=== PATIENT | female | born 1935 | race African-American/Black ===

== ENCOUNTER → 2017-11-21 | Emergency (ER) | payer MEDICARE, OTHER ==
[~2017-11-21] VITALS: Ht 165.1 cm; Wt 73.5 kg
[~2017-11-21] MED LIST: ACETAMINOPHEN500 M3 ORAL; AMLODIPINE BESY10 MG; ASPIRIN300 MG RECTAL; BENADRYL25 MG ORAL; CLOPIDOGREL75 MG; DEXILANT60 MG; DIOVAN160 MG; DOXAZOSIN MESYLA4 MG; FUROSEMIDE40 MG; GLIMEPIRIDE4 MG; HYDROCODON-ACE1 EA15; ISOSORBIDE MONO60 M1; KIONEX15 GM/601; Ketorolac 30mg Inj IV ONE; LIDODERM700 M1 TOPIC; PLAVIX75 MG ORAL; RALOXIFENE HCL60 MG; RANEXA1000 MG; ULTRA-LIGHT RO1 EACH MC
[2017-11-21 09:19] VITALS: BP 140/75
[2017-11-21 10:04] LABS: BASOPHILS % (AUTO) 1.3 % (0.0-2.0); EOSINOPHILS % (AUTO) 3.5 % (0.0-3.0); HEMATOCRIT 36.2 % (37.0-47.0); HEMOGLOBIN 11.8 G/DL (12.0-16.0); LYMPHOCYTES % (AUTO) 30.5 % (20.0-45.0); MEAN CORPUSCULAR VOLUME 99 FL (80-99); MONOCYTES % (AUTO) 5.9 % (1.0-10.0); NEUTROPHILS % (AUTO) 58.8 % (45.0-75.0); PLATELET COUNT 349 K/UL (150-450); RED BLOOD COUNT 3.67 M/UL (4.20-5.40); RED CELL DISTRIBUTION WIDTH 10.5 % (11.6-14.8)
[2017-11-21 10:13] LABS: ANION GAP 9 mmol/L (5-15); BLOOD UREA NITROGEN 44 mg/dL (7-18); CALCIUM 9.2 MG/DL (8.5-10.1); CARBON DIOXIDE 24 MMOL/L (21-32); CHLORIDE 104 MMOL/L (98-107); CREATININE 2.4 MG/DL (0.55-1.30); POTASSIUM 4.5 MMOL/L (3.5-5.1); SODIUM 137 MMOL/L (136-145)
[2017-11-21 10:14] LABS: INR 0.9 (0.9-1.1)
[2017-11-21 10:27] LABS: ALANINE AMINOTRANSFERASE 20 U/L (12-78); ALBUMIN 4.2 G/DL (3.4-5.0); ALKALINE PHOSPHATASE 105 U/L (46-116); ASPARTATE AMINO TRANSFERASE 18 U/L (15-37); BILIRUBIN,TOTAL 0.4 MG/DL (0.2-1.0); CKMB 1.6 NG/ML (0.0-3.6); CREATINE KINASE 96 U/L (26-308)
--- NOTE | 2017-11-21 11:12 | Emergency Room Report ---
History of Present Illness General Chief Complaint: Multiple Trauma/Fall Source: Patient Present Illness HPI The patient states that she tripped over a wood pallet at [facility] yesterday evening. She states she fell onto her left shoulder. She denies head injury or any other injuries. She has pain in her left shoulder primarily with movement. She denies headache or neck pain. She denies blurry vision. She denies chest pain or shortness of breath. She has no other complaints. Allergies: Coded Allergies: Crab (Verified Allergy, Mild, 05/28/16) Uncoded Allergies: SHELLFISH (Allergy, Unknown, 11/21/17) Patient History Past Medical History: see triage record, DM, other - glaucoma Past Surgical History: other - L. nephrectomy Social History: Denies: smoking, alcohol use, drug use Reviewed Nursing Documentation: PMH: Agreed; PSxH: Agreed Nursing Documentation-PMH Past Medical History: No History, Except For Hx Cardiac Problems: Yes - "blocked arteries," "one kidney" Hx Hypertension: Yes Hx Diabetes: Yes Hx Cancer: No Hx Gastrointestinal Problems: No - Lt kidney removed Hx Neurological Problems: No Hx Dizziness: Yes Review of Systems All Other Systems: negative except mentioned in HPI Physical Exam Vital Signs Date Time Temp Pulse Resp B/P (MAP) Pulse Ox O2 Delivery O2 Flow Rate FiO2 11/21/17 09:01 98.3 75 18 140/75 98 Room Air 98.2 Sp02 EP Interpretation: reviewed, normal General Appearance: no apparent distress, alert, GCS 15, non-toxic Head: normocephalic, atraumatic Eyes: bilateral eye normal inspection, bilateral eye PERRL ENT: hearing grossly normal, normal pharynx, no angioedema, normal voice Neck: full range of motion, supple/symm/no masses Respiratory: chest non-tender, lungs clear, normal breath sounds, no respiratory distress, no retraction, no accessory muscle use, speaking full sentences Cardiovascular #1: regular rate, rhythm, no edema Gastrointestinal: normal bowel sounds, non tender, soft, non-distended, no guarding, no rebound Rectal: deferred Musculoskeletal: back normal, gait/station normal, normal range of motion, other - TTP over the L. shoulder. +pain w/ ROM. No skin findings. No deformity. Neurologic: alert, oriented x3, responsive, motor strength/tone normal, sensory intact, speech normal Psychiatric: judgement/insight normal, memory normal, mood/affect normal, no suicidal/homicidal ideation Skin: normal color, no rash, warm/dry, well hydrated Medical Decision Making Diagnostic Impression: Primary Impression: Contusion ER Course This patient has a shoulder contusion. I did obtain a shoulder x-ray secondary to the patient's trauma. There is no evidence of fracture. There are no other physical exam findings that would make me concerned for other fractures or injuries. The patient was given Toradol and felt much better. The patient has had a history of a left nephrectomy. I'm uncomfortable prescribing this patient Motrin. I will prescribe the patient Tylenol and lidocaine patches. This patient was instructed follow closely with her primary care physician. The patient is given return precautions and follow-up instructions. Laboratory Tests Test 11/21/17 09:45 White Blood Count 5.0 K/UL (4.8-10.8) Red Blood Count 3.67 M/UL (4.20-5.40) L Hemoglobin 11.8 G/DL (12.0-16.0) L Hematocrit 36.2 % (37.0-47.0) L Mean Corpuscular Volume 99 FL (80-99) Mean Corpuscular Hemoglobin 32.0 PG (27.0-31.0) H Mean Corpuscular Hemoglobin Concent 32.4 G/DL (32.0-36.0) Red Cell Distribution Width 10.5 % (11.6-14.8) L Platelet Count 349 K/UL (150-450) Mean Platelet Volume 7.2 FL (6.5-10.1) Neutrophils (%) (Auto) 58.8 % (45.0-75.0) Lymphocytes (%) (Auto) 30.5 % (20.0-45.0) Monocytes (%) (Auto) 5.9 % (1.0-10.0) Eosinophils (%) (Auto) 3.5 % (0.0-3.0) H Basophils (%) (Auto) 1.3 % (0.0-2.0) Prothrombin Time 9.5 SEC (9.30-11.50) Prothrombin Time INR 0.9 (0.9-1.1) PTT 25 SEC (23-33) Sodium Level 137 MMOL/L (136-145) Potassium Level 4.5 MMOL/L (3.5-5.1) Chloride Level 104 MMOL/L (98-107) Carbon Dioxide Level 24 MMOL/L (21-32) Anion Gap 9 mmol/L (5-15) Blood Urea Nitrogen 44 mg/dL (7-18) H Creatinine 2.4 MG/DL (0.55-1.30) H Estimate Glomerular Filtration Rate mL/min (>60) Glucose Level 120 MG/DL (74-106) H Calcium Level 9.2 MG/DL (8.5-10.1) Total Bilirubin 0.4 MG/DL (0.2-1.0) Aspartate Amino Transferase (AST) 18 U/L (15-37) Alanine Aminotransferase (ALT) 20 U/L (12-78) Alkaline Phosphatase 105 U/L (46-116) Total Creatine Kinase 96 U/L (26-308) Creatine Kinase MB 1.6 NG/ML (0.0-3.6) Creatine Kinase MB Relative Index 1.6 Troponin I 0.017 ng/mL (0.000-0.056) Total Protein 8.4 G/DL (6.4-8.2) H Albumin 4.2 G/DL (3.4-5.0) Globulin 4.2 g/dL Albumin/Globulin Ratio 1.0 (1.0-2.7) EKG Diagnostic Results Rate: normal Rhythm: NSR ST Segments: no acute changes Rhythm Strip Diag. Results EP Interpretation: yes Rate: 60's Rhythm: NSR, no PVC's, no ectopy Other X-Ray Diagnostic Results Other X-Ray Diagnostic Results : X-Ray ordered: L. shoulder # of Views/Limited Vs Complete: Complete Indication: Pain EP Interpretation: Yes Interpretation: no dislocation, no soft tissue swelling, no fractures Impression: No acute disease Electronically Signed by: Gricel Last Vital Signs Date Time Temp Pulse Resp B/P (MAP) Pulse Ox O2 Delivery O2 Flow Rate FiO2 11/21/17 10:31 98.2 11/21/17 09:19 18 140/75 98 Room Air 11/21/17 09:01 75 Status: improved Disposition: HOME, SELF-CARE Condition: Improved Referrals: NOT CHOSEN IPA/,REFERRING (PCP) Yashira Iniguez DO Nov 21, 2017 11:12
--- NOTE | 2017-11-21 12:21 | Diagnostic Imaging Report ---
Indication: Pain status post injury Technique: XRAY Shoulder Compl L Comparison: None Findings: No acute fracture or dislocation. Glenohumeral joint preserved. There are some degenerative change of the shoulder and acromioclavicular joint. The left scapula appears somewhat high riding, finding which may be chronic or may be related to positioning. Left lung is grossly clear. No radiopaque foreign body identified. Impression: No evidence of acute fracture or dislocation.
== END | disposition home or self-care (01) ==
LOC: EMR 10:26
DX: S40.012A Contusion of left shoulder, initial encounter (principal); W01.0XXA Fall on same level from slipping, tripping and stumbling without subsequent striking against object, initial encounter; Y92.512 Supermarket, store or market as the place of occurrence of the external cause; I10 Essential (primary) hypertension; E11.9 Type 2 diabetes mellitus without complications; Z91.013 Allergy to seafood
CPT/HCPCS: 36415; 73030; 80053; 82550; 82553; 84484; 85025; 85610; 85730; 93005; 96372; 99283; J1885

== ENCOUNTER 2018-02-01 20:41 | Emergency (ER) | payer MEDICARE, OTHER ==
[~2018-02-01] VITALS: Ht 165.1 cm; Wt 72.6 kg
[~2018-02-01 20:41] MED LIST changes: -Ketorolac 30mg Inj IV ONE
[2018-02-01] MEDS ORDERED: Tylenol #3 tab (300mg/30mg) ORAL ONE (21:45)
[2018-02-01] MEDS ORDERED: ACETAMINOPHEN-1 EAC1 ORAL (22:54)
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
[2018-02-01 23:03] VITALS: BP 148/74
[2018-02-01 23:22] VITALS: BP 148/74
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
== END 2018-02-01 23:24 | disposition home or self-care (01) ==
LOC: EMR 21:49
DX: S16.1XXA Strain of muscle, fascia and tendon at neck level, initial encounter (principal); V43.52XA Car driver injured in collision with other type car in traffic accident, initial encounter; Y92.410 Unspecified street and highway as the place of occurrence of the external cause; E11.9 Type 2 diabetes mellitus without complications; I10 Essential (primary) hypertension
CPT/HCPCS: 72125; 99284

== ENCOUNTER 2019-08-22 22:01 | Inpatient (IN) | payer MEDICARE, OTHER ==
[~2019-08-22] VITALS: Ht 167.6 cm; Wt 64.9 kg
[~2019-08-22 22:01] MED LIST changes: +ACETAMINOPHEN-1 EAC1 ORAL
[2019-08-22 22:07] VITALS: BP 132/74
--- NOTE | 2019-08-22 22:07 | NUR ---
ED Nurse Note: Patient MAME RA29 from home c/o left substernal chest pain and SOB started several hours ago. Per EMS, patient was saturating 70%, NRB mask @15L, was placed, O2 sat 99%. Nitro spray was given user acceptance tester. Afebrile. No travel history. Pt was placed on rigger supervisor.
--- NOTE | 2019-08-22 22:10 | NUR ---
ED Nurse Note: IV line established. Blood specimen collected and sent to lab.
--- NOTE | 2019-08-22 22:12 | Emergency Room Report ---
History of Present Illness General Chief Complaint: Chest Pain Source: Patient Present Illness HPI Patient presents with reports of chest pain initially on further discussion patient appears labored in breathing and appears short of breath asking further patient does report that she has been short of breath as well for the past 2 days Denies any obvious fever denies any recent travel Chest pain is 6 out of 10 and heaviness reports that initially It was 10 out of 10 and improved with nitroglycerin denies any abdominal pain denies any rash Denies any pleurisy denies any cough COVID-19 risk:Contact w/high r: No COVID-19 risk:Travel to affect: No Has patient experienced verduzco: No Allergies: Coded Allergies: Crab (Verified Allergy, Mild, 05/28/16) Uncoded Allergies: SHELLFISH (Allergy, Unknown, 11/21/17) Patient History Past Medical History: see triage record Now: No Reviewed Nursing Documentation: PMH: Agreed; PSxH: Agreed Nursing Documentation-PMH Hx Cardiac Problems: Yes - "blocked arteries," "one kidney" Hx Hypertension: Yes Hx Diabetes: Yes Hx Cancer: No Hx Gastrointestinal Problems: No - Lt kidney removed Hx Neurological Problems: No Hx Dizziness: Yes Review of Systems All Other Systems: negative except mentioned in HPI Physical Exam Vital Signs Date Time Temp Pulse Resp B/P (MAP) Pulse Ox O2 Delivery O2 Flow Rate FiO2 08/22/19 22:02 98.1 66 18 132/74 (93) 99 Non-Rebreather 15.0 Sp02 EP Interpretation: reviewed, normal General Appearance: mild distress - Appears short of breath Head: normocephalic, atraumatic Eyes: bilateral eye PERRL, bilateral eye EOMI ENT: EOM grossly intact, normal pharynx Neck: supple Respiratory: crackles - Laterally, mildly tachypneic Cardiovascular #1: regular rate, rhythm Gastrointestinal: non tender, soft Musculoskeletal: normal inspection Neurologic: alert, oriented x3 Psychiatric: normal inspection Skin: other - Bilateral breast implants visible, bilateral edema, however the right side does appear more edematous on the left at the ankle area Lymphatic: no adenopathy Procedures Critical Care Time Critical Care Time 50 minutes for multiple re-evaluations critical presentation concerning for respiratory failure and possible not including any procedural time Medical Decision Making Diagnostic Impression: Primary Impression: ACS (acute coronary syndrome) Additional Impression: CHF (congestive heart failure) ER Course Patient is a fairly complex patient with multiple differential to consideration including but not limited to cardiac cardiopulmonary and vascular emergencies Patient does have complaints of shortness of breath There has been no obvious sick contact and the patient is afebrile Consideration is also made for covid 19 Patient's BNP is also significantly elevated x-ray also shows congestion and the patient's clinical exam showing congestion All attempts are being made at this time to avoid BiPAP treatment secondary to aerosolization of possible covid 19 However this patient appears to have clinical findings consistent with CHF And laboratory findings confirming this she also remained tachypneic and required BiPAP at this time Patient is isolated in trauma room And admitted for further inpatient care Labs Test 08/22/19 22:13 08/22/19 23:51 White Blood Count 8.3 K/UL (4.8-10.8) Red Blood Count 2.72 M/UL (4.20-5.40) Hemoglobin 9.1 G/DL (12.0-16.0) Hematocrit 28.9 % (37.0-47.0) Mean Corpuscular Volume 106 FL (80-99) Mean Corpuscular Hemoglobin 33.5 PG (27.0-31.0) Mean Corpuscular Hemoglobin Concent 31.6 G/DL (32.0-36.0) Red Cell Distribution Width 12.7 % (11.6-14.8) Platelet Count 262 K/UL (150-450) Mean Platelet Volume 7.9 FL (6.5-10.1) Neutrophils (%) (Auto) 78.7 % (45.0-75.0) Lymphocytes (%) (Auto) 15.0 % (20.0-45.0) Monocytes (%) (Auto) 4.6 % (1.0-10.0) Eosinophils (%) (Auto) 0.8 % (0.0-3.0) Basophils (%) (Auto) 0.9 % (0.0-2.0) Sodium Level 143 MMOL/L (136-145) Potassium Level 5.5 MMOL/L (3.5-5.1) Chloride Level 110 MMOL/L (98-107) Carbon Dioxide Level 23 MMOL/L (21-32) Anion Gap 10 mmol/L (5-15) Blood Urea Nitrogen 35 mg/dL (7-18) Creatinine 2.0 MG/DL (0.55-1.30) Estimat Glomerular Filtration Rate 28.7 mL/min (>60) Glucose Level 150 MG/DL (74-106) Lactic Acid Level 0.90 mmol/L (0.4-2.0) Calcium Level 9.1 MG/DL (8.5-10.1) Total Bilirubin 0.3 MG/DL (0.2-1.0) Aspartate Amino Transf (AST/SGOT) 16 U/L (15-37) Alanine Aminotransferase (ALT/SGPT) 17 U/L (12-78) Alkaline Phosphatase 97 U/L (46-116) Total Creatine Kinase 60 U/L (26-308) Creatine Kinase MB 0.8 NG/ML (0.0-3.6) Creatine Kinase MB Relative Index 1.3 Troponin I 0.010 ng/mL (0.000-0.056) Pro-B-Type Natriuretic Peptide 48899 pg/mL (0-125) Total Protein 7.6 G/DL (6.4-8.2) Albumin 4.0 G/DL (3.4-5.0) Globulin 3.6 g/dL Albumin/Globulin Ratio 1.1 (1.0-2.7) Lipase 70 U/L (73-393) Urine Color Pale yellow Urine Appearance Clear Urine pH 5 (4.5-8.0) Urine Specific [place] 1.005 (1.005-1.035) Urine Protein Negative (NEGATIVE) Urine Glucose (UA) Negative (NEGATIVE) Urine Ketones Negative (NEGATIVE) Urine Blood Negative (NEGATIVE) Urine Nitrite Negative (NEGATIVE) Urine Bilirubin Negative (NEGATIVE) Urine Urobilinogen Normal MG/DL (0.0-1.0) Urine Leukocyte Esterase Negative (NEGATIVE) EKG Diagnostic Results Rate: normal Rhythm: NSR ST Segments: other - Left bundle branch block Rhythm Strip Diag. Results EP Interpretation: yes Rate: 77 Rhythm: NSR, no PVC's, no ectopy Chest X-Ray Diagnostic Results Chest X-Ray Diagnostic Results : Chest X-Ray Ordered: Yes # of Views/Limited/Complete: 1 View Indication: Shortness of Breath Interpretation: no consolidation, no pneumothorax, other - Pulmonary congestion Impression: Other - Pulmonary congestion Electronically Signed by: Carl Mike DO Last Vital Signs Date Time Temp Pulse Resp B/P (MAP) Pulse Ox O2 Delivery O2 Flow Rate FiO2 08/22/19 22:02 98.1 66 18 132/74 (93) 99 Non-Rebreather 15.0 Status: improved Disposition: ADMITTED INPATIENT Condition: Critical Carl Mike DO Aug 22, 2019 22:12
--- NOTE | 2019-08-22 22:33 | NUR ---
ED Nurse Note: Xray at bedside.
--- NOTE | 2019-08-22 22:35 | NUR ---
ED Nurse Note: Pt is placed on venturi mask 14L/min, 55%. Not in any distress, tolerating well.
[2019-08-22 22:40] LABS: BASOPHILS % (AUTO) 0.9 % (0.0-2.0); EOSINOPHILS % (AUTO) 0.8 % (0.0-3.0); HEMATOCRIT 28.9 % (37.0-47.0); HEMOGLOBIN 9.1 G/DL (12.0-16.0); MEAN CORPUSCULAR VOLUME 106 FL (80-99); MONOCYTES % (AUTO) 4.6 % (1.0-10.0); NEUTROPHILS % (AUTO) 78.7 % (45.0-75.0); PLATELET COUNT 262 K/UL (150-450); RED BLOOD COUNT 2.72 M/UL (4.20-5.40); RED CELL DISTRIBUTION WIDTH 12.7 % (11.6-14.8); WHITE BLOOD COUNT 8.3 K/UL (4.8-10.8)
[2019-08-22 22:49] LABS: ANION GAP 10 mmol/L (5-15); BLOOD UREA NITROGEN 35 mg/dL (7-18); CALCIUM 9.1 MG/DL (8.5-10.1); CARBON DIOXIDE 23 MMOL/L (21-32); CHLORIDE 110 MMOL/L (98-107); POTASSIUM 5.5 MMOL/L (3.5-5.1); SODIUM 143 MMOL/L (136-145)
[2019-08-22 23:04] LABS: ALANINE AMINOTRANSFERASE 17 U/L (12-78); ALBUMIN/GLOBULIN RATIO 1.1 (1.0-2.7); ALKALINE PHOSPHATASE 97 U/L (46-116); ASPARTATE AMINO TRANSFERASE 16 U/L (15-37); BILIRUBIN,TOTAL 0.3 MG/DL (0.2-1.0); CKMB 0.8 NG/ML (0.0-3.6); CREATINE KINASE 60 U/L (26-308)
--- NOTE | 2019-08-22 23:20 | NUR ---
ED Nurse Note: Pt is placed on BIPAP per ERMD. Settin/5, FiO2 55%, S/T mode.
--- NOTE | 2019-08-22 23:53 | NUR ---
ED Nurse Note: Urine specimen collected and sent to lab.
[2019-08-23] VITALS (8 sets, daily range): BP systolic 125–149; BP diastolic 63–72
[2019-08-23] LABS: APPEARANCE,URINE CLEAR; BILIRUBIN, URINE NEGATIVE (NEGATIVE); COLOR,URINE PALE YELLOW; GLUCOSE, URINE (UA) NEGATIVE (NEGATIVE); KETONES,URINE NEGATIVE (NEGATIVE); LEUKOCYTE ESTERASE ,URINE NEGATIVE (NEGATIVE); NITRITE,URINE NEGATIVE (NEGATIVE); PH,URINE 5 (4.5-8.0); PROTEIN,URINE NEGATIVE (NEGATIVE); UROBILINOGEN,URINE NORMAL MG/DL (0.0-1.0)
[2019-08-23] MEDS ORDERED: Albuterol/Ipratropium 3ml neb HHN PRN (01:00)
[2019-08-23] MEDS ORDERED: Miralax 17gm pkt ORAL PRN (01:00)
--- NOTE | 2019-08-23 01:15 | NUR ---
TRANSFER TO FLOOR: Patient transferred to SDU. Report given to Hung RAMIREZ. Pt alert and orientedx4, verbally responsive. On BIPAP, tolerating well. Not in any distress. Afebrile. Sinus rhythm. IV line on right hand 22g patent and intact. No skin issues. Medrecon done. Belongings list done. All belongings sent with the patient.
--- NOTE | 2019-08-23 01:16 | NUR ---
Received patient from JAMES Díaz. Patient is aaox4, vss, with no acute distress. Patient is on case monitor, clean and cooperative. Patient states he pain is 0/10 and breathing well after tx. Patient has no skin issues. Bilateral breasts implants from 20 years ago are hard and have always been hard per patient. Patient on Bipap 12/5 Fio2 at 55%. Right hand 22g IV intact and patent. Patient is ambulatory with assistance when toileting. Bed at its lowest position; call light in reach, and x3 bed rails are up. Will continue to monitor.
--- NOTE | 2019-08-23 03:00 | NUR ---
NURSE NOTES: Patient tolerated ambulating to bedside commode with assistance.
--- NOTE | 2019-08-23 07:13 | NUR ---
HAND-OFF: Report given to JAMES Sparks.
[2019-08-23] MEDS: Heparin 5000 units/ml inj SUBQ SCH ×2 (09:00→21:16)
[2019-08-23] MEDS: Docusate 100mg cap ORAL SCH ×2 (10:20→21:14)
[2019-08-23] MEDS ORDERED: Aspirin Baby 81mg ORAL SCH (11:15)
[2019-08-23 11:24] LABS: ANION GAP 12 mmol/L (5-15); BLOOD UREA NITROGEN 33 mg/dL (7-18); CALCIUM 9.3 MG/DL (8.5-10.1); CARBON DIOXIDE 21 MMOL/L (21-32); CHLORIDE 106 MMOL/L (98-107); CREATININE 2.1 MG/DL (0.55-1.30); POTASSIUM 5.1 MMOL/L (3.5-5.1); SODIUM 139 MMOL/L (136-145)
--- NOTE | 2019-08-23 11:27 | History and Physical ---
History of Present Illness General Date patient seen: Aug 23, 2019 Time patient seen: 06:30 Reason for Hospitalization: Chest Pain Present Illness HPI 83 year old woman with history of CAD, HTN, HLD, NIDDM who presented to the ED with complaints of chest pain and short of breath x 2 days associated with LE edema, Denies fever, chills, sick contacts, recent travel out of the area. Chest pain was retrosternal and nonriadting, 03/15, resolved with NTG given in ED. She was given Lasix 60 mg IV and referred for admission for presumed CHF exacerbation and angina. Family Hx: No premature CAD Social Hx: No alcohol or tobacco Allergies: Coded Allergies: Crab (Verified Allergy, Mild, 05/28/16) Uncoded Allergies: SHELLFISH (Allergy, Unknown, 11/21/17) Medication History Scheduled Clopidogrel Bisulfate* (Plavix*), Unknown Dose ORAL DAILY, (Reported) Scheduled PRN Acetaminophen With Codeine (T#3) (Tylenol #3 Tab*), 1 TAB ORAL Q8H PRN for For Pain Aspirin (Aspirin), 300 MG RECTAL DAILY PRN for Mild Pain/Temp > 100.5, (Reported ) Miscellaneous Medications Amlodipine Besylate* (Amlodipine Besylate*), (Reported) Clopidogrel* (Clopidogrel*), (Reported) Dexlansoprazole (Dexilant), (Reported) Doxazosin Mesylate* (Doxazosin Mesylate*), (Reported) Furosemide* (Lasix*), (Reported) Glimepiride* (Glimepiride*), (Reported) Hydrocodone/Acetaminophen 5-325* (Hydrocodone/Acetaminophen 5-325*), (Reported) Isosorbide Mononitrate (Isosorbide Mononitrate Er), (Reported) Raloxifene HCl (Raloxifene HCl), (Reported) Ranolazine (Ranexa), (Reported) Durable Medical Equipment Walker (Ultra-Light Rollator), 1 EACH MC NEEDED PRN, (DME) Patient History Healthcare decision maker Resuscitation status Advanced Directive on File Family History Family History: Patient reports no known family medical history. Review of Systems Constitutional: Denies: chills, fever Respiratory: Denies: cough Cardiovascular: Reports: chest pain, edema; Denies: palpitations, syncope Gastrointestinal: Denies: abdominal pain, diarrhea Genitourinary: Denies: dysuria Musculoskeletal: Denies: back pain Skin: Denies: rash Neurological: Denies: headache Endocrine: Denies: excessive sweating Physical Exam General Appearance: no apparent distress, alert HEENT: atraumatic, anicteric Neck: normal alignment, supple Respiratory/Chest: lungs clear, normal breath sounds, no respiratory distress, no accessory muscle use Cardiovascular/Chest: normal rate, regular rhythm Abdomen: non tender, soft Extremities: non-tender, normal inspection Skin Exam: normal pigmentation, warm/dry Neurologic: truck driver II-XII grossly normal, abnormal gait, alert Last 24 Hour Vital Signs Date Time Temp Pulse Resp B/P (MAP) Pulse Ox O2 Delivery O2 Flow Rate FiO2 08/23/19 08:10 97.7 64 16 149/69 (95) 96 08/23/19 05:11 77 16 98 45 08/23/19 04:00 Bi-pap 08/23/19 04:00 98.1 61 12 140/66 (90) 100 61 08/23/19 04:00 55 08/23/19 04:00 60 08/23/19 02:21 Bi-Pap 08/23/19 02:15 91 15 99 55 08/23/19 02:02 60 08/23/19 01:20 94 17 98 55 08/23/19 01:20 95 18 99 Bi-Pap 55 08/23/19 01:15 98.0 70 19 129/72 100 Bi-pap 14.0 08/23/19 01:15 98.0 70 19 129/72 100 Bi-pap 08/23/19 00:00 97.5 78 17 125/69 100 Bi-pap 14.0 08/22/19 22:07 98.1 66 18 132/74 99 Venturi Mask 14.0 08/22/19 22:07 66 18 Venturi Mask 14.0 08/22/19 22:02 98.1 66 18 132/74 (93) 99 Non-Rebreather 15.0 Intake and Output 08/22/19 08/23/19 19:00 07:00 Output Total 500 ml Balance -500 ml Output Urine Total 500 ml # Voids 4 Laboratory Tests Test 08/22/19 22:13 08/22/19 23:51 08/23/19 03:30 White Blood Count 8.3 K/UL (4.8-10.8) Red Blood Count 2.72 M/UL (4.20-5.40) L Hemoglobin 9.1 G/DL (12.0-16.0) L Hematocrit 28.9 % (37.0-47.0) L Mean Corpuscular Volume 106 FL (80-99) H Mean Corpuscular Hemoglobin 33.5 PG (27.0-31.0) H Mean Corpuscular Hemoglobin Concent 31.6 G/DL (32.0-36.0) L Red Cell Distribution Width 12.7 % (11.6-14.8) Platelet Count 262 K/UL (150-450) Mean Platelet Volume 7.9 FL (6.5-10.1) Neutrophils (%) (Auto) 78.7 % (45.0-75.0) H Lymphocytes (%) (Auto) 15.0 % (20.0-45.0) L Monocytes (%) (Auto) 4.6 % (1.0-10.0) Eosinophils (%) (Auto) 0.8 % (0.0-3.0) Basophils (%) (Auto) 0.9 % (0.0-2.0) Sodium Level 143 MMOL/L (136-145) Pending Potassium Level 5.5 MMOL/L (3.5-5.1) H Pending Chloride Level 110 MMOL/L (98-107) H Pending Carbon Dioxide Level 23 MMOL/L (21-32) Pending Anion Gap 10 mmol/L (5-15) Blood Urea Nitrogen 35 mg/dL (7-18) H Pending Creatinine 2.0 MG/DL (0.55-1.30) H Pending Estimat Glomerular Filtration Rate 28.7 mL/min (>60) Pending Glucose Level 150 MG/DL (74-106) H Pending Lactic Acid Level 0.90 mmol/L (0.4-2.0) Calcium Level 9.1 MG/DL (8.5-10.1) Pending Total Bilirubin 0.3 MG/DL (0.2-1.0) Aspartate Amino Transf (AST/SGOT) 16 U/L (15-37) Alanine Aminotransferase (ALT/SGPT) 17 U/L (12-78) Alkaline Phosphatase 97 U/L (46-116) Total Creatine Kinase 60 U/L (26-308) Creatine Kinase MB 0.8 NG/ML (0.0-3.6) Creatine Kinase MB Relative Index 1.3 Troponin I 0.010 ng/mL (0.000-0.056) 0.030 ng/mL (0.000-0.056) Pro-B-Type Natriuretic Peptide 49904 pg/mL (0-125) H Total Protein 7.6 G/DL (6.4-8.2) Albumin 4.0 G/DL (3.4-5.0) Globulin 3.6 g/dL Albumin/Globulin Ratio 1.1 (1.0-2.7) Lipase 70 U/L (73-393) L Urine Color Pale yellow Urine Appearance Clear Urine pH 5 (4.5-8.0) Urine Specific [place] 1.005 (1.005-1.035) Urine Protein Negative (NEGATIVE) Urine Glucose (UA) Negative (NEGATIVE) Urine Ketones Negative (NEGATIVE) Urine Blood Negative (NEGATIVE) Urine Nitrite Negative (NEGATIVE) Urine Bilirubin Negative (NEGATIVE) Urine Urobilinogen Normal MG/DL (0.0-1.0) Urine Leukocyte Esterase Negative (NEGATIVE) Height (Feet): 5 Height (Inches): 6.00 Weight (Pounds): 171 Medications Current Medications Medications (Trade) Dose Ordered Sig/Floresita Route PRN Reason Start Time Stop Time Status Last Admin Dose Admin Acetaminophen (Tylenol) 650 mg Q4H PRN ORAL Mild Pain (Pain Scale 1-3) 08/23/19 01:00 09/22/19 00:59 Acetaminophen (Tylenol) 650 mg Q4H PRN ORAL fever 08/23/19 01:00 09/22/19 00:59 Albuterol/ Ipratropium (Albuterol/ Ipratropium) 3 ml Q6H PRN HHN Shortness of Breath 08/23/19 01:00 08/28/19 00:59 Dextrose (Dextrose 50%) 25 ml Q30M PRN IV Hypoglycemia 08/23/19 01:00 11/21/19 00:59 Dextrose (Dextrose 50%) 50 ml Q30M PRN IV Hypoglycemia 08/23/19 01:00 11/21/19 00:59 Docusate Sodium (Colace) 100 mg EVERY 12 HOURS ORAL 08/23/19 09:00 09/22/19 08:59 08/23/19 10:20 Furosemide (Lasix) 60 mg BID IV 08/23/19 09:00 09/22/19 08:59 08/23/19 10:20 Heparin Sodium (Porcine) (Heparin 5000 units/ml) 5,000 units EVERY 12 HOURS SUBQ 08/23/19 09:00 10/07/19 08:59 Ondansetron HCl (Zofran) 4 mg Q6H PRN IVP Nausea & Vomiting 08/23/19 01:00 09/22/19 00:59 Polyethylene Glycol (Miralax) 17 gm DAILYPRN PRN ORAL Constipation 08/23/19 01:00 09/22/19 00:59 Assessment/Plan Assessment/Plan: 83 year old woman with CAD, HTN, HLD, NIDDM who presented to the ED with chest pain, dyspnea and LE edema #Angina #History of CAD #suspected acute CHF #HTN #HLD -admit to [facility] -check serial trops -continue IV Lasix diuresis -cont ASA, Plavix, Imdur -Hold Ranexa due to renal dysfunction -check TTE -Cardiology consult regarding possible inpatient stress test -monitor I&O, daily weights -Dietary sodium restriction #Suspected MAY, unknown baseline creat #Hyperkalemia -monitor BMP closely with IV diuresis -Nephrology consulted #NIDDM -hold oral diabetic meds -ISS I spent 70 minutes on this patient's case, and >50% was dedicated to counseling and/or care coordination. Paco Dockery MD Aug 23, 2019 11:27
[2019-08-23] MEDS: NovoLOG Insulin Flexpen SUBQ SCH ×2 (11:30→16:30)
--- NOTE | 2019-08-23 11:43 | Consultation ---
History of Present Illness General Chief Complaint: Chest Pain Present Illness HPI 83 year old woman with history of CAD, HTN, HLD, NIDDM who presented to the ED with complaints of chest pain and short of breath x 2 days associated with LE edema, Denies fever, chills, sick contacts, recent travel out of the area. Chest pain was retrosternal and nonriadting, 03/15, resolved with NTG given in ED. She was given Lasix 60 mg IV and referred for admission for presumed CHF exacerbation and angina. patient with history of R sided nephrectomy many years ago for possible RCC? she doesnt recall her baseline renal function Allergies: Coded Allergies: Crab (Verified Allergy, Mild, 05/28/16) Uncoded Allergies: SHELLFISH (Allergy, Unknown, 11/21/17) Medication History Scheduled Clopidogrel Bisulfate* (Plavix*), Unknown Dose ORAL DAILY, (Reported) Scheduled PRN Acetaminophen With Codeine (T#3) (Tylenol #3 Tab*), 1 TAB ORAL Q8H PRN for For Pain Aspirin (Aspirin), 300 MG RECTAL DAILY PRN for Mild Pain/Temp > 100.5, (Reported ) Miscellaneous Medications Amlodipine Besylate* (Amlodipine Besylate*), (Reported) Clopidogrel* (Clopidogrel*), (Reported) Dexlansoprazole (Dexilant), (Reported) Doxazosin Mesylate* (Doxazosin Mesylate*), (Reported) Furosemide* (Lasix*), (Reported) Glimepiride* (Glimepiride*), (Reported) Hydrocodone/Acetaminophen 5-325* (Hydrocodone/Acetaminophen 5-325*), (Reported) Isosorbide Mononitrate (Isosorbide Mononitrate Er), (Reported) Raloxifene HCl (Raloxifene HCl), (Reported) Ranolazine (Ranexa), (Reported) Durable Medical Equipment Walker (Ultra-Light Rollator), 1 EACH MC NEEDED PRN, (DME) Patient History Healthcare decision maker Resuscitation status Advanced Directive on File Review of Systems All Other Systems: negative except mentioned in HPI Physical Exam Last 24 Hour Vital Signs Date Time Temp Pulse Resp B/P (MAP) Pulse Ox O2 Delivery O2 Flow Rate FiO2 08/23/19 08:10 97.7 64 16 149/69 (95) 96 08/23/19 05:11 77 16 98 45 08/23/19 04:00 Bi-pap 08/23/19 04:00 98.1 61 12 140/66 (90) 100 61 08/23/19 04:00 55 08/23/19 04:00 60 08/23/19 02:21 Bi-Pap 08/23/19 02:15 91 15 99 55 08/23/19 02:02 60 08/23/19 01:20 94 17 98 55 08/23/19 01:20 95 18 99 Bi-Pap 55 08/23/19 01:15 98.0 70 19 129/72 100 Bi-pap 14.0 08/23/19 01:15 98.0 70 19 129/72 100 Bi-pap 08/23/19 00:00 97.5 78 17 125/69 100 Bi-pap 14.0 08/22/19 22:07 98.1 66 18 132/74 99 Venturi Mask 14.0 08/22/19 22:07 66 18 Venturi Mask 14.0 08/22/19 22:02 98.1 66 18 132/74 (93) 99 Non-Rebreather 15.0 Intake and Output 08/22/19 08/23/19 19:00 07:00 Output Total 500 ml Balance -500 ml Output Urine Total 500 ml # Voids 4 Laboratory Tests Test 08/22/19 22:13 08/22/19 23:51 08/23/19 03:30 White Blood Count 8.3 K/UL (4.8-10.8) Red Blood Count 2.72 M/UL (4.20-5.40) L Hemoglobin 9.1 G/DL (12.0-16.0) L Hematocrit 28.9 % (37.0-47.0) L Mean Corpuscular Volume 106 FL (80-99) H Mean Corpuscular Hemoglobin 33.5 PG (27.0-31.0) H Mean Corpuscular Hemoglobin Concent 31.6 G/DL (32.0-36.0) L Red Cell Distribution Width 12.7 % (11.6-14.8) Platelet Count 262 K/UL (150-450) Mean Platelet Volume 7.9 FL (6.5-10.1) Neutrophils (%) (Auto) 78.7 % (45.0-75.0) H Lymphocytes (%) (Auto) 15.0 % (20.0-45.0) L Monocytes (%) (Auto) 4.6 % (1.0-10.0) Eosinophils (%) (Auto) 0.8 % (0.0-3.0) Basophils (%) (Auto) 0.9 % (0.0-2.0) Sodium Level 143 MMOL/L (136-145) 139 MMOL/L (136-145) Potassium Level 5.5 MMOL/L (3.5-5.1) H 5.1 MMOL/L (3.5-5.1) Chloride Level 110 MMOL/L (98-107) H 106 MMOL/L (98-107) Carbon Dioxide Level 23 MMOL/L (21-32) 21 MMOL/L (21-32) Anion Gap 10 mmol/L (5-15) 12 mmol/L (5-15) Blood Urea Nitrogen 35 mg/dL (7-18) H 33 mg/dL (7-18) H Creatinine 2.0 MG/DL (0.55-1.30) H 2.1 MG/DL (0.55-1.30) H Estimat Glomerular Filtration Rate 28.7 mL/min (>60) 27.1 mL/min (>60) Glucose Level 150 MG/DL (74-106) H 135 MG/DL (74-106) H Lactic Acid Level 0.90 mmol/L (0.4-2.0) Calcium Level 9.1 MG/DL (8.5-10.1) 9.3 MG/DL (8.5-10.1) Total Bilirubin 0.3 MG/DL (0.2-1.0) Aspartate Amino Transf (AST/SGOT) 16 U/L (15-37) Alanine Aminotransferase (ALT/SGPT) 17 U/L (12-78) Alkaline Phosphatase 97 U/L (46-116) Total Creatine Kinase 60 U/L (26-308) Creatine Kinase MB 0.8 NG/ML (0.0-3.6) Creatine Kinase MB Relative Index 1.3 Troponin I 0.010 ng/mL (0.000-0.056) 0.030 ng/mL (0.000-0.056) Pro-B-Type Natriuretic Peptide 47505 pg/mL (0-125) H Total Protein 7.6 G/DL (6.4-8.2) Albumin 4.0 G/DL (3.4-5.0) Globulin 3.6 g/dL Albumin/Globulin Ratio 1.1 (1.0-2.7) Lipase 70 U/L (73-393) L Urine Color Pale yellow Urine Appearance Clear Urine pH 5 (4.5-8.0) Urine Specific [place] 1.005 (1.005-1.035) Urine Protein Negative (NEGATIVE) Urine Glucose (UA) Negative (NEGATIVE) Urine Ketones Negative (NEGATIVE) Urine Blood Negative (NEGATIVE) Urine Nitrite Negative (NEGATIVE) Urine Bilirubin Negative (NEGATIVE) Urine Urobilinogen Normal MG/DL (0.0-1.0) Urine Leukocyte Esterase Negative (NEGATIVE) Height (Feet): 5 Height (Inches): 6.00 Weight (Pounds): 171 Medications Current Medications Medications (Trade) Dose Ordered Sig/Floresita Route PRN Reason Start Time Stop Time Status Last Admin Dose Admin Acetaminophen (Tylenol) 650 mg Q4H PRN ORAL Mild Pain (Pain Scale 1-3) 08/23/19 01:00 09/22/19 00:59 Acetaminophen (Tylenol) 650 mg Q4H PRN ORAL fever 08/23/19 01:00 09/22/19 00:59 Albuterol/ Ipratropium (Albuterol/ Ipratropium) 3 ml Q6H PRN HHN Shortness of Breath 08/23/19 01:00 08/28/19 00:59 Amlodipine Besylate (Norvasc) 10 mg DAILY ORAL 08/24/19 09:00 09/23/19 08:59 Aspirin (ASA) 81 mg DAILY ORAL 08/23/19 11:15 10/07/19 11:14 Clopidogrel Bisulfate (Plavix) 75 mg DAILY ORAL 08/23/19 11:15 09/22/19 11:14 Dextrose (Dextrose 50%) 25 ml Q30M PRN IV Hypoglycemia 08/23/19 11:15 11/21/19 11:14 Dextrose (Dextrose 50%) 50 ml Q30M PRN IV Hypoglycemia 08/23/19 11:15 11/21/19 11:14 Docusate Sodium (Colace) 100 mg EVERY 12 HOURS ORAL 08/23/19 09:00 09/22/19 08:59 08/23/19 10:20 Furosemide (Lasix) 60 mg BID IV 08/23/19 09:00 09/22/19 08:59 08/23/19 10:20 Heparin Sodium (Porcine) (Heparin 5000 units/ml) 5,000 units EVERY 12 HOURS SUBQ 08/23/19 09:00 10/07/19 08:59 Insulin Aspart (NovoLOG) BEFORE MEALS AND HS SUBQ 08/23/19 11:30 11/21/19 11:29 Isosorbide Mononitrate (Imdur) 30 mg DAILY ORAL 08/24/19 09:00 09/23/19 08:59 Ondansetron HCl (Zofran) 4 mg Q6H PRN IVP Nausea & Vomiting 08/23/19 01:00 09/22/19 00:59 Polyethylene Glycol (Miralax) 17 gm DAILYPRN PRN ORAL Constipation 08/23/19 01:00 09/22/19 00:59 Objective Narrative General Appearance: no apparent distress, alert HEENT: atraumatic, anicteric Neck: normal alignment, supple Respiratory/Chest: lungs clear, normal breath sounds, no respiratory distress, no accessory muscle use Cardiovascular/Chest: normal rate, regular rhythm Abdomen: non tender, soft Extremities: non-tender, normal inspection Skin Exam: normal pigmentation, warm/dry Neurologic: nonfocal Assessment/Plan Diagnosis [place] I: #MAY due to CRS 1- on possible CKD? #history of R nephrectomy - possible RCC #hyperkalemia #Chest pain/dyspnea due to acute CHF #HTN #NIDDM #HLD - continue diuresis - on lasix 60 IV BID - check urine chem - strict I&Os - daily weights - cardiology eval - -hodl ranexa - continue asa - continue plavix - monitor bmp closely - check 2d echo - check renal US Sulema Broussard M.D. Aug 23, 2019 11:43
--- NOTE | 2019-08-23 11:56 | Diagnostic Imaging Report ---
Indication: Lower extremity pain and swelling TECHNIQUE: Duplex Doppler sonography of the deep veins in both lower extremities performed in real time. Findings: Grayscale and color flow imaging of the deep veins of the lower extremities were performed from the common femoral veins at both groins to the popliteal veins at the knees. The veins are 100% compressible. Doppler evaluation shows good respiratory phasicity on waveform analysis and good augmentation at the common femoral veins bilaterally. Impression: Negative ultrasound evaluation of the deep veins of both lower extremities. No evidence of thrombosis.
--- NOTE | 2019-08-23 12:04 | Diagnostic Imaging Report ---
Indication: Dyspnea Comparison: 02/19/2014 A single view chest radiograph was obtained. Findings: Interstitial edema demonstrated with prominent vascularity. The heart is borderline enlarged. Bones are osteopenic. Calcified bilateral breast implants noted. IMPRESSION: CHF
--- NOTE | 2019-08-23 14:43 | NUR ---
CASE MANAGEMENT: INITIAL REVIEW 83YR OLD FEMALE BIBA FROM HOME CC: CHEST PAIN PATIENT WAS SATURATION 70% ON RA; SI:CONGESTION HEART FAILURE . ACUTE CORONARY SYNDROME 98.1 66 18 132/74 99% 15L NON RE-BREATHER H/H 9.1/28.9 K+ 5.5 CL-110 BUN 35 CREAT 2.0 BG 150 BNP 30280 LIPASE 70 IS:IV LASIX X1 CHEST X-RAY- CHF \: 2W STEP DOWN UNIT DCP: HOME WHEN STABLE CASE MANAGEMENT: REVIEW 08/23/19 SI:CONGESTION HEART FAILURE . ACUTE CORONARY SYNDROME 98.1 60 12 140/66 100% ON BIPAP BUN 33 CREAT 2.1 BG 135 IS:IV LASIX BID COLACE PO BID PLAVIX PO QD ASA PO QD VENOUS DUPLEX - NEGATIVE \: 2W STEP DOWN UNIT DCP: HOME WHEN STABLE PLAN: US RENAL 2 D ECHO
--- NOTE | 2019-08-23 15:51 | Diagnostic Imaging Report ---
Indication:Elevated Bun and Creatinine. Technique: Grayscale and duplex Doppler imaging of the kidneys performed. Comparison: None Findings: Duplicated collecting system on the left noted. Shadowing focus noted in the midpole may be scarring or possibly a small stone. There is no hydronephrosis. Right kidney is absent. The left kidney measures 11.2 cm in length. Bladder and IVC are unremarkable. IMPRESSION: Absent right kidney. Left kidney showing a focus of shadowing in the midpole may be a focus of calcification or scarring versus a nonobstructive stone.
--- NOTE | 2019-08-23 20:30 | NUR ---
NURSE NOTES: Received pt as transfer from SDU. Pt is [id number], checked & verified ID, received report from JAMES Sparks. oriented pt to the room, call light provided. no c/o pain noted. will f/u meds as scheduled and accu check. Instructed to call as needed for assistance.
--- NOTE | 2019-08-24 00:10 | NUR ---
NURSE NOTES: Assisted pt to bathroom, voided well and had BM. tolerated OOB/BRP w/out distress.
[2019-08-24] MEDS ORDERED: Miralax 17gm pkt ORAL PRN (01:00)
[2019-08-24] MEDS ORDERED: Albuterol/Ipratropium 3ml neb HHN PRN (01:00)
[2019-08-24 04:00] VITALS: BP 126/59
[2019-08-24] MEDS: NovoLOG Insulin Flexpen SUBQ SCH ×4 (06:30→21:00)
[2019-08-24 06:42] LABS: EOSINOPHILS % (AUTO) 1.7 % (0.0-3.0); HEMATOCRIT 27.8 % (37.0-47.0); HEMOGLOBIN 9.4 G/DL (12.0-16.0); LYMPHOCYTES % (AUTO) 30.2 % (20.0-45.0); MEAN CORPUSCULAR VOLUME 101 FL (80-99); MONOCYTES % (AUTO) 6.8 % (1.0-10.0); NEUTROPHILS % (AUTO) 60.4 % (45.0-75.0); PLATELET COUNT 248 K/UL (150-450); RED BLOOD COUNT 2.76 M/UL (4.20-5.40); WHITE BLOOD COUNT 5.6 K/UL (4.8-10.8)
[2019-08-24 07:02] LABS: ANION GAP 11 mmol/L (5-15); BLOOD UREA NITROGEN 30 mg/dL (7-18); CALCIUM 9.2 MG/DL (8.5-10.1); CARBON DIOXIDE 26 MMOL/L (21-32); CHLORIDE 107 MMOL/L (98-107); CREATININE 1.9 MG/DL (0.55-1.30); POTASSIUM 4.9 MMOL/L (3.5-5.1); SODIUM 144 MMOL/L (136-145)
--- NOTE | 2019-08-24 07:02 | NUR ---
NURSE NOTES: Received report from Woody RAMIREZ. Pt in bed awake and orientedx3 and able to make needs known. IV site in right hand 22G SL patent and intact. Bed in lowest position and Bed alarm on. Call light within easy reach. Reinforced pt to use call light for help. Will continue to plan of care.
--- NOTE | 2019-08-24 07:02 | NUR ---
HAND-OFF: Report given to JAMES Viveros.
[2019-08-24 08:00] VITALS: BP 122/60
[2019-08-24] MEDS: Imdur 30mg tab ORAL SCH (08:37)
[2019-08-24] MEDS: Aspirin Baby 81mg ORAL SCH (08:38)
[2019-08-24] MEDS: Docusate 100mg cap ORAL SCH ×2 (08:38→17:59)
[2019-08-24] MEDS: Heparin 5000 units/ml inj SUBQ SCH ×2 (08:38→21:08)
[2019-08-24] MEDS ORDERED: Imdur 30mg tab ORAL SCH (09:00)
--- NOTE | 2019-08-24 10:57 | Nephrology Progress Note ---
Assessment/Plan Plan #MAY due to CRS 1- on possible CKD? #history of R nephrectomy - possible RCC #hyperkalemia #Chest pain/dyspnea due to acute CHF #HTN #NIDDM #HLD - continue diuresis - on lasix 60 IV BID - strict I&Os - daily weights - cardiology eval - -hold ranexa - continue asa - continue plavix - imdur 30mg daily - amlodipine 10mg daily - monitor bmp closely - check 2d echo- pending - check renal US- reviewed: absent right kidney Subjective ROS Limited/Unobtainable: No Interval Events/Complaints Cr improving echo pending Subjective breathing improved today no chest pain no dizziness Renal US: IMPRESSION: Absent right kidney. Left kidney showing a focus of shadowing in the midpole may be a focus of calcification or scarring versus a nonobstructive stone. Objective Objective Last 24 Hour Vital Signs Date Time Temp Pulse Resp B/P (MAP) Pulse Ox O2 Delivery O2 Flow Rate FiO2 08/24/19 08:37 122/60 08/24/19 08:37 60 122/60 08/24/19 08:00 60 08/24/19 08:00 Room Air 08/24/19 08:00 97.5 60 20 122/60 (80) 96 08/24/19 04:00 Room Air 08/24/19 04:00 98.2 63 20 126/59 (81) 97 08/24/19 04:00 60 08/24/19 00:00 Room Air 08/24/19 00:00 60 08/23/19 23:54 98.0 70 20 128/65 (86) 97 08/23/19 20:30 Room Air 08/23/19 20:00 97.9 62 20 134/63 (86) 98 08/23/19 20:00 60 08/23/19 16:00 Room Air 08/23/19 16:00 98.3 62 12 143/63 (89) 98 08/23/19 15:08 60 08/23/19 12:00 Room Air 08/23/19 12:00 98.0 60 12 140/66 (90) 97 08/23/19 11:49 60 Intake and Output 08/23/19 08/24/19 19:00 07:00 Intake Total 380 ml 200 ml Output Total 250 ml Balance 380 ml -50 ml Intake Oral 380 ml 200 ml Output Urine Total 250 ml # Voids 6 2 # Bowel Movements 2 1 Laboratory Tests 08/24/19 00:10: Urine Eosinophils None seen, Urine Random Total Protein 11, Urine Creatinine 69.5 08/24/19 06:15: White Blood Count 5.6, Red Blood Count 2.76L, Hemoglobin 9.4L, Hematocrit 27.8L , Mean Corpuscular Volume 101H, Mean Corpuscular Hemoglobin 34.0H, Mean Corpuscular Hemoglobin Concent 33.7, Red Cell Distribution Width 11.0L, Platelet Count 248, Mean Platelet Volume 6.7, Neutrophils (%) (Auto) 60.4, Lymphocytes (%) (Auto) 30.2, Monocytes (%) (Auto) 6.8, Eosinophils (%) (Auto) 1.7, Basophils (%) (Auto) 1.0, Sodium Level 144, Potassium Level 4.9, Chloride Level 107, Carbon Dioxide Level 26, Anion Gap 11, Blood Urea Nitrogen 30H, Creatinine 1.9H, Estimat Glomerular Filtration Rate 30.5, Glucose Level 84, Calcium Level 9.2, Magnesium Level 2.1, Troponin I 0.014 Height (Feet): 5 Height (Inches): 6.00 Weight (Pounds): 171 Objective General Appearance: no apparent distress, alert HEENT: atraumatic, anicteric Neck: normal alignment, supple Respiratory/Chest: lungs clear, normal breath sounds, no respiratory distress, no accessory muscle use Cardiovascular/Chest: normal rate, regular rhythm Abdomen: non tender, soft Extremities: non-tender, normal inspection Skin Exam: normal pigmentation, warm/dry Neurologic: nonfocal Sulema Broussard M.D. Aug 24, 2019 10:57
[2019-08-24 12:00] VITALS: BP 136/72
--- NOTE | 2019-08-24 14:15 | General Progress Note ---
Assessment/Plan Assessment/Plan: 83 year old woman with CAD, HTN, HLD, NIDDM who presented to the ED with chest pain, dyspnea and LE edema #Angina #History of CAD #suspected acute CHF #HTN #HLD -continue inpatient care -serial trops negative -continue IV Lasix diuresis -cont ASA, Plavix, Imdur -Hold Ranexa due to renal dysfunction -check TTE -Cardiology consult regarding possible inpatient stress test -monitor I&O, daily weights -Dietary sodium restriction #Suspected MAY, likely CRS #Hyperkalemia -monitor BMP closely with IV diuresis -Nephrology eval appreciated #NIDDM -hold oral diabetic meds -ISS I spent 30 minutes on this patient's case, and >50% was dedicated to counseling and/or care coordination. Subjective Date patient seen: Aug 24, 2019 Time patient seen: 14:09 Constitutional: Denies: fever Cardiovascular: Denies: chest pain, edema Respiratory: Denies: cough, orthopnea, shortness of breath Gastrointestinal/Abdominal: Denies: abdomen distended, abdominal pain Allergies: Coded Allergies: Crab (Verified Allergy, Mild, 05/28/16) Uncoded Allergies: SHELLFISH (Allergy, Unknown, 11/21/17) Subjective Follow up for angina, suspected acute CHF, MAY, cardiorenal syndrome Responding well to IV lasix diuresis, presenting symptoms improved. Renal function improved. Objective Last 24 Hour Vital Signs Date Time Temp Pulse Resp B/P (MAP) Pulse Ox O2 Delivery O2 Flow Rate FiO2 08/24/19 12:00 60 08/24/19 12:00 97.5 63 20 136/72 (93) 97 08/24/19 08:37 122/60 08/24/19 08:37 60 122/60 08/24/19 08:00 60 08/24/19 08:00 Room Air 08/24/19 08:00 97.5 60 20 122/60 (80) 96 08/24/19 04:00 Room Air 08/24/19 04:00 98.2 63 20 126/59 (81) 97 08/24/19 04:00 60 08/24/19 00:00 Room Air 08/24/19 00:00 60 08/23/19 23:54 98.0 70 20 128/65 (86) 97 08/23/19 20:30 Room Air 08/23/19 20:00 97.9 62 20 134/63 (86) 98 08/23/19 20:00 60 08/23/19 16:00 Room Air 08/23/19 16:00 98.3 62 12 143/63 (89) 98 08/23/19 15:08 60 Intake and Output 08/23/19 08/24/19 19:00 07:00 Intake Total 380 ml 200 ml Output Total 250 ml Balance 380 ml -50 ml Intake Oral 380 ml 200 ml Output Urine Total 250 ml # Voids 6 2 # Bowel Movements 2 1 Laboratory Tests 08/24/19 00:10: Urine Eosinophils None seen, Urine Random Total Protein 11, Urine Creatinine 69.5 08/24/19 06:15: White Blood Count 5.6, Red Blood Count 2.76L, Hemoglobin 9.4L, Hematocrit 27.8L , Mean Corpuscular Volume 101H, Mean Corpuscular Hemoglobin 34.0H, Mean Corpuscular Hemoglobin Concent 33.7, Red Cell Distribution Width 11.0L, Platelet Count 248, Mean Platelet Volume 6.7, Neutrophils (%) (Auto) 60.4, Lymphocytes (%) (Auto) 30.2, Monocytes (%) (Auto) 6.8, Eosinophils (%) (Auto) 1.7, Basophils (%) (Auto) 1.0, Sodium Level 144, Potassium Level 4.9, Chloride Level 107, Carbon Dioxide Level 26, Anion Gap 11, Blood Urea Nitrogen 30H, Creatinine 1.9H, Estimat Glomerular Filtration Rate 30.5, Glucose Level 84, Calcium Level 9.2, Magnesium Level 2.1, Troponin I 0.014 Height (Feet): 5 Height (Inches): 6.00 Weight (Pounds): 145 General Appearance: no apparent distress, alert Neck: normal alignment, supple Cardiovascular: normal peripheral pulses, normal rate, regular rhythm Respiratory/Chest: lungs clear, normal breath sounds, no respiratory distress Paco Dockery MD Aug 24, 2019 14:14
--- NOTE | 2019-08-24 14:16 | Consultation ---
History of Present Illness General Date patient seen: Aug 24, 2019 Time patient seen: 14:08 Chief Complaint: Chest Pain Present Illness HPI 83 year old woman with history of CAD, HTN, HLD, NIDDM who presented to the ED with complaints of chest pain and short of breath x 2 days associated with LE edema, Denies fever, chills, sick contacts, recent travel out of the area. Chest pain was retrosternal and nonriadting, /, resolved with NTG given in ED. She was given Lasix 60 mg IV and referred for admission for presumed CHF exacerbation and angina. Troponin negative x2. Allergies: Coded Allergies: Crab (Verified Allergy, Mild, 05/28/16) Uncoded Allergies: SHELLFISH (Allergy, Unknown, 11/21/17) Medication History Scheduled Clopidogrel Bisulfate* (Plavix*), Unknown Dose ORAL DAILY, (Reported) Scheduled PRN Acetaminophen With Codeine (T#3) (Tylenol #3 Tab*), 1 TAB ORAL Q8H PRN for For Pain Aspirin (Aspirin), 300 MG RECTAL DAILY PRN for Mild Pain/Temp > 100.5, (Reported ) Miscellaneous Medications Amlodipine Besylate* (Amlodipine Besylate*), (Reported) Clopidogrel* (Clopidogrel*), (Reported) Dexlansoprazole (Dexilant), (Reported) Doxazosin Mesylate* (Doxazosin Mesylate*), (Reported) Furosemide* (Lasix*), (Reported) Glimepiride* (Glimepiride*), (Reported) Hydrocodone/Acetaminophen 5-325* (Hydrocodone/Acetaminophen 5-325*), (Reported) Isosorbide Mononitrate (Isosorbide Mononitrate Er), (Reported) Raloxifene HCl (Raloxifene HCl), (Reported) Ranolazine (Ranexa), (Reported) Durable Medical Equipment Walker (Ultra-Light Rollator), 1 EACH MC NEEDED PRN, (DME) Patient History Healthcare decision maker Resuscitation status Advanced Directive on File Review of Systems Constitutional: Reports: no symptoms Eye: Reports: no symptoms Respiratory: Reports: no symptoms Cardiovascular: Reports: chest pain Gastrointestinal: Reports: no symptoms Genitourinary: Reports: no symptoms Musculoskeletal: Reports: no symptoms Skin: Reports: no symptoms Psychiatric: Reports: no symptoms Neurological: Reports: no symptoms Endocrine: Reports: no symptoms Hematologic/Lymphatic: Reports: no symptoms Physical Exam General Appearance: no apparent distress, alert Lines, tubes and drains: peripheral HEENT: normocephalic, atraumatic, anicteric, mucous membranes moist, PERRL Neck: non-tender, normal alignment, supple, normal inspection Respiratory/Chest: chest wall non-tender, lungs clear Cardiovascular/Chest: normal peripheral pulses, normal rate, regular rhythm Abdomen: normal bowel sounds, non tender, soft, no organomegaly, no mass Extremities: normal range of motion, non-tender, normal inspection, no calf tenderness, normal capillary refill, non-pitting Skin Exam: normal pigmentation, warm/dry, cyanotic Neurologic: university counselor II-XII grossly normal, no motor/sensory deficits Last 24 Hour Vital Signs Date Time Temp Pulse Resp B/P (MAP) Pulse Ox O2 Delivery O2 Flow Rate FiO2 08/24/19 12:00 60 08/24/19 12:00 97.5 63 20 136/72 (93) 97 08/24/19 08:37 122/60 08/24/19 08:37 60 122/60 08/24/19 08:00 60 08/24/19 08:00 Room Air 08/24/19 08:00 97.5 60 20 122/60 (80) 96 08/24/19 04:00 Room Air 08/24/19 04:00 98.2 63 20 126/59 (81) 97 08/24/19 04:00 60 08/24/19 00:00 Room Air 08/24/19 00:00 60 08/23/19 23:54 98.0 70 20 128/65 (86) 97 08/23/19 20:30 Room Air 08/23/19 20:00 97.9 62 20 134/63 (86) 98 08/23/19 20:00 60 08/23/19 16:00 Room Air 08/23/19 16:00 98.3 62 12 143/63 (89) 98 08/23/19 15:08 60 Intake and Output 08/23/19 08/24/19 19:00 07:00 Intake Total 380 ml 200 ml Output Total 250 ml Balance 380 ml -50 ml Intake Oral 380 ml 200 ml Output Urine Total 250 ml # Voids 6 2 # Bowel Movements 2 1 Laboratory Tests Test 08/24/19 00:10 08/24/19 06:15 Urine Eosinophils None seen (NONE SEEN) Urine Random Total Protein 11 MG/DL (< 11.9) Urine Creatinine 69.5 MG/DL (30.0-125.0) White Blood Count 5.6 K/UL (4.8-10.8) Red Blood Count 2.76 M/UL (4.20-5.40) L Hemoglobin 9.4 G/DL (12.0-16.0) L Hematocrit 27.8 % (37.0-47.0) L Mean Corpuscular Volume 101 FL (80-99) H Mean Corpuscular Hemoglobin 34.0 PG (27.0-31.0) H Mean Corpuscular Hemoglobin Concent 33.7 G/DL (32.0-36.0) Red Cell Distribution Width 11.0 % (11.6-14.8) L Platelet Count 248 K/UL (150-450) Mean Platelet Volume 6.7 FL (6.5-10.1) Neutrophils (%) (Auto) 60.4 % (45.0-75.0) Lymphocytes (%) (Auto) 30.2 % (20.0-45.0) Monocytes (%) (Auto) 6.8 % (1.0-10.0) Eosinophils (%) (Auto) 1.7 % (0.0-3.0) Basophils (%) (Auto) 1.0 % (0.0-2.0) Sodium Level 144 MMOL/L (136-145) Potassium Level 4.9 MMOL/L (3.5-5.1) Chloride Level 107 MMOL/L (98-107) Carbon Dioxide Level 26 MMOL/L (21-32) Anion Gap 11 mmol/L (5-15) Blood Urea Nitrogen 30 mg/dL (7-18) H Creatinine 1.9 MG/DL (0.55-1.30) H Estimat Glomerular Filtration Rate 30.5 mL/min (>60) Glucose Level 84 MG/DL (74-106) Calcium Level 9.2 MG/DL (8.5-10.1) Magnesium Level 2.1 MG/DL (1.8-2.4) Troponin I 0.014 ng/mL (0.000-0.056) Height (Feet): 5 Height (Inches): 6.00 Weight (Pounds): 145 Medications Current Medications Medications (Trade) Dose Ordered Sig/Floresita Route PRN Reason Start Time Stop Time Status Last Admin Dose Admin Acetaminophen (Tylenol) 650 mg Q4H PRN ORAL Mild Pain (Pain Scale 1-3) 08/24/19 01:00 09/22/19 00:59 Acetaminophen (Tylenol) 650 mg Q4H PRN ORAL fever 08/24/19 01:00 09/22/19 00:59 Albuterol/ Ipratropium (Albuterol/ Ipratropium) 3 ml Q6H PRN HHN Shortness of Breath 08/24/19 01:00 08/28/19 00:59 Amlodipine Besylate (Norvasc) 10 mg DAILY ORAL 08/24/19 09:00 09/23/19 08:59 08/24/19 08:37 Aspirin (ASA) 81 mg DAILY ORAL 08/24/19 09:00 10/07/19 11:14 08/24/19 08:38 Clopidogrel Bisulfate (Plavix) 75 mg DAILY ORAL 08/24/19 09:00 09/22/19 11:14 08/24/19 08:37 Dextrose (Dextrose 50%) 25 ml Q30M PRN IV Hypoglycemia 08/23/19 22:15 11/21/19 11:14 Dextrose (Dextrose 50%) 50 ml Q30M PRN IV Hypoglycemia 08/23/19 22:15 11/21/19 11:14 Docusate Sodium (Colace) 100 mg EVERY 12 HOURS ORAL 08/24/19 09:00 09/22/19 08:59 08/24/19 08:38 Furosemide (Lasix) 60 mg BID IV 08/24/19 09:00 09/22/19 08:59 08/24/19 08:37 Heparin Sodium (Porcine) (Heparin 5000 units/ml) 5,000 units EVERY 12 HOURS SUBQ 08/24/19 09:00 10/07/19 08:59 08/24/19 08:38 Insulin Aspart (NovoLOG) BEFORE MEALS AND HS SUBQ 08/24/19 06:30 11/21/19 11:29 Isosorbide Mononitrate (Imdur) 30 mg DAILY ORAL 08/24/19 09:00 09/23/19 08:59 08/24/19 08:37 Ondansetron HCl (Zofran) 4 mg Q6H PRN IVP Nausea & Vomiting 08/24/19 01:00 09/22/19 00:59 Polyethylene Glycol (Miralax) 17 gm DAILYPRN PRN ORAL Constipation 08/24/19 01:00 09/22/19 00:59 Assessment/Plan Status: stable Assessment/Plan: Assessment/Plan Assessment/Plan: Coronary artery disease HTN HLD Unstable angina - negative troponin Diabetes -serial ekg/troponin -nitro prn chest pain -echocardiogram -Stress test prior to d/c -continue DAPT -Continue imdur -Mild diuresis to lower filling pressures and wall tension -DASH diet -Monitor renal function -Ranexa held due to MAY -Hold RANDI/ARB -Serial CXR Daljit Kramer MD Aug 24, 2019 14:16
[2019-08-24] MEDS ORDERED: Lexiscan 0.4mg/5ml syringe IV PRN (14:30)
[2019-08-24 16:00] VITALS: BP 120/61
--- NOTE | 2019-08-24 16:05 | NUR ---
CASE MANAGEMENT:REVIEW 08/24/19 SI: ACUTE CHF. ANGINA. AC/CHR RENAL INSUFF 97.5 60 20 136/72 97% ON RA H/H-9.4/27.8 BUN+30 CR+1.9 IS: IV LEXISCAN NORVASC PO QD ASA PO QD PLAVIX PO QD IV LASIX BID HEPARIN SQ Q12 IMDUR PO QD : NOW ON TELEMETRY DCP: FROM HOME PLAN: STRESS TEST ORDERED TODAY @ 7805
--- NOTE | 2019-08-24 19:17 | NUR ---
HAND-OFF: Report given to ebra PUMP SERVICER HELPER Pt remains stable.
[2019-08-24 20:00] VITALS: BP 135/65
--- NOTE | 2019-08-24 20:00 | NUR ---
NURSE NOTES: RECEIVED PATIENT LYING IN BED, AWAKE, ALERT/ORIENTED X4, NO SIGNS AND SYMPTOMS OF ACUTE CARDIO RESPIRATORY DISTRESS, SHORTNESS OF BREATH ON EXERTION, DENIES CHEST PAIN, NO PERIPHERAL EDEMA NOTED, SP02 97-100% ON ROOM AIR. CONTINUE ON RETAIL PARTS PRO. IV INTACT TO RIGHT HAND/GAUGE 22/NO SWELLING/REDNESS NOTED, DENIES PAIN. ABDOMEN SOFT/NON DISTENDED/AUDIBLE BOWEL SOUNDS, BATHROOM PRIVILEGES WITH ASSISTANCE. ASSISTED WITH COMFORT CARE, TOLERATED WELL.SIDE RAILS UP X3/BED IN LOWEST POSITION FOR SAFETY, ENCOURAGED PATIENT TO UTILIZE CALL LIGHT FOR ASSISTANCE, VERBALIZED UNDERSTANDING. NAD.
[2019-08-25] VITALS: BP 139/68
[2019-08-25 04:00] VITALS: BP 139/62
--- NOTE | 2019-08-25 06:03 | NUR ---
NURSE NOTES: RESTED WELL, NO SIGNIFICANT CHANGE OF CONDITION NOTED THROUGHOUT THE NIGHT. SAFETY MAINTAINED. NAD.
[2019-08-25] MEDS: NovoLOG Insulin Flexpen SUBQ SCH ×4 (06:05→21:00)
--- NOTE | 2019-08-25 07:32 | NUR ---
NURSE NOTES: Received report from Soo. Pt in bed awake, alert and orientedx4. able to make needs known. ambulatory with walker and supervision by staff for safety. IV site in right hand 22G SL patent and intact. Bed is in lowest position and Bed alarm on and locked. siderails are up x3. Call light within easy reach. Will continue to plan of care.
[2019-08-25 07:55] VITALS: BP 108/58
--- NOTE | 2019-08-25 08:00 | NUR ---
HAND-OFF: Report given to RASHAD ZIEGLER.
[2019-08-25] MEDS: Docusate 100mg cap ORAL SCH ×2 (08:05→21:01)
[2019-08-25] MEDS: Aspirin Baby 81mg ORAL SCH (08:06)
[2019-08-25] MEDS: Heparin 5000 units/ml inj SUBQ SCH ×2 (08:12→21:03)
[2019-08-25 08:14] LABS: ANION GAP 12 mmol/L (5-15); BLOOD UREA NITROGEN 36 mg/dL (7-18); CALCIUM 9.7 MG/DL (8.5-10.1); CARBON DIOXIDE 26 MMOL/L (21-32); CHLORIDE 106 MMOL/L (98-107); CREATININE 2.2 MG/DL (0.55-1.30); POTASSIUM 4.3 MMOL/L (3.5-5.1); SODIUM 144 MMOL/L (136-145)
[2019-08-25 08:26] LABS: BASOPHILS % (AUTO) 0.9 % (0.0-2.0); EOSINOPHILS % (AUTO) 1.3 % (0.0-3.0); HEMATOCRIT 29.3 % (37.0-47.0); LYMPHOCYTES % (AUTO) 25.5 % (20.0-45.0); MEAN CORPUSCULAR VOLUME 100 FL (80-99); MONOCYTES % (AUTO) 7.9 % (1.0-10.0); NEUTROPHILS % (AUTO) 64.4 % (45.0-75.0); PLATELET COUNT 275 K/UL (150-450); RED BLOOD COUNT 2.92 M/UL (4.20-5.40); WHITE BLOOD COUNT 5.2 K/UL (4.8-10.8)
--- NOTE | 2019-08-25 11:48 | Nephrology Progress Note ---
Assessment/Plan Plan #MAY due to CRS 1- on possible CKD? #history of R nephrectomy - possible RCC #hyperkalemia #Chest pain/dyspnea due to acute CHF #HTN #NIDDM #HLD - continue diuresis - decrease lasix 60 IV daily - strict I&Os - daily weights - cardiology eval - -hold ranexa - continue asa - continue plavix - imdur 30mg daily - amlodipine 10mg daily - monitor bmp closely - check 2d echo- pending - check renal US- reviewed: absent right kidney Subjective Subjective breathing improved today no chest pain no dizziness Cr 2.2 plan for stress test on tuesday Renal US: IMPRESSION: Absent right kidney. Left kidney showing a focus of shadowing in the midpole may be a focus of calcification or scarring versus a nonobstructive stone. Objective Objective Last 24 Hour Vital Signs Date Time Temp Pulse Resp B/P (MAP) Pulse Ox O2 Delivery O2 Flow Rate FiO2 08/25/19 09:08 60 08/25/19 07:55 97.9 60 18 108/58 (75) 97 08/25/19 04:00 60 08/25/19 04:00 98.2 63 18 139/62 (87) 98 08/25/19 00:00 98.1 60 18 139/68 (91) 98 08/25/19 00:00 60 08/24/19 20:00 62 08/24/19 20:00 98.1 60 18 135/65 (88) 99 08/24/19 19:20 67 16 96 Room Air 21 08/24/19 16:00 98.2 60 20 120/61 (80) 96 08/24/19 16:00 60 08/24/19 12:00 60 08/24/19 12:00 97.5 63 20 136/72 (93) 97 Intake and Output 08/24/19 08/25/19 19:00 07:00 Intake Total 400 ml 480 ml Balance 400 ml 480 ml Intake Oral 400 ml 480 ml # Voids 2 3 # Bowel Movements 2 1 Laboratory Tests 08/25/19 07:03: White Blood Count 5.2, Red Blood Count 2.92L, Hemoglobin 10.0L, Hematocrit 29.3L , Mean Corpuscular Volume 100H, Mean Corpuscular Hemoglobin 34.2H, Mean Corpuscular Hemoglobin Concent 34.2, Red Cell Distribution Width 11.0L, Platelet Count 275, Mean Platelet Volume 6.3L, Neutrophils (%) (Auto) 64.4, Lymphocytes (%) (Auto) 25.5, Monocytes (%) (Auto) 7.9, Eosinophils (%) (Auto) 1.3, Basophils (%) (Auto) 0.9, Sodium Level 144, Potassium Level 4.3, Chloride Level 106, Carbon Dioxide Level 26, Anion Gap 12, Blood Urea Nitrogen 36H, Creatinine 2.2H, Estimat Glomerular Filtration Rate 25.8, Glucose Level 113H, Calcium Level 9.7, Troponin I 0.002 Height (Feet): 5 Height (Inches): 6.00 Weight (Pounds): 143 Objective General Appearance: no apparent distress, alert HEENT: atraumatic, anicteric Neck: normal alignment, supple Respiratory/Chest: lungs clear, normal breath sounds, no respiratory distress, no accessory muscle use Cardiovascular/Chest: normal rate, regular rhythm Abdomen: non tender, soft Extremities: non-tender, normal inspection Skin Exam: normal pigmentation, warm/dry Neurologic: nonfocal Sulema Broussard M.D. Aug 25, 2019 11:48
[2019-08-25 12:00] VITALS: BP 137/66
[2019-08-25] MEDS: Imdur 30mg tab ORAL SCH (12:25)
--- NOTE | 2019-08-25 13:34 | General Progress Note ---
Assessment/Plan Status: stable Assessment/Plan: 83 year old woman with CAD, HTN, HLD, NIDDM who presented to the ED with chest pain, dyspnea and LE edema #Angina #History of CAD #suspected acute CHF #HTN #HLD -continue inpatient care -serial trops negative -continue IV Lasix diuresis -cont ASA, Plavix, Imdur -Hold Ranexa due to renal dysfunction -TTE pending -monitor I&O, daily weights -Dietary sodium restriction -Cardiology following: stress test tuesday #Suspected MAY, likely CRS 1 #History of R nephrectomy - possible RCC #Hyperkalemia -renal US reviewed, absent right kidney -monitor BMP closely with IV diuresis -Nephrology following: cont. IV diuresis #NIDDM -hold oral diabetic meds -ISS I spent 35 minutes on this patient's case, and >50% was dedicated to counseling and/or care coordination. Additional 40 mins was spent with chart review. Subjective Allergies: Coded Allergies: Crab (Verified Allergy, Mild, 05/28/16) Uncoded Allergies: SHELLFISH (Allergy, Unknown, 11/21/17) Subjective Follow up for angina, suspected acute CHF, MAY, cardiorenal syndrome No acute events overnight, patient denies any CP, S OB, abdominal pain at this time. Objective Last 24 Hour Vital Signs Date Time Temp Pulse Resp B/P (MAP) Pulse Ox O2 Delivery O2 Flow Rate FiO2 08/25/19 13:15 60 08/25/19 12:25 137/66 08/25/19 12:00 97.5 61 20 137/66 (89) 96 08/25/19 09:08 60 08/25/19 07:55 97.9 60 18 108/58 (75) 97 08/25/19 04:00 60 08/25/19 04:00 98.2 63 18 139/62 (87) 98 08/25/19 00:00 98.1 60 18 139/68 (91) 98 08/25/19 00:00 60 08/24/19 20:00 62 08/24/19 20:00 98.1 60 18 135/65 (88) 99 08/24/19 19:20 67 16 96 Room Air 21 08/24/19 16:00 98.2 60 20 120/61 (80) 96 08/24/19 16:00 60 Intake and Output 08/24/19 08/25/19 19:00 07:00 Intake Total 400 ml 480 ml Balance 400 ml 480 ml Intake Oral 400 ml 480 ml # Voids 2 3 # Bowel Movements 2 1 Laboratory Tests 08/25/19 07:03: White Blood Count 5.2, Red Blood Count 2.92L, Hemoglobin 10.0L, Hematocrit 29.3L , Mean Corpuscular Volume 100H, Mean Corpuscular Hemoglobin 34.2H, Mean Corpuscular Hemoglobin Concent 34.2, Red Cell Distribution Width 11.0L, Platelet Count 275, Mean Platelet Volume 6.3L, Neutrophils (%) (Auto) 64.4, Lymphocytes (%) (Auto) 25.5, Monocytes (%) (Auto) 7.9, Eosinophils (%) (Auto) 1.3, Basophils (%) (Auto) 0.9, Sodium Level 144, Potassium Level 4.3, Chloride Level 106, Carbon Dioxide Level 26, Anion Gap 12, Blood Urea Nitrogen 36H, Creatinine 2.2H, Estimat Glomerular Filtration Rate 25.8, Glucose Level 113H, Calcium Level 9.7, Troponin I 0.002 Height (Feet): 5 Height (Inches): 6.00 Weight (Pounds): 143 Objective General Appearance: no apparent distress, alert, lying in bed comfortably Neck: normal alignment, supple Cardiovascular: normal peripheral pulses, normal rate, regular rhythm Respiratory/Chest: lungs clear, normal breath sounds, no respiratory distress GI: Soft, NT/ND Ext: no edema Anna Sheridan M.D. Aug 25, 2019 13:34
[2019-08-25 16:00] VITALS: BP 119/62
--- NOTE | 2019-08-25 19:14 | NUR ---
HAND-OFF: Report given to Ms Preston.
--- NOTE | 2019-08-25 19:15 | NUR ---
Received report from nurse,Tammy SOLORZANO. Patient is awake and alert and resting on bed. Denies feeling of discomfort at this time. Bed at its lowest and locked. Call light within easy reach. Continue to monitor pt.
[2019-08-25 20:00] VITALS: BP 132/65
[2019-08-26] VITALS: BP 132/64
--- NOTE | 2019-08-26 00:15 | NUR ---
Awake, assisted pt. to the bathroom with her walker and voided freely. Denies dizziness nor other discomfort.
[2019-08-26 04:00] VITALS: BP 146/69
[2019-08-26] MEDS: NovoLOG Insulin Flexpen SUBQ SCH ×4 (06:30→20:48)
--- NOTE | 2019-08-26 07:04 | NUR ---
HAND-OFF: Report given to Erin RAMIREZ.Endorsed plan of care. Patient stable in no distress,.
--- NOTE | 2019-08-26 07:26 | NUR ---
NURSE NOTES: Received report from JAMES Crum. Patient in bed resting, no active s/s cardiac, respiratory distress noticed at this time. Patient AOx4, SR with BBB with HR 60, IV on right hand 22G, asymptomatic, patent, intact. Endorsed Lexiscan schedule for tomorrow, denies chest pain at this time. IV on right hand 22G, asymptomatic, patent, intact. Bed in lowest position, side rails upx2, call light within reach, bed alarm on, walker at the bedside. Will continue to monitor.
[2019-08-26 08:00] VITALS: BP 140/66
[2019-08-26] MEDS: Docusate 100mg cap ORAL SCH ×2 (08:16→20:48)
[2019-08-26] MEDS: Imdur 30mg tab ORAL SCH (08:16)
[2019-08-26] MEDS: Aspirin Baby 81mg ORAL SCH (08:17)
[2019-08-26] MEDS: Heparin 5000 units/ml inj SUBQ SCH ×2 (08:23→20:47)
[2019-08-26 09:21] LABS: EOSINOPHILS % (AUTO) 1.6 % (0.0-3.0); HEMATOCRIT 30.3 % (37.0-47.0); HEMOGLOBIN 10.1 G/DL (12.0-16.0); LYMPHOCYTES % (AUTO) 26.4 % (20.0-45.0); MEAN CORPUSCULAR VOLUME 100 FL (80-99); MONOCYTES % (AUTO) 7.3 % (1.0-10.0); NEUTROPHILS % (AUTO) 63.6 % (45.0-75.0); PLATELET COUNT 284 K/UL (150-450); RED BLOOD COUNT 3.03 M/UL (4.20-5.40); WHITE BLOOD COUNT 5.4 K/UL (4.8-10.8)
[2019-08-26 09:32] LABS: ANION GAP 11 mmol/L (5-15); BLOOD UREA NITROGEN 35 mg/dL (7-18); CALCIUM 9.7 MG/DL (8.5-10.1); CARBON DIOXIDE 26 MMOL/L (21-32); CHLORIDE 103 MMOL/L (98-107); CREATININE 2.1 MG/DL (0.55-1.30); POTASSIUM 4.7 MMOL/L (3.5-5.1); SODIUM 139 MMOL/L (136-145)
--- NOTE | 2019-08-26 09:45 | Nephrology Progress Note ---
Assessment/Plan Plan #MAY due to CRS 1- on possible CKD? #history of R nephrectomy - possible RCC #hyperkalemia #Chest pain/dyspnea due to acute CHF #HTN #NIDDM #HLD - continue diuresis - decrease lasix 60 IV daily - strict I&Os - daily weights - cardiology eval - -hold ranexa - continue asa - continue plavix - imdur 30mg daily - amlodipine 10mg daily - monitor bmp closely - check 2d echo- pending - check renal US- reviewed: absent right kidney Subjective Subjective breathing improved today no chest pain no dizziness Cr 2.1> stable plan for stress test on tuesday Renal US: IMPRESSION: Absent right kidney. Left kidney showing a focus of shadowing in the midpole may be a focus of calcification or scarring versus a nonobstructive stone. Objective Objective Last 24 Hour Vital Signs Date Time Temp Pulse Resp B/P (MAP) Pulse Ox O2 Delivery O2 Flow Rate FiO2 08/26/19 08:17 60 140/66 08/26/19 08:16 140/66 08/26/19 08:00 97.5 60 18 140/66 (90) 100 08/26/19 04:00 62 08/26/19 04:00 98.4 60 22 146/69 (94) 98 08/26/19 00:00 60 08/26/19 00:00 97.9 60 20 132/64 (86) 98 08/25/19 20:23 60 18 97 Room Air 21 08/25/19 20:00 98.4 62 20 132/65 (87) 98 08/25/19 20:00 60 08/25/19 18:17 60 08/25/19 16:00 97.5 60 18 119/62 (81) 97 08/25/19 13:15 60 08/25/19 12:25 137/66 08/25/19 12:00 97.5 61 20 137/66 (89) 96 Intake and Output 08/25/19 08/26/19 19:00 07:00 Intake Total 360 ml 240 ml Balance 360 ml 240 ml Intake Oral 360 ml Other 240 ml # Voids 3 4 Laboratory Tests 08/26/19 08:50: White Blood Count 5.4, Red Blood Count 3.03L, Hemoglobin 10.1L, Hematocrit 30.3L , Mean Corpuscular Volume 100H, Mean Corpuscular Hemoglobin 33.5H, Mean Corpuscular Hemoglobin Concent 33.5, Red Cell Distribution Width 11.0L, Platelet Count 284, Mean Platelet Volume 7.1, Neutrophils (%) (Auto) 63.6, Lymphocytes (%) (Auto) 26.4, Monocytes (%) (Auto) 7.3, Eosinophils (%) (Auto) 1.6, Basophils (%) (Auto) 1.0, Sodium Level 139, Potassium Level 4.7, Chloride Level 103, Carbon Dioxide Level 26, Anion Gap 11, Blood Urea Nitrogen 35H, Creatinine 2.1H, Estimat Glomerular Filtration Rate 27.1, Glucose Level 110H, Calcium Level 9.7 Height (Feet): 5 Height (Inches): 6.00 Weight (Pounds): 143 Objective General Appearance: no apparent distress, alert HEENT: atraumatic, anicteric Neck: normal alignment, supple Respiratory/Chest: lungs clear, normal breath sounds, no respiratory distress, no accessory muscle use Cardiovascular/Chest: normal rate, regular rhythm Abdomen: non tender, soft Extremities: non-tender, normal inspection Skin Exam: normal pigmentation, warm/dry Neurologic: nonfocal Sulema Broussard M.D. Aug 26, 2019 09:45
[2019-08-26 12:00] VITALS: BP 122/70
--- NOTE | 2019-08-26 13:06 | General Progress Note ---
Assessment/Plan Status: stable Assessment/Plan: 83 year old woman with CAD, HTN, HLD, NIDDM who presented to the ED with chest pain, dyspnea and LE edema #Angina #History of CAD #suspected acute CHF #HTN #HLD -continue inpatient care -serial trops negative -continue IV Lasix diuresis - imdur 30mg daily - amlodipine 10mg daily -cont ASA, Plavix, Imdur -Hold Ranexa due to renal dysfunction -TTE pending -monitor I&O, daily weights -Dietary sodium restriction -Cardiology following: stress test tuesday #Suspected MAY, likely CRS 1 #History of R nephrectomy - possible RCC #Hyperkalemia -renal US reviewed, absent right kidney -monitor BMP closely with IV diuresis -Nephrology following: cont. IV diuresis #NIDDM -hold oral diabetic meds -ISS I spent 35 minutes on this patient's case, and >50% was dedicated to counseling and/or care coordination. Additional 40 mins was spent with chart review. Subjective Allergies: Coded Allergies: Crab (Verified Allergy, Mild, 05/28/16) Uncoded Allergies: SHELLFISH (Allergy, Unknown, 11/21/17) Subjective Follow up for angina, suspected acute CHF, MAY, cardiorenal syndrome No acute events overnight, patient denies any CP, S OB, abdominal pain at this time. States she feels better today. Objective Last 24 Hour Vital Signs Date Time Temp Pulse Resp B/P (MAP) Pulse Ox O2 Delivery O2 Flow Rate FiO2 08/26/19 08:17 60 140/66 08/26/19 08:16 140/66 08/26/19 08:00 97.5 60 18 140/66 (90) 100 08/26/19 08:00 60 08/26/19 04:00 62 08/26/19 04:00 98.4 60 22 146/69 (94) 98 08/26/19 00:00 60 08/26/19 00:00 97.9 60 20 132/64 (86) 98 08/25/19 20:23 60 18 97 Room Air 21 08/25/19 20:00 98.4 62 20 132/65 (87) 98 08/25/19 20:00 60 08/25/19 18:17 60 08/25/19 16:00 97.5 60 18 119/62 (81) 97 08/25/19 13:15 60 Intake and Output 08/25/19 08/26/19 19:00 07:00 Intake Total 360 ml 240 ml Balance 360 ml 240 ml Intake Oral 360 ml Other 240 ml # Voids 3 4 Laboratory Tests 08/26/19 08:50: White Blood Count 5.4, Red Blood Count 3.03L, Hemoglobin 10.1L, Hematocrit 30.3L , Mean Corpuscular Volume 100H, Mean Corpuscular Hemoglobin 33.5H, Mean Corpuscular Hemoglobin Concent 33.5, Red Cell Distribution Width 11.0L, Platelet Count 284, Mean Platelet Volume 7.1, Neutrophils (%) (Auto) 63.6, Lymphocytes (%) (Auto) 26.4, Monocytes (%) (Auto) 7.3, Eosinophils (%) (Auto) 1.6, Basophils (%) (Auto) 1.0, Sodium Level 139, Potassium Level 4.7, Chloride Level 103, Carbon Dioxide Level 26, Anion Gap 11, Blood Urea Nitrogen 35H, Creatinine 2.1H, Estimat Glomerular Filtration Rate 27.1, Glucose Level 110H, Calcium Level 9.7 Height (Feet): 5 Height (Inches): 6.00 Weight (Pounds): 143 Objective General Appearance: no apparent distress, alert, lying in bed comfortably Neck: normal alignment, supple Cardiovascular: normal peripheral pulses, normal rate, regular rhythm Respiratory/Chest: lungs clear, normal breath sounds, no respiratory distress GI: Soft, NT/ND Ext: no edema Anna Sheridan M.D. Aug 26, 2019 13:06
[2019-08-26 16:00] VITALS: BP 145/67
--- NOTE | 2019-08-26 18:40 | Cardiology Progress Note ---
Assessment/Plan Status: stable Assessment/Plan Assessment/Plan Assessment/Plan: Coronary artery disease HTN HLD Unstable angina - negative troponin Diabetes -serial ekg/troponin -nitro prn chest pain -echocardiogram -Stress test prior to d/c tuesday -continue DAPT -Continue imdur -Mild diuresis to lower filling pressures and wall tension -DASH diet -Monitor renal function -Ranexa held due to MAY -Hold RANDI/ARB -Serial CXR Subjective Cardiovascular: Reports: no symptoms Respiratory: Reports: no symptoms Gastrointestinal/Abdominal: Reports: no symptoms Genitourinary: Reports: no symptoms Subjective No acute events overnight, patient denies any CP, S OB, abdominal pain at this time. States she feels better today. Objective Last 24 Hour Vital Signs Date Time Temp Pulse Resp B/P (MAP) Pulse Ox O2 Delivery O2 Flow Rate FiO2 08/26/19 16:00 60 08/26/19 16:00 97.5 60 18 145/67 (93) 99 08/26/19 12:00 98.1 61 18 122/70 (87) 99 08/26/19 12:00 60 08/26/19 08:17 60 140/66 08/26/19 08:16 140/66 08/26/19 08:00 97.5 60 18 140/66 (90) 100 08/26/19 08:00 60 08/26/19 04:00 62 08/26/19 04:00 98.4 60 22 146/69 (94) 98 08/26/19 00:00 60 08/26/19 00:00 97.9 60 20 132/64 (86) 98 08/25/19 20:23 60 18 97 Room Air 21 08/25/19 20:00 98.4 62 20 132/65 (87) 98 08/25/19 20:00 60 General Appearance: no apparent distress, alert EENT: PERRL/EOMI Neck: non-tender, normal alignment, supple, normal inspection, no JVD Rhythm: NSR Cardiovascular: normal peripheral pulses, normal rate Respiratory/Chest: chest wall non-tender, lungs clear, normal breath sounds, no respiratory distress, no accessory muscle use Abdomen: normal bowel sounds, non tender, soft, no organomegaly, no mass Extremities: normal range of motion, non-tender, normal inspection, no calf tenderness, no swelling Neurologic: optomechanical technician II-XII grossly normal, no motor/sensory deficits Intake and Output 08/25/19 08/26/19 19:00 07:00 Intake Total 360 ml 240 ml Balance 360 ml 240 ml Intake Oral 360 ml Other 240 ml # Voids 3 4 Laboratory Tests Test 08/26/19 08:50 White Blood Count 5.4 K/UL (4.8-10.8) Red Blood Count 3.03 M/UL (4.20-5.40) L Hemoglobin 10.1 G/DL (12.0-16.0) L Hematocrit 30.3 % (37.0-47.0) L Mean Corpuscular Volume 100 FL (80-99) H Mean Corpuscular Hemoglobin 33.5 PG (27.0-31.0) H Mean Corpuscular Hemoglobin Concent 33.5 G/DL (32.0-36.0) Red Cell Distribution Width 11.0 % (11.6-14.8) L Platelet Count 284 K/UL (150-450) Mean Platelet Volume 7.1 FL (6.5-10.1) Neutrophils (%) (Auto) 63.6 % (45.0-75.0) Lymphocytes (%) (Auto) 26.4 % (20.0-45.0) Monocytes (%) (Auto) 7.3 % (1.0-10.0) Eosinophils (%) (Auto) 1.6 % (0.0-3.0) Basophils (%) (Auto) 1.0 % (0.0-2.0) Sodium Level 139 MMOL/L (136-145) Potassium Level 4.7 MMOL/L (3.5-5.1) Chloride Level 103 MMOL/L (98-107) Carbon Dioxide Level 26 MMOL/L (21-32) Anion Gap 11 mmol/L (5-15) Blood Urea Nitrogen 35 mg/dL (7-18) H Creatinine 2.1 MG/DL (0.55-1.30) H Estimat Glomerular Filtration Rate 27.1 mL/min (>60) Glucose Level 110 MG/DL (74-106) H Calcium Level 9.7 MG/DL (8.5-10.1) Daljit Kramer MD Aug 26, 2019 18:40
--- NOTE | 2019-08-26 19:24 | NUR ---
HAND-OFF: Report given to JAMES Jung. Endorsed plan of care.
--- NOTE | 2019-08-26 19:24 | NUR ---
NURSE NOTES: Received report from JAMES Khan. Patient in semi-cohen's position. AOx4. Patient reminded that she is on NPO after midnight for her stress test in AM. Patient verbalized understanding. Able to verbalize needs. Bed in lowest position. Side rails x2 raised. Call light placed within reach. Will continue to monitor.
[2019-08-26 20:49] VITALS: BP 120/65
[2019-08-27] VITALS: BP 136/70
[2019-08-27 04:00] VITALS: BP 142/72
--- NOTE | 2019-08-27 04:48 | NUR ---
NURSE NOTES: Patient asleep on bed. Kept clean and comfortable. VS stable. Will continue to monitor.
[2019-08-27] MEDS: NovoLOG Insulin Flexpen SUBQ SCH ×4 (06:20→20:36)
[2019-08-27 07:33] LABS: BASOPHILS % (AUTO) 1.1 % (0.0-2.0); EOSINOPHILS % (AUTO) 1.4 % (0.0-3.0); HEMATOCRIT 32.6 % (37.0-47.0); HEMOGLOBIN 10.7 G/DL (12.0-16.0); LYMPHOCYTES % (AUTO) 30.9 % (20.0-45.0); MEAN CORPUSCULAR VOLUME 101 FL (80-99); MONOCYTES % (AUTO) 8.3 % (1.0-10.0); NEUTROPHILS % (AUTO) 58.3 % (45.0-75.0); PLATELET COUNT 266 K/UL (150-450); RED BLOOD COUNT 3.22 M/UL (4.20-5.40); RED CELL DISTRIBUTION WIDTH 10.9 % (11.6-14.8); WHITE BLOOD COUNT 4.9 K/UL (4.8-10.8)
--- NOTE | 2019-08-27 07:37 | NUR ---
HAND-OFF: Report given to JAMES Chakraborty. Plan of care endorsed.
[2019-08-27 08:00] VITALS: BP 139/70
[2019-08-27 08:16] LABS: ANION GAP 11 mmol/L (5-15); BLOOD UREA NITROGEN 34 mg/dL (7-18); CALCIUM 9.6 MG/DL (8.5-10.1); CARBON DIOXIDE 25 MMOL/L (21-32); CHLORIDE 106 MMOL/L (98-107); POTASSIUM 4.6 MMOL/L (3.5-5.1); SODIUM 142 MMOL/L (136-145)
[2019-08-27] MEDS: Docusate 100mg cap ORAL SCH ×2 (09:00→20:34)
[2019-08-27] MEDS: Imdur 30mg tab ORAL SCH (09:00)
--- NOTE | 2019-08-27 09:32 | NUR ---
Awake, Oriented x 4, Aware of plans for Lexican today. remains NPO.
[2019-08-27] MEDS: Aspirin Baby 81mg ORAL SCH (09:35)
[2019-08-27] MEDS: Heparin 5000 units/ml inj SUBQ SCH ×2 (09:38→20:35)
--- NOTE | 2019-08-27 10:20 | Nephrology Progress Note ---
Assessment/Plan Plan #MAY due to CRS 1- on possible CKD? #history of R nephrectomy - possible RCC #hyperkalemia #Chest pain/dyspnea due to acute CHF #HTN #NIDDM #HLD - switch to lasix 80mg oral daily - strict I&Os - daily weights - cardiology eval - -hold ranexa - continue asa - continue plavix - imdur 30mg daily - amlodipine 5mg daily - monitor bmp closely - check 2d echo- pending read - stress test today - check renal US- reviewed: absent right kidney Subjective Subjective breathing improved today no chest pain no dizziness Cr stable plan for stress test today Renal US: IMPRESSION: Absent right kidney. Left kidney showing a focus of shadowing in the midpole may be a focus of calcification or scarring versus a nonobstructive stone. Objective Objective Last 24 Hour Vital Signs Date Time Temp Pulse Resp B/P (MAP) Pulse Ox O2 Delivery O2 Flow Rate FiO2 08/27/19 09:28 60 20 96 Room Air 21 08/27/19 09:26 60 08/27/19 09:00 60 139/70 08/27/19 09:00 139/70 08/27/19 08:00 96.4 60 18 139/70 (93) 100 08/27/19 04:00 97.3 98 18 142/72 (95) 98 08/27/19 04:00 67 08/27/19 00:00 63 08/27/19 00:00 97.5 79 18 136/70 (92) 99 08/26/19 20:49 97.5 99 18 120/65 (83) 100 08/26/19 20:00 60 08/26/19 19:47 96 20 97 Room Air 21 08/26/19 16:00 60 08/26/19 16:00 97.5 60 18 145/67 (93) 99 08/26/19 12:00 98.1 61 18 122/70 (87) 99 08/26/19 12:00 60 Intake and Output 08/26/19 08/27/19 19:00 07:00 Intake Total 360 ml Balance 360 ml Intake Oral 360 ml # Voids 3 6 # Bowel Movements 1 Laboratory Tests 08/27/19 07:11: White Blood Count 4.9, Red Blood Count 3.22L, Hemoglobin 10.7L, Hematocrit 32.6L , Mean Corpuscular Volume 101H, Mean Corpuscular Hemoglobin 33.3H, Mean Corpuscular Hemoglobin Concent 32.9, Red Cell Distribution Width 10.9L, Platelet Count 266, Mean Platelet Volume 6.4L, Neutrophils (%) (Auto) 58.3, Lymphocytes (%) (Auto) 30.9, Monocytes (%) (Auto) 8.3, Eosinophils (%) (Auto) 1.4, Basophils (%) (Auto) 1.1, Sodium Level 142, Potassium Level 4.6, Chloride Level 106, Carbon Dioxide Level 25, Anion Gap 11, Blood Urea Nitrogen 34H, Creatinine 2.0H, Estimat Glomerular Filtration Rate 28.7, Glucose Level 80, Calcium Level 9.6 Height (Feet): 5 Height (Inches): 6.00 Weight (Pounds): 143 Objective General Appearance: no apparent distress, alert HEENT: atraumatic, anicteric Neck: normal alignment, supple Respiratory/Chest: lungs clear, normal breath sounds, no respiratory distress, no accessory muscle use Cardiovascular/Chest: normal rate, regular rhythm Abdomen: non tender, soft Extremities: non-tender, normal inspection Skin Exam: normal pigmentation, warm/dry Neurologic: nonfocal Sulema Broussard M.D. Aug 27, 2019 10:20
[2019-08-27] MEDS ORDERED: Furosemide 80mg tab ORAL ONE (11:00)
[2019-08-27 11:35] VITALS: BP 140/67
--- NOTE | 2019-08-27 12:07 | NUR ---
CASE MANAGEMENT:REVIEW 08/27/19 SI: ACUTE CHF. ANGINA. AC/CHR RENAL INSUFF 97.2 60 18 140/67 99% ON RA H/H-10.7/32.6 BUN+34 CR+2.0 IS: NORVASC PO QD ASA PO QD PLAVIX PO QD IV LASIX BID HEPARIN SQ Q12 IMDUR PO QD : NOW ON TELEMETRY DCP: FROM HOME PLAN: STRESS TEST FOR TODAY
--- NOTE | 2019-08-27 13:34 | CDS Physician Query ---
Clarification is required for compliance, coding accuracy, and to reflect severity of illness for this patient Dear Dr. Karley Sheridan Date: 08/27/2019 Glove Pairer/CDS Name: Janet Mcfadden Clinical Documentation states: HNP: 83 year old woman with CAD, HTN, HLD, NIDDM who presented to the ED with chest pain, dyspnea and LE edema...#suspected acute CHF Echo: Ejection fraction 55-60%, mild LV diastolic dysfunction BNP: 35611, CXR Interstitial edema demonstrated with prominent vascularity Please Clarify: Acuity [] Acute [] Chronic [X] Acute on Chronic Type [] Systolic [] Diastolic [X] Systolic & Diastolic (Combined) [] Other: Present on Admission: [] Yes [] No [] Clinically Undetermined Physician signature Date Please also document in your Progress Notes and/or Discharge Summary and indicate if the condition was present on admission. GRACIELA
--- NOTE | 2019-08-27 14:14 | NUR ---
RD ASSESSMENT & RECOMMENDATIONS SEE CARE ACTIVITY FOR COMPLETE ASSESSMENT DAILY ESTIMATED NEEDS: Needs based on Cardiac, DM 63.5kg 25-30 kcals/kg 4831-7525 total kcals 1-1.5 g protein/kg 64-95 g total protein Fluid per MD, on lasix NUTRITION DIAGNOSIS: Decreased sodium needs r./t cardiac history as evidenced by h/o HTN, CHF, on lasix, and CAD. CURRENT DIET:[facility] MED Low Na PO DIET RECOMMENDATIONS: LOW NA / texture as tolerated ADDITIONAL RECOMMENDATIONS: Rec to DC [facility] MED diet/ rec Low Na only BIT AND SHANK DEPARTMENT SUPERVISOR for texture/ or as tolerated Daily calibrated bed scale wts w/ LASIX Check lytes daily w. lasix Rec to Add Glucerna 1 tetra qdaily w/ variable po intake
--- NOTE | 2019-08-27 16:07 | Diagnostic Imaging Report ---
Indication: chest pain Technique: The study was conducted under the supervision of a senior linux unix administrator. lexiscan (regadenoson) infusion over 10 seconds followed by intravenous administration of 30.3 mCi of technetium 99m Myoview was performed. Three plane SPECT imaging of the heart was then performed. A resting study was performed as part of the one-day protocol with 10.4 mCi of technetium 99m myoview injected intravenously at that time. Three plane SPECT imaging of the heart was obtained. Comparison: None Clinical data: 1. Clinical response: Non ischemic 2. Electrocardiographic response: Non ischemic Findings: The myocardial perfusion scan demonstrates LVEF estimated at 57% No fixed or reversible perfusion defects are appreciated. IMPRESSION: Negative myocardial perfusion scan. LVEF estimated at 57% Note: Estimation of LVEF on this examination is likely inaccurate. In our experience, the calculated LVEF is usually overestimated on this software program.
[2019-08-27 16:42] VITALS: BP 130/64
--- NOTE | 2019-08-27 17:13 | Discharge Summary ---
Discharge Summary Hospital Course Date of Admission Aug 22, 2019 at 22:57 Date of Discharge 08/27/19 Admitting Diagnosis acute chf HPI Mary Kaur is a 83 year old female who was admitted on Aug 22, 2019 at 22:57 for Acute Congestive Heart Failure Consultations Cardiology,Nephrology Procedures Cardiac stress testing Hospital Course 83 year old woman with CAD, HTN, HLD, NIDDM who presented to the ED with chest pain, dyspnea and LE edema. Admitted to the medical service with acute on chronic diastolic CHF and possible ACS. Treated with IV Lasix with improvement in ED and dyspnea. Seen by Nephrology for MAY, Ranexa held due to renal dysfunction. Given IV diuresis for cardiorenal syndrome, stable renal function. Seen by Cardiology, underwent stress testing that was negative for ischemia, she will be discharged home on ASA, Plavix, Imdur and oral Lasix #Angina #History of CAD #suspected acute CHF #HTN #HLD #Suspected MAY, likely CRS #Hyperkalemia #NIDDM I spent 35 minutes on this patient's case, including coordination with RN, major case detective and consulting MDs Discharge Medications Continued Medications: Acetaminophen With Codeine (T#3) (Tylenol #3 Tab*) Y Tab 1 TAB ORAL Q8H PRN for For Pain, #20 TAB Amlodipine Besylate* (Amlodipine Besylate*) 10 Mg Tablet for 90 Days Aspirin (Aspirin) 300 Mg Supp.rect 300 MG RECTAL DAILY PRN for Mild Pain/Temp > 100.5, SUPP 0 Refills Clopidogrel Bisulfate* (Plavix*) 75 Mg Tablet Unknown Dose ORAL DAILY, TAB Dexlansoprazole (Dexilant) 60 Mg Kyree. for 90 Days Doxazosin Mesylate* (Doxazosin Mesylate*) 4 Mg Tablet for 90 Days Furosemide* (Lasix*) 40 Mg Tablet for 90 Days Glimepiride* (Glimepiride*) 4 Mg Tablet for 90 Days Isosorbide Mononitrate (Isosorbide Mononitrate Er) 60 Mg Tab.er.24h for 60 Days Discontinued Medications: Clopidogrel* (Clopidogrel*) 75 Mg Tablet for 90 Days Hydrocodone/Acetaminophen 5-325* (Hydrocodone/Acetaminophen 5-325*) 1 Each Tablet for 60 Days Raloxifene HCl (Raloxifene HCl) 60 Mg Tablet for 90 Days Ranolazine (Ranexa) 1,000 Mg Tab.er.12h for 90 Days Discharge Condition Upon Discharge: improving Discharge Vital Signs Last Vital Signs Date Time Temp Pulse Resp B/P (MAP) Pulse Ox O2 Delivery O2 Flow Rate FiO2 08/27/19 16:46 68 08/27/19 16:42 97.7 18 130/64 (86) 98 08/27/19 09:28 Room Air 21 08/23/19 01:15 14.0 Discharge Disposition Patient was discharged to home with home health Discharge Diagnoses: (1) Acute CHF (congestive heart failure) (2) Hypertensive crisis (3) Chronic kidney disease (4) Hyperkalemia (5) DM (diabetes mellitus) Paco Dockery MD Aug 27, 2019 17:13
--- NOTE | 2019-08-27 17:28 | NUR ---
*-*DISCHARGE PLANNING*-* CLINICALS FAXED TO [facility] P: [phone] F: [phone] WATING FOR ACCEPTANCE Addendum: 08/28/19 at 1002 by MARLON ENCARNACION CM *-*DISCHARGE PLANNING*-* CLINICALS FAXED TO [facility] P: [phone] F: [phone] WATING FOR ACCEPTANCE
--- NOTE | 2019-08-27 19:59 | NUR ---
NURSE NOTES: Report received from Mylene RAMIREZ. Patient is observed in bed, awake, alert, oriented, and able to make needs known. Respiration even and unlabored. Patient denies pain at this time. Bed is in lowest position with side rails up x2 and brakes are engaged. Bed alarm is on. Encouraged patient to use call light when in need of assistance, pt verbalized understanding. Call light and personal belongings are within reach. Will continue to monitor.
[2019-08-27 20:18] VITALS: BP 154/76
[2019-08-28] VITALS: BP 130/52
--- NOTE | 2019-08-28 00:47 | NUR ---
NURSE NOTES: Patient is asleep but arousable by voice. Respiratory even and unlabored. No c/o pain and/or discomfort at this time. Will continue to monitor.
[2019-08-28 04:00] VITALS: BP 151/79
[2019-08-28] MEDS: NovoLOG Insulin Flexpen SUBQ SCH (06:30)
--- NOTE | 2019-08-28 07:30 | NUR ---
NURSE NOTES: Received pt from JESSICA RAMIREZ. Pt is awake and orient, pt is in RA, no SOB or acute respiratory distress noted. pt has intact iv access LFA 24G SL. Pt is eating breakfast by observation. Pt is on continues heart monitoring.no complain of pain at this moment. all needs attended, bed is locked and is in the lowest position, call light within easy reach. will continue to monitor.
--- NOTE | 2019-08-28 07:52 | NUR ---
HAND-OFF: Report given to Rubi RAMIREZ. Patient is in stable condition. Endorsed plan of care.
[2019-08-28 08:00] VITALS: BP 155/70
[2019-08-28] MEDS: Aspirin Baby 81mg ORAL SCH (08:54)
[2019-08-28] MEDS: Docusate 100mg cap ORAL SCH (08:54)
[2019-08-28 08:55] VITALS: BP 155/70
[2019-08-28] MEDS: Imdur 30mg tab ORAL SCH (08:55)
[2019-08-28] MEDS: Heparin 5000 units/ml inj SUBQ SCH (08:56)
--- NOTE | 2019-08-28 10:02 | Nephrology Progress Note ---
Assessment/Plan Plan #MAY due to CRS 1- on possible CKD? #history of R nephrectomy - possible RCC #hyperkalemia #Chest pain/dyspnea due to acute CHF #HTN #NIDDM #HLD - DC on lasix 40 po daily - imdur 60mg daily - amlodipine 5mg daily - strict I&Os - daily weights - cardiology eval - -hold ranexa - continue asa - continue plavix - monitor bmp closely - stress test negative - check renal US- reviewed: absent right kidney Subjective Subjective breathing improved today no chest pain no dizziness Cr stable stress test negative BP trending up Renal US: IMPRESSION: Absent right kidney. Left kidney showing a focus of shadowing in the midpole may be a focus of calcification or scarring versus a nonobstructive stone. Objective Objective Last 24 Hour Vital Signs Date Time Temp Pulse Resp B/P (MAP) Pulse Ox O2 Delivery O2 Flow Rate FiO2 08/28/19 08:55 155/70 08/28/19 08:54 61 155/70 08/28/19 08:00 96.8 61 18 155/70 (98) 100 08/28/19 07:43 60 08/28/19 07:06 69 16 96 Room Air 21 08/28/19 04:00 97.5 60 20 151/79 (103) 98 08/28/19 03:52 80 16 98 Room Air 21 08/28/19 03:32 64 08/28/19 00:00 97.7 62 20 130/52 (78) 98 08/27/19 23:30 60 08/27/19 20:18 97.3 62 18 154/76 (102) 98 08/27/19 19:10 60 08/27/19 16:46 68 08/27/19 16:42 97.7 60 18 130/64 (86) 98 08/27/19 12:07 60 08/27/19 11:35 97.2 60 18 140/67 (91) 99 Intake and Output 08/27/19 08/28/19 19:00 07:00 Intake Total 480 ml Balance 480 ml Intake Oral 480 ml # Voids 2 2 Height (Feet): 5 Height (Inches): 6.00 Weight (Pounds): 143 Objective General Appearance: no apparent distress, alert HEENT: atraumatic, anicteric Neck: normal alignment, supple Respiratory/Chest: lungs clear, normal breath sounds, no respiratory distress, no accessory muscle use Cardiovascular/Chest: normal rate, regular rhythm Abdomen: non tender, soft Extremities: non-tender, normal inspection Skin Exam: normal pigmentation, warm/dry Neurologic: nonfocal Sulema Broussard M.D. Aug 28, 2019 10:02
--- NOTE | 2019-08-28 10:16 | NUR ---
*-*DISCHARGE PLANNED*-* PATIENT HAS BEEN ACCEPTED WITH [facility]. SPOKE WITH [facility] P: [phone] WHO SAYS THEY WILL SERVICE THE PATIENT. SERVICE WILL BEGIN 08/29/2019.
--- NOTE | 2019-08-28 10:50 | NUR ---
NURSE NOTES: pt has D/C order, all discharge assessments and instructions done and pt verbally confirmed to understand all. pt is stable, V/S stable, pt is aware about discharge with [facility] PH:[phone], skin is intact, ptis daughter Leida is aware, pt has Dr MONAE prescription and she asked to take to her own pharmacy, waiting for daughter to pick pt up. will continue to monitor.
--- NOTE | 2019-08-28 11:18 | NUR ---
NURSE NOTES: pt refused to dress up and RN wanted to find wheelchair but pt was in [place] and wanted to leave soon so refused, pt is stable, V/S stable, RN accompanied pt to car and pt left hospital with daughter.
== END 2019-08-28 11:17 | disposition home health service (06) | DRG 291 ==
LOC: EDBD 22:01 → EMR 22:15 → 2W 22:57 → EDBEDREQ 23:11 → EDBEDREQSVC 23:11 → EDBEDREQ 08-23 00:20 → 2E 08-23 20:31
DX: I13.0 Hypertensive heart and chronic kidney disease with heart failure and stage 1 through stage 4 chronic kidney disease, or unspecified chronic kidney disease (principal); I50.43 Acute on chronic combined systolic (congestive) and diastolic (congestive) heart failure; N17.9 Acute kidney failure, unspecified; I16.9 Hypertensive crisis, unspecified; I25.110 Atherosclerotic heart disease of native coronary artery with unstable angina pectoris; N18.9 Chronic kidney disease, unspecified; E78.5 Hyperlipidemia, unspecified; E87.5 Hyperkalemia; Z79.02 Long term (current) use of antithrombotics/antiplatelets; Z90.5 Acquired absence of kidney
CPT/HCPCS: 36415; 71045; 76770; 78452; 80048; 80053; 81003; 82044; 82550; 82553; 82570; 82962; 83605; 83690; 83735; 83880; 84484; 85025; 87040; 89050; 93005; 93017; 93306; 93971; 94660; 94664; 96374; 99291; J1815; J2785

== ENCOUNTER 2019-12-27 22:59 | Inpatient (IN) | payer MEDICARE, OTHER ==
[~2019-12-27] VITALS: Ht 167.6 cm; Wt 70.8 kg
[2019-12-27 22:59] VITALS: BP 134/76
[2019-12-27] MEDS ORDERED: Omnipaque-300 100ml vial INJ PRN (23:15)
--- NOTE | 2019-12-27 23:30 | Emergency Room Report ---
History of Present Illness General Chief Complaint: Constipation Source: Patient Present Illness HPI Disclaimer: Please note that this report is being documented using [employer] technology. This can lead to erroneous entry secondary to incorrect interpretation by the dictating instrument. HPI: 84-year-old female with a history of diabetes, hypertension, CAD status post stenting presents for evaluation of abdominal pain and constipation. Patient states she has been constipated for the past 2 weeks. 1 week ago she was given a laxative by her PMD with good effect however since then over the past 5 days she reports very minimal bowel movements. She continues to pass gas intermittently. She stated she had some bright red blood on the tissue paper today and was prompted to the emergency department by her PMD and daughter who is a lettuce cutter. Denies any recent fever, chills, nausea, vomiting. Reports pain is in the periumbilical region which is has been for the past 2 weeks. She had a nephrectomy after a suspicious mass was found on her kidney and reports some reduced renal function. Otherwise denies other abdominal surgeries. Denies any recent fever, chills, chest pain, shortness of breath, palpitations, URI symptoms. PMH: CAD, hypertension, hyperlipidemia, diabetes PSH: Right nephrectomy Allergies: Shellfish Social Hx: Denied Allergies: Coded Allergies: Crab (Verified Allergy, Mild, 05/28/16) Uncoded Allergies: SHELLFISH (Allergy, Unknown, 11/21/17) COVID-19 Screening Contact w/high risk pt: No Recent Travel to affected area: No Experienced COVID-19 symptoms?: No COVID-19 Testing performed ITALIAN LECTURER: No Nursing Documentation-PMH Hx Cardiac Problems: Yes Hx Hypertension: Yes Hx Diabetes: Yes Hx Cancer: No Hx Gastrointestinal Problems: No - Lt kidney removed Hx Neurological Problems: No Hx Dizziness: Yes Review of Systems All Other Systems: negative except mentioned in HPI Physical Exam Vital Signs Date Time Temp Pulse Resp B/P (MAP) Pulse Ox O2 Delivery O2 Flow Rate FiO2 12/27/19 22:58 97.3 84 18 134/76 (95) 98 Room Air General: Awake and alert, appears mildly uncomfortable HEENT: NC/AT. EOMI. Cardiovascular: RRR. S1 and S2 normal. No murmur appreciated Resp: Normal work of breathing. No cough, wheezing or crackles appreciated Abdomen: Abdomen is soft, mildly distended. Tender to palpation in the periumbilical, lower quadrants and suprapubic region. No guarding. No obvious abdominal wall defect though there is scar tissue overlying from previous surgery. Skin: Midline abdominal surgical scar clean dry and intact. MSK: Normal tone and bulk. Moving all extremities. No obvious deformity. Neuro: Awake and alert. Mentating appropriately. Medical Decision Making Diagnostic Impression: Primary Impression: Diverticulitis Additional Impressions: Constipation Chronic kidney disease ER Course 84-year-old female presents for evaluation of constipation abdominal pain 2 weeks duration. Greatest concern for fecal impaction, SBO, volvulus, ileus though other diagnoses remain on differential. Will start with broad labs, IV fluids, keep n.p.o. and sent for CT scan of the abdomen. 0120: Labs have returned largely within normal limits aside from decreased renal function consistent with the patient's history of nephrectomy and chronic renal insufficiency. CT scan of the abdomen without contrast shows evidence of uncomplicated diverticulitis without abscess or obstruction. Does have a large stool burden. Patient given ciprofloxacin and Flagyl and will be admitted to panel physician, Dr. Mckenna, as her PMD does not have admitting privileges here. Laboratory Tests Test 12/27/19 23:21 12/27/19 23:49 12/27/19 23:50 White Blood Count 7.7 K/UL (4.8-10.8) Red Blood Count 2.83 M/UL (4.20-5.40) L Hemoglobin 9.2 G/DL (12.0-16.0) L Hematocrit 28.8 % (37.0-47.0) L Mean Corpuscular Volume 102 FL (80-99) H Mean Corpuscular Hemoglobin 32.5 PG (27.0-31.0) H Mean Corpuscular Hemoglobin Concent 31.9 G/DL (32.0-36.0) L Red Cell Distribution Width 11.4 % (11.6-14.8) L Platelet Count 269 K/UL (150-450) Mean Platelet Volume 7.9 FL (6.5-10.1) Neutrophils (%) (Auto) 79.1 % (45.0-75.0) H Lymphocytes (%) (Auto) 13.1 % (20.0-45.0) L Monocytes (%) (Auto) 6.6 % (1.0-10.0) Eosinophils (%) (Auto) 0.6 % (0.0-3.0) Basophils (%) (Auto) 0.6 % (0.0-2.0) Sodium Level 135 MMOL/L (136-145) L Potassium Level 4.4 MMOL/L (3.5-5.1) Chloride Level 103 MMOL/L (98-107) Carbon Dioxide Level 25 MMOL/L (21-32) Anion Gap 7 mmol/L (5-15) Blood Urea Nitrogen 58 mg/dL (7-18) H Creatinine 2.9 MG/DL (0.55-1.30) H Estimated Glomerular Filtration Rate 18.7 mL/min (>60) Glucose Level 115 MG/DL (74-106) H Calcium Level 9.2 MG/DL (8.5-10.1) Total Bilirubin 0.2 MG/DL (0.2-1.0) Aspartate Amino Transferase (AST) 20 U/L (15-37) Alanine Aminotransferase (ALT) 24 U/L (12-78) Alkaline Phosphatase 84 U/L (46-116) Total Protein 7.5 G/DL (6.4-8.2) Albumin 3.5 G/DL (3.4-5.0) Globulin 4.0 g/dL Albumin/Globulin Ratio 0.9 (1.0-2.7) L Lipase 118 U/L (73-393) Urine Color Pale yellow Urine Appearance Clear Urine pH 5 (4.5-8.0) Urine Specific [place] 1.005 (1.005-1.035) Urine Protein Negative (NEGATIVE) Urine Glucose (UA) Negative (NEGATIVE) Urine Ketones Negative (NEGATIVE) Urine Blood Negative (NEGATIVE) Urine Nitrite Negative (NEGATIVE) Urine Bilirubin Negative (NEGATIVE) Urine Urobilinogen Normal MG/DL (0.0-1.0) Urine Leukocyte Esterase Negative (NEGATIVE) Lactic Acid Level 0.50 mmol/L (0.4-2.0) Last Vital Signs Date Time Temp Pulse Resp B/P (MAP) Pulse Ox O2 Delivery O2 Flow Rate FiO2 12/27/19 22:59 97.3 89 18 134/76 98 Room Air Disposition: ADMITTED INPATIENT Condition: Stable Houston Bowens MD Dec 27, 2019 23:30
[2019-12-27 23:48] LABS: BASOPHILS % (AUTO) 0.6 % (0.0-2.0); EOSINOPHILS % (AUTO) 0.6 % (0.0-3.0); HEMATOCRIT 28.8 % (37.0-47.0); HEMOGLOBIN 9.2 G/DL (12.0-16.0); LYMPHOCYTES % (AUTO) 13.1 % (20.0-45.0); MEAN CORPUSCULAR VOLUME 102 FL (80-99); MONOCYTES % (AUTO) 6.6 % (1.0-10.0); NEUTROPHILS % (AUTO) 79.1 % (45.0-75.0); PLATELET COUNT 269 K/UL (150-450); RED BLOOD COUNT 2.83 M/UL (4.20-5.40); RED CELL DISTRIBUTION WIDTH 11.4 % (11.6-14.8); WHITE BLOOD COUNT 7.7 K/UL (4.8-10.8)
[2019-12-27 23:51] LABS: ANION GAP 7 mmol/L (5-15); BLOOD UREA NITROGEN 58 mg/dL (7-18); CALCIUM 9.2 MG/DL (8.5-10.1); CARBON DIOXIDE 25 MMOL/L (21-32); CHLORIDE 103 MMOL/L (98-107); CREATININE 2.9 MG/DL (0.55-1.30); POTASSIUM 4.4 MMOL/L (3.5-5.1); SODIUM 135 MMOL/L (136-145)
[2019-12-27 23:56] LABS: ALANINE AMINOTRANSFERASE 24 U/L (12-78); ALBUMIN 3.5 G/DL (3.4-5.0); ALBUMIN/GLOBULIN RATIO 0.9 (1.0-2.7); ALKALINE PHOSPHATASE 84 U/L (46-116); ASPARTATE AMINO TRANSFERASE 20 U/L (15-37); BILIRUBIN,TOTAL 0.2 MG/DL (0.2-1.0)
[2019-12-28] VITALS (7 sets, daily range): BP systolic 111–132; BP diastolic 51–78
[2019-12-28 00:08] LABS: APPEARANCE,URINE CLEAR; BILIRUBIN, URINE NEGATIVE (NEGATIVE); COLOR,URINE PALE YELLOW; GLUCOSE, URINE (UA) NEGATIVE (NEGATIVE); KETONES,URINE NEGATIVE (NEGATIVE); LEUKOCYTE ESTERASE ,URINE NEGATIVE (NEGATIVE); NITRITE,URINE NEGATIVE (NEGATIVE); PH,URINE 5 (4.5-8.0); PROTEIN,URINE NEGATIVE (NEGATIVE); UROBILINOGEN,URINE NORMAL MG/DL (0.0-1.0)
--- NOTE | 2019-12-28 01:12 | Diagnostic Imaging Report ---
EXAM: CT Abdomen and Pelvis Without Intravenous Contrast CLINICAL HISTORY: ABD PAIN TECHNIQUE: Axial computed tomography images of the abdomen and pelvis without intravenous contrast. CTDI is 5 mGy and DLP is 238.5 mGy-cm. One or more of the following dose reduction techniques were used: automated exposure control, adjustment of the mA and/or kV according to patient size, use of iterative reconstruction technique. COMPARISON: Retroperitoneal ultrasound of 08/23/2019. FINDINGS: Lung bases: Unremarkable. No mass. No consolidation. ABDOMEN: Liver: Unremarkable. Gallbladder and bile ducts: Gallstone in a contracted gallbladder. No ductal dilation. Pancreas: Unremarkable. No ductal dilation. Spleen: Unremarkable. No splenomegaly. Adrenals: Unremarkable. No mass. Kidneys and ureters: Surgically absent right kidney. 13 mm mid pole right renal dense cortical lesion, likely a proteinaceous or hemorrhagic cyst. If the patient has had previous renal malignancy, then clinically appropriate follow-up surveillance imaging is warranted to confirm stability of left renal findings. Adjacent to this dense lesion are cortical defects and adjacent soft tissue stranding suggesting previous cortical scarring, possibly from ablation or previous inflammation/infection. No hydronephrosis. Stomach and bowel: There is abnormal soft tissue stranding surrounding multiple diverticuli in the sigmoid colon with mild wall thickening. No findings of bowel obstruction. PELVIS: Appendix: The appendix is not well seen but there are no findings of acute appendicitis Bladder: Unremarkable. No stones. Reproductive: Unremarkable as visualized. ABDOMEN and PELVIS: Intraperitoneal space: No free air, free fluid or fluid collection. Bones/joints: Grade 1 anterolisthesis at L3-L4 and generalized osteopenia. No acute or aggressive appearing osseous lesions. No dislocation. Soft tissues: Unremarkable. Vasculature: Unremarkable. No abdominal aortic aneurysm. Lymph nodes: Unremarkable. No enlarged lymph nodes. Tubes, lines and devices: Bilateral breast prostheses and cardiac pacemaker wires noted in the included lower chest. IMPRESSION: Findings consistent with acute diverticulitis without evidence of bowel obstruction or perforation. No abscess formation.
[2019-12-28] MEDS ORDERED: Ciprofloxacin 500mg tab ORAL ONE (01:15)
[2019-12-28] MEDS ORDERED: metroNIDAZOLE 500mg tab ORAL ONE (01:15)
[2019-12-28] MEDS ORDERED: CRESTOR10 M1 ORAL (01:54)
[2019-12-28] MEDS ORDERED: JANUVIA25 MG ORAL (01:54)
[2019-12-28] MEDS ORDERED: TELMISARTAN80 MG PO (01:54)
[2019-12-28] MEDS ORDERED: Miralax 17gm pkt ORAL PRN (02:15)
[2019-12-28] MEDS ORDERED: Morphine Sulfate 2mg/ml Inj(IV/IM USE ONLY) IVP PRN (02:15)
[2019-12-28] MEDS ORDERED: Tylenol #3 tab (300mg/30mg) ORAL PRN (02:15)
[2019-12-28] MEDS: metroNIDAZOLE 500mg tab ORAL SCH ×3 (05:54→20:56)
[2019-12-28] MEDS: NovoLOG Insulin Flexpen SUBQ SCH ×4 (05:55→20:50)
[2019-12-28] MEDS: Morphine Sulfate 4mg/ml Inj (IV USE ONLY) IVP PRN (08:57)
--- NOTE | 2019-12-28 13:14 | History & Physical ---
History and Physical History & Physicial dictated [id number] Noel Mckenna MD Dec 28, 2019 13:14
[2019-12-28] MEDS: Aspirin Baby 81mg ORAL SCH (13:40)
--- NOTE | 2019-12-28 15:42 | Diagnostic Imaging Report ---
Indication: Abnormal renal function tests. Painful urination. History of right nephrectomy Technique: Grayscale and duplex images of the kidneys, retroperitoneum, and bladder were obtained. Comparison: 08/23/2019 Findings: Right kidney has been removed. Left kidney measures 11.2 cm in length. Left kidney demonstrates normal echogenicity. No hydronephrosis. There is some scarring in the interpolar region. A subcentimeter posterior left renal cyst is noted, corresponding to hyperdense cyst demonstrated on recent CT scan. Another small cyst is seen in the interpolar region.. Normal inferior vena cava. Bladder is normal. Impression: Absent right kidney. Left renal cyst, also evident previously.
--- NOTE | 2019-12-28 15:45 | History and Physical Report ---
DATE OF ADMISSION: 12/28/2019 CHIEF COMPLAINT: Abdominal pain. HISTORY OF PRESENT ILLNESS: This is an 84-year-old female. She lives with her oldest daughter. For the past 2 weeks, she has had some abdominal pain. She was constipated about 4 to 5 days ago. She received some laxatives and had some relief. However, since then, she has not had any stools again. She continued to have abdominal pain. It became worse over time and then finally the daughter called paramedics. She was brought into the emergency room. She was diagnosed with diverticulitis and was admitted. PAST MEDICAL HISTORY: Diabetes, hypertension, and hyperlipidemia. 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 She had a stroke causing right-sided weakness. She had right nephrectomy apparently for cancer. She states that there was a spot on it. She has chronic kidney disease. MEDICATIONS: Reviewed in EMR. SOCIAL HISTORY: No history of smoking or alcohol abuse. ALLERGIES: No known drug allergies. REVIEW OF SYSTEMS: As above. PHYSICAL EXAMINATION: GENERAL: The patient is an elderly female, no acute distress. VITAL SIGNS: Blood pressure 120/58, pulse 60, respirations 18, and temperature 97.7. HEENT: Some pale conjunctivae. Anicteric sclerae. NECK: Supple. LUNGS: Clear to auscultation. HEART: S1, S2 without murmurs or rubs. ABDOMEN: Soft. There is tenderness diffusely, but mostly around the umbilicus. EXTREMITIES: No cyanosis or edema. LABORATORY FINDINGS: The CBC shows a WBC of 7700, hematocrit is 28.8, hemoglobin is 9.2, platelets 269,000. The chemistry panel shows a serum sodium of 135, potassium 4.4, chloride 103, BUN is 58, creatinine 2.9, and blood sugar is 115. Lipase is 118. The UA is basically negative. ASSESSMENT: This is an 84-year-old female who is admitted with abdominal pain, diagnosis of diverticulitis. She has diabetes, hypertension, chronic kidney disease. She is status post nephrectomy, has only 1 kidney. PLAN: The patient was started on antibiotics. ID and GI consultations will be obtained. She will need to be on laxatives. Clear liquid diet. Iron panel to look for anemia. Labs will be followed and adjustment will be made in the patient's regimen. Noel Mckenna M.D. DR: SHAN JOB#: [id number] CC:
--- NOTE | 2019-12-28 16:15 | Consultation ---
DATE OF CONSULTATION: 12/28/2019 INFECTIOUS DISEASE CONSULT ATTENDING PHYSICIAN: Noel Mckenna M.D. REASON FOR CONSULT: Diverticulitis. HISTORY OF PRESENT ILLNESS: This is an 84-year-old female admitted today from home complaining of constipation for 2 weeks. The patient had a visit to primary office and received stool softener. She was doing better until 5 days ago when constipation came back. Since, the patient has developed bleeding from rectum. There is blood in tissue paper after a bowel movement. PAST MEDICAL HISTORY: Significant for diabetes mellitus, hypertension, coronary artery disease, status post stent, hyperlipidemia. PAST SURGICAL HISTORY: Right nephrectomy at a young age, status post pacemaker, status post bilateral breast prosthesis. ALLERGIES: Allergic to crab and shellfish. MEDICATIONS: Cipro, aspirin, amlodipine, Plavix, Pepcid, metronidazole, Tylenol No. 3, morphine, polyethylene glycol. SOCIAL HISTORY: . Lives with daughter and grandchildren. No history of alcohol, drug abuse, or smoking. REVIEW OF SYSTEMS: No fever. No chills. No nausea. No vomiting. No coughing. No shortness of breath. Has constipation. Has abdominal pain with passing urine. PHYSICAL EXAMINATION: VITAL SIGNS: Temperature is 97.7, pulse 62, blood pressure 120/58. GENERAL APPEARANCE: No acute distress. Well developed. HEENT: [place] conjunctivae. HEART: There is a right-sided pacemaker. LUNGS: Clear. ABDOMEN: Soft, nontender. EXTREMITIES: No edema. NEUROLOGIC: Awake, alert, oriented x3. LABORATORY DATA: WBC 7.7, hemoglobin 9.2, hematocrit 28.8, platelet 269. Sodium 135, potassium 4.4, chloride 103, bicarb 25, BUN 58, creatinine 2.9, glucose is 115. CT scan of the abdomen and pelvis showed acute diverticulosis of sigmoid colon without obstruction or perforation. IMPRESSION: Diverticulitis of colon. The patient has renal failure, diabetes mellitus, hypertension, anemia, hyperlipidemia. RECOMMENDATION: Continue with Cipro and Flagyl. We will follow up the cultures. At the end of my exam, I thank Dr. Noel Mckenna for involving me in the care of this patient. [place] Mckenna M.D. DR: ALYSSIA JOB#: [id number] CC:
[2019-12-28] MEDS: Ciprofloxacin 500mg tab ORAL SCH (20:56)
--- NOTE | 2019-12-28 22:07 | General Progress Note ---
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 - s/p pacemaker - HTN - High cholesterol - mildly macrocytic anemia Recommendations - clears / advance - abx - follow exam - check B12, folate - outpatient EGD/Colon once recovered Thank you Alissa Melgar MD Subjective Allergies: Coded Allergies: Crab (Verified Allergy, Mild, 05/28/16) Uncoded Allergies: SHELLFISH (Allergy, Unknown, 11/21/17) Objective Last 24 Hour Vital Signs Date Time Temp Pulse Resp B/P (MAP) Pulse Ox O2 Delivery O2 Flow Rate FiO2 12/28/19 16:00 97.7 63 20 116/60 (78) 96 12/28/19 12:00 97.7 60 18 120/58 (78) 95 12/28/19 09:00 Room Air 12/28/19 08:58 62 114/60 12/28/19 08:00 97.7 62 18 114/60 (78) 96 12/28/19 04:00 98.1 69 20 111/65 (80) 97 12/28/19 02:30 97.7 71 20 132/78 (96) 97 12/28/19 02:11 Room Air 12/28/19 01:47 98.5 63 15 119/51 98 Room Air 12/28/19 01:43 97.3 12/28/19 01:25 98.5 63 15 119/51 98 Room Air 12/27/19 22:59 97.3 89 18 134/76 98 Room Air 12/27/19 22:58 97.3 84 18 134/76 (95) 98 Room Air Intake and Output 12/27/19 12/28/19 19:00 07:00 Intake Total 600 ml Balance 600 ml Intake Oral 600 ml # Voids 2 # Bowel Movements 1 Laboratory Tests 12/27/19 23:21: White Blood Count 7.7, Red Blood Count 2.83L, Hemoglobin 9.2L, Hematocrit 28.8L , Mean Corpuscular Volume 102H, Mean Corpuscular Hemoglobin 32.5H, Mean Corpuscular Hemoglobin Concent 31.9L, Red Cell Distribution Width 11.4L, Platelet Count 269, Mean Platelet Volume 7.9, Neutrophils (%) (Auto) 79.1H, Lymphocytes (%) (Auto) 13.1L, Monocytes (%) (Auto) 6.6, Eosinophils (%) (Auto) 0.6, Basophils (%) (Auto) 0.6, Sodium Level 135L, Potassium Level 4.4, Chloride Level 103, Carbon Dioxide Level 25, Anion Gap 7, Blood Urea Nitrogen 58H, Creatinine 2.9H, Estimat Glomerular Filtration Rate 18.7, Glucose Level 115H, Calcium Level 9.2, Total Bilirubin 0.2, Aspartate Amino Transf (AST/SGOT) 20, Alanine Aminotransferase (ALT/SGPT) 24, Alkaline Phosphatase 84, Total Protein 7.5, Albumin 3.5, Globulin 4.0, Albumin/Globulin Ratio 0.9L, Lipase 118 12/27/19 23:49: Urine Color Pale yellow, Urine Appearance Clear, Urine pH 5, Urine Specific [place] 1.005, Urine Protein Negative, Urine Glucose (UA) Negative, Urine Ketones Negative, Urine Blood Negative, Urine Nitrite Negative, Urine Bilirubin Negative, Urine Urobilinogen Normal, Urine Leukocyte Esterase Negative 12/27/19 23:50: Lactic Acid Level 0.50 12/28/19 11:46: POC Whole Blood Glucose [Pending] 12/28/19 15:17: Calcium (Send out) [Pending], Parathyroid Hormone (Intact) [Pending] 12/28/19 17:14: POC Whole Blood Glucose [Pending] Height (Feet): 5 Height (Inches): 6.00 Weight (Pounds): 140 Alissa Melgar MD Dec 28, 2019 22:07
[2019-12-29] VITALS: BP 117/57
--- NOTE | 2019-12-29 03:45 | Consultation ---
DATE OF CONSULTATION: 12/28/2019 GASTROENTEROLOGY CONSULTATION CONSULTING PHYSICIAN: Alissa Melgar M.D. CHIEF COMPLAINT: I was asked to see this patient by Dr. Noel Mckenna for evaluation of abdominal pain. HISTORY OF PRESENT ILLNESS: The patient is a pleasant 84-year-old woman who was in her usual state of health until about 2-week history of slowly progressive abdominal pain. The patient states the pain is in central and nausea, vomiting. She does feel constipated and came to the emergency room where she was diagnosed with diverticulitis and has been admitted. The patient states she never had a colonoscopy in the past. PAST MEDICAL HISTORY: History of right-sided nephrectomy for malignancy, status post pacemaker placement, status post bilateral breast implants, history of hypertension, hypercholesterolemia. ALLERGIES: To shellfish and crab. FAMILY HISTORY: Noncontributory. SOCIAL HISTORY: The patient is a . She lives with a daughter and grand children. REVIEW OF SYSTEMS: Otherwise negative. PHYSICAL EXAMINATION: GENERAL: Pleasant, thin woman, seen in her room. HEENT: Normocephalic, atraumatic. Sclerae are anicteric. Oropharynx clear. NECK: Supple. CHEST: Clear to auscultation. CARDIOVASCULAR: Revealed a regular rate. ABDOMEN: Soft. Mild tenderness to palpation without guarding or rebound. EXTREMITIES: Revealed no edema. LABORATORY DATA: Noted for anemia with hemoglobin of 9.2 and mild macrocytosis with an MCV of 102. Patient's creatinine is 2.9. ASSESSMENT: This patient presents with abdominal pain to diverticulitis as shown on imaging studies. The patient abdomen is not very tender and she is an appropriate candidate for conservative management. She has received a course of antibiotics and once she improves, she can be discharged home to complete the rest of the medication course at home. The patient has never had a colonoscopy and at her age, she is to balance her issue. However, given the pattern of diverticulitis, it may be worthwhile to perform an examination. The patient states that she may be interested, will think about it. RECOMMENDATIONS: 1. Advance diet as tolerated. 2. Broad-spectrum antibiotics. 3. Follow laboratory parameters and exam. 4. Consideration for outpatient colonoscopy. Alissa Melgar M.D. DR: JOSE RAFAEL JOB#: [id number] CC:
[2019-12-29 04:00] VITALS: BP 111/59
[2019-12-29] MEDS: NovoLOG Insulin Flexpen SUBQ SCH ×4 (06:27→21:00)
[2019-12-29] MEDS: metroNIDAZOLE 500mg tab ORAL SCH ×3 (06:53→21:41)
[2019-12-29 07:12] LABS: % IRON SATURATION 12 % (15-50); IRON 21 ug/dL (50-175); TOTAL IRON BINDING CAPACITY 170 ug/dL (250-450)
[2019-12-29 07:23] LABS: ALANINE AMINOTRANSFERASE 18 U/L (12-78); ALBUMIN 3.1 G/DL (3.4-5.0); ALBUMIN/GLOBULIN RATIO 0.8 (1.0-2.7); ALKALINE PHOSPHATASE 73 U/L (46-116); ANION GAP 7 mmol/L (5-15); ASPARTATE AMINO TRANSFERASE 15 U/L (15-37); BILIRUBIN,TOTAL 0.2 MG/DL (0.2-1.0); BLOOD UREA NITROGEN 47 mg/dL (7-18); CARBON DIOXIDE 25 MMOL/L (21-32); CHLORIDE 107 MMOL/L (98-107); CHOLESTEROL 88 MG/DL (< 200); CREATININE 2.5 MG/DL (0.55-1.30); HDL CHOLESTEROL 41 MG/DL (40-60); SODIUM 139 MMOL/L (136-145); TRIGLYCERIDES 50 MG/DL (30-150)
[2019-12-29 08:00] VITALS: BP 133/61
[2019-12-29] MEDS: Aspirin Baby 81mg ORAL SCH (08:33)
--- NOTE | 2019-12-29 08:46 | General Progress Note ---
Assessment/Plan Problem List: (1) Diverticulitis ICD Codes: K57.92 - Diverticulitis of intestine, part unspecified, without perforation or abscess without bleeding SNOMED: 673973284 (2) Constipation ICD Codes: K59.00 - Constipation, unspecified SNOMED: 41586090 (3) DM (diabetes mellitus) ICD Codes: E11.9 - DM (diabetes mellitus) SNOMED: 79499357 (4) HTN (hypertension) ICD Codes: I10 - Essential (primary) hypertension SNOMED: 47269303 Assessment/Plan: abx clears add colace to miralax pain control out patient colonoscopy in 8 weeks Subjective ROS Limited/Unobtainable: Yes Allergies: Coded Allergies: Crab (Verified Allergy, Mild, 05/28/16) Uncoded Allergies: SHELLFISH (Allergy, Unknown, 11/21/17) Objective Last 24 Hour Vital Signs Date Time Temp Pulse Resp B/P (MAP) Pulse Ox O2 Delivery O2 Flow Rate FiO2 12/29/19 08:34 63 122/58 12/29/19 08:00 97.9 60 18 133/61 (85) 95 12/29/19 04:00 97.2 60 18 111/59 (76) 94 12/29/19 00:00 98.4 60 18 117/57 (77) 95 12/28/19 21:00 Room Air 12/28/19 20:00 97.7 76 16 114/61 (78) 96 12/28/19 16:00 97.7 63 20 116/60 (78) 96 12/28/19 12:00 97.7 60 18 120/58 (78) 95 12/28/19 09:00 Room Air 12/28/19 08:58 62 114/60 Intake and Output 12/28/19 12/29/19 19:00 07:00 Intake Total 1280 ml 360 ml Balance 1280 ml 360 ml Intake Oral 1280 ml Other 360 ml # Voids 3 3 Laboratory Tests 12/28/19 11:46: POC Whole Blood Glucose [Pending] 12/28/19 15:17: Calcium (Send out) [Pending], Parathyroid Hormone (Intact) [Pending] 12/28/19 17:14: POC Whole Blood Glucose [Pending] 12/28/19 20:29: POC Whole Blood Glucose 78 12/29/19 03:30: POC Whole Blood Glucose 69L 12/29/19 05:50: Sodium Level 139, Potassium Level 5.0, Chloride Level 107, Carbon Dioxide Level 25, Anion Gap 7, Blood Urea Nitrogen 47H, Creatinine 2.5H, Estimat Glomerular Filtration Rate 22.2, Glucose Level 106, Calcium Level 9.0, Magnesium Level 2.5H , Iron Level 21L, Total Iron Binding Capacity 170L, Percent Iron Saturation 12L , Unsaturated Iron Binding 149, Total Bilirubin 0.2, Aspartate Amino Transf (AST /SGOT) 15, Alanine Aminotransferase (ALT/SGPT) 18, Alkaline Phosphatase 73, Total Protein 6.9, Albumin 3.1L, Globulin 3.8, Albumin/Globulin Ratio 0.8L, Triglycerides Level 50, Cholesterol Level 88, LDL Cholesterol 34, HDL Cholesterol 41, Cholesterol/HDL Ratio 2.1L, Vitamin D 25-Hydroxy [Pending], 25- Hydroxy Vitamin D2 [Pending], 25-Hydroxy Vitamin D3 [Pending], Thyroid Stimulating Hormone (TSH) 1.123 Height (Feet): 5 Height (Inches): 6.00 Weight (Pounds): 140 General Appearance: alert EENT: normal ENT inspection Neck: supple Cardiovascular: normal rate Respiratory/Chest: lungs clear Abdomen: hypoactive bowel sounds, tender Extremities: non-tender Saulo Rushing MD Dec 29, 2019 08:46
[2019-12-29] MEDS: Docusate 100mg cap ORAL SCH ×2 (10:42→18:44)
[2019-12-29 12:00] VITALS: BP 116/56
[2019-12-29 16:00] VITALS: BP 130/70
[2019-12-29] MEDS: Fleet's Mineral Oil Enema RECTAL PRN (17:37)
[2019-12-29 20:00] VITALS: BP 136/79
--- NOTE | 2019-12-29 20:33 | General Progress Note ---
Assessment/Plan Problem List: (1) Diverticulitis ICD Codes: K57.92 - Diverticulitis of intestine, part unspecified, without perforation or abscess without bleeding SNOMED: 589975609 (2) HTN (hypertension) ICD Codes: I10 - Essential (primary) hypertension SNOMED: 50465052 (3) DM (diabetes mellitus) ICD Codes: E11.9 - DM (diabetes mellitus) SNOMED: 03641276 (4) Constipation ICD Codes: K59.00 - Constipation, unspecified SNOMED: 26256580 (5) Renal failure (ARF), acute on chronic ICD Codes: N17.9 - Renal failure (ARF), acute on chronic; N18.9 - Chronic kidney disease, unspecified SNOMED: 676620502 (6) CAD (coronary artery disease) ICD Codes: I25.10 - Atherosclerotic heart disease of [place] coronary artery without angina pectoris SNOMED: 45406991 Assessment/Plan: abxs Enema ordered laxative pain control Discussed with RN Subjective Allergies: Coded Allergies: Crab (Verified Allergy, Mild, 05/28/16) Uncoded Allergies: SHELLFISH (Allergy, Unknown, 11/21/17) Subjective constipated Objective Last 24 Hour Vital Signs Date Time Temp Pulse Resp B/P (MAP) Pulse Ox O2 Delivery O2 Flow Rate FiO2 12/29/19 20:00 98.4 62 18 136/79 (98) 98 12/29/19 16:00 97.9 61 18 130/70 (90) 95 12/29/19 12:00 97.9 60 18 116/56 (76) 99 12/29/19 09:00 Room Air 12/29/19 08:34 63 122/58 12/29/19 08:00 97.9 60 18 133/61 (85) 95 12/29/19 04:00 97.2 60 18 111/59 (76) 94 12/29/19 00:00 98.4 60 18 117/57 (77) 95 12/28/19 21:00 Room Air Intake and Output 12/28/19 12/29/19 19:00 07:00 Intake Total 1280 ml 360 ml Balance 1280 ml 360 ml Intake Oral 1280 ml Other 360 ml # Voids 3 3 Laboratory Tests 12/29/19 03:30: POC Whole Blood Glucose 69L 12/29/19 05:50: Sodium Level 139, Potassium Level 5.0, Chloride Level 107, Carbon Dioxide Level 25, Anion Gap 7, Blood Urea Nitrogen 47H, Creatinine 2.5H, Estimat Glomerular Filtration Rate 22.2, Glucose Level 106, Calcium Level 9.0, Magnesium Level 2.5H , Iron Level 21L, Total Iron Binding Capacity 170L, Percent Iron Saturation 12L , Unsaturated Iron Binding 149, Total Bilirubin 0.2, Aspartate Amino Transf (AST /SGOT) 15, Alanine Aminotransferase (ALT/SGPT) 18, Alkaline Phosphatase 73, Total Protein 6.9, Albumin 3.1L, Globulin 3.8, Albumin/Globulin Ratio 0.8L, Triglycerides Level 50, Cholesterol Level 88, LDL Cholesterol 34, HDL Cholesterol 41, Cholesterol/HDL Ratio 2.1L, Vitamin D 25-Hydroxy [Pending], 25- Hydroxy Vitamin D2 [Pending], 25-Hydroxy Vitamin D3 [Pending], Thyroid Stimulating Hormone (TSH) 1.123 12/29/19 12:10: POC Whole Blood Glucose 81 12/29/19 17:02: POC Whole Blood Glucose [Pending] Height (Feet): 5 Height (Inches): 6.00 Weight (Pounds): 140 Cardiovascular: normal rate Respiratory/Chest: lungs clear Abdomen: soft, tender Noel Mckenna MD Dec 29, 2019 20:33
[2019-12-29] MEDS: Ciprofloxacin 500mg tab ORAL SCH (21:41)
[2019-12-30] VITALS (7 sets, daily range): BP systolic 121–154; BP diastolic 53–81
[2019-12-30] MEDS: Morphine Sulfate 4mg/ml Inj (IV USE ONLY) IVP PRN (04:04)
[2019-12-30] MEDS: metroNIDAZOLE 500mg tab ORAL SCH ×3 (05:46→21:52)
[2019-12-30] MEDS: NovoLOG Insulin Flexpen SUBQ SCH ×4 (06:30→21:00)
[2019-12-30 06:42] LABS: BASOPHILS % (AUTO) 0.5 % (0.0-2.0); EOSINOPHILS % (AUTO) 0.4 % (0.0-3.0); HEMATOCRIT 27.3 % (37.0-47.0); HEMOGLOBIN 8.6 G/DL (12.0-16.0); LYMPHOCYTES % (AUTO) 13.4 % (20.0-45.0); MEAN CORPUSCULAR VOLUME 103 FL (80-99); MONOCYTES % (AUTO) 6.8 % (1.0-10.0); NEUTROPHILS % (AUTO) 78.9 % (45.0-75.0); PLATELET COUNT 304 K/UL (150-450); RED BLOOD COUNT 2.66 M/UL (4.20-5.40); RED CELL DISTRIBUTION WIDTH 11.7 % (11.6-14.8); WHITE BLOOD COUNT 7.6 K/UL (4.8-10.8)
[2019-12-30 07:02] LABS: ANION GAP 6 mmol/L (5-15); BLOOD UREA NITROGEN 35 mg/dL (7-18); CALCIUM 9.2 MG/DL (8.5-10.1); CARBON DIOXIDE 26 MMOL/L (21-32); CHLORIDE 108 MMOL/L (98-107); CREATININE 2.2 MG/DL (0.55-1.30); POTASSIUM 5.6 MMOL/L (3.5-5.1); SODIUM 140 MMOL/L (136-145)
--- NOTE | 2019-12-30 08:38 | General Progress Note ---
Assessment/Plan Problem List: (1) Diverticulitis ICD Codes: K57.92 - Diverticulitis of intestine, part unspecified, without perforation or abscess without bleeding SNOMED: 814994571 (2) Constipation ICD Codes: K59.00 - Constipation, unspecified SNOMED: 75185197 (3) DM (diabetes mellitus) ICD Codes: E11.9 - DM (diabetes mellitus) SNOMED: 84705309 (4) HTN (hypertension) ICD Codes: I10 - Essential (primary) hypertension SNOMED: 91427053 Assessment/Plan: abx clears colace to miralax add mineral oil daily avoid enemas anemia work up pain control out patient colonoscopy in 8 weeks Subjective ROS Limited/Unobtainable: Yes Allergies: Coded Allergies: Crab (Verified Allergy, Mild, 05/28/16) Uncoded Allergies: SHELLFISH (Allergy, Unknown, 11/21/17) Objective Last 24 Hour Vital Signs Date Time Temp Pulse Resp B/P (MAP) Pulse Ox O2 Delivery O2 Flow Rate FiO2 12/30/19 04:00 98.1 65 18 152/64 (93) 96 12/30/19 00:00 98.4 60 18 123/53 (76) 96 12/29/19 21:00 Room Air 12/29/19 20:00 98.4 62 18 136/79 (98) 98 12/29/19 16:00 97.9 61 18 130/70 (90) 95 12/29/19 12:00 97.9 60 18 116/56 (76) 99 12/29/19 09:00 Room Air Intake and Output 12/29/19 12/30/19 19:00 07:00 Intake Total 1540 ml Balance 1540 ml Intake Oral 1540 ml # Voids 3 1 Laboratory Tests 12/29/19 12:10: POC Whole Blood Glucose 81 12/29/19 17:02: POC Whole Blood Glucose [Pending] 12/29/19 20:55: POC Whole Blood Glucose 125H 12/30/19 05:30: White Blood Count 7.6, Red Blood Count 2.66L, Hemoglobin 8.6L, Hematocrit 27.3L , Mean Corpuscular Volume 103H, Mean Corpuscular Hemoglobin 32.6H, Mean Corpuscular Hemoglobin Concent 31.6L, Red Cell Distribution Width 11.7, Platelet Count 304, Mean Platelet Volume 7.1, Neutrophils (%) (Auto) 78.9H, Lymphocytes (%) (Auto) 13.4L, Monocytes (%) (Auto) 6.8, Eosinophils (%) (Auto) 0.4, Basophils (%) (Auto) 0.5, Sodium Level 140, Potassium Level 5.6H, Chloride Level 108H, Carbon Dioxide Level 26, Anion Gap 6, Blood Urea Nitrogen 35H, Creatinine 2.2H, Estimat Glomerular Filtration Rate 25.7, Glucose Level 118H, Calcium Level 9.2 12/30/19 05:41: POC Whole Blood Glucose 104 Height (Feet): 5 Height (Inches): 6.00 Weight (Pounds): 140 General Appearance: alert EENT: normal ENT inspection Neck: supple Cardiovascular: normal rate Respiratory/Chest: decreased breath sounds Abdomen: hypoactive bowel sounds, tender Extremities: non-tender Saulo Rushing MD Dec 30, 2019 08:38
[2019-12-30] MEDS: Aspirin Baby 81mg ORAL SCH (09:51)
[2019-12-30] MEDS: Docusate 100mg cap ORAL SCH ×2 (09:51→18:03)
[2019-12-30] MEDS ORDERED: Mineral Oil 30ml ud ORAL PRN (10:00)
--- NOTE | 2019-12-30 13:00 | Infectious Diseases Prog Note ---
Assessment/Plan Assessment/Plan IMPRESSION: Diverticulitis of colon. Acute renal failure, Diabetes mellitus, hypertension, Anemia, Hyperlipidemia. constipation RECOMMENDATION: Continue with Cipro and Flagyl. Subjective ROS Limited/Unobtainable: No Constitutional: Reports: no symptoms Respiratory: Reports: no symptoms Gastrointestinal/Abdominal: Reports: constipation, other - upper abdominal pain , on liquid diet Genitourinary: Reports: no symptoms Allergies: Coded Allergies: Crab (Verified Allergy, Mild, 05/28/16) Uncoded Allergies: SHELLFISH (Allergy, Unknown, 11/21/17) Objective Last 24 Hour Vital Signs Date Time Temp Pulse Resp B/P (MAP) Pulse Ox O2 Delivery O2 Flow Rate FiO2 12/30/19 09:00 Room Air 12/30/19 08:00 98.7 60 19 121/59 (79) 98 12/30/19 04:00 98.1 65 18 152/64 (93) 96 12/30/19 00:00 98.4 60 18 123/53 (76) 96 12/29/19 21:00 Room Air 12/29/19 20:00 98.4 62 18 136/79 (98) 98 12/29/19 16:00 97.9 61 18 130/70 (90) 95 Height (Feet): 5 Height (Inches): 6.00 Weight (Pounds): 140 General Appearance: no acute distress HEENT: mucous membranes moist Respiratory/Chest: lungs clear Cardiovascular: normal rate Abdomen: soft, non tender Extremities: no edema Neurologic/Psychiatric: alert, oriented x 3, responsive Laboratory Tests Test 12/29/19 17:02 12/29/19 20:55 12/30/19 05:30 12/30/19 05:41 POC Whole Blood Glucose Pending 125 MG/DL (74-106) H 104 MG/DL (74-106) White Blood Count 7.6 K/UL (4.8-10.8) Red Blood Count 2.66 M/UL (4.20-5.40) L Hemoglobin 8.6 G/DL (12.0-16.0) L Hematocrit 27.3 % (37.0-47.0) L Mean Corpuscular Volume 103 FL (80-99) H Mean Corpuscular Hemoglobin 32.6 PG (27.0-31.0) H Mean Corpuscular Hemoglobin Concent 31.6 G/DL (32.0-36.0) L Red Cell Distribution Width 11.7 % (11.6-14.8) Platelet Count 304 K/UL (150-450) Mean Platelet Volume 7.1 FL (6.5-10.1) Neutrophils (%) (Auto) 78.9 % (45.0-75.0) H Lymphocytes (%) (Auto) 13.4 % (20.0-45.0) L Monocytes (%) (Auto) 6.8 % (1.0-10.0) Eosinophils (%) (Auto) 0.4 % (0.0-3.0) Basophils (%) (Auto) 0.5 % (0.0-2.0) Sodium Level 140 MMOL/L (136-145) Potassium Level 5.6 MMOL/L (3.5-5.1) H Chloride Level 108 MMOL/L (98-107) H Carbon Dioxide Level 26 MMOL/L (21-32) Anion Gap 6 mmol/L (5-15) Blood Urea Nitrogen 35 mg/dL (7-18) H Creatinine 2.2 MG/DL (0.55-1.30) H Estimat Glomerular Filtration Rate 25.7 mL/min (>60) Glucose Level 118 MG/DL (74-106) H Calcium Level 9.2 MG/DL (8.5-10.1) Current Medications Medications (Trade) Dose Ordered Sig/Floresita Route PRN Reason Start Time Stop Time Status Last Admin Dose Admin Acetaminophen/ Codeine Phosphate (Tylenol #3) 1 tab Q8H PRN ORAL Moderate Pain (Pain Scale 4-6) 12/28/19 02:15 01/04/20 02:14 Amlodipine Besylate (Norvasc) 10 mg DAILY ORAL 12/28/19 09:00 01/27/20 08:59 12/29/19 08:34 Aspirin (ASA) 81 mg DAILY ORAL 12/28/19 13:30 02/11/20 13:29 12/30/19 09:51 Bisacodyl (Dulcolax) 5 mg DAILYPRN PRN ORAL Constipation 12/30/19 12:15 03/29/20 12:14 Ciprofloxacin (Cipro 500mg tab) 500 mg Q24H ORAL 12/28/19 21:00 01/04/20 20:59 12/29/19 21:41 Clopidogrel Bisulfate (Plavix) 75 mg DAILY ORAL 12/28/19 09:00 01/27/20 08:59 12/30/19 09:52 Dextrose (Dextrose 50%) 25 ml Q30M PRN IV Hypoglycemia 12/28/19 02:30 03/27/20 02:29 Dextrose (Dextrose 50%) 50 ml Q30M PRN IV Hypoglycemia 12/28/19 02:30 03/27/20 02:29 Docusate Sodium (Colace) 100 mg TWICE A DAY ORAL 12/29/19 10:00 01/28/20 09:59 12/30/19 09:51 Famotidine (Pepcid) 40 mg DAILY ORAL 12/28/19 09:00 03/27/20 08:59 12/30/19 09:52 Insulin Aspart (NovoLOG) BEFORE MEALS AND HS SUBQ 12/28/19 06:30 03/27/20 06:29 Metronidazole (Flagyl) 500 mg Q8HR ORAL 12/28/19 06:00 01/04/20 05:59 12/30/19 05:46 Mineral Oil (Fleet's Mineral Oil Enema) 133 ml DAILYPRN PRN RECTAL Constipation 12/29/19 14:45 01/28/20 14:44 12/29/19 17:37 Mineral Oil (Mineral Oil) 30 ml DAILY PRN ORAL Constipation 12/30/19 10:00 01/29/20 09:59 Morphine Sulfate (Morphine Sulfate) 2 mg Q3H PRN IVP Moderate Pain (Pain Scale 4-6) 12/28/19 02:15 01/04/20 02:14 Morphine Sulfate (Morphine Sulfate) 4 mg Q3H PRN IVP Severe Pain (Pain Scale 7-10) 12/28/19 02:15 01/04/20 02:14 12/30/19 04:04 Polyethylene Glycol (Miralax) 17 gm HSPRN PRN ORAL Constipation 12/28/19 02:15 01/27/20 02:14 12/28/19 21:00 [place] Mckenna MD Dec 30, 2019 13:00
[2019-12-30] MEDS: Bisacodyl EC 5mg tab ORAL PRN (13:44)
--- NOTE | 2019-12-30 15:57 | General Progress Note ---
Assessment/Plan Problem List: (1) Diverticulitis ICD Codes: K57.92 - Diverticulitis of intestine, part unspecified, without perforation or abscess without bleeding SNOMED: 323724720 (2) HTN (hypertension) ICD Codes: I10 - Essential (primary) hypertension SNOMED: 01716387 (3) DM (diabetes mellitus) ICD Codes: E11.9 - DM (diabetes mellitus) SNOMED: 29943972 (4) Constipation ICD Codes: K59.00 - Constipation, unspecified SNOMED: 36021096 (5) Renal failure (ARF), acute on chronic ICD Codes: N17.9 - Renal failure (ARF), acute on chronic; N18.9 - Chronic kidney disease, unspecified SNOMED: 372115346 (6) CAD (coronary artery disease) ICD Codes: I25.10 - Atherosclerotic heart disease of [place] coronary artery without angina pectoris SNOMED: 81808953 Assessment/Plan: abxs laxative Tylenol for pain avoid Morphine if possible Discussed with RN Subjective Allergies: Coded Allergies: Crab (Verified Allergy, Mild, 05/28/16) Uncoded Allergies: SHELLFISH (Allergy, Unknown, 11/21/17) Subjective constipated Objective Last 24 Hour Vital Signs Date Time Temp Pulse Resp B/P (MAP) Pulse Ox O2 Delivery O2 Flow Rate FiO2 12/30/19 12:00 98.8 60 18 124/62 (82) 98 12/30/19 09:00 Room Air 12/30/19 08:00 98.7 60 19 121/59 (79) 98 12/30/19 04:00 98.1 65 18 152/64 (93) 96 12/30/19 00:00 98.4 60 18 123/53 (76) 96 12/29/19 21:00 Room Air 12/29/19 20:00 98.4 62 18 136/79 (98) 98 12/29/19 16:00 97.9 61 18 130/70 (90) 95 Intake and Output 12/29/19 12/30/19 19:00 07:00 Intake Total 1540 ml Balance 1540 ml Intake Oral 1540 ml # Voids 3 1 Laboratory Tests 12/29/19 17:02: POC Whole Blood Glucose [Pending] 12/29/19 20:55: POC Whole Blood Glucose 125H 12/30/19 05:30: White Blood Count 7.6, Red Blood Count 2.66L, Hemoglobin 8.6L, Hematocrit 27.3L , Mean Corpuscular Volume 103H, Mean Corpuscular Hemoglobin 32.6H, Mean Corpuscular Hemoglobin Concent 31.6L, Red Cell Distribution Width 11.7, Platelet Count 304, Mean Platelet Volume 7.1, Neutrophils (%) (Auto) 78.9H, Lymphocytes (%) (Auto) 13.4L, Monocytes (%) (Auto) 6.8, Eosinophils (%) (Auto) 0.4, Basophils (%) (Auto) 0.5, Sodium Level 140, Potassium Level 5.6H, Chloride Level 108H, Carbon Dioxide Level 26, Anion Gap 6, Blood Urea Nitrogen 35H, Creatinine 2.2H, Estimat Glomerular Filtration Rate 25.7, Glucose Level 118H, Calcium Level 9.2 12/30/19 05:41: POC Whole Blood Glucose 104 Height (Feet): 5 Height (Inches): 6.00 Weight (Pounds): 140 Cardiovascular: normal rate Respiratory/Chest: lungs clear Abdomen: non tender, soft Noel Mckenna MD Dec 30, 2019 15:57
[2019-12-30] MEDS: Ciprofloxacin 500mg tab ORAL SCH (21:52)
[2019-12-31 00:08] VITALS: BP 135/63
[2019-12-31] MEDS: Bisacodyl EC 5mg tab ORAL PRN (00:17)
[2019-12-31 04:00] VITALS: BP 120/76
[2019-12-31] MEDS: metroNIDAZOLE 500mg tab ORAL SCH ×3 (06:19→21:49)
[2019-12-31] MEDS: NovoLOG Insulin Flexpen SUBQ SCH ×4 (06:30→21:00)
--- NOTE | 2019-12-31 07:51 | CDS Physician Query ---
Clarification is required for compliance, coding accuracy, and to reflect severity of illness for this patient Dear Dr. Noel Mckenna M.D. Date: 12/31/2019 CDI/CDS Name: Quique Horvath Clinical Documentation States: 84-year-old female has had some abdominal pain the past 2 weeks. She was diagnosed with diverticulitis and was admitted. [ H&P Noel Mckenna M.D. 12/28/19] ASSESSMENT: She has diabetes, hypertension, chronic kidney disease. She is status post nephrectomy, has only 1 kidney. IMPRESSION: Diverticulitis of colon, Acute renal failure, Diabetes mellitus, hypertension, Anemia, Hyperlipidemia, constipation Clinical Documentation States: 12/26 12/28 12/29 23:21 05:50 05:30 Creatinine 2.9 2.5 2.2 BUN 58 47 35 Please Clarify the type of renal failure below: Etiology [] Acute Renal Failure w/ Tubular Necrosis [] Acute Renal Failure w/ Cortical Necrosis [] Acute Renal Failure w/ Medullary Necrosis x[] Acute Renal Failure (unspecified) [] Other: Present on Admission: [x] Yes [] No [] Clinically Undetermined Physician signature Date Please also document in your Progress Notes and/or Discharge Summary and indicate if the condition was present on admission. MTDD
[2019-12-31 08:00] VITALS: BP 116/76
[2019-12-31 08:07] LABS: BASOPHILS % (AUTO) 0.4 % (0.0-2.0); EOSINOPHILS % (AUTO) 0.5 % (0.0-3.0); HEMATOCRIT 28.1 % (37.0-47.0); HEMOGLOBIN 8.8 G/DL (12.0-16.0); LYMPHOCYTES % (AUTO) 14.4 % (20.0-45.0); MEAN CORPUSCULAR VOLUME 103 FL (80-99); NEUTROPHILS % (AUTO) 79.7 % (45.0-75.0); PLATELET COUNT 316 K/UL (150-450); RED BLOOD COUNT 2.73 M/UL (4.20-5.40); RED CELL DISTRIBUTION WIDTH 11.4 % (11.6-14.8); WHITE BLOOD COUNT 8.3 K/UL (4.8-10.8)
[2019-12-31 08:25] LABS: ANION GAP 8 mmol/L (5-15); BLOOD UREA NITROGEN 26 mg/dL (7-18); CALCIUM 8.9 MG/DL (8.5-10.1); CARBON DIOXIDE 24 MMOL/L (21-32); CHLORIDE 105 MMOL/L (98-107); POTASSIUM 5.1 MMOL/L (3.5-5.1); SODIUM 137 MMOL/L (136-145)
[2019-12-31] MEDS: Docusate 100mg cap ORAL SCH ×2 (09:00→17:40)
[2019-12-31] MEDS: Aspirin Baby 81mg ORAL SCH (09:07)
--- NOTE | 2019-12-31 10:37 | Infectious Diseases Prog Note ---
Assessment/Plan Assessment/Plan IMPRESSION: Diverticulitis of colon. Acute renal failure, Diabetes mellitus, hypertension, Anemia, Hyperlipidemia. constipation RECOMMENDATION: Continue with Cipro and Flagyl. Subjective ROS Limited/Unobtainable: No Constitutional: Reports: no symptoms Respiratory: Reports: no symptoms Cardiovascular: Reports: no symptoms Gastrointestinal/Abdominal: Reports: no symptoms, other - abdominal pain with bowel movement Allergies: Coded Allergies: Crab (Verified Allergy, Mild, 05/28/16) Uncoded Allergies: SHELLFISH (Allergy, Unknown, 11/21/17) Objective Last 24 Hour Vital Signs Date Time Temp Pulse Resp B/P (MAP) Pulse Ox O2 Delivery O2 Flow Rate FiO2 12/31/19 09:08 63 116/76 12/31/19 09:00 Room Air 12/31/19 08:00 99.0 63 20 116/76 (89) 100 12/31/19 04:00 97.8 63 18 120/76 (91) 100 12/31/19 00:08 97.3 63 18 135/63 (87) 98 12/30/19 21:00 139/62 (87) 12/30/19 21:00 Room Air 12/30/19 20:00 98.1 67 21 154/81 (105) 100 12/30/19 16:00 97.3 60 19 125/59 (81) 100 12/30/19 12:00 98.8 60 18 124/62 (82) 98 Height (Feet): 5 Height (Inches): 6.00 Weight (Pounds): 140 General Appearance: no acute distress HEENT: mucous membranes moist Respiratory/Chest: lungs clear Cardiovascular: normal rate Abdomen: soft, non tender Extremities: no edema Neurologic/Psychiatric: alert, oriented x 3, responsive Laboratory Tests Test 12/30/19 16:27 12/31/19 07:25 POC Whole Blood Glucose Pending White Blood Count 8.3 K/UL (4.8-10.8) Red Blood Count 2.73 M/UL (4.20-5.40) L Hemoglobin 8.8 G/DL (12.0-16.0) L Hematocrit 28.1 % (37.0-47.0) L Mean Corpuscular Volume 103 FL (80-99) H Mean Corpuscular Hemoglobin 32.1 PG (27.0-31.0) H Mean Corpuscular Hemoglobin Concent 31.1 G/DL (32.0-36.0) L Red Cell Distribution Width 11.4 % (11.6-14.8) L Platelet Count 316 K/UL (150-450) Mean Platelet Volume 6.7 FL (6.5-10.1) Neutrophils (%) (Auto) 79.7 % (45.0-75.0) H Lymphocytes (%) (Auto) 14.4 % (20.0-45.0) L Monocytes (%) (Auto) 5.0 % (1.0-10.0) Eosinophils (%) (Auto) 0.5 % (0.0-3.0) Basophils (%) (Auto) 0.4 % (0.0-2.0) Sodium Level 137 MMOL/L (136-145) Potassium Level 5.1 MMOL/L (3.5-5.1) Chloride Level 105 MMOL/L (98-107) Carbon Dioxide Level 24 MMOL/L (21-32) Anion Gap 8 mmol/L (5-15) Blood Urea Nitrogen 26 mg/dL (7-18) H Creatinine 2.0 MG/DL (0.55-1.30) H Estimat Glomerular Filtration Rate 28.7 mL/min (>60) Glucose Level 126 MG/DL (74-106) H Calcium Level 8.9 MG/DL (8.5-10.1) Current Medications Medications (Trade) Dose Ordered Sig/Floresita Route PRN Reason Start Time Stop Time Status Last Admin Dose Admin Acetaminophen (Tylenol) 650 mg Q4H PRN ORAL pain 12/30/19 14:00 01/29/20 13:59 Acetaminophen/ Codeine Phosphate (Tylenol #3) 1 tab Q8H PRN ORAL Moderate Pain (Pain Scale 4-6) 12/28/19 02:15 01/04/20 02:14 Amlodipine Besylate (Norvasc) 10 mg DAILY ORAL 12/28/19 09:00 01/27/20 08:59 12/31/19 09:08 Aspirin (ASA) 81 mg DAILY ORAL 12/28/19 13:30 02/11/20 13:29 12/31/19 09:07 Bisacodyl (Dulcolax) 5 mg DAILYPRN PRN ORAL Constipation 12/30/19 12:15 03/29/20 12:14 12/31/19 00:17 Ciprofloxacin (Cipro 500mg tab) 500 mg Q24H ORAL 12/28/19 21:00 01/04/20 20:59 12/30/19 21:52 Clopidogrel Bisulfate (Plavix) 75 mg DAILY ORAL 12/28/19 09:00 01/27/20 08:59 12/31/19 09:07 Dextrose (Dextrose 50%) 25 ml Q30M PRN IV Hypoglycemia 12/28/19 02:30 03/27/20 02:29 Dextrose (Dextrose 50%) 50 ml Q30M PRN IV Hypoglycemia 12/28/19 02:30 03/27/20 02:29 Docusate Sodium (Colace) 100 mg TWICE A DAY ORAL 12/29/19 10:00 01/28/20 09:59 12/30/19 18:03 Famotidine (Pepcid) 40 mg DAILY ORAL 12/28/19 09:00 03/27/20 08:59 12/31/19 09:06 Insulin Aspart (NovoLOG) BEFORE MEALS AND HS SUBQ 12/28/19 06:30 03/27/20 06:29 Metronidazole (Flagyl) 500 mg Q8HR ORAL 12/28/19 06:00 01/04/20 05:59 12/31/19 06:19 Mineral Oil (Fleet's Mineral Oil Enema) 133 ml DAILYPRN PRN RECTAL Constipation 12/29/19 14:45 01/28/20 14:44 12/29/19 17:37 Mineral Oil (Mineral Oil) 30 ml DAILY PRN ORAL Constipation 12/30/19 10:00 01/29/20 09:59 Morphine Sulfate (Morphine Sulfate) 2 mg Q3H PRN IVP Moderate Pain (Pain Scale 4-6) 12/28/19 02:15 01/04/20 02:14 Morphine Sulfate (Morphine Sulfate) 4 mg Q3H PRN IVP Severe Pain (Pain Scale 7-10) 12/28/19 02:15 01/04/20 02:14 12/30/19 04:04 Polyethylene Glycol (Miralax) 17 gm HSPRN PRN ORAL Constipation 12/28/19 02:15 01/27/20 02:14 12/28/19 21:00 [place] Mckenna MD Dec 31, 2019 10:37
[2019-12-31 12:00] VITALS: BP 123/60
--- NOTE | 2019-12-31 13:31 | General Progress Note ---
Assessment/Plan Problem List: (1) Diverticulitis ICD Codes: K57.92 - Diverticulitis of intestine, part unspecified, without perforation or abscess without bleeding SNOMED: 402127897 (2) HTN (hypertension) ICD Codes: I10 - Essential (primary) hypertension SNOMED: 53537636 (3) DM (diabetes mellitus) ICD Codes: E11.9 - DM (diabetes mellitus) SNOMED: 90943399 (4) Constipation ICD Codes: K59.00 - Constipation, unspecified SNOMED: 52580255 (5) Renal failure (ARF), acute on chronic ICD Codes: N17.9 - Renal failure (ARF), acute on chronic; N18.9 - Chronic kidney disease, unspecified SNOMED: 525049051 (6) CAD (coronary artery disease) ICD Codes: I25.10 - Atherosclerotic heart disease of [place] coronary artery without angina pectoris SNOMED: 39155973 Assessment/Plan: abxs laxative Tylenol for pain avoid Morphine if possible will discuss with Dr Melgar Subjective Allergies: Coded Allergies: Crab (Verified Allergy, Mild, 05/28/16) Uncoded Allergies: SHELLFISH (Allergy, Unknown, 11/21/17) Subjective pain when passing stool Objective Last 24 Hour Vital Signs Date Time Temp Pulse Resp B/P (MAP) Pulse Ox O2 Delivery O2 Flow Rate FiO2 12/31/19 12:00 97.9 60 20 123/60 (81) 99 12/31/19 09:08 63 116/76 12/31/19 09:00 Room Air 12/31/19 08:00 99.0 63 20 116/76 (89) 100 12/31/19 04:00 97.8 63 18 120/76 (91) 100 12/31/19 00:08 97.3 63 18 135/63 (87) 98 12/30/19 21:00 139/62 (87) 12/30/19 21:00 Room Air 12/30/19 20:00 98.1 67 21 154/81 (105) 100 12/30/19 16:00 97.3 60 19 125/59 (81) 100 Intake and Output 12/30/19 12/31/19 19:00 07:00 Intake Total 840 ml 240 ml Balance 840 ml 240 ml Intake Oral 840 ml 240 ml # Voids 4 4 Laboratory Tests 12/30/19 16:27: POC Whole Blood Glucose [Pending] 12/31/19 07:25: White Blood Count 8.3, Red Blood Count 2.73L, Hemoglobin 8.8L, Hematocrit 28.1L , Mean Corpuscular Volume 103H, Mean Corpuscular Hemoglobin 32.1H, Mean Corpuscular Hemoglobin Concent 31.1L, Red Cell Distribution Width 11.4L, Platelet Count 316, Mean Platelet Volume 6.7, Neutrophils (%) (Auto) 79.7H, Lymphocytes (%) (Auto) 14.4L, Monocytes (%) (Auto) 5.0, Eosinophils (%) (Auto) 0.5, Basophils (%) (Auto) 0.4, Sodium Level 137, Potassium Level 5.1, Chloride Level 105, Carbon Dioxide Level 24, Anion Gap 8, Blood Urea Nitrogen 26H, Creatinine 2.0H, Estimat Glomerular Filtration Rate 28.7, Glucose Level 126H, Calcium Level 8.9 Height (Feet): 5 Height (Inches): 6.00 Weight (Pounds): 140 Cardiovascular: normal rate Respiratory/Chest: lungs clear Abdomen: soft Noel Mckenna MD Dec 31, 2019 13:31
[2019-12-31 16:00] VITALS: BP 134/69
[2019-12-31 20:00] VITALS: BP 129/74
[2019-12-31] MEDS: Ciprofloxacin 500mg tab ORAL SCH (20:28)
--- NOTE | 2019-12-31 23:16 | General Progress Note ---
Assessment/Plan Assessment/Plan: Assessment - acute diverticulitis - resolving - s/p (R) nephrectomy in distant past - s/p pacemaker - HTN - High cholesterol - mildly macrocytic anemia Recommendations - po diet as tolerated - agree with avoiding narcotics - abx - check B12, folate - outpatient EGD/Colon once recovered - d/c planning Subjective Allergies: Coded Allergies: Crab (Verified Allergy, Mild, 05/28/16) Uncoded Allergies: SHELLFISH (Allergy, Unknown, 11/21/17) Subjective Above noted doing better than last week tolerating PO abd pain better (+) BM Objective Last 24 Hour Vital Signs Date Time Temp Pulse Resp B/P (MAP) Pulse Ox O2 Delivery O2 Flow Rate FiO2 12/31/19 22:04 Room Air 12/31/19 20:00 98.7 74 18 129/74 (92) 98 12/31/19 16:00 97.7 63 20 134/69 (90) 99 12/31/19 12:00 97.9 60 20 123/60 (81) 99 12/31/19 09:08 63 116/76 12/31/19 09:00 Room Air 12/31/19 08:00 99.0 63 20 116/76 (89) 100 12/31/19 04:00 97.8 63 18 120/76 (91) 100 12/31/19 00:08 97.3 63 18 135/63 (87) 98 Intake and Output 12/30/19 12/31/19 19:00 07:00 Intake Total 840 ml 240 ml Balance 840 ml 240 ml Intake Oral 840 ml 240 ml # Voids 4 4 Laboratory Tests 12/31/19 07:25: White Blood Count 8.3, Red Blood Count 2.73L, Hemoglobin 8.8L, Hematocrit 28.1L , Mean Corpuscular Volume 103H, Mean Corpuscular Hemoglobin 32.1H, Mean Corpuscular Hemoglobin Concent 31.1L, Red Cell Distribution Width 11.4L, Platelet Count 316, Mean Platelet Volume 6.7, Neutrophils (%) (Auto) 79.7H, Lymphocytes (%) (Auto) 14.4L, Monocytes (%) (Auto) 5.0, Eosinophils (%) (Auto) 0.5, Basophils (%) (Auto) 0.4, Sodium Level 137, Potassium Level 5.1, Chloride Level 105, Carbon Dioxide Level 24, Anion Gap 8, Blood Urea Nitrogen 26H, Creatinine 2.0H, Estimat Glomerular Filtration Rate 28.7, Glucose Level 126H, Calcium Level 8.9 Height (Feet): 5 Height (Inches): 6.00 Weight (Pounds): 140 Objective Elderly AA woman NCAT supple CTA RR abd soft NT, (+) Obese no edema Alissa Melgar MD Dec 31, 2019 23:16
[2020-01-01] VITALS: BP 129/75
[2020-01-01 04:00] VITALS: BP 129/74
[2020-01-01] MEDS: metroNIDAZOLE 500mg tab ORAL SCH ×3 (05:37→21:21)
[2020-01-01] MEDS: NovoLOG Insulin Flexpen SUBQ SCH ×4 (05:38→20:39)
[2020-01-01 08:00] VITALS: BP 121/56
[2020-01-01] MEDS: Docusate 100mg cap ORAL SCH ×2 (08:21→17:20)
[2020-01-01] MEDS: Aspirin Baby 81mg ORAL SCH (08:22)
--- NOTE | 2020-01-01 11:47 | Infectious Diseases Prog Note ---
Assessment/Plan Assessment/Plan IMPRESSION: Diverticulitis of colon. Acute renal failure, Diabetes mellitus, hypertension, Anemia, Hyperlipidemia. constipation RECOMMENDATION: Continue with Cipro and Flagyl X 7 days Prescription was put in chart Subjective ROS Limited/Unobtainable: No Constitutional: Reports: no symptoms Respiratory: Reports: no symptoms Cardiovascular: Reports: no symptoms Gastrointestinal/Abdominal: Reports: other - abdominal pain with bowel movement Genitourinary: Reports: no symptoms Allergies: Coded Allergies: Crab (Verified Allergy, Mild, 05/28/16) Uncoded Allergies: SHELLFISH (Allergy, Unknown, 11/21/17) Objective Last 24 Hour Vital Signs Date Time Temp Pulse Resp B/P (MAP) Pulse Ox O2 Delivery O2 Flow Rate FiO2 01/01/20 09:00 Room Air 01/01/20 08:22 61 121/65 01/01/20 08:00 97.8 61 18 121/56 (77) 99 01/01/20 04:00 98.3 74 18 129/74 (92) 98 01/01/20 00:00 98.7 74 18 129/75 (93) 97 12/31/19 22:04 Room Air 12/31/19 20:00 98.7 74 18 129/74 (92) 98 12/31/19 16:00 97.7 63 20 134/69 (90) 99 12/31/19 12:00 97.9 60 20 123/60 (81) 99 Height (Feet): 5 Height (Inches): 6.00 Weight (Pounds): 140 General Appearance: no acute distress HEENT: mucous membranes moist Respiratory/Chest: lungs clear Cardiovascular: normal rate Abdomen: other - soft Extremities: no edema Neurologic/Psychiatric: alert, oriented x 3, responsive Current Medications Medications (Trade) Dose Ordered Sig/Floresita Route PRN Reason Start Time Stop Time Status Last Admin Dose Admin Acetaminophen (Tylenol) 650 mg Q4H PRN ORAL pain 12/30/19 14:00 01/29/20 13:59 Acetaminophen/ Codeine Phosphate (Tylenol #3) 1 tab Q8H PRN ORAL Moderate Pain (Pain Scale 4-6) 12/28/19 02:15 01/04/20 02:14 Amlodipine Besylate (Norvasc) 10 mg DAILY ORAL 12/28/19 09:00 01/27/20 08:59 01/01/20 08:22 Aspirin (ASA) 81 mg DAILY ORAL 12/28/19 13:30 02/11/20 13:29 01/01/20 08:22 Bisacodyl (Dulcolax) 5 mg DAILYPRN PRN ORAL Constipation 12/30/19 12:15 03/29/20 12:14 12/31/19 00:17 Ciprofloxacin (Cipro 500mg tab) 500 mg Q24H ORAL 12/28/19 21:00 01/04/20 20:59 12/31/19 20:28 Clopidogrel Bisulfate (Plavix) 75 mg DAILY ORAL 12/28/19 09:00 01/27/20 08:59 01/01/20 08:22 Dextrose (Dextrose 50%) 25 ml Q30M PRN IV Hypoglycemia 12/28/19 02:30 03/27/20 02:29 Dextrose (Dextrose 50%) 50 ml Q30M PRN IV Hypoglycemia 12/28/19 02:30 03/27/20 02:29 Docusate Sodium (Colace) 100 mg TWICE A DAY ORAL 12/29/19 10:00 01/28/20 09:59 01/01/20 08:21 Famotidine (Pepcid) 40 mg DAILY ORAL 12/28/19 09:00 03/27/20 08:59 01/01/20 08:22 Insulin Aspart (NovoLOG) BEFORE MEALS AND HS SUBQ 12/28/19 06:30 03/27/20 06:29 Metronidazole (Flagyl) 500 mg Q8HR ORAL 12/28/19 06:00 01/04/20 05:59 01/01/20 05:37 Mineral Oil (Fleet's Mineral Oil Enema) 133 ml DAILYPRN PRN RECTAL Constipation 12/29/19 14:45 01/28/20 14:44 12/29/19 17:37 Mineral Oil (Mineral Oil) 30 ml DAILY PRN ORAL Constipation 12/30/19 10:00 01/29/20 09:59 12/31/19 16:47 Morphine Sulfate (Morphine Sulfate) 2 mg Q3H PRN IVP Moderate Pain (Pain Scale 4-6) 12/28/19 02:15 01/04/20 02:14 Morphine Sulfate (Morphine Sulfate) 4 mg Q3H PRN IVP Severe Pain (Pain Scale 7-10) 12/28/19 02:15 01/04/20 02:14 12/30/19 04:04 Polyethylene Glycol (Miralax) 17 gm HSPRN PRN ORAL Constipation 12/28/19 02:15 01/27/20 02:14 12/28/19 21:00 [place] Mckenna MD Jan 01, 2020 11:46
[2020-01-01 12:00] VITALS: BP 114/51
--- NOTE | 2020-01-01 13:43 | General Progress Note ---
Assessment/Plan Problem List: (1) Diverticulitis ICD Codes: K57.92 - Diverticulitis of intestine, part unspecified, without perforation or abscess without bleeding SNOMED: 129787419 (2) HTN (hypertension) ICD Codes: I10 - Essential (primary) hypertension SNOMED: 78774243 (3) DM (diabetes mellitus) ICD Codes: E11.9 - DM (diabetes mellitus) SNOMED: 53905440 (4) Constipation ICD Codes: K59.00 - Constipation, unspecified SNOMED: 94752500 (5) Renal failure (ARF), acute on chronic ICD Codes: N17.9 - Renal failure (ARF), acute on chronic; N18.9 - Chronic kidney disease, unspecified SNOMED: 183170832 (6) CAD (coronary artery disease) ICD Codes: I25.10 - Atherosclerotic heart disease of [place] coronary artery without angina pectoris SNOMED: 22550583 Assessment/Plan: abxs laxative Tylenol for pain avoid Morphine if possible Discussed with Dr Melgar Subjective Allergies: Coded Allergies: Crab (Verified Allergy, Mild, 05/28/16) Uncoded Allergies: SHELLFISH (Allergy, Unknown, 11/21/17) Subjective pain when passing stool or urination Objective Last 24 Hour Vital Signs Date Time Temp Pulse Resp B/P (MAP) Pulse Ox O2 Delivery O2 Flow Rate FiO2 01/01/20 12:00 97.9 62 17 114/51 (72) 98 01/01/20 09:00 Room Air 01/01/20 08:22 61 121/65 01/01/20 08:00 97.8 61 18 121/56 (77) 99 01/01/20 04:00 98.3 74 18 129/74 (92) 98 01/01/20 00:00 98.7 74 18 129/75 (93) 97 12/31/19 22:04 Room Air 12/31/19 20:00 98.7 74 18 129/74 (92) 98 12/31/19 16:00 97.7 63 20 134/69 (90) 99 Intake and Output 12/31/19 01/01/20 19:00 07:00 Intake Total 1180 ml Balance 1180 ml Intake Oral 1180 ml # Voids 2 # Bowel Movements 2 Height (Feet): 5 Height (Inches): 6.00 Weight (Pounds): 140 Cardiovascular: normal rate Respiratory/Chest: lungs clear Abdomen: tender Noel Mckenna MD Jan 01, 2020 13:43
[2020-01-01 16:00] VITALS: BP 118/59
[2020-01-01 20:00] VITALS: BP 126/62
[2020-01-01] MEDS: Ciprofloxacin 500mg tab ORAL SCH (21:21)
--- NOTE | 2020-01-01 21:52 | General Progress Note ---
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 - s/p pacemaker - HTN - High cholesterol - mildly macrocytic anemia Recommendations - po diet as tolerated - agree with avoiding narcotics - abx - check B12, folate - outpatient EGD/Colon once recovered Subjective Allergies: Coded Allergies: Crab (Verified Allergy, Mild, 05/28/16) Uncoded Allergies: SHELLFISH (Allergy, Unknown, 11/21/17) Subjective Above noted more abd pain today some pain also with defecation Objective Last 24 Hour Vital Signs Date Time Temp Pulse Resp B/P (MAP) Pulse Ox O2 Delivery O2 Flow Rate FiO2 01/01/20 20:00 98.4 62 18 126/62 (83) 98 01/01/20 16:00 98.1 67 18 118/59 (78) 97 01/01/20 12:00 97.9 62 17 114/51 (72) 98 01/01/20 09:00 Room Air 01/01/20 08:22 61 121/65 01/01/20 08:00 97.8 61 18 121/56 (77) 99 01/01/20 04:00 98.3 74 18 129/74 (92) 98 01/01/20 00:00 98.7 74 18 129/75 (93) 97 12/31/19 22:04 Room Air Intake and Output 12/31/19 01/01/20 19:00 07:00 Intake Total 1180 ml Balance 1180 ml Intake Oral 1180 ml # Voids 2 # Bowel Movements 2 Height (Feet): 5 Height (Inches): 6.00 Weight (Pounds): 140 Objective Elderly AA woman NCAT supple CTA RR abd soft (+) mild TTP central and left side Rectal (12/31, RN at bedside): no obvious fissure no edema Alissa Melgar MD Jan 01, 2020 21:52
[2020-01-02] VITALS: BP 126/53
[2020-01-02 04:00] VITALS: BP 144/69
[2020-01-02] MEDS: metroNIDAZOLE 500mg tab ORAL SCH ×2 (06:00→13:25)
[2020-01-02] MEDS: NovoLOG Insulin Flexpen SUBQ SCH ×2 (06:03→11:30)
[2020-01-02 08:00] VITALS: BP 121/64
[2020-01-02] MEDS: Docusate 100mg cap ORAL SCH (08:16)
[2020-01-02] MEDS: Aspirin Baby 81mg ORAL SCH (08:16)
[2020-01-02] MEDS: Fleet's Mineral Oil Enema RECTAL PRN (08:16)
--- NOTE | 2020-01-02 10:03 | Infectious Diseases Prog Note ---
Assessment/Plan Assessment/Plan IMPRESSION: Diverticulitis of colon. Acute renal failure, Diabetes mellitus, hypertension, Anemia, Hyperlipidemia. constipation RECOMMENDATION: Continue with Cipro and Flagyl X 7 days Prescription was put in chart Subjective ROS Limited/Unobtainable: No Constitutional: Reports: no symptoms Respiratory: Reports: no symptoms Cardiovascular: Reports: no symptoms Gastrointestinal/Abdominal: Reports: other - abdominal pain with bowel movement Genitourinary: Reports: no symptoms Allergies: Coded Allergies: Crab (Verified Allergy, Mild, 05/28/16) Uncoded Allergies: SHELLFISH (Allergy, Unknown, 11/21/17) Objective Last 24 Hour Vital Signs Date Time Temp Pulse Resp B/P (MAP) Pulse Ox O2 Delivery O2 Flow Rate FiO2 01/02/20 09:00 Room Air 01/02/20 08:16 61 121/64 01/02/20 08:00 98.0 61 18 121/64 (83) 99 01/02/20 04:00 97.9 60 18 144/69 (94) 97 01/02/20 00:00 98.1 60 18 126/53 (77) 94 01/01/20 21:00 Room Air 01/01/20 20:00 98.4 62 18 126/62 (83) 98 01/01/20 16:00 98.1 67 18 118/59 (78) 97 01/01/20 12:00 97.9 62 17 114/51 (72) 98 Height (Feet): 5 Height (Inches): 6.00 Weight (Pounds): 156 General Appearance: no acute distress HEENT: mucous membranes moist Respiratory/Chest: lungs clear Cardiovascular: normal rate Abdomen: soft, non tender Neurologic/Psychiatric: alert, oriented x 3, responsive Laboratory Tests Test 01/01/20 20:22 POC Whole Blood Glucose 85 MG/DL (74-106) Current Medications Medications (Trade) Dose Ordered Sig/Floresita Route PRN Reason Start Time Stop Time Status Last Admin Dose Admin Acetaminophen (Tylenol) 650 mg Q4H PRN ORAL pain 12/30/19 14:00 01/29/20 13:59 Acetaminophen/ Codeine Phosphate (Tylenol #3) 1 tab Q8H PRN ORAL Moderate Pain (Pain Scale 4-6) 12/28/19 02:15 01/04/20 02:14 Amlodipine Besylate (Norvasc) 10 mg DAILY ORAL 12/28/19 09:00 01/27/20 08:59 01/02/20 08:16 Aspirin (ASA) 81 mg DAILY ORAL 12/28/19 13:30 02/11/20 13:29 01/02/20 08:16 Bisacodyl (Dulcolax) 5 mg DAILYPRN PRN ORAL Constipation 12/30/19 12:15 03/29/20 12:14 12/31/19 00:17 Ciprofloxacin (Cipro 500mg tab) 500 mg Q24H ORAL 12/28/19 21:00 01/04/20 20:59 01/01/20 21:21 Clopidogrel Bisulfate (Plavix) 75 mg DAILY ORAL 12/28/19 09:00 01/27/20 08:59 01/02/20 08:15 Dextrose (Dextrose 50%) 25 ml Q30M PRN IV Hypoglycemia 12/28/19 02:30 03/27/20 02:29 Dextrose (Dextrose 50%) 50 ml Q30M PRN IV Hypoglycemia 12/28/19 02:30 03/27/20 02:29 Docusate Sodium (Colace) 100 mg TWICE A DAY ORAL 12/29/19 10:00 01/28/20 09:59 01/02/20 08:16 Famotidine (Pepcid) 40 mg DAILY ORAL 12/28/19 09:00 03/27/20 08:59 01/02/20 08:15 Insulin Aspart (NovoLOG) BEFORE MEALS AND HS SUBQ 12/28/19 06:30 03/27/20 06:29 Metronidazole (Flagyl) 500 mg Q8HR ORAL 12/28/19 06:00 01/04/20 05:59 01/02/20 06:00 Mineral Oil (Fleet's Mineral Oil Enema) 133 ml DAILYPRN PRN RECTAL Constipation 12/29/19 14:45 01/28/20 14:44 01/02/20 08:16 Mineral Oil (Mineral Oil) 30 ml DAILY PRN ORAL Constipation 12/30/19 10:00 01/29/20 09:59 12/31/19 16:47 Morphine Sulfate (Morphine Sulfate) 2 mg Q3H PRN IVP Moderate Pain (Pain Scale 4-6) 12/28/19 02:15 01/04/20 02:14 Morphine Sulfate (Morphine Sulfate) 4 mg Q3H PRN IVP Severe Pain (Pain Scale 7-10) 12/28/19 02:15 01/04/20 02:14 12/30/19 04:04 Polyethylene Glycol (Miralax) 17 gm HSPRN PRN ORAL Constipation 12/28/19 02:15 01/27/20 02:14 12/28/19 21:00 [place] Mckenna MD Jan 02, 2020 10:03
[2020-01-02 12:00] VITALS: BP 134/60
--- NOTE | 2020-01-02 12:22 | General Progress Note ---
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 - s/p pacemaker - HTN - High cholesterol - mildly macrocytic anemia Recommendations - po diet as tolerated - check CBC today - abx - check B12, folate - outpatient EGD/Colon once recovered Subjective Allergies: Coded Allergies: Crab (Verified Allergy, Mild, 05/28/16) Uncoded Allergies: SHELLFISH (Allergy, Unknown, 11/21/17) Subjective Above noted mild abd pain today no BM yet Objective Last 24 Hour Vital Signs Date Time Temp Pulse Resp B/P (MAP) Pulse Ox O2 Delivery O2 Flow Rate FiO2 01/02/20 12:00 98.1 61 18 134/60 (84) 98 01/02/20 09:00 Room Air 01/02/20 08:16 61 121/64 01/02/20 08:00 98.0 61 18 121/64 (83) 99 01/02/20 04:00 97.9 60 18 144/69 (94) 97 01/02/20 00:00 98.1 60 18 126/53 (77) 94 01/01/20 21:00 Room Air 01/01/20 20:00 98.4 62 18 126/62 (83) 98 01/01/20 16:00 98.1 67 18 118/59 (78) 97 Intake and Output 01/01/20 01/02/20 19:00 07:00 Intake Total 1200 ml 300 ml Balance 1200 ml 300 ml Intake Oral 300 ml Other 1200 ml # Voids 3 Laboratory Tests 01/01/20 20:22: POC Whole Blood Glucose 85 Height (Feet): 5 Height (Inches): 6.00 Weight (Pounds): 156 Objective Elderly AA woman NCAT supple CTA RR abd soft (+) mild TTP central no edema Alissa Melgar MD Jan 02, 2020 12:22
[2020-01-02] MEDS ORDERED: MIRALAX119 GM ORAL (13:25)
--- NOTE | 2020-01-02 13:27 | General Progress Note ---
Assessment/Plan Problem List: (1) Diverticulitis ICD Codes: K57.92 - Diverticulitis of intestine, part unspecified, without perforation or abscess without bleeding SNOMED: 207889257 (2) HTN (hypertension) ICD Codes: I10 - Essential (primary) hypertension SNOMED: 21564891 (3) DM (diabetes mellitus) ICD Codes: E11.9 - DM (diabetes mellitus) SNOMED: 25787202 (4) Constipation ICD Codes: K59.00 - Constipation, unspecified SNOMED: 20288359 (5) Renal failure (ARF), acute on chronic ICD Codes: N17.9 - Renal failure (ARF), acute on chronic; N18.9 - Chronic kidney disease, unspecified SNOMED: 793894284 (6) CAD (coronary artery disease) ICD Codes: I25.10 - Atherosclerotic heart disease of [place] coronary artery without angina pectoris SNOMED: 93212494 Assessment/Plan: po abxs laxative Tylenol for pain DC today Subjective Allergies: Coded Allergies: Crab (Verified Allergy, Mild, 05/28/16) Uncoded Allergies: SHELLFISH (Allergy, Unknown, 11/21/17) Subjective feels better Objective Last 24 Hour Vital Signs Date Time Temp Pulse Resp B/P (MAP) Pulse Ox O2 Delivery O2 Flow Rate FiO2 01/02/20 12:00 98.1 61 18 134/60 (84) 98 01/02/20 09:00 Room Air 01/02/20 08:16 61 121/64 01/02/20 08:00 98.0 61 18 121/64 (83) 99 01/02/20 04:00 97.9 60 18 144/69 (94) 97 01/02/20 00:00 98.1 60 18 126/53 (77) 94 01/01/20 21:00 Room Air 01/01/20 20:00 98.4 62 18 126/62 (83) 98 01/01/20 16:00 98.1 67 18 118/59 (78) 97 Intake and Output 01/01/20 01/02/20 19:00 07:00 Intake Total 1200 ml 300 ml Balance 1200 ml 300 ml Intake Oral 300 ml Other 1200 ml # Voids 3 Laboratory Tests 01/01/20 20:22: POC Whole Blood Glucose 85 Height (Feet): 5 Height (Inches): 6.00 Weight (Pounds): 156 Noel Mckenna MD Jan 02, 2020 13:27
[2020-01-02 14:07] LABS: BASOPHILS % (AUTO) 0.6 % (0.0-2.0); EOSINOPHILS % (AUTO) 0.4 % (0.0-3.0); HEMOGLOBIN 8.5 G/DL (12.0-16.0); LYMPHOCYTES % (AUTO) 24.2 % (20.0-45.0); MEAN CORPUSCULAR VOLUME 103 FL (80-99); NEUTROPHILS % (AUTO) 68.8 % (45.0-75.0); PLATELET COUNT 346 K/UL (150-450); RED BLOOD COUNT 2.63 M/UL (4.20-5.40); RED CELL DISTRIBUTION WIDTH 11.6 % (11.6-14.8); WHITE BLOOD COUNT 5.8 K/UL (4.8-10.8)
--- NOTE | 2020-01-03 13:50 | Discharge Summary ---
Discharge Summary Discharge Summary _ DATE OF ADMISSION: 12/28/2019 DATE OF DISCHARGE: 01/02/2020 DISCHARGED BY: Dr. Noel Mckenna REASON FOR ADMISSION: 84 years old female with past medical history of diabetes mellitus, hypertension , coronary artery disease, status post stenting, presented for evaluation due to abdominal pain and constipation. Patient apparently was constipated for the past 2 weeks. After 1 week she received laxative by her primary care provider with good effect , however over the past 5 days she reported minimal bowel movement. She was able to pass gas intermittently. Patient noted some bright red blood on the tissue paper tissue for 1 day and presented to emergency department for further management. She denied fever and chills. She denied chest pain , shortness of breath and palpitation. Upon evaluation laboratory work-up revealed no leukocytosis, hemoglobin 9.2 , hematocrit 28.8 ,platelet count 269. Stable electrolytes . BUN 58, creatinine 2.9. Glucose 115. Stable LFT and lipase. Albumin 3.5. Lactic acid 0.5. C CT of the abdomen and pelvis demonstrated findings consistent with acute diverticulitis without evidence of bowel obstruction or perforation. No abscess formation. In emergency department patient received antibiotics and admitted to medical surgical floor for further management. CONSULTANTS: ID specialist Dr. [place] Mckenna [facility]: Patient admitted to medical surgical floor and initially was kept n.p.o. Patient started on IV fluids and empiric antibiotics for acute diverticulitis. Renal ultrasound revealed absent right kidney . Left kidney demonstrated normal echogenicity. No hydronephrosis. Renal parameters and electrolytes were closely monitored. Electrolytes corrected as needed , and nephrotoxic's were avoided. Creatinine from 2.9 went down to 2.0. ID specialist recommended to continue oral ciprofloxacin and Flagyl for 7 more days upon discharge. Patient slowly started on diet as tolerated. Antiemetic were on board as needed. Bowel regimen instituted. GI prophylaxis provided. Supportive care provided. Home medication continued, including dual antiplatelet therapy with aspirin and Plavix. Blood pressure was managed with calcium channel josiah. Blood sugar was managed with a sliding scale of insulin. Pain management was addressed as needed. Supportive care provided. Diet was advanced as tolerated, and patient was able to tolerate low residue diet. FINAL DIAGNOSES: Acute diverticulitis Acute on chronic renal failure Diabetes mellitus Hypertension Hyperlipidemia History of pacemaker Coronary artery disease Anemia Constipation DISCHARGE MEDICATIONS: See Medication Reconciliation list. DISCHARGE INSTRUCTIONS: Patient was discharged home. Follow-up with a primary care provider in 1 week. Patient will need outpatient EGD and colonoscopy in 2 months. I have been assigned to dictate discharge summary for this account. I was not involved in the patient's management. Skylar Persaud NP Jan 03, 2020 13:50
== END 2020-01-02 15:06 | disposition home or self-care (01) | DRG 392 ==
LOC: EDBD 22:59 → EMR 23:45 → EDBEDREQ 12-28 00:37 → 4E 12-28 00:39 → EDBEDREQ 12-28 01:15
DX: K57.32 Diverticulitis of large intestine without perforation or abscess without bleeding (principal); N17.9 Acute kidney failure, unspecified; I69.351 Hemiplegia and hemiparesis following cerebral infarction affecting right dominant side; E11.22 Type 2 diabetes mellitus with diabetic chronic kidney disease; I12.9 Hypertensive chronic kidney disease with stage 1 through stage 4 chronic kidney disease, or unspecified chronic kidney disease; N18.9 Chronic kidney disease, unspecified; D63.8 Anemia in other chronic diseases classified elsewhere; E78.5 Hyperlipidemia, unspecified; Z85.528 Personal history of other malignant neoplasm of kidney; Z90.5 Acquired absence of kidney; I25.10 Atherosclerotic heart disease of native coronary artery without angina pectoris; I25.2 Old myocardial infarction; K57.92 Diverticulitis of intestine, part unspecified, without perforation or abscess without bleeding; Z95.0 Presence of cardiac pacemaker; K59.00 Constipation, unspecified
CPT/HCPCS: 36415; 74176; 76770; 80048; 80053; 80061; 81003; 82306; 82607; 82746; 82962; 83540; 83550; 83605; 83690; 83735; 83970; 84443; 85025; 99285; J1815

== ENCOUNTER 2020-01-06 23:27 | Inpatient (IN) | payer MEDICARE, OTHER ==
[~2020-01-06] VITALS: Ht 170.2 cm; Wt 64.9 kg
[~2020-01-06 23:27] MED LIST changes: +CRESTOR10 M1 ORAL; +JANUVIA25 MG ORAL; +MIRALAX119 GM ORAL; +TELMISARTAN80 MG PO
--- NOTE | 2020-01-06 23:38 | Emergency Room Report ---
History of Present Illness General Chief Complaint: Chest Pain Source: Patient Present Illness HPI Patient is an 84-year-old female brought in by EMS after increased shortness of breath. Prior history of myocardial infarction x4. Had previous CVA with right -sided weakness. Patient was brought in by EMS. EKG showed paced rhythm she was noted to be hypoxic and started on supplemental oxygen by EMS. Recent hospitalization for diverticulitis. Allergies: Coded Allergies: Crab (Verified Allergy, Mild, 05/28/16) Uncoded Allergies: SHELLFISH (Allergy, Unknown, 11/21/17) COVID-19 Screening Contact w/high risk pt: No Recent Travel to affected area: No Experienced COVID-19 symptoms?: No COVID-19 Testing performed EMERGENCY VEHICLE DISPATCHER: No Patient History Past Medical History: see triage record, DM, HTN, CAD Reviewed Nursing Documentation: PMH: Agreed; PSxH: Agreed Nursing Documentation-PMH Past Medical History: No History, Except For Hx Cardiac Problems: Yes Hx Hypertension: Yes Hx Diabetes: Yes Hx Cancer: No Hx Gastrointestinal Problems: No - Lt kidney removed Hx Neurological Problems: No Hx Dizziness: Yes Review of Systems All Other Systems: negative except mentioned in HPI Physical Exam Vital Signs Date Time Temp Pulse Resp B/P (MAP) Pulse Ox O2 Delivery O2 Flow Rate FiO2 01/06/20 23:29 97.9 60 16 100/40 (60) 98 Room Air Sp02 EP Interpretation: reviewed, normal General Appearance: normal inspection, alert, GCS 15, moderate distress, Chronically Ill Head: atraumatic ENT: normal ENT inspection, hearing grossly normal, normal voice Neck: normal inspection, full range of motion, supple, no bony tend Respiratory: normal inspection, lungs clear, normal breath sounds, no respiratory distress, no retraction, no wheezing Cardiovascular #1: regular rate, rhythm, edema - Trace Gastrointestinal: normal inspection, normal bowel sounds, non tender, soft, no guarding, no hernia Genitourinary: no CVA tenderness Musculoskeletal: normal inspection, back normal, normal range of motion Neurologic: alert, oriented x3, motor weakness - Right-sided weakness, responsive, speech normal Psychiatric: normal inspection, judgement/insight normal, mood/affect normal Skin: no rash Medical Decision Making Diagnostic Impression: Primary Impression: Acute CHF (congestive heart failure) Additional Impressions: Hyperkalemia Non-STEMI (non-ST elevated myocardial infarction) ER Course Patient presented for chest pain and shortness of breath. Differential diagnosis include was not limited to pneumonia, CHF, coronavirus infection, fluid overload among others. Because of complexity of patient's case laboratory tests and imaging studies were ordered. Patient was noted a recent hospitalization and prior history of coronary artery disease.Patient's troponin was noted to be positive. She was given morphine for pain. Patient's coronavirus testing was negative. Laboratory testing was notable for positive troponin as well as elevated BNP. Chest x-ray showed marketed increase in right -sided infiltrate as well as some fluid in the fissure. Patient was given IV Lasix for hyperkalemia. She was also given Lovenox.Pain had onset 2 days ago she is given nitroglycerin for fluid overload. Dr. Noel Mckenna was contacted for inpatient management due to previous admission. Labs Test 01/06/20 23:54 01/07/20 00:15 Arterial Blood pH 7.304 (7.350-7.450) Arterial Blood Partial Pressure CO2 39.8 mmHg (35.0-45.0) Arterial Blood Partial Pressure O2 168.3 mmHg (75.0-100.0) Arterial Blood HCO3 19.3 mmol/L (22.0-26.0) Arterial Blood Oxygen Saturation 98.8 % (95-100) Arterial Blood Base Excess -6.5 (-2-2) Bharat Test Positive White Blood Count 11.7 K/UL (4.8-10.8) Red Blood Count 2.65 M/UL (4.20-5.40) Hemoglobin 8.7 G/DL (12.0-16.0) Hematocrit 27.5 % (37.0-47.0) Mean Corpuscular Volume 104 FL (80-99) Mean Corpuscular Hemoglobin 32.7 PG (27.0-31.0) Mean Corpuscular Hemoglobin Concent 31.5 G/DL (32.0-36.0) Red Cell Distribution Width 12.3 % (11.6-14.8) Platelet Count 385 K/UL (150-450) Mean Platelet Volume 6.4 FL (6.5-10.1) Neutrophils (%) (Auto) 81.3 % (45.0-75.0) Lymphocytes (%) (Auto) 13.4 % (20.0-45.0) Monocytes (%) (Auto) 4.3 % (1.0-10.0) Eosinophils (%) (Auto) 0.4 % (0.0-3.0) Basophils (%) (Auto) 0.7 % (0.0-2.0) Sodium Level 131 MMOL/L (136-145) Potassium Level 6.0 MMOL/L (3.5-5.1) Chloride Level 100 MMOL/L (98-107) Carbon Dioxide Level 22 MMOL/L (21-32) Anion Gap 9 mmol/L (5-15) Blood Urea Nitrogen 39 mg/dL (7-18) Creatinine 3.5 MG/DL (0.55-1.30) Estimat Glomerular Filtration Rate 15.0 mL/min (>60) Glucose Level 181 MG/DL (74-106) Calcium Level 8.5 MG/DL (8.5-10.1) Total Bilirubin 0.3 MG/DL (0.2-1.0) Aspartate Amino Transf (AST/SGOT) 19 U/L (15-37) Alanine Aminotransferase (ALT/SGPT) 17 U/L (12-78) Alkaline Phosphatase 85 U/L (46-116) Troponin I 0.651 ng/mL (0.000-0.056) C-Reactive Protein, Quantitative 2.1 mg/dL (0.00-0.90) Pro-B-Type Natriuretic Peptide 89028 pg/mL (0-125) Total Protein 7.3 G/DL (6.4-8.2) Albumin 3.5 G/DL (3.4-5.0) Globulin 3.8 g/dL Albumin/Globulin Ratio 0.9 (1.0-2.7) Lipase 91 U/L (73-393) EKG Diagnostic Results Rate: normal Rhythm: other - paced ST Segments: no acute changes Last Vital Signs Date Time Temp Pulse Resp B/P (MAP) Pulse Ox O2 Delivery O2 Flow Rate FiO2 01/06/20 23:29 97.9 60 16 100/40 (60) 98 Room Air Status: unchanged Disposition: ADMITTED INPATIENT Condition: Serious Gerardo Timmons MD Jan 06, 2020 23:38
[2020-01-06] MEDS ORDERED: Nitroglycerin 2% oint pkt TOPIC ONE (23:45)
[2020-01-07] VITALS (14 sets, daily range): BP systolic 89–138; BP diastolic 48–95
[2020-01-07 00:42] LABS: BASOPHILS % (AUTO) 0.7 % (0.0-2.0); EOSINOPHILS % (AUTO) 0.4 % (0.0-3.0); HEMATOCRIT 27.5 % (37.0-47.0); HEMOGLOBIN 8.7 G/DL (12.0-16.0); LYMPHOCYTES % (AUTO) 13.4 % (20.0-45.0); MEAN CORPUSCULAR VOLUME 104 FL (80-99); MONOCYTES % (AUTO) 4.3 % (1.0-10.0); NEUTROPHILS % (AUTO) 81.3 % (45.0-75.0); PLATELET COUNT 385 K/UL (150-450); RED BLOOD COUNT 2.65 M/UL (4.20-5.40); RED CELL DISTRIBUTION WIDTH 12.3 % (11.6-14.8); WHITE BLOOD COUNT 11.7 K/UL (4.8-10.8)
[2020-01-07] MEDS ORDERED: cefTRIAXone 1 GM in NS 55 ML IVPB ONE (01:00)
[2020-01-07] MEDS ORDERED: Morphine Sulfate 2mg/ml Inj(IV/IM USE ONLY) IVP ONE (01:00)
[2020-01-07 01:03] LABS: ALANINE AMINOTRANSFERASE 17 U/L (12-78); ALBUMIN 3.5 G/DL (3.4-5.0); ALBUMIN/GLOBULIN RATIO 0.9 (1.0-2.7); ALKALINE PHOSPHATASE 85 U/L (46-116); ANION GAP 9 mmol/L (5-15); ASPARTATE AMINO TRANSFERASE 19 U/L (15-37); BILIRUBIN,TOTAL 0.3 MG/DL (0.2-1.0); BLOOD UREA NITROGEN 39 mg/dL (7-18); CALCIUM 8.5 MG/DL (8.5-10.1); CARBON DIOXIDE 22 MMOL/L (21-32); CHLORIDE 100 MMOL/L (98-107); CREATININE 3.5 MG/DL (0.55-1.30); SODIUM 131 MMOL/L (136-145)
[2020-01-07] MEDS ORDERED: Nitroglycerin Subl 0.4mg tab SL ONE (01:03)
[2020-01-07] MEDS ORDERED: Enoxaparin 80mg Inj SUBQ ONE (01:15)
[2020-01-07] MEDS ORDERED: Nitroglycerin Subl 0.4mg tab SL PRN (01:15)
--- NOTE | 2020-01-07 02:35 | Diagnostic Imaging Report ---
EXAM: XR Chest, 1 View CLINICAL HISTORY: SOB TECHNIQUE: Frontal view of the chest. COMPARISON: 08/22/19. FINDINGS: Lungs: Relatively diffuse increased hazy opacities in the lung with some relative sparing of the left upper lung. This appears worst in the right mid to lower lung. Pneumonia should be considered. Pleural space: No definite plain film evidence for pneumothorax. Heart: Mild prominence of the cardiac silhouette. Mediastinum: Unremarkable. Bones/joints: Degenerative changes of the thoracic spine. Soft tissues: Bilateral breast implants. Tubes, lines and devices: Cardiac pacer projected over the right hemithorax. IMPRESSION: 1. Relatively diffuse increased hazy opacities in the lung with some relative sparing of the left upper lung. This appears worst in the right mid to lower lung. Pneumonia should be considered. 2. Mild prominence of the cardiac silhouette.
[2020-01-07] MEDS ORDERED: Miralax 17gm pkt ORAL PRN (03:45)
[2020-01-07] MEDS ORDERED: Tylenol #3 tab (300mg/30mg) ORAL PRN (03:45)
[2020-01-07] MEDS ORDERED: Morphine Sulfate 4mg/ml Inj (IV USE ONLY) IVP PRN (03:45)
[2020-01-07 05:44] LABS: APPEARANCE,URINE CLEAR; BILIRUBIN, URINE NEGATIVE (NEGATIVE); COLOR,URINE PALE YELLOW; GLUCOSE, URINE (UA) NEGATIVE (NEGATIVE); KETONES,URINE NEGATIVE (NEGATIVE); LEUKOCYTE ESTERASE ,URINE 2+ (NEGATIVE); NITRITE,URINE NEGATIVE (NEGATIVE); PH,URINE 5 (4.5-8.0); PROTEIN,URINE NEGATIVE (NEGATIVE); UROBILINOGEN,URINE NORMAL MG/DL (0.0-1.0)
[2020-01-07] MEDS: NovoLOG Insulin Flexpen SUBQ SCH ×4 (06:30→21:00)
[2020-01-07] MEDS: sitaGLIPtin 50mg tab ORAL SCH (09:00)
--- NOTE | 2020-01-07 09:10 | Cardiac Electrophysiology PN ---
Subjective Subjective Patient seen in ER and SDU RN [id number] Objective Last 24 Hour Vital Signs Date Time Temp Pulse Resp B/P (MAP) Pulse Ox O2 Delivery O2 Flow Rate FiO2 01/07/20 07:08 98.3 60 21 125/57 97 Non-Rebreather 15.0 01/07/20 06:00 98.3 65 24 126/55 96 Non-Rebreather 15.0 01/07/20 05:54 98.2 01/07/20 05:30 98.2 65 24 112/59 100 Non-Rebreather 15.0 01/07/20 04:30 98.3 61 22 138/95 100 Non-Rebreather 15.0 01/07/20 03:00 98.2 62 22 118/67 99 Non-Rebreather 15.0 01/07/20 02:00 98.2 61 19 130/72 100 Non-Rebreather 15.0 01/07/20 01:34 98.3 01/07/20 01:14 115/75 01/06/20 23:57 120/60 01/06/20 23:35 60 26 Non-Rebreather 15.0 01/06/20 23:30 60 26 Room Air 01/06/20 23:29 97.9 60 16 100/40 (60) 98 Room Air Laboratory Tests Test 01/06/20 23:54 01/07/20 00:15 01/07/20 05:35 Arterial Blood pH 7.304 (7.350-7.450) Arterial Blood Partial Pressure CO2 39.8 mmHg (35.0-45.0) Arterial Blood Partial Pressure O2 168.3 mmHg (75.0-100.0) H Arterial Blood HCO3 19.3 mmol/L (22.0-26.0) L Arterial Blood Oxygen Saturation 98.8 % (95-100) Arterial Blood Base Excess -6.5 (-2-2) L Bharat Test Positive White Blood Count 11.7 K/UL (4.8-10.8) H Red Blood Count 2.65 M/UL (4.20-5.40) L Hemoglobin 8.7 G/DL (12.0-16.0) L Hematocrit 27.5 % (37.0-47.0) L Mean Corpuscular Volume 104 FL (80-99) H Mean Corpuscular Hemoglobin 32.7 PG (27.0-31.0) H Mean Corpuscular Hemoglobin Concent 31.5 G/DL (32.0-36.0) L Red Cell Distribution Width 12.3 % (11.6-14.8) Platelet Count 385 K/UL (150-450) Mean Platelet Volume 6.4 FL (6.5-10.1) L Neutrophils (%) (Auto) 81.3 % (45.0-75.0) H Lymphocytes (%) (Auto) 13.4 % (20.0-45.0) L Monocytes (%) (Auto) 4.3 % (1.0-10.0) Eosinophils (%) (Auto) 0.4 % (0.0-3.0) Basophils (%) (Auto) 0.7 % (0.0-2.0) D-Dimer 3.50 mg/L FEU (0.00-0.49) H Sodium Level 131 MMOL/L (136-145) L Potassium Level 6.0 MMOL/L (3.5-5.1) *H Chloride Level 100 MMOL/L (98-107) Carbon Dioxide Level 22 MMOL/L (21-32) Anion Gap 9 mmol/L (5-15) Blood Urea Nitrogen 39 mg/dL (7-18) H Creatinine 3.5 MG/DL (0.55-1.30) H Estimat Glomerular Filtration Rate 15.0 mL/min (>60) Glucose Level 181 MG/DL (74-106) H Calcium Level 8.5 MG/DL (8.5-10.1) Total Bilirubin 0.3 MG/DL (0.2-1.0) Aspartate Amino Transf (AST/SGOT) 19 U/L (15-37) Alanine Aminotransferase (ALT/SGPT) 17 U/L (12-78) Alkaline Phosphatase 85 U/L (46-116) Troponin I 0.651 ng/mL (0.000-0.056) C-Reactive Protein, Quantitative 2.1 mg/dL (0.00-0.90) H Pro-B-Type Natriuretic Peptide 90340 pg/mL (0-125) H Total Protein 7.3 G/DL (6.4-8.2) Albumin 3.5 G/DL (3.4-5.0) Globulin 3.8 g/dL Albumin/Globulin Ratio 0.9 (1.0-2.7) L Lipase 91 U/L (73-393) Urine Color Pale yellow Urine Appearance Clear Urine pH 5 (4.5-8.0) Urine Specific [place] 1.020 (1.005-1.035) Urine Protein Negative (NEGATIVE) Urine Glucose (UA) Negative (NEGATIVE) Urine Ketones Negative (NEGATIVE) Urine Blood Negative (NEGATIVE) Urine Nitrite Negative (NEGATIVE) Urine Bilirubin Negative (NEGATIVE) Urine Urobilinogen Normal MG/DL (0.0-1.0) Urine Leukocyte Esterase 2+ (NEGATIVE) H Urine RBC 0-2 /HPF (0 - 2) Urine WBC 10-15 /HPF (0 - 2) H Urine Squamous Epithelial Cells Few /LPF (NONE/OCC) Urine Bacteria Few /HPF (NONE) Microbiology Date/Time Source Procedure Growth Status 01/07/20 00:40 Nasopharynx SARS-CoV-2 RdRp Gene Assay - Final Complete Donnie Bazan MD Jan 07, 2020 09:10
[2020-01-07] MEDS: Aspirin Baby 81mg ORAL SCH (10:07)
--- NOTE | 2020-01-07 10:15 | Consultation ---
DATE OF CONSULTATION: 01/07/2020 CARDIOLOGY CONSULTATION CONSULTING PHYSICIAN: Donnie Bazan MD. REFERRING PHYSICIAN: Noel Mckenna MD. REASON FOR CONSULTATION: Non-ST elevation myocardial infarction in a patient with history of coronary artery disease and evaluation of patient's pacemaker. HISTORY OF PRESENT ILLNESS: Patient is an 84-year-old lady with history of hypertension, coronary artery disease, and diabetes with history of 4 prior myocardial infarctions with the last one few months ago when she was at [facility]. Patient also has history of right-sided permanent pacemaker implantation, but she does not know the brand or indication. Patient was recently discharged from the hospital. Patient came to the emergency with increasing shortness of breath. Patient has history of prior CVA and right-sided weakness. Patient's EKG was atrioventricularly paced. Patient was noted to be hypoxic and was started on supplemental oxygen. Patient had recent hospitalization for diverticulitis. REVIEW OF SYSTEMS: Negative other than what was mentioned in the history of present illness. PAST MEDICAL HISTORY: As mentioned above. FAMILY HISTORY: Noncontributory. SOCIAL HISTORY: She does not smoke or drink alcohol. PHYSICAL EXAMINATION: VITAL SIGNS: Show blood pressure of 124/57, pulse is 60, respirations 18, temperature 98.3. HEAD AND NECK: Showed no JVD. LUNGS: Clear. CARDIOVASCULAR: Regular S1 and S2 with no gallop. Pacemaker is in the right subclavian. ABDOMEN: Soft. EXTREMITIES: No pitting edema. LABORATORY AND DIAGNOSTIC DATA: Her labs show white count of 11.7, hemoglobin of 8.7, hematocrit of 27.5, platelet count of 385. Sodium 131, potassium 6.0, BUN of 39, creatinine 3.5, and glucose of 181. Troponin is 0.651. ASSESSMENT AND PLAN: 1. Non-ST elevation myocardial infarction with chest pain and elevated troponin. The EKG is not reliable as it is AV paced. The troponin elevation could be also due to renal failure with creatinine of 3.5 especially with low level of troponin. We will repeat the cardiac enzymes and we will get an echocardiogram for further evaluation. 2. Congestive heart [place] [address]. Patient also has renal failure, creatinine 3.5. For her acute coronary syndrome, patient was kept on aspirin and Plavix and Lipitor 80 mg at bedtime. Add metoprolol to her medical regimen. 3. Hypertension, on Norvasc 10 mg daily and metoprolol and Toprol-XL 25 mg daily. 4. Status post right-sided permanent pacemaker implantation. We will try to find the brand of the pacemaker and interrogate that. 5. Diabetes. 6. Renal failure. Patient has history of nephrectomy. Further evaluation by Dr. Mckenna. Thank you very much for allowing me to participate in the care of this patient. Please do not hesitate to contact me for any questions regarding my evaluation. Donnie Bazan M.D. DR: JOHN JOB#: [id number] CC:
[2020-01-07] MEDS: Heparin 25,000u/D5W 500ml 500 ML IV SCH (11:29)
[2020-01-07] MEDS ORDERED: Lidocaine 1% Plain 30 ml INJ PRN (13:24)
[2020-01-07] MEDS ORDERED: Heparin1,000 units/500ml Premix(Conc:2 units/ml) INJ PRN (13:24)
[2020-01-07] MEDS: Lokelma 10gm Pkt ORAL SCH (13:50)
--- NOTE | 2020-01-07 13:56 | History & Physical ---
History and Physical History & Physicial History of Present Illness General Chief Complaint: Chest Pain Source: Patient Present Illness HPI Patient is an 84-year-old female brought in by EMS after increased shortness of breath. Prior history of myocardial infarction x4. Had previous CVA with right -sided weakness. Patient was brought in by EMS. EKG showed paced rhythm she was noted to be hypoxic and started on supplemental oxygen by EMS. Recent hospitalization for diverticulitis. Allergies: Coded Allergies: Crab (Verified Allergy, Mild, 05/28/16) Uncoded Allergies: SHELLFISH (Allergy, Unknown, 11/21/17) Patient History Past Medical History: see triage record, DM, HTN, CAD Reviewed Nursing Documentation: PMH: Agreed; PSxH: Agreed Review of Systems All Other Systems: negative except mentioned in HPI Physical Exam Vital Signs Date Time Temp Pulse Resp B/P (MAP) Pulse Ox O2 Delivery O2 Flow Rate FiO2 01/06/20 23:29 97.9 60 16 100/40 (60) 98 Room Air Sp02 EP Interpretation: reviewed, normal on NRB mask General Appearance: normal inspection, alert, GCS 15, moderate distress, Chronically Ill Head: atraumatic ENT: normal ENT inspection, hearing grossly normal, normal voice Neck: normal inspection, full range of motion, supple, no bony tend, no JVD Respiratory: normal inspection, lungs clear, normal breath sounds, no respiratory distress, no retraction, no wheezing breast: bilateral implant Cardiovascular #1: regular rate, rhythm, edema - Trace Gastrointestinal: normal inspection, normal bowel sounds, non tender, soft, no guarding, no hernia Genitourinary: no CVA tenderness Musculoskeletal: normal inspection, back normal, normal range of motion Neurologic: alert, oriented x3, motor weakness - Right-sided weakness, responsive, speech normal Psychiatric: normal inspection, judgement/insight normal, mood/affect normal Skin: no rash Test 01/06/20 23:54 01/07/20 00:15 Arterial Blood pH 7.304 (7.350-7.450) Arterial Blood Partial Pressure CO2 39.8 mmHg (35.0-45.0) Arterial Blood Partial Pressure O2 168.3 mmHg (75.0-100.0) Arterial Blood HCO3 19.3 mmol/L (22.0-26.0) Arterial Blood Oxygen Saturation 98.8 % (95-100) Arterial Blood Base Excess -6.5 (-2-2) Bharat Test Positive White Blood Count 11.7 K/UL (4.8-10.8) Red Blood Count 2.65 M/UL (4.20-5.40) Hemoglobin 8.7 G/DL (12.0-16.0) Hematocrit 27.5 % (37.0-47.0) Mean Corpuscular Volume 104 FL (80-99) Mean Corpuscular Hemoglobin 32.7 PG (27.0-31.0) Mean Corpuscular Hemoglobin Concent 31.5 G/DL (32.0-36.0) Red Cell Distribution Width 12.3 % (11.6-14.8) Platelet Count 385 K/UL (150-450) Mean Platelet Volume 6.4 FL (6.5-10.1) Neutrophils (%) (Auto) 81.3 % (45.0-75.0) Lymphocytes (%) (Auto) 13.4 % (20.0-45.0) Monocytes (%) (Auto) 4.3 % (1.0-10.0) Eosinophils (%) (Auto) 0.4 % (0.0-3.0) Basophils (%) (Auto) 0.7 % (0.0-2.0) Sodium Level 131 MMOL/L (136-145) Potassium Level 6.0 MMOL/L (3.5-5.1) Chloride Level 100 MMOL/L (98-107) Carbon Dioxide Level 22 MMOL/L (21-32) Anion Gap 9 mmol/L (5-15) Blood Urea Nitrogen 39 mg/dL (7-18) Creatinine 3.5 MG/DL (0.55-1.30) Estimat Glomerular Filtration Rate 15.0 mL/min (>60) Glucose Level 181 MG/DL (74-106) Calcium Level 8.5 MG/DL (8.5-10.1) Total Bilirubin 0.3 MG/DL (0.2-1.0) Aspartate Amino Transf (AST/SGOT) 19 U/L (15-37) Alanine Aminotransferase (ALT/SGPT) 17 U/L (12-78) Alkaline Phosphatase 85 U/L (46-116) Troponin I 0.651 ng/mL (0.000-0.056) C-Reactive Protein, Quantitative 2.1 mg/dL (0.00-0.90) Pro-B-Type Natriuretic Peptide 95707 pg/mL (0-125) Total Protein 7.3 G/DL (6.4-8.2) Albumin 3.5 G/DL (3.4-5.0) Globulin 3.8 g/dL Albumin/Globulin Ratio 0.9 (1.0-2.7) Lipase 91 U/L (73-393) EKG Diagnostic Results Rate: normal Rhythm: other - paced ST Segments: no acute changes assessment: Acute CHF acute hypoxic resp failure dyspnea Hyperkalemia Non-STEMI (non-ST elevated myocardial infarction) MAY on CKD pacemaker in situ DM HTN CAD hx NH PLAN: SDU NRB mask TTE diuretic serial troponin/ECG glycemic control asa, plavix, statin BP control pacemaker interrogation cardio/renal f/u pulm neb thoracentesis prn for pleural effusion may need HD for volume management FULL CODE JAVAD MADRIGAL MD [facility]NAL [facility] [phone] time of note make not be actual encounter time. 70 minutes spent today over 50% spent in managment, discusion with pt plan of care Javad Madrigal MD Jan 07, 2020 13:56
--- NOTE | 2020-01-07 14:05 | Consultation ---
History of Present Illness General Date patient seen: Jan 07, 2020 Reason for Hospitalization: Chest Pain Present Illness HPI This is a 84-year-old female with history of nephrectomy for potential renal tumor that was admitted for respiratory insufficiency chest discomfort. She is admitted further care and management and seen by nephrology who is identified patient to have renal insufficiency likely requiring dialysis. Patient has not had dialysis recently and does not have access and surgery was called to evaluate for access placement. Patient seen, patient evaluated, chart reviewed. Patient states she is otherwise well and comfortable but some respiratory insufficiency and desaturation on facemask. No pain no nausea vomiting fever chills Allergies: Coded Allergies: Crab (Verified Allergy, Mild, 05/28/16) Uncoded Allergies: SHELLFISH (Allergy, Unknown, 11/21/17) COVID-19 Screening Contact w/high risk pt: No Recent Travel to affected area: No Experienced COVID-19 symptoms?: No Medication History Scheduled Clopidogrel Bisulfate* (Plavix*), Unknown Dose ORAL DAILY, (Reported) Rosuvastatin Calcium (Crestor), 20 MG ORAL DAILY, (Reported) Sitagliptin* (Januvia*), 50 MG ORAL DAILY, (Reported) Scheduled PRN Acetaminophen With Codeine (T#3) (Tylenol #3 Tab*), 1 TAB ORAL Q8H PRN for For Pain Polyethylene Glycol 3350 (Miralax), 17 GM ORAL HSPRN PRN Miscellaneous Medications Amlodipine Besylate* (Amlodipine Besylate*), (Reported) Dexlansoprazole (Dexilant), (Reported) Glimepiride* (Glimepiride*), (Reported) Isosorbide Mononitrate (Isosorbide Mononitrate Er), (Reported) Telmisartan (Telmisartan), 80 MG PO, (Reported) Discontinued Medications Aspirin (Aspirin), 300 MG RECTAL DAILY PRN for Mild Pain/Temp > 100.5, (Reported ) Discontinued Reason: MD discontinued med Doxazosin Mesylate* (Doxazosin Mesylate*), (Reported) Discontinued Reason: MD discontinued med Furosemide* (Lasix*), (Reported) Discontinued Reason: MD discontinued med Durable Medical Equipment Walker (Ultra-Light Rollator), 1 EACH MC NEEDED PRN, (DME) Patient History History Provided By: Patient, PMD Healthcare decision maker Resuscitation status Advanced Directive on File Past Medical/Surgical History Past Medical/Surgical History: (1) Episode of generalized weakness (2) Headache (3) Vomiting (4) Episode of generalized weakness (5) Episode of generalized weakness (6) Anemia (7) Episode of generalized weakness (8) Acute renal failure (9) Vertigo, benign paroxysmal (10) Head injury (11) HTN (hypertension) (12) Head trauma (13) HLD (hyperlipidemia) (14) MAY (acute kidney injury) (15) Encounter for removal of sutures (16) Forehead laceration (17) Encounter for dressing change or suture removal (18) Hypertensive crisis (19) Chronic kidney disease (20) HTN (hypertension) (21) DM (diabetes mellitus) (22) CAD (coronary artery disease) (23) Renal failure (ARF), acute on chronic (24) Hyperkalemia (25) Non-STEMI (non-ST elevated myocardial infarction) (26) Acute CHF (congestive heart failure) (27) Acute coronary syndrome Family History Family History: Patient reports no known family medical history. Review of Systems Review of Symptoms General ROS: no weight loss or fever Psychological ROS: no depression or mood changes, no memory loss Ophthalmic ROS: no visual changes or eye irritation ENT ROS: no nasal congestion, hearing loss, dizziness Allergy and Immunology ROS: no allergic symptoms or urticaria Hematological and Lymphatic ROS: no swollen glands, unusual bleeding or bruising Endocrine ROS: no polyuria, polydipsia, weight changes, temperature intolerance Respiratory ROS: no cough, shortness of breath, or wheezing Cardiovascular ROS: no chest pain or dyspnea on exertion Gastrointestinal ROS: denies abdominal pain, bright red blood in stool. Musculoskeletal ROS: no myalgias or arthralgias Neurological ROS: no TIA or stroke symptoms Dermatological ROS: no new or changing skin lesions, rashes or pruritis Physical Exam Physical Exam General appearance: alert, cooperative, no distress, appears stated age Head: Normocephalic, without obvious abnormality, atraumatic Eyes: conjunctivae/corneas clear. PERRL, EOM's intact. Fundi benign Throat: Lips, mucosa, and tongue normal. Teeth and gums normal Neck: supple, symmetrical, trachea midline, no adenopathy, thyroid: not enlarged, symmetric, no tenderness/mass/nodules, no carotid bruit and no JVD Lungs: clear to auscultation bilaterally Heart: regular rate and rhythm, S1, S2 normal, no murmur, click, rub or gallop Abdomen: soft, non-tender. Bowel sounds normal. No masses, no organomegaly Extremities: extremities normal, atraumatic, no cyanosis or edema Pulses: 2+ and symmetric Skin: Skin color, texture, turgor normal. No rashes or lesions Neurologic: Grossly normal Last 24 Hour Vital Signs Date Time Temp Pulse Resp B/P (MAP) Pulse Ox O2 Delivery O2 Flow Rate FiO2 01/07/20 12:00 61 01/07/20 12:00 15.0 01/07/20 09:49 97.3 74 20 110/60 (77) 93 01/07/20 09:30 98.3 62 23 117/69 98 Non-Rebreather 15.0 01/07/20 09:30 98.3 62 23 117/69 98 Non-Rebreather 15.0 01/07/20 09:00 73 110/60 01/07/20 07:08 98.3 60 21 125/57 97 Non-Rebreather 15.0 01/07/20 06:00 98.3 65 24 126/55 96 Non-Rebreather 15.0 01/07/20 05:54 98.2 01/07/20 05:30 98.2 65 24 112/59 100 Non-Rebreather 15.0 01/07/20 04:30 98.3 61 22 138/95 100 Non-Rebreather 15.0 01/07/20 03:00 98.2 62 22 118/67 99 Non-Rebreather 15.0 01/07/20 02:00 98.2 61 19 130/72 100 Non-Rebreather 15.0 01/07/20 01:34 98.3 01/07/20 01:14 115/75 01/06/20 23:57 120/60 01/06/20 23:35 60 26 Non-Rebreather 15.0 01/06/20 23:30 60 26 Room Air 01/06/20 23:29 97.9 60 16 100/40 (60) 98 Room Air Laboratory Tests Test 01/06/20 23:54 01/07/20 00:15 01/07/20 05:35 01/07/20 10:47 Arterial Blood pH 7.304 (7.350-7.450) 7.332 (7.350-7.450) Arterial Blood Partial Pressure CO2 39.8 mmHg (35.0-45.0) 37.6 mmHg (35.0-45.0) Arterial Blood Partial Pressure O2 168.3 mmHg (75.0-100.0) H 61.0 mmHg (75.0-100.0) L Arterial Blood HCO3 19.3 mmol/L (22.0-26.0) L 19.5 mmol/L (22.0-26.0) L Arterial Blood Oxygen Saturation 98.8 % (95-100) 90.3 % (95-100) L Arterial Blood Base Excess -6.5 (-2-2) L -5.9 (-2-2) L Bharat Test Positive Positive White Blood Count 11.7 K/UL (4.8-10.8) H Red Blood Count 2.65 M/UL (4.20-5.40) L Hemoglobin 8.7 G/DL (12.0-16.0) L Hematocrit 27.5 % (37.0-47.0) L Mean Corpuscular Volume 104 FL (80-99) H Mean Corpuscular Hemoglobin 32.7 PG (27.0-31.0) H Mean Corpuscular Hemoglobin Concent 31.5 G/DL (32.0-36.0) L Red Cell Distribution Width 12.3 % (11.6-14.8) Platelet Count 385 K/UL (150-450) Mean Platelet Volume 6.4 FL (6.5-10.1) L Neutrophils (%) (Auto) 81.3 % (45.0-75.0) H Lymphocytes (%) (Auto) 13.4 % (20.0-45.0) L Monocytes (%) (Auto) 4.3 % (1.0-10.0) Eosinophils (%) (Auto) 0.4 % (0.0-3.0) Basophils (%) (Auto) 0.7 % (0.0-2.0) D-Dimer 3.50 mg/L FEU (0.00-0.49) H Sodium Level 131 MMOL/L (136-145) L Potassium Level 6.0 MMOL/L (3.5-5.1) *H Chloride Level 100 MMOL/L (98-107) Carbon Dioxide Level 22 MMOL/L (21-32) Anion Gap 9 mmol/L (5-15) Blood Urea Nitrogen 39 mg/dL (7-18) H Creatinine 3.5 MG/DL (0.55-1.30) H Estimat Glomerular Filtration Rate 15.0 mL/min (>60) Glucose Level 181 MG/DL (74-106) H Calcium Level 8.5 MG/DL (8.5-10.1) Total Bilirubin 0.3 MG/DL (0.2-1.0) Aspartate Amino Transf (AST/SGOT) 19 U/L (15-37) Alanine Aminotransferase (ALT/SGPT) 17 U/L (12-78) Alkaline Phosphatase 85 U/L (46-116) Troponin I 0.651 ng/mL (0.000-0.056) C-Reactive Protein, Quantitative 2.1 mg/dL (0.00-0.90) H Pro-B-Type Natriuretic Peptide 96628 pg/mL (0-125) H Total Protein 7.3 G/DL (6.4-8.2) Albumin 3.5 G/DL (3.4-5.0) Globulin 3.8 g/dL Albumin/Globulin Ratio 0.9 (1.0-2.7) L Lipase 91 U/L (73-393) Urine Color Pale yellow Urine Appearance Clear Urine pH 5 (4.5-8.0) Urine Specific [place] 1.020 (1.005-1.035) Urine Protein Negative (NEGATIVE) Urine Glucose (UA) Negative (NEGATIVE) Urine Ketones Negative (NEGATIVE) Urine Blood Negative (NEGATIVE) Urine Nitrite Negative (NEGATIVE) Urine Bilirubin Negative (NEGATIVE) Urine Urobilinogen Normal MG/DL (0.0-1.0) Urine Leukocyte Esterase 2+ (NEGATIVE) H Urine RBC 0-2 /HPF (0 - 2) Urine WBC 10-15 /HPF (0 - 2) H Urine Squamous Epithelial Cells Few /LPF (NONE/OCC) Urine Bacteria Few /HPF (NONE) Test 01/07/20 11:05 01/07/20 11:41 Activated Partial Thromboplast Time 32 SEC (23-33) Troponin I 0.746 ng/mL (0.000-0.056) POC Whole Blood Glucose Pending Microbiology Date/Time Source Procedure Growth Status 01/07/20 00:40 Nasopharynx SARS-CoV-2 RdRp Gene Assay - Final Complete Height (Feet): 5 Height (Inches): 7.00 Weight (Pounds): 161 Medications Current Medications Medications (Trade) Dose Ordered Sig/Floresita Route PRN Reason Start Time Stop Time Status Last Admin Dose Admin Acetaminophen (Tylenol) 650 mg Q4H PRN ORAL Mild Pain (Pain Scale 1-3) 01/07/20 03:45 02/06/20 03:44 Acetaminophen/ Codeine Phosphate (Tylenol #3) 1 tab Q8H PRN ORAL For Pain 01/07/20 03:45 01/14/20 03:44 Albumin Human 100 ml @ 200 mls/hr PRN PRN IV sbp<90 during hd 01/08/20 09:00 01/08/20 23:59 Amlodipine Besylate (Norvasc) 10 mg DAILY ORAL 01/07/20 09:00 02/06/20 08:59 Aspirin (ASA) 81 mg DAILY ORAL 01/07/20 09:00 02/21/20 08:59 01/07/20 10:07 Atorvastatin Calcium (Lipitor) 80 mg BEDTIME ORAL 01/07/20 21:00 04/06/20 20:59 Ceftriaxone Sodium 1 gm/ Dextrose 55 ml @ 110 mls/hr Q24H IVPB 01/08/20 01:00 01/15/20 00:59 Clopidogrel Bisulfate (Plavix) 75 mg DAILY ORAL 01/07/20 09:00 02/06/20 08:59 01/07/20 10:08 Dextrose (Dextrose 50%) 25 ml Q30M PRN IV Hypoglycemia 01/07/20 04:00 04/06/20 03:59 Dextrose (Dextrose 50%) 50 ml Q30M PRN IV Hypoglycemia 01/07/20 04:00 04/06/20 03:59 Famotidine (Pepcid) 10 mg DAILY ORAL 01/07/20 09:00 04/06/20 08:59 01/07/20 10:08 Furosemide (Lasix) 80 mg BID IV 01/07/20 10:30 02/06/20 10:29 01/07/20 10:36 Heparin Sodium (Porcine) (Heparin Sod 1000 units/ml 10ml) 500 unit ONCE PRN IV dialysis 01/08/20 09:00 01/08/20 23:59 Heparin Sodium/ Dextrose 500 ml @ 17.527 mls/ hr ADJUST PER PROTOCOL IV 01/07/20 11:30 02/06/20 11:29 01/07/20 11:29 Heparin Sodium/ Sodium Chloride (Heparin 1000 units/500ml Premix) 1,000 unit ONCE PRN INJ PROCEDURE 01/07/20 13:24 01/08/20 23:59 Insulin Aspart (NovoLOG) BEFORE MEALS AND HS SUBQ 01/07/20 06:30 04/06/20 06:29 01/07/20 12:32 Lidocaine HCl (Xylocaine 1% 30ml) 30 ml ONCE PRN INJ PROCEDURE 01/07/20 13:24 01/08/20 23:59 Metoprolol Tartrate (Lopressor) 12.5 mg Q12HR ORAL 01/07/20 21:00 04/06/20 20:59 Morphine Sulfate (Morphine Sulfate) 4 mg Q3H PRN IVP Severe Pain (Pain Scale 7-10) 01/07/20 03:45 01/14/20 03:44 01/07/20 05:24 Nitroglycerin (Ntg) 0.4 mg Q5M PRN SL Prn Chest Pain 01/07/20 01:15 02/06/20 01:14 01/07/20 01:14 Ondansetron HCl (Zofran) 4 mg Q6H PRN IVP Nausea & Vomiting 01/07/20 03:45 02/06/20 03:44 Polyethylene Glycol (Miralax) 17 gm HSPRN PRN ORAL Constipation 01/07/20 03:45 02/06/20 03:44 Sitagliptin Phosphate (Januvia) 50 mg DAILY ORAL 01/07/20 09:00 02/06/20 08:59 Sodium Zirconium Cyclosilicate (Lokelma) 10 gm DAILY ORAL 01/07/20 13:00 04/06/20 12:59 01/07/20 13:50 Assessment/Plan Problem List: (1) Hyperkalemia ICD Codes: E87.5 - Hyperkalemia SNOMED: 56631790 (2) Non-STEMI (non-ST elevated myocardial infarction) ICD Codes: I21.4 - Non-ST elevation (NSTEMI) myocardial infarction SNOMED: 35528099 (3) Acute CHF (congestive heart failure) ICD Codes: I50.9 - Heart failure, unspecified SNOMED: 06602029 (4) Hypertensive crisis ICD Codes: I10 - Essential (primary) hypertension SNOMED: 760851168 (5) Acute renal failure Assessment & Plan: 84-year-old female history of nephrectomy for renal tumor currently with 1 kidney going into renal insufficiency. Discussed with nephrology and likely needs dialysis. An attempted right femoral hemodialysis catheter insertion was made at the bedside after consent was obtained from patient. Good venous flow identified guidewire placed but unfortunately could not dilate without resistance. No attempts were made given significant resistance and therefore procedure was aborted. Discussed with radiology for placement of internal jugular temporary catheter. Further discussions with patient revealed that she has had multiple times and interventions in the groins. 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 She remembers this post attempt. Will monitor site for hemostasis. Pressure held for approximately 20 minutes until hemostasis noted. Currently no bleeding. Discussed care plan and findings with patient. Will monitor thank you Yepez participate in patient's care ICD Codes: N17.9 - Acute renal failure SNOMED: 87702092 (6) Anemia ICD Codes: D64.9 - Anemia, unspecified SNOMED: 475486744 (7) CAD (coronary artery disease) ICD Codes: I25.10 - Atherosclerotic heart disease of [place] coronary artery without angina pectoris SNOMED: 89401758 (8) Headache ICD Codes: R51 - Headache SNOMED: 45151235 (9) Head injury ICD Codes: S09.90XA - Unspecified injury of head, initial encounter SNOMED: 19939653 (10) Vomiting ICD Codes: R11.10 - Vomiting, unspecified SNOMED: 219296599 (11) HTN (hypertension) ICD Codes: I10 - HTN (hypertension) SNOMED: 85304643 (12) HTN (hypertension) ICD Codes: I10 - Essential (primary) hypertension SNOMED: 88237042 (13) Head trauma ICD Codes: S09.90XA - Unspecified injury of head, initial encounter SNOMED: 52603367 (14) DM (diabetes mellitus) ICD Codes: E11.9 - DM (diabetes mellitus) SNOMED: 52879342 (15) HLD (hyperlipidemia) ICD Codes: E78.5 - Hyperlipidemia, unspecified SNOMED: 16381878, 832716163 (16) Acute coronary syndrome ICD Codes: I24.9 - Acute ischemic heart disease, unspecified SNOMED: 174236294 (17) Chronic kidney disease ICD Codes: N18.9 - Chronic kidney disease, unspecified SNOMED: 375119889 (18) Encounter for removal of sutures ICD Codes: Z48.02 - Encounter for removal of sutures SNOMED: 792087699, 48323456, 187449900 (19) Encounter for dressing change or suture removal SNOMED: 305932155, 26498446 (20) MAY (acute kidney injury) ICD Codes: N17.9 - Acute kidney failure, unspecified SNOMED: 73196785 (21) Vertigo, benign paroxysmal ICD Codes: H81.10 - Vertigo, benign paroxysmal SNOMED: 801188647 (22) Forehead laceration ICD Codes: S01.81XA - Laceration without foreign body of other part of head, initial encounter SNOMED: 411982529 (23) Episode of generalized weakness ICD Codes: R53.1 - Weakness SNOMED: 51244590 (24) Episode of generalized weakness ICD Codes: R53.1 - Weakness SNOMED: 80116811 (25) Episode of generalized weakness ICD Codes: R53.1 - Weakness SNOMED: 45290958 (26) Episode of generalized weakness ICD Codes: R53.1 - Weakness SNOMED: 06914057 (27) Renal failure (ARF), acute on chronic ICD Codes: N17.9 - Renal failure (ARF), acute on chronic; N18.9 - Chronic kidney disease, unspecified SNOMED: 045504142 Fernando Ureña Jan 07, 2020 14:05
--- NOTE | 2020-01-07 16:00 | Consultation ---
DATE OF CONSULTATION: 01/07/2020 NEPHROLOGY CONSULTATION CONSULTING PHYSICIAN: Noel Mckenna MD. REFERRING PHYSICIAN: Pradeep Murphy MD. REASON FOR CONSULTATION: Acute on chronic renal failure. HISTORY OF PRESENT ILLNESS: This is an 84-year-old female who was just recently admitted to the hospital. She stayed between 12/28/2019 and 01/02/2020 with a diagnosis of diverticulitis. She comes back now with increasing shortness of breath for the past couple of days, also some chest pain. She was found to be hypoxic in the emergency room, currently on 100% non-rebreather. She still has some chest pain. Also, she was noted to have acute on chronic renal failure. Her serum creatinine, which was in the low 2s during her last admission, now has increased to 3.5. Also hyperkalemic with potassium of 6. Also troponin is elevated, the latest is 0.74, possible non-ST elevation myocardial infarction. PAST MEDICAL HISTORY: Includes history of diabetes mellitus, hypertension, hyperlipidemia, history of pacemaker, coronary artery disease, anemia, to constipation, and previous history of MIs. PAST SURGICAL HISTORY: She had right nephrectomy apparently from the cancer. MEDICATIONS: Reviewed in the EMR. SOCIAL HISTORY: No history of smoking or alcohol abuse. The patient lives at home. ALLERGIES: No known drug allergies. REVIEW OF SYSTEMS: As above. PHYSICAL EXAMINATION: GENERAL: The patient is an elderly female. Her lips are somewhat cyanotic. VITAL SIGNS: Blood pressure is 110/60, pulse 74, temperature 97.3, and respiratory rate 20. HEENT: Somewhat pale conjunctivae. Anicteric sclerae. NECK: Supple. LUNGS: Coarse breath sounds bilaterally. HEART: S1, S2 without murmurs or rubs. ABDOMEN: Soft, nontender. EXTREMITIES: Bilateral pedal edema. LABORATORY FINDINGS: The CBC shows a WBC of 11,700, hematocrit 27.5, hemoglobin 8.7, platelets 385,000. Chemistry panel shows a serum sodium 131, potassium 6, chloride 100, CO2 39, BUN 39, creatinine 3.5. Blood sugar is 181. Calcium is 8.5. Albumin is 3.5. The UA shows 10 to 15 wbc's per high-power field. No protein. IMAGING: Chest x-ray shows haziness in both lungs, CHF versus pneumonia. ASSESSMENT: This is an 84-year-old female, who was admitted with some chest pain, elevated troponin, possible myocardial infarction. Her kidney function has improved. There is a possibility of cardiorenal syndrome. It should be noted that she has only one solitary kidney. Obstruction needs to be ruled out. The patient is hyperkalemic and because of her signs of fluid overload she will need dialysis at this point. PLAN: The patient will be dialyzed after inserting a catheter to treat both volume overload as well as hyperkalemia. She has possibly some urinary tract infection. She will be on antibiotics IV. Dr. Bazan saw the patient in Cardiology consultation. Dr. Navarrete will see the patient in Pulmonary consultation. Labs will be followed and further adjustment will be made in the patient's regimen. Case was discussed also with the RN. Noel Mckenna M.D. DR: CHELY JOB#: [id number] CC: GRACIELA
--- NOTE | 2020-01-07 16:15 | Consultation ---
DATE OF CONSULTATION: 01/07/2020 PULMONARY CONSULTATION HISTORY OF PRESENT ILLNESS: This is an 84-year-old female with history of hypertension and CAD, who was admitted to the hospital with respiratory failure. The patient has a history of diabetes mellitus and is also known to have CAD. She was recently at [facility]. She also has had a right-sided permanent pacemaker implantation. At this time, the patient is unable to provide any further history. She has been started on BiPAP per Cardiology. She has been hypoxic. REVIEW OF SYSTEMS: Unobtainable. PAST MEDICAL HISTORY: Notable for CAD, hypertension, diabetes mellitus, permanent pacemaker. PHYSICAL EXAMINATION: GENERAL: An elderly female. HEENT: Unremarkable. CHEST: Decreased breath sounds bilaterally. No heart sounds. ABDOMEN: Soft. EXTREMITIES: There is no edema. VITAL SIGNS: Blood pressure is 110/60, heart rate 18, O2 sat 93% on nonrebreather mask. LABORATORY DATA: Lab testing shows white count of 11.7, hemoglobin 8.7, platelet count is normal. Chemistry is notable for potassium of 6, creatinine 3.5. Troponin is elevated. ABG showed pH of 7.32, pCO2 of 37, pO2 of 61. X-ray chest shows bibasilar interstitial infiltrates suspicious for pneumonia/pulmonary edema. IMPRESSION: 1. Decompensated heart failure. 2. CAD. 3. Diabetes mellitus. 4. Hypoxemia. DISCUSSION: We will maintain on nonrebreather mask. May need BiPAP. She needs oxygen and pulmonary hygiene. She will need diuresis. We will follow carefully. Jet Navarrete M.D. DR: EDSON JOB#: [id number] CC:
--- NOTE | 2020-01-07 17:41 | Pre-Procedure Note/Attestation ---
Pre-Procedure Note/Attestation Complete Prior to Procedure Planned Procedure: not applicable Procedure Narrative: kristen catheter Indications for Procedure Pre-Operative Diagnosis: need access for HD Attestation I attest that I discussed the nature of the procedure; its benefits; risks and complications; and alternatives (and the risks and benefits of such alternatives ), prior to the procedure, with the patient (or the patient's legal solar sales representative). I attest that, if there was a reasonable possibility of needing a blood transfusion, the patient (or the patient's legal solar sales representative) was given the [facility] standardized written summary, pursuant to the Jose Ola Blood Safety Act ([place] Health and Safety Code # 1645, as amended). I attest that I re-evaluated the patient just prior to the surgery and that there has been no change in the patient's H&P, except as documented below: Pepe Aceves M.D. Jan 07, 2020 17:41
--- NOTE | 2020-01-07 18:07 | Diagnostic Imaging Report ---
Indication: Patient requires hemodialysis. Findings: After the indications, procedure, risks, complications, and alternatives of the procedure were explained, written informed consent was obtained. The neck was prepped with alcohol. All elements of maximal sterile barrier technique were followed including usage of a cap, mask, sterile gown, sterile gloves, hand hygiene and a large sterile sheet. 1% lidocaine was used to anesthetize the skin. Sonographic evaluation was performed demonstrating a patent and compressible jugular vein. Access was obtained under real-time ultrasound guidance using an 18 gauge needle and a digital image was saved in archive. An 0.035 wire was then advanced into the vein. Needle exchanged for a dilator. A temporary hemodialysis catheter was then advanced over the wire. Wire was removed. Catheter was secured to the skin using 2-0 Prolene suture. Both ports aspirate and flush easily. Total fluoroscopy time 2.3 seconds Total fluoroscopy dose 2.14 mGy Total number fluoroscopic images obtained: 3 Total procedure time 10 minutes Patient monitored throughout the procedure by dedicated interventional radiology nurse. Findings: Ultrasound demonstrated a patent and compressible left internal jugular vein. Needle noted within this vein on ultrasound for venous access. Procedural images document passage of a guidewire across right atrium and into the IVC, acting a second confirmation of placement within the venous system. Final image demonstrates tip of the temporary dialysis catheter the region of the cavoatrial junction. IMPRESSION: Successful placement of left transjugular hemodialysis catheter. Catheter cleared for immediate use.
[2020-01-07] MEDS: Atorvastatin 80mg tab ORAL SCH (21:13)
[2020-01-07] MEDS: Metoprolol Tartrate 12.5mg TAB ORAL SCH (21:23)
[2020-01-08] VITALS: BP 135/67
[2020-01-08] MEDS: cefTRIAXone 1 GM in NS 55 ML IVPB SCH (00:32)
[2020-01-08] MEDS ORDERED: cefTRIAXone 1 GM in D5W 55 ML IVPB SCH (01:00)
[2020-01-08 04:00] VITALS: BP 88/50
[2020-01-08 04:57] LABS: HEMATOCRIT 22.4 % (37.0-47.0); HEMOGLOBIN 7.2 G/DL (12.0-16.0); MEAN CORPUSCULAR VOLUME 103 FL (80-99); PLATELET COUNT 312 K/UL (150-450); RED BLOOD COUNT 2.17 M/UL (4.20-5.40); RED CELL DISTRIBUTION WIDTH 12.9 % (11.6-14.8); WHITE BLOOD COUNT 16.1 K/UL (4.8-10.8)
[2020-01-08 05:56] LABS: CHOLESTEROL 106 MG/DL (< 200); HDL CHOLESTEROL 50 MG/DL (40-60); TRIGLYCERIDES 41 MG/DL (30-150)
[2020-01-08] MEDS: NovoLOG Insulin Flexpen SUBQ SCH ×4 (06:22→20:30)
[2020-01-08 08:00] VITALS: BP 106/66
[2020-01-08 08:01] LABS: ALANINE AMINOTRANSFERASE 16 U/L (12-78); ALBUMIN 3.4 G/DL (3.4-5.0); ALKALINE PHOSPHATASE 67 U/L (46-116); ANION GAP 13 mmol/L (5-15); ASPARTATE AMINO TRANSFERASE 25 U/L (15-37); BILIRUBIN,TOTAL 0.3 MG/DL (0.2-1.0); BLOOD UREA NITROGEN 31 mg/dL (7-18); CALCIUM 8.4 MG/DL (8.5-10.1); CARBON DIOXIDE 21 MMOL/L (21-32); CHLORIDE 101 MMOL/L (98-107); CREATININE 3.1 MG/DL (0.55-1.30); POTASSIUM 5.4 MMOL/L (3.5-5.1); SODIUM 134 MMOL/L (136-145)
--- NOTE | 2020-01-08 08:15 | Pulmonology Progress Note ---
Subjective Interval Events: Seen by renal; plans noted for HD Constitutional: Reports: no symptoms HEENT: Repors: no symptoms Respiratory: Reports: shortness of breath Cardiovascular: Reports: no symptoms Gastrointestinal/Abdominal: Reports: no symptoms Allergies: Coded Allergies: Crab (Verified Allergy, Mild, 05/28/16) Uncoded Allergies: SHELLFISH (Allergy, Unknown, 11/21/17) Objective Last 24 Hour Vital Signs Date Time Temp Pulse Resp B/P (MAP) Pulse Ox O2 Delivery O2 Flow Rate FiO2 01/08/20 07:14 95 Venturi Mask 14.0 55 01/08/20 04:00 97.5 78 24 88/50 (63) 94 01/08/20 04:00 15.0 01/08/20 04:00 Non-Rebreather 15.0 01/08/20 03:30 60 01/08/20 00:00 Non-Rebreather 15.0 01/08/20 00:00 97.2 90 21 135/67 (89) 100 01/08/20 00:00 15.0 01/07/20 23:33 88 01/07/20 23:00 98.0 01/07/20 21:43 100 Non-Rebreather 15.0 100 01/07/20 21:23 76 131/64 01/07/20 20:00 Non-Rebreather 15.0 01/07/20 20:00 98.0 77 18 89/48 (62) 100 01/07/20 20:00 15.0 01/07/20 19:01 78 01/07/20 17:30 97.5 73 16 118/72 (87) 100 01/07/20 17:25 97.5 75 21 135/65 (88) 100 01/07/20 17:10 75 17 15.0 01/07/20 16:00 15.0 01/07/20 16:00 97.5 68 20 124/60 (81) 100 01/07/20 16:00 15.0 01/07/20 16:00 Non-Rebreather 15.0 01/07/20 16:00 65 01/07/20 12:00 15.0 01/07/20 12:00 61 01/07/20 12:00 Non-Rebreather 15.0 01/07/20 12:00 97.5 62 20 135/60 (85) 99 01/07/20 12:00 15.0 01/07/20 10:00 Non-Rebreather 15.0 01/07/20 10:00 15.0 01/07/20 09:49 Non-Rebreather 15.0 01/07/20 09:49 97.3 74 20 110/60 (77) 93 01/07/20 09:30 98.3 62 23 117/69 98 Non-Rebreather 15.0 01/07/20 09:30 98.3 62 23 117/69 98 Non-Rebreather 15.0 01/07/20 09:00 73 110/60 Intake and Output 01/07/20 01/08/20 19:00 07:00 Intake Total 377.689 ml 615.324 ml Output Total 1300 ml 500 ml Balance -922.311 ml 115.324 ml Intake Oral 200 ml 250 ml IV Total 177.689 ml 365.324 ml Output Urine Total 1300 ml 500 ml # Voids 4 General Appearance: no acute distress HEENT: normocephalic Respiratory: chest wall non-tender, lungs clear Cardiovascular: normal peripheral pulses Abdomen: normal bowel sounds, soft, non tender Microbiology Date/Time Source Procedure Growth Status 01/07/20 00:15 Blood Peripheral Blood Culture - Preliminary NO GROWTH AFTER 24 HOURS Resulted 01/07/20 00:00 Blood Peripheral Blood Culture - Preliminary NO GROWTH AFTER 24 HOURS Resulted 01/07/20 00:40 Nasopharynx SARS-CoV-2 RdRp Gene Assay - Final Complete 01/07/20 05:35 Urine,Clean Catch Urine Culture - Preliminary NO GROWTH Resulted Laboratory Tests 01/07/20 10:47: Arterial Blood pH 7.332L, Arterial Blood Partial Pressure CO2 37.6, Arterial Blood Partial Pressure O2 61.0L, Arterial Blood HCO3 19.5L, Arterial Blood Oxygen Saturation 90.3L, Arterial Blood Base Excess -5.9L, Bharat Test Positive 01/07/20 11:05: Activated Partial Thromboplast Time 32, Troponin I 0.746H 01/07/20 11:41: POC Whole Blood Glucose [Pending] 01/07/20 16:40: POC Whole Blood Glucose 166H 01/07/20 18:30: Activated Partial Thromboplast Time 73H, Troponin I 0.781H 01/07/20 21:14: POC Whole Blood Glucose [Pending] 01/08/20 03:40: Activated Partial Thromboplast Time 91H, Troponin I 2.376H, White Blood Count 16.1H, Red Blood Count 2.17L, Hemoglobin 7.2L, Hematocrit 22.4L, Mean Corpuscular Volume 103H, Mean Corpuscular Hemoglobin 33.1H, Mean Corpuscular Hemoglobin Concent 32.1, Red Cell Distribution Width 12.9, Platelet Count 312, Mean Platelet Volume 7.1, Neutrophils (%) (Auto) , Lymphocytes (%) (Auto) , Monocytes (%) (Auto) , Eosinophils (%) (Auto) , Basophils (%) (Auto) , Neutrophils % (Manual) [Pending], Lymphocytes % (Manual) [Pending], Platelet Estimate [Pending], Platelet Morphology [Pending], Sodium Level 134L, Potassium Level 5.4H, Chloride Level 101, Carbon Dioxide Level 21, Anion Gap 13, Blood Urea Nitrogen 31H, Creatinine 3.1H, Estimat Glomerular Filtration Rate 17.2, Glucose Level 164H, Calcium Level 8.4L, Total Bilirubin 0.3, Aspartate Amino Transf (AST/SGOT) 25, Alanine Aminotransferase (ALT/SGPT) 16, Alkaline Phosphatase 67, Pro-B-Type Natriuretic Peptide > 70034H, Total Protein 6.7, Albumin 3.4, Globulin 3.3, Albumin/Globulin Ratio 1.0, Triglycerides Level 41, Cholesterol Level 106, LDL Cholesterol 44, HDL Cholesterol 50, Cholesterol/HDL Ratio 2.1L, Thyroid Stimulating Hormone (TSH) 0.575 01/08/20 05:10: POC Whole Blood Glucose [Pending] 01/08/20 07:14: POC Whole Blood Glucose 163H Current Medications Medications (Trade) Dose Ordered Sig/Floresita Route PRN Reason Start Time Stop Time Status Last Admin Dose Admin Acetaminophen (Tylenol) 650 mg Q4H PRN ORAL Mild Pain (Pain Scale 1-3) 01/07/20 03:45 02/06/20 03:44 01/07/20 22:30 Acetaminophen/ Codeine Phosphate (Tylenol #3) 1 tab Q8H PRN ORAL For Pain 01/07/20 03:45 01/14/20 03:44 01/08/20 00:23 Albumin Human 100 ml @ 200 mls/hr PRN PRN IV sbp<90 during hd 01/07/20 19:06 01/08/20 23:59 01/07/20 19:13 Amlodipine Besylate (Norvasc) 10 mg DAILY ORAL 01/07/20 09:00 02/06/20 08:59 Aspirin (ASA) 81 mg DAILY ORAL 01/07/20 09:00 02/21/20 08:59 01/07/20 10:07 Atorvastatin Calcium (Lipitor) 80 mg BEDTIME ORAL 01/07/20 21:00 04/06/20 20:59 01/07/20 21:13 Ceftriaxone Sodium 1 gm/ Sodium Chloride 55 ml @ 110 mls/hr Q24H IVPB 01/08/20 01:00 01/15/20 00:59 01/08/20 00:32 Chlorhexidine Gluconate (Marycruz-Hex 2%) 1 applic DAILY@2000 TOPIC 01/08/20 20:00 04/07/20 19:59 Dextrose (Dextrose 50%) 25 ml Q30M PRN IV Hypoglycemia 01/07/20 04:00 04/06/20 03:59 Dextrose (Dextrose 50%) 50 ml Q30M PRN IV Hypoglycemia 01/07/20 04:00 04/06/20 03:59 Famotidine (Pepcid) 10 mg DAILY ORAL 01/07/20 09:00 04/06/20 08:59 01/07/20 10:08 Furosemide (Lasix) 80 mg BID IV 01/07/20 10:30 02/06/20 10:29 01/07/20 18:22 Heparin Sodium (Porcine) (Heparin Sod 1000 units/ml 10ml) 500 unit ONCE PRN IV dialysis 01/08/20 09:00 01/08/20 23:59 Heparin Sodium/ Dextrose 500 ml @ 17.527 mls/ hr ADJUST PER PROTOCOL IV 01/07/20 11:30 02/06/20 11:29 01/07/20 11:29 Heparin Sodium/ Sodium Chloride (Heparin 1000 units/500ml Premix) 1,000 unit ONCE PRN INJ PROCEDURE 01/07/20 13:24 01/08/20 23:59 Insulin Aspart (NovoLOG) BEFORE MEALS AND HS SUBQ 01/07/20 06:30 04/06/20 06:29 01/08/20 06:22 Lidocaine HCl (Xylocaine 1% 30ml) 30 ml ONCE PRN INJ PROCEDURE 01/07/20 13:24 01/08/20 23:59 Metoprolol Tartrate (Lopressor) 12.5 mg Q12HR ORAL 01/07/20 21:00 04/06/20 20:59 01/07/20 21:23 Morphine Sulfate (Morphine Sulfate) 4 mg Q3H PRN IVP Severe Pain (Pain Scale 7-10) 01/07/20 03:45 01/14/20 03:44 01/07/20 05:24 Nitroglycerin (Ntg) 0.4 mg Q5M PRN SL Prn Chest Pain 01/07/20 01:15 02/06/20 01:14 01/07/20 01:14 Ondansetron HCl (Zofran) 4 mg Q6H PRN IVP Nausea & Vomiting 01/07/20 03:45 02/06/20 03:44 Polyethylene Glycol (Miralax) 17 gm HSPRN PRN ORAL Constipation 01/07/20 03:45 02/06/20 03:44 Sitagliptin Phosphate (Januvia) 50 mg DAILY ORAL 01/07/20 09:00 02/06/20 08:59 Sodium Zirconium Cyclosilicate (Lokelma) 10 gm DAILY ORAL 01/07/20 13:00 04/06/20 12:59 01/07/20 13:50 Assessment/Plan Assessment/Plan IMPRESSION: 1. Decompensated heart failure. 2. CAD. 3. Diabetes mellitus. 4. Hypoxemia. DISCUSSION: Currently on ventimask 55% May need BiPAP. She will need diuresis vs HD. I will follow carefully. Devin Krishnamurthy Omar Syed MD Jan 08, 2020 08:15
[2020-01-08] MEDS ORDERED: Heparin Sod 1000 units/ml 10ml IV PRN (09:00)
[2020-01-08] MEDS: Metoprolol Tartrate 12.5mg TAB ORAL SCH ×2 (09:50→20:26)
[2020-01-08] MEDS: Aspirin Baby 81mg ORAL SCH (09:50)
[2020-01-08] MEDS: Lokelma 10gm Pkt ORAL SCH (09:51)
[2020-01-08] MEDS: sitaGLIPtin 50mg tab ORAL SCH (09:52)
[2020-01-08 12:00] VITALS: BP 98/52
--- NOTE | 2020-01-08 12:03 | Cardiac Electrophysiology PN ---
Assessment/Plan Assessment/Plan 1. Non-ST elevation myocardial infarction with peak troponin of 2.4 but no chest pain.On heparin drip till levels come down The EKG is not reliable as it is AV paced. The troponin elevation could be also due to renal failure with creatinine of 3.5 especially with low level of troponin. Echocardiogram EF 55% On aspirin, Lopressor 12.5 bid and Lipitor 2. Congestive [place] [address]. Patient also has renal failure, creatinine 3.5. Now on HD and Lasix 80 iv bid 3. Hypertension, on metoprolol 12.5 bid ,Iv Lasix and HD. DC Norvasc 4. Status post right-sided St Neo permanent pacemaker implantation. with Nl Fx 5. Diabetes. 6. Renal failure. Patient has history of nephrectomy. Now started on HD by Dr. Mckenna. Subjective Subjective Got HD via new Left IJ dialysis line. On heparin drip as troponin yeison to 3. No CP. ECG Paced Objective Last 24 Hour Vital Signs Date Time Temp Pulse Resp B/P (MAP) Pulse Ox O2 Delivery O2 Flow Rate FiO2 01/08/20 09:50 89 106/66 01/08/20 09:49 89 106/66 01/08/20 08:00 89 01/08/20 08:00 15.0 100 01/08/20 08:00 Non-Rebreather 15.0 01/08/20 08:00 97.0 97 23 106/66 (79) 94 01/08/20 07:14 95 Venturi Mask 14.0 55 01/08/20 04:00 97.5 78 24 88/50 (63) 94 01/08/20 04:00 15.0 01/08/20 04:00 Non-Rebreather 15.0 01/08/20 03:30 60 01/08/20 00:00 Non-Rebreather 15.0 01/08/20 00:00 97.2 90 21 135/67 (89) 100 01/08/20 00:00 15.0 01/07/20 23:33 88 01/07/20 23:00 98.0 01/07/20 21:43 100 Non-Rebreather 15.0 100 01/07/20 21:23 76 131/64 01/07/20 20:00 Non-Rebreather 15.0 01/07/20 20:00 98.0 77 18 89/48 (62) 100 01/07/20 20:00 15.0 01/07/20 19:01 78 01/07/20 17:30 97.5 73 16 118/72 (87) 100 01/07/20 17:25 97.5 75 21 135/65 (88) 100 01/07/20 17:10 75 17 15.0 01/07/20 16:00 15.0 01/07/20 16:00 97.5 68 20 124/60 (81) 100 01/07/20 16:00 15.0 01/07/20 16:00 Non-Rebreather 15.0 01/07/20 16:00 65 01/07/20 12:00 15.0 01/07/20 12:00 61 01/07/20 12:00 Non-Rebreather 15.0 01/07/20 12:00 97.5 62 20 135/60 (85) 99 01/07/20 12:00 15.0 Intake and Output 01/07/20 01/08/20 19:00 07:00 Intake Total 377.689 ml 615.324 ml Output Total 1300 ml 500 ml Balance -922.311 ml 115.324 ml Intake Oral 200 ml 250 ml IV Total 177.689 ml 365.324 ml Output Urine Total 1300 ml 500 ml # Voids 4 Laboratory Tests Test 01/07/20 16:40 01/07/20 18:30 01/07/20 21:14 01/08/20 03:40 POC Whole Blood Glucose 166 MG/DL (74-106) H Pending Activated Partial Thromboplast Time 73 SEC (23-33) H 91 SEC (23-33) H Troponin I 0.781 ng/mL (0.000-0.056) 2.376 ng/mL (0.000-0.056) White Blood Count 16.1 K/UL (4.8-10.8) H Red Blood Count 2.17 M/UL (4.20-5.40) L Hemoglobin 7.2 G/DL (12.0-16.0) L Hematocrit 22.4 % (37.0-47.0) L Mean Corpuscular Volume 103 FL (80-99) H Mean Corpuscular Hemoglobin 33.1 PG (27.0-31.0) H Mean Corpuscular Hemoglobin Concent 32.1 G/DL (32.0-36.0) Red Cell Distribution Width 12.9 % (11.6-14.8) Platelet Count 312 K/UL (150-450) Mean Platelet Volume 7.1 FL (6.5-10.1) Neutrophils (%) (Auto) % (45.0-75.0) Lymphocytes (%) (Auto) % (20.0-45.0) Monocytes (%) (Auto) % (1.0-10.0) Eosinophils (%) (Auto) % (0.0-3.0) Basophils (%) (Auto) % (0.0-2.0) Differential Total Cells Counted 100 Neutrophils % (Manual) 93 % (45-75) H Lymphocytes % (Manual) 5 % (20-45) L Monocytes % (Manual) 2 % (1-10) Eosinophils % (Manual) 0 % (0-3) Basophils % (Manual) 0 % (0-2) Band Neutrophils 0 % (0-8) Platelet Estimate Adequate Platelet Morphology Normal Hypochromasia 1+ Macrocytosis 1+ Sodium Level 134 MMOL/L (136-145) L Potassium Level 5.4 MMOL/L (3.5-5.1) H Chloride Level 101 MMOL/L (98-107) Carbon Dioxide Level 21 MMOL/L (21-32) Anion Gap 13 mmol/L (5-15) Blood Urea Nitrogen 31 mg/dL (7-18) H Creatinine 3.1 MG/DL (0.55-1.30) H Estimat Glomerular Filtration Rate 17.2 mL/min (>60) Glucose Level 164 MG/DL (74-106) H Calcium Level 8.4 MG/DL (8.5-10.1) L Total Bilirubin 0.3 MG/DL (0.2-1.0) Aspartate Amino Transf (AST/SGOT) 25 U/L (15-37) Alanine Aminotransferase (ALT/SGPT) 16 U/L (12-78) Alkaline Phosphatase 67 U/L (46-116) Pro-B-Type Natriuretic Peptide > 75492 pg/mL (0-125) H Total Protein 6.7 G/DL (6.4-8.2) Albumin 3.4 G/DL (3.4-5.0) Globulin 3.3 g/dL Albumin/Globulin Ratio 1.0 (1.0-2.7) Triglycerides Level 41 MG/DL (30-150) Cholesterol Level 106 MG/DL (< 200) LDL Cholesterol 44 mg/dL (<100) HDL Cholesterol 50 MG/DL (40-60) Cholesterol/HDL Ratio 2.1 (3.3-4.4) L Thyroid Stimulating Hormone (TSH) 0.575 uiU/mL (0.358-3.740) Test 01/08/20 05:10 01/08/20 07:14 POC Whole Blood Glucose Pending 163 MG/DL (74-106) H Microbiology Date/Time Source Procedure Growth Status 01/07/20 00:15 Blood Peripheral Blood Culture - Preliminary NO GROWTH AFTER 24 HOURS Resulted 01/07/20 00:00 Blood Peripheral Blood Culture - Preliminary NO GROWTH AFTER 24 HOURS Resulted 01/07/20 00:40 Nasopharynx SARS-CoV-2 RdRp Gene Assay - Final Complete 01/07/20 05:35 Urine,Clean Catch Urine Culture - Preliminary NO GROWTH Resulted Objective HEAD AND NECK: Showed no JVD.Left IG Adrian in place LUNGS: Clear. CARDIOVASCULAR: Regular S1 and S2 with no gallop. Pacemaker is in the right subclavian. ABDOMEN: Soft. EXTREMITIES: No pitting edema. Donnie Bazan MD Jan 08, 2020 12:03
--- NOTE | 2020-01-08 14:12 | Surgery Progress Note ---
Surgery Progress Note Subjective Additional Comments leukocytosis anemia felt weak this AM HD line placed left IJ under visualization given difficult line right fem clean dry without bleeding Objective Last 24 Hour Vital Signs Date Time Temp Pulse Resp B/P (MAP) Pulse Ox O2 Delivery O2 Flow Rate FiO2 01/08/20 12:00 97.2 81 21 98/52 (67) 95 01/08/20 12:00 Non-Rebreather 15.0 01/08/20 12:00 8.0 40 01/08/20 09:50 89 106/66 01/08/20 09:49 89 106/66 01/08/20 08:00 89 01/08/20 08:00 15.0 100 01/08/20 08:00 Non-Rebreather 15.0 01/08/20 08:00 97.0 97 23 106/66 (79) 94 01/08/20 07:14 95 Venturi Mask 14.0 55 01/08/20 04:00 97.5 78 24 88/50 (63) 94 01/08/20 04:00 15.0 01/08/20 04:00 Non-Rebreather 15.0 01/08/20 03:30 60 01/08/20 00:00 Non-Rebreather 15.0 01/08/20 00:00 97.2 90 21 135/67 (89) 100 01/08/20 00:00 15.0 01/07/20 23:33 88 01/07/20 23:00 98.0 01/07/20 21:43 100 Non-Rebreather 15.0 100 01/07/20 21:23 76 131/64 01/07/20 20:00 Non-Rebreather 15.0 01/07/20 20:00 98.0 77 18 89/48 (62) 100 01/07/20 20:00 15.0 01/07/20 19:01 78 01/07/20 17:30 97.5 73 16 118/72 (87) 100 01/07/20 17:25 97.5 75 21 135/65 (88) 100 01/07/20 17:10 75 17 15.0 01/07/20 16:00 15.0 01/07/20 16:00 97.5 68 20 124/60 (81) 100 01/07/20 16:00 15.0 01/07/20 16:00 Non-Rebreather 15.0 01/07/20 16:00 65 I&O Intake and Output 01/07/20 01/08/20 19:00 07:00 Intake Total 377.689 ml 615.324 ml Output Total 1300 ml 500 ml Balance -922.311 ml 115.324 ml Intake Oral 200 ml 250 ml IV Total 177.689 ml 365.324 ml Output Urine Total 1300 ml 500 ml # Voids 4 Dressing: dry Wound: clean Cardiovascular: RSR Respiratory: clear Abdomen: soft, non-tender, present bowel sounds Extremities: no edema, no tenderness, no cyanosis Laboratory Tests Test 01/07/20 16:40 01/07/20 18:30 01/07/20 21:14 01/08/20 03:40 POC Whole Blood Glucose 166 MG/DL (74-106) H Pending Activated Partial Thromboplast Time 73 SEC (23-33) H 91 SEC (23-33) H Troponin I 0.781 ng/mL (0.000-0.056) 2.376 ng/mL (0.000-0.056) White Blood Count 16.1 K/UL (4.8-10.8) H Red Blood Count 2.17 M/UL (4.20-5.40) L Hemoglobin 7.2 G/DL (12.0-16.0) L Hematocrit 22.4 % (37.0-47.0) L Mean Corpuscular Volume 103 FL (80-99) H Mean Corpuscular Hemoglobin 33.1 PG (27.0-31.0) H Mean Corpuscular Hemoglobin Concent 32.1 G/DL (32.0-36.0) Red Cell Distribution Width 12.9 % (11.6-14.8) Platelet Count 312 K/UL (150-450) Mean Platelet Volume 7.1 FL (6.5-10.1) Neutrophils (%) (Auto) % (45.0-75.0) Lymphocytes (%) (Auto) % (20.0-45.0) Monocytes (%) (Auto) % (1.0-10.0) Eosinophils (%) (Auto) % (0.0-3.0) Basophils (%) (Auto) % (0.0-2.0) Differential Total Cells Counted 100 Neutrophils % (Manual) 93 % (45-75) H Lymphocytes % (Manual) 5 % (20-45) L Monocytes % (Manual) 2 % (1-10) Eosinophils % (Manual) 0 % (0-3) Basophils % (Manual) 0 % (0-2) Band Neutrophils 0 % (0-8) Platelet Estimate Adequate Platelet Morphology Normal Hypochromasia 1+ Macrocytosis 1+ Sodium Level 134 MMOL/L (136-145) L Potassium Level 5.4 MMOL/L (3.5-5.1) H Chloride Level 101 MMOL/L (98-107) Carbon Dioxide Level 21 MMOL/L (21-32) Anion Gap 13 mmol/L (5-15) Blood Urea Nitrogen 31 mg/dL (7-18) H Creatinine 3.1 MG/DL (0.55-1.30) H Estimat Glomerular Filtration Rate 17.2 mL/min (>60) Glucose Level 164 MG/DL (74-106) H Calcium Level 8.4 MG/DL (8.5-10.1) L Total Bilirubin 0.3 MG/DL (0.2-1.0) Aspartate Amino Transf (AST/SGOT) 25 U/L (15-37) Alanine Aminotransferase (ALT/SGPT) 16 U/L (12-78) Alkaline Phosphatase 67 U/L (46-116) Pro-B-Type Natriuretic Peptide > 16273 pg/mL (0-125) H Total Protein 6.7 G/DL (6.4-8.2) Albumin 3.4 G/DL (3.4-5.0) Globulin 3.3 g/dL Albumin/Globulin Ratio 1.0 (1.0-2.7) Triglycerides Level 41 MG/DL (30-150) Cholesterol Level 106 MG/DL (< 200) LDL Cholesterol 44 mg/dL (<100) HDL Cholesterol 50 MG/DL (40-60) Cholesterol/HDL Ratio 2.1 (3.3-4.4) L Thyroid Stimulating Hormone (TSH) 0.575 uiU/mL (0.358-3.740) Test 01/08/20 05:10 01/08/20 07:14 01/08/20 12:00 POC Whole Blood Glucose Pending 163 MG/DL (74-106) H Pending Plan Problems: (1) Hyperkalemia (2) Non-STEMI (non-ST elevated myocardial infarction) Assessment & Plan: as per cardiology (3) Acute CHF (congestive heart failure) (4) Hypertensive crisis (5) Acute renal failure Assessment & Plan: 84-year-old female history of nephrectomy for renal tumor currently with 1 kidney going into renal insufficiency. Discussed with nephrology and likely needs dialysis. An attempted right femoral hemodialysis catheter insertion was made at the bedside after consent was obtained from patient. Good venous flow identified guidewire placed but unfortunately could not dilate without resistance. No attempts were made given significant resistance and therefore procedure was aborted. Discussed with radiology for placement of internal jugular temporary catheter. Further discussions with patient revealed that she has had multiple times and interventions in the groins. 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 She remembers this post attempt. Will monitor site for hemostasis. Pressure held for approximately 20 minutes until hemostasis noted. Currently no bleeding. Discussed care plan and findings with patient. Will monitor thank you Yepez participate in patient's care on heparin gtt and asa will need to monitor closely for bleeding or hematoma given recent line (6) Anemia (7) CAD (coronary artery disease) (8) Headache (9) Head injury (10) Vomiting (11) HTN (hypertension) (12) HTN (hypertension) (13) Head trauma (14) DM (diabetes mellitus) (15) HLD (hyperlipidemia) (16) Acute coronary syndrome (17) Chronic kidney disease (18) Encounter for removal of sutures (19) Encounter for dressing change or suture removal (20) MAY (acute kidney injury) (21) Vertigo, benign paroxysmal (22) Forehead laceration (23) Episode of generalized weakness (24) Episode of generalized weakness (25) Episode of generalized weakness (26) Episode of generalized weakness (27) Renal failure (ARF), acute on chronic Fernando Ureña Jan 08, 2020 14:12
[2020-01-08] MEDS: Heparin 25,000u/D5W 500ml 500 ML IV SCH (15:22)
[2020-01-08] MEDS ORDERED: NS 275ml ONE (15:42)
[2020-01-08 16:00] VITALS: BP 122/55
[2020-01-08 20:00] VITALS: BP 123/52
[2020-01-08] MEDS: Dyna-Hex 2% Top Sol 2oz TOPIC SCH (20:26)
[2020-01-08] MEDS: Atorvastatin 80mg tab ORAL SCH (20:27)
--- NOTE | 2020-01-08 21:47 | Nephrology Progress Note ---
Assessment/Plan Problem List: (1) Renal failure (ARF), acute on chronic (2) Non-STEMI (non-ST elevated myocardial infarction) (3) Hyperkalemia (4) Anemia (5) HTN (hypertension) (6) DM (diabetes mellitus) (7) HLD (hyperlipidemia) Plan HD tomorrow Discussed with Dr Bazan follow labs Dc Lokelma and Lasix continue ASA Subjective Subjective less SOB Objective Objective Last 24 Hour Vital Signs Date Time Temp Pulse Resp B/P (MAP) Pulse Ox O2 Delivery O2 Flow Rate FiO2 01/08/20 20:26 65 123/52 01/08/20 20:00 97.7 65 20 123/52 (75) 97 01/08/20 20:00 Non-Rebreather 15.0 01/08/20 20:00 70 01/08/20 20:00 8.0 40 01/08/20 18:55 92 Venturi Mask 14.0 55 01/08/20 16:09 Non-Rebreather 15.0 01/08/20 16:08 8.0 40 01/08/20 16:07 80 01/08/20 16:00 97.2 83 20 122/55 (77) 97 01/08/20 12:00 97.2 81 21 98/52 (67) 95 01/08/20 12:00 Non-Rebreather 15.0 01/08/20 12:00 78 01/08/20 12:00 8.0 40 01/08/20 09:50 89 106/66 01/08/20 09:49 89 106/66 01/08/20 08:00 89 01/08/20 08:00 15.0 100 01/08/20 08:00 Non-Rebreather 15.0 01/08/20 08:00 97.0 97 23 106/66 (79) 94 01/08/20 07:14 95 Venturi Mask 14.0 55 01/08/20 04:00 97.5 78 24 88/50 (63) 94 01/08/20 04:00 15.0 01/08/20 04:00 Non-Rebreather 15.0 01/08/20 03:30 60 01/08/20 00:00 Non-Rebreather 15.0 01/08/20 00:00 97.2 90 21 135/67 (89) 100 01/08/20 00:00 15.0 01/07/20 23:33 88 01/07/20 23:00 98.0 Intake and Output 01/07/20 01/08/20 19:00 07:00 Intake Total 377.689 ml 615.324 ml Output Total 1300 ml 500 ml Balance -922.311 ml 115.324 ml Intake Oral 200 ml 250 ml IV Total 177.689 ml 365.324 ml Output Urine Total 1300 ml 500 ml # Voids 4 Laboratory Tests 01/08/20 03:40: White Blood Count 16.1H, Red Blood Count 2.17L, Hemoglobin 7.2L, Hematocrit 22.4L, Mean Corpuscular Volume 103H, Mean Corpuscular Hemoglobin 33.1H, Mean Corpuscular Hemoglobin Concent 32.1, Red Cell Distribution Width 12.9, Platelet Count 312, Mean Platelet Volume 7.1, Neutrophils (%) (Auto) , Lymphocytes (%) ( Auto) , Monocytes (%) (Auto) , Eosinophils (%) (Auto) , Basophils (%) (Auto) , Differential Total Cells Counted 100, Neutrophils % (Manual) 93H, Lymphocytes % (Manual) 5L, Monocytes % (Manual) 2, Eosinophils % (Manual) 0, Basophils % ( Manual) 0, Band Neutrophils 0, Platelet Estimate Adequate, Platelet Morphology Normal, Hypochromasia 1+, Macrocytosis 1+, Activated Partial Thromboplast Time 91H, Sodium Level 134L, Potassium Level 5.4H, Chloride Level 101, Carbon Dioxide Level 21, Anion Gap 13, Blood Urea Nitrogen 31H, Creatinine 3.1H, Estimat Glomerular Filtration Rate 17.2, Glucose Level 164H, Calcium Level 8.4L , Total Bilirubin 0.3, Aspartate Amino Transf (AST/SGOT) 25, Alanine Aminotransferase (ALT/SGPT) 16, Alkaline Phosphatase 67, Troponin I 2.376H, Pro- B-Type Natriuretic Peptide > 50263L, Total Protein 6.7, Albumin 3.4, Globulin 3.3, Albumin/Globulin Ratio 1.0, Triglycerides Level 41, Cholesterol Level 106, LDL Cholesterol 44, HDL Cholesterol 50, Cholesterol/HDL Ratio 2.1L, Thyroid Stimulating Hormone (TSH) 0.575 01/08/20 05:10: POC Whole Blood Glucose [Pending] 01/08/20 07:14: POC Whole Blood Glucose 163H 01/08/20 12:00: POC Whole Blood Glucose [Pending] 01/08/20 16:54: POC Whole Blood Glucose 116H 01/08/20 19:30: POC Whole Blood Glucose [Pending] 01/08/20 20:30: POC Whole Blood Glucose 129H Height (Feet): 5 Height (Inches): 7.00 Weight (Pounds): 161 Cardiovascular: normal rate Respiratory/Chest: lungs clear Extremities: no edema Noel Mckenna MD Jan 08, 2020 21:46
--- NOTE | 2020-01-08 22:14 | Internal Med Progress Note ---
Subjective Date of Service: Jan 08, 2020 Physician Name Pradeep Madrigal Attending Physician Noel Mckenna MD Current Medications Medications (Trade) Dose Ordered Sig/Floresita Route PRN Reason Start Time Stop Time Status Last Admin Dose Admin Acetaminophen (Tylenol) 650 mg Q4H PRN ORAL Mild Pain (Pain Scale 1-3) 01/07/20 03:45 02/06/20 03:44 01/07/20 22:30 Acetaminophen/ Codeine Phosphate (Tylenol #3) 1 tab Q8H PRN ORAL For Pain 01/07/20 03:45 01/14/20 03:44 01/08/20 00:23 Albumin Human 100 ml @ 200 mls/hr PRN PRN IV sbp<90 during hd 01/07/20 19:06 01/08/20 23:59 01/07/20 19:13 Aspirin (ASA) 81 mg DAILY ORAL 01/07/20 09:00 02/21/20 08:59 01/08/20 09:50 Atorvastatin Calcium (Lipitor) 80 mg BEDTIME ORAL 01/07/20 21:00 04/06/20 20:59 01/08/20 20:27 Ceftriaxone Sodium 1 gm/ Sodium Chloride 55 ml @ 110 mls/hr Q24H IVPB 01/08/20 01:00 01/15/20 00:59 01/08/20 00:32 Chlorhexidine Gluconate (Marycruz-Hex 2%) 1 applic DAILY@2000 TOPIC 01/08/20 20:00 04/07/20 19:59 01/08/20 20:26 Dextrose (Dextrose 50%) 25 ml Q30M PRN IV Hypoglycemia 01/07/20 04:00 04/06/20 03:59 Dextrose (Dextrose 50%) 50 ml Q30M PRN IV Hypoglycemia 01/07/20 04:00 04/06/20 03:59 Epoetin John (Epoetin John(ESRD on dialysis)) 3,000 unit TUE-TUE-TUE SUBQ 01/09/20 21:00 04/08/20 20:59 Epoetin John (Epoetin John(ESRD on dialysis)) 4,000 unit TUE-TUE-TUE SUBQ 01/09/20 21:00 04/08/20 20:59 Famotidine (Pepcid) 10 mg DAILY ORAL 01/07/20 09:00 04/06/20 08:59 01/08/20 09:50 Heparin Sodium (Porcine) (Heparin 5000 units/ml) 5,000 units POSTHD PRN INJ POST HD 01/09/20 06:00 01/09/20 23:59 Heparin Sodium (Porcine) (Heparin Sod 1000 units/ml 10ml) 500 unit ONCE PRN IV dialysis 01/08/20 09:00 01/08/20 23:59 Heparin Sodium (Porcine) (Heparin Sod 1000 units/ml 10ml) 2,000 unit ONCE PRN IV HD 01/09/20 06:00 01/09/20 23:59 Heparin Sodium/ Dextrose 500 ml @ 17.527 mls/ hr ADJUST PER PROTOCOL IV 01/07/20 11:30 02/06/20 11:29 01/08/20 15:22 Heparin Sodium/ Sodium Chloride (Heparin 1000 units/500ml Premix) 1,000 unit ONCE PRN INJ PROCEDURE 01/07/20 13:24 01/08/20 23:59 Insulin Aspart (NovoLOG) BEFORE MEALS AND HS SUBQ 01/07/20 06:30 04/06/20 06:29 01/08/20 12:07 Lidocaine HCl (Xylocaine 1% 30ml) 30 ml ONCE PRN INJ PROCEDURE 01/07/20 13:24 01/08/20 23:59 Metoprolol Tartrate (Lopressor) 12.5 mg Q12HR ORAL 01/07/20 21:00 04/06/20 20:59 01/08/20 20:26 Morphine Sulfate (Morphine Sulfate) 4 mg Q3H PRN IVP Severe Pain (Pain Scale 7-10) 01/07/20 03:45 01/14/20 03:44 01/07/20 05:24 Nitroglycerin (Ntg) 0.4 mg Q5M PRN SL Prn Chest Pain 01/07/20 01:15 02/06/20 01:14 01/07/20 01:14 Ondansetron HCl (Zofran) 4 mg Q6H PRN IVP Nausea & Vomiting 01/07/20 03:45 02/06/20 03:44 Polyethylene Glycol (Miralax) 17 gm HSPRN PRN ORAL Constipation 01/07/20 03:45 02/06/20 03:44 Sitagliptin Phosphate (Januvia) 50 mg DAILY ORAL 01/07/20 09:00 02/06/20 08:59 01/08/20 09:52 Sodium Chloride 1,000 ml @ 500 mls/hr Q2H PRN IVLG sbp<90 during hd 01/09/20 06:00 01/09/20 23:59 Allergies: Coded Allergies: Crab (Verified Allergy, Mild, 05/28/16) Uncoded Allergies: SHELLFISH (Allergy, Unknown, 11/21/17) Constitutional: Reports: no symptoms HEENT: Reports: no symptoms Cardiovascular: Reports: no symptoms Respiratory: Reports: orthopnea Gastrointestinal/Abdominal: Reports: no symptoms Neurologic/Psychiatric: Reports: no symptoms All Systems: reviewed and negative except above Subjective IJ HD placed plan for HD lasix stopped Objective Last Vital Signs Date Time Temp Pulse Resp B/P (MAP) Pulse Ox O2 Delivery O2 Flow Rate FiO2 01/08/20 20:26 65 123/52 01/08/20 20:00 97.7 20 97 01/08/20 20:00 Non-Rebreather 15.0 01/08/20 20:00 40 General Appearance: no apparent distress, alert EENT: pharynx normal Neck: supple Cardiovascular: normal rate, regular rhythm, systolic murmur Respiratory/Chest: decreased breath sounds, rhonchi - bilaterally Abdomen: normal bowel sounds, non tender, soft, no mass Extremities: normal range of motion Edema: trace edema Neurologic: oriented x 3, responsive Skin: warm/dry, no diaphoresis Laboratory Tests Test 01/08/20 03:40 01/08/20 05:10 01/08/20 07:14 01/08/20 12:00 White Blood Count 16.1 K/UL (4.8-10.8) H Red Blood Count 2.17 M/UL (4.20-5.40) L Hemoglobin 7.2 G/DL (12.0-16.0) L Hematocrit 22.4 % (37.0-47.0) L Mean Corpuscular Volume 103 FL (80-99) H Mean Corpuscular Hemoglobin 33.1 PG (27.0-31.0) H Mean Corpuscular Hemoglobin Concent 32.1 G/DL (32.0-36.0) Red Cell Distribution Width 12.9 % (11.6-14.8) Platelet Count 312 K/UL (150-450) Mean Platelet Volume 7.1 FL (6.5-10.1) Neutrophils (%) (Auto) % (45.0-75.0) Lymphocytes (%) (Auto) % (20.0-45.0) Monocytes (%) (Auto) % (1.0-10.0) Eosinophils (%) (Auto) % (0.0-3.0) Basophils (%) (Auto) % (0.0-2.0) Differential Total Cells Counted 100 Neutrophils % (Manual) 93 % (45-75) H Lymphocytes % (Manual) 5 % (20-45) L Monocytes % (Manual) 2 % (1-10) Eosinophils % (Manual) 0 % (0-3) Basophils % (Manual) 0 % (0-2) Band Neutrophils 0 % (0-8) Platelet Estimate Adequate Platelet Morphology Normal Hypochromasia 1+ Macrocytosis 1+ Activated Partial Thromboplast Time 91 SEC (23-33) H Sodium Level 134 MMOL/L (136-145) L Potassium Level 5.4 MMOL/L (3.5-5.1) H Chloride Level 101 MMOL/L (98-107) Carbon Dioxide Level 21 MMOL/L (21-32) Anion Gap 13 mmol/L (5-15) Blood Urea Nitrogen 31 mg/dL (7-18) H Creatinine 3.1 MG/DL (0.55-1.30) H Estimat Glomerular Filtration Rate 17.2 mL/min (>60) Glucose Level 164 MG/DL (74-106) H Calcium Level 8.4 MG/DL (8.5-10.1) L Total Bilirubin 0.3 MG/DL (0.2-1.0) Aspartate Amino Transf (AST/SGOT) 25 U/L (15-37) Alanine Aminotransferase (ALT/SGPT) 16 U/L (12-78) Alkaline Phosphatase 67 U/L (46-116) Troponin I 2.376 ng/mL (0.000-0.056) Pro-B-Type Natriuretic Peptide > 96228 pg/mL (0-125) H Total Protein 6.7 G/DL (6.4-8.2) Albumin 3.4 G/DL (3.4-5.0) Globulin 3.3 g/dL Albumin/Globulin Ratio 1.0 (1.0-2.7) Triglycerides Level 41 MG/DL (30-150) Cholesterol Level 106 MG/DL (< 200) LDL Cholesterol 44 mg/dL (<100) HDL Cholesterol 50 MG/DL (40-60) Cholesterol/HDL Ratio 2.1 (3.3-4.4) L Thyroid Stimulating Hormone (TSH) 0.575 uiU/mL (0.358-3.740) POC Whole Blood Glucose Pending 163 MG/DL (74-106) H Pending Test 01/08/20 16:54 01/08/20 19:30 01/08/20 20:30 POC Whole Blood Glucose 116 MG/DL (74-106) H Pending 129 MG/DL (74-106) H Microbiology Date/Time Source Procedure Growth Status 01/07/20 00:15 Blood Peripheral Blood Culture - Preliminary NO GROWTH AFTER 24 HOURS Resulted 01/07/20 00:00 Blood Peripheral Blood Culture - Preliminary NO GROWTH AFTER 24 HOURS Resulted 01/07/20 00:40 Nasopharynx SARS-CoV-2 RdRp Gene Assay - Final Complete 01/07/20 05:35 Urine,Clean Catch Urine Culture - Preliminary NO GROWTH Resulted Intake and Output 01/07/20 01/08/20 19:00 07:00 Intake Total 377.689 ml 615.324 ml Output Total 1300 ml 500 ml Balance -922.311 ml 115.324 ml Intake Oral 200 ml 250 ml IV Total 177.689 ml 365.324 ml Output Urine Total 1300 ml 500 ml # Voids 4 Assessment/Plan Status: stable, progressing, tolerating diet Assessment/Plan Acute CHF acute hypoxic resp failure dyspnea Hyperkalemia Non-STEMI (non-ST elevated myocardial infarction) MAY on CKD pacemaker in situ DM HTN CAD hx CT PLAN: SDU oxygen TTE diuretic to stop and start HD serial troponin/ECG glycemic control asa, plavix, statin BP control pacemaker interrogation ------> normal fx cardio/renal f/u pulm neb thoracentesis prn for pleural effusion HD for volume management FULL CODE PRADEEP MADRIGAL MD INTERNAL MEDICINE [phone] time of note make not be actual encounter time. 40 minutes spent today over 50% spent in managment, discusion with pt plan of care Pradeep Madrigal MD Jan 08, 2020 22:14
[2020-01-09] VITALS: BP 109/58
[2020-01-09] MEDS: cefTRIAXone 1 GM in NS 55 ML IVPB SCH (01:44)
[2020-01-09 04:00] VITALS: BP 111/58
[2020-01-09 04:52] LABS: HEMATOCRIT 22.2 % (37.0-47.0); MEAN CORPUSCULAR VOLUME 103 FL (80-99); PLATELET COUNT 283 K/UL (150-450); RED BLOOD COUNT 2.15 M/UL (4.20-5.40); RED CELL DISTRIBUTION WIDTH 13.1 % (11.6-14.8); WHITE BLOOD COUNT 16.9 K/UL (4.8-10.8)
[2020-01-09 05:02] LABS: ANION GAP 11 mmol/L (5-15); BLOOD UREA NITROGEN 39 mg/dL (7-18); CALCIUM 8.1 MG/DL (8.5-10.1); CARBON DIOXIDE 24 MMOL/L (21-32); CHLORIDE 96 MMOL/L (98-107); CREATININE 3.7 MG/DL (0.55-1.30); PHOSPHORUS 6.1 MG/DL (2.5-4.9); POTASSIUM 4.5 MMOL/L (3.5-5.1); SODIUM 131 MMOL/L (136-145)
[2020-01-09] MEDS ORDERED: Heparin 25,000u/D5W 500ml 500 ML IV SCH ×3 (05:15→20:15)
[2020-01-09 05:20] LABS: % IRON SATURATION 19 % (15-50); IRON 37 ug/dL (50-175); TOTAL IRON BINDING CAPACITY 191 ug/dL (250-450)
[2020-01-09] MEDS ORDERED: Heparin 5000 units/ml inj IV SCH ×2 (05:30→20:15)
[2020-01-09] MEDS: NovoLOG Insulin Flexpen SUBQ SCH ×4 (05:50→20:28)
[2020-01-09] MEDS ORDERED: Heparin Sod 1000 units/ml 10ml IV PRN (06:00)
[2020-01-09] MEDS ORDERED: Heparin 5000 units/ml inj INJ PRN (06:00)
[2020-01-09 08:00] VITALS: BP 115/59
[2020-01-09] MEDS: sitaGLIPtin 25mg tab ORAL SCH (08:37)
[2020-01-09] MEDS: Metoprolol Tartrate 12.5mg TAB ORAL SCH ×2 (08:38→20:24)
[2020-01-09] MEDS: Aspirin Baby 81mg ORAL SCH (08:38)
--- NOTE | 2020-01-09 09:26 | Surgery Progress Note ---
Surgery Progress Note Subjective Additional Comments leukocytosis anemia feels better today more responsive and comfortable no bleeding no hematoma cardiology input appreciated Objective Last 24 Hour Vital Signs Date Time Temp Pulse Resp B/P (MAP) Pulse Ox O2 Delivery O2 Flow Rate FiO2 01/09/20 08:38 81 115/59 01/09/20 08:00 Non-Rebreather 15.0 01/09/20 08:00 98.1 81 22 115/59 (77) 99 01/09/20 08:00 15.0 01/09/20 04:00 98.2 78 20 111/58 (75) 97 01/09/20 04:00 Non-Rebreather 15.0 01/09/20 04:00 8.0 40 01/09/20 03:29 80 01/09/20 00:00 97.9 75 20 109/58 (75) 97 01/09/20 00:00 75 01/09/20 00:00 Non-Rebreather 15.0 01/09/20 00:00 8.0 40 01/08/20 20:26 65 123/52 01/08/20 20:00 97.7 65 20 123/52 (75) 97 01/08/20 20:00 Non-Rebreather 15.0 01/08/20 20:00 70 01/08/20 20:00 8.0 40 01/08/20 18:55 92 Venturi Mask 14.0 55 01/08/20 16:09 Non-Rebreather 15.0 01/08/20 16:08 8.0 40 01/08/20 16:07 80 01/08/20 16:00 97.2 83 20 122/55 (77) 97 01/08/20 12:00 97.2 81 21 98/52 (67) 95 01/08/20 12:00 Non-Rebreather 15.0 01/08/20 12:00 78 01/08/20 12:00 8.0 40 01/08/20 09:50 89 106/66 01/08/20 09:49 89 106/66 I&O Intake and Output 01/08/20 01/09/20 19:00 07:00 Intake Total 802.851 ml 623.633 ml Output Total 575 ml 400 ml Balance 227.851 ml 223.633 ml Intake Oral 575 ml 300 ml IV Total 227.851 ml 323.633 ml Output Urine Total 575 ml 400 ml # Bowel Movements 2 1 Dressing: dry Wound: clean Cardiovascular: RSR Respiratory: clear, decreased breath sounds Abdomen: soft, flat, non-tender, present bowel sounds Extremities: no edema, no tenderness, no cyanosis, pulses, other Laboratory Tests Test 01/08/20 12:00 01/08/20 16:54 01/08/20 19:30 01/08/20 20:30 POC Whole Blood Glucose Pending 116 MG/DL (74-106) H Pending 129 MG/DL (74-106) H Test 01/09/20 03:50 01/09/20 05:50 White Blood Count 16.9 K/UL (4.8-10.8) H Red Blood Count 2.15 M/UL (4.20-5.40) L Hemoglobin 7.0 G/DL (12.0-16.0) L Hematocrit 22.2 % (37.0-47.0) L Mean Corpuscular Volume 103 FL (80-99) H Mean Corpuscular Hemoglobin 32.3 PG (27.0-31.0) H Mean Corpuscular Hemoglobin Concent 31.3 G/DL (32.0-36.0) L Red Cell Distribution Width 13.1 % (11.6-14.8) Platelet Count 283 K/UL (150-450) Mean Platelet Volume 7.0 FL (6.5-10.1) Neutrophils (%) (Auto) % (45.0-75.0) Lymphocytes (%) (Auto) % (20.0-45.0) Monocytes (%) (Auto) % (1.0-10.0) Eosinophils (%) (Auto) % (0.0-3.0) Basophils (%) (Auto) % (0.0-2.0) Differential Total Cells Counted 100 Neutrophils % (Manual) 84 % (45-75) H Lymphocytes % (Manual) 12 % (20-45) L Monocytes % (Manual) 3 % (1-10) Eosinophils % (Manual) 1 % (0-3) Basophils % (Manual) 0 % (0-2) Band Neutrophils 0 % (0-8) Platelet Estimate Adequate Platelet Morphology Normal Hypochromasia 3+ Anisocytosis 1+ Macrocytosis 1+ Activated Partial Thromboplast Time 63 SEC (23-33) H Sodium Level 131 MMOL/L (136-145) L Potassium Level 4.5 MMOL/L (3.5-5.1) Chloride Level 96 MMOL/L (98-107) L Carbon Dioxide Level 24 MMOL/L (21-32) Anion Gap 11 mmol/L (5-15) Blood Urea Nitrogen 39 mg/dL (7-18) H Creatinine 3.7 MG/DL (0.55-1.30) H Estimat Glomerular Filtration Rate 14.1 mL/min (>60) Glucose Level 122 MG/DL (74-106) H Calcium Level 8.1 MG/DL (8.5-10.1) L Phosphorus Level 6.1 MG/DL (2.5-4.9) H Iron Level 37 ug/dL (50-175) L Total Iron Binding Capacity 191 ug/dL (250-450) L Percent Iron Saturation 19 % (15-50) Unsaturated Iron Binding 154 ug/dL (112-346) POC Whole Blood Glucose 110 MG/DL (74-106) H Plan Problems: (1) Hyperkalemia (2) Non-STEMI (non-ST elevated myocardial infarction) Assessment & Plan: as per cardiology (3) Acute CHF (congestive heart failure) (4) Hypertensive crisis (5) Acute renal failure Assessment & Plan: 84-year-old female history of nephrectomy for renal tumor currently with 1 kidney going into renal insufficiency. Discussed with nephrology and likely needs dialysis. An attempted right femoral hemodialysis catheter insertion was made at the bedside after consent was obtained from patient. Good venous flow identified guidewire placed but unfortunately could not dilate without resistance. No attempts were made given significant resistance and therefore procedure was aborted. Discussed with radiology for placement of internal jugular temporary catheter. Further discussions with patient revealed that she has had multiple times and interventions in the groins. 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 She remembers this post attempt. Will monitor site for hemostasis. Pressure held for approximately 20 minutes until hemostasis noted. Currently no bleeding. Discussed care plan and findings with patient. Will monitor thank you Yepez participate in patient's care on heparin gtt and asa will need to monitor closely for bleeding or hematoma given recent line (6) Anemia (7) CAD (coronary artery disease) (8) Headache (9) Head injury (10) Vomiting (11) HTN (hypertension) (12) HTN (hypertension) (13) Head trauma (14) DM (diabetes mellitus) (15) HLD (hyperlipidemia) (16) Acute coronary syndrome (17) Chronic kidney disease (18) Encounter for removal of sutures (19) Encounter for dressing change or suture removal (20) MAY (acute kidney injury) (21) Vertigo, benign paroxysmal (22) Forehead laceration (23) Episode of generalized weakness (24) Episode of generalized weakness (25) Episode of generalized weakness (26) Episode of generalized weakness (27) Renal failure (ARF), acute on chronic Fernando Ureña Jan 09, 2020 09:26
--- NOTE | 2020-01-09 11:00 | Pulmonology Progress Note ---
Subjective Interval Events: none new reported Constitutional: Reports: no symptoms HEENT: Repors: no symptoms Respiratory: Reports: shortness of breath Cardiovascular: Reports: no symptoms Gastrointestinal/Abdominal: Reports: no symptoms Allergies: Coded Allergies: Crab (Verified Allergy, Mild, 05/28/16) Uncoded Allergies: SHELLFISH (Allergy, Unknown, 11/21/17) All Systems: reviewed and negative except above Objective Last 24 Hour Vital Signs Date Time Temp Pulse Resp B/P (MAP) Pulse Ox O2 Delivery O2 Flow Rate FiO2 01/09/20 08:38 81 115/59 01/09/20 08:00 80 01/09/20 08:00 Non-Rebreather 15.0 01/09/20 08:00 98.1 81 22 115/59 (77) 99 01/09/20 08:00 15.0 01/09/20 04:00 98.2 78 20 111/58 (75) 97 01/09/20 04:00 Non-Rebreather 15.0 01/09/20 04:00 8.0 40 01/09/20 03:29 80 01/09/20 00:00 97.9 75 20 109/58 (75) 97 01/09/20 00:00 75 01/09/20 00:00 Non-Rebreather 15.0 01/09/20 00:00 8.0 40 01/08/20 20:26 65 123/52 01/08/20 20:00 97.7 65 20 123/52 (75) 97 01/08/20 20:00 Non-Rebreather 15.0 01/08/20 20:00 70 01/08/20 20:00 8.0 40 01/08/20 18:55 92 Venturi Mask 14.0 55 01/08/20 16:09 Non-Rebreather 15.0 01/08/20 16:08 8.0 40 01/08/20 16:07 80 01/08/20 16:00 97.2 83 20 122/55 (77) 97 01/08/20 12:00 97.2 81 21 98/52 (67) 95 01/08/20 12:00 Non-Rebreather 15.0 01/08/20 12:00 78 01/08/20 12:00 8.0 40 Intake and Output 01/08/20 01/09/20 19:00 07:00 Intake Total 802.851 ml 623.633 ml Output Total 575 ml 400 ml Balance 227.851 ml 223.633 ml Intake Oral 575 ml 300 ml IV Total 227.851 ml 323.633 ml Output Urine Total 575 ml 400 ml # Bowel Movements 2 1 General Appearance: no acute distress HEENT: normocephalic Respiratory: chest wall non-tender, lungs clear Cardiovascular: normal peripheral pulses Abdomen: normal bowel sounds, soft, non tender Microbiology Date/Time Source Procedure Growth Status 01/07/20 00:15 Blood Peripheral Blood Culture - Preliminary NO GROWTH AFTER 48 HOURS Resulted 01/07/20 00:00 Blood Peripheral Blood Culture - Preliminary NO GROWTH AFTER 48 HOURS Resulted 01/07/20 00:40 Nasopharynx SARS-CoV-2 RdRp Gene Assay - Final Complete 01/07/20 05:35 Urine,Clean Catch Urine Culture - Preliminary NO GROWTH AFTER 24 HOURS Resulted Laboratory Tests 01/08/20 12:00: POC Whole Blood Glucose [Pending] 01/08/20 16:54: POC Whole Blood Glucose 116H 01/08/20 19:30: POC Whole Blood Glucose [Pending] 01/08/20 20:30: POC Whole Blood Glucose 129H 01/09/20 03:50: White Blood Count 16.9H, Red Blood Count 2.15L, Hemoglobin 7.0L, Hematocrit 22.2L, Mean Corpuscular Volume 103H, Mean Corpuscular Hemoglobin 32.3H, Mean Corpuscular Hemoglobin Concent 31.3L, Red Cell Distribution Width 13.1, Platelet Count 283, Mean Platelet Volume 7.0, Neutrophils (%) (Auto) , Lymphocytes (%) (Auto) , Monocytes (%) (Auto) , Eosinophils (%) (Auto) , Basophils (%) (Auto) , Differential Total Cells Counted 100, Neutrophils % ( Manual) 84H, Lymphocytes % (Manual) 12L, Monocytes % (Manual) 3, Eosinophils % ( Manual) 1, Basophils % (Manual) 0, Band Neutrophils 0, Platelet Estimate Adequate, Platelet Morphology Normal, Hypochromasia 3+, Anisocytosis 1+, Macrocytosis 1+, Activated Partial Thromboplast Time 63H, Sodium Level 131L, Potassium Level 4.5, Chloride Level 96L, Carbon Dioxide Level 24, Anion Gap 11, Blood Urea Nitrogen 39H, Creatinine 3.7H, Estimat Glomerular Filtration Rate 14.1, Glucose Level 122H, Calcium Level 8.1L, Phosphorus Level 6.1H, Iron Level 37L, Total Iron Binding Capacity 191L, Percent Iron Saturation 19, Unsaturated Iron Binding 154 01/09/20 05:50: POC Whole Blood Glucose 110H Current Medications Medications (Trade) Dose Ordered Sig/Floresita Route PRN Reason Start Time Stop Time Status Last Admin Dose Admin Acetaminophen (Tylenol) 650 mg Q4H PRN ORAL Mild Pain (Pain Scale 1-3) 01/07/20 03:45 02/06/20 03:44 01/07/20 22:30 Acetaminophen/ Codeine Phosphate (Tylenol #3) 1 tab Q8H PRN ORAL For Pain 01/07/20 03:45 01/14/20 03:44 01/08/20 00:23 Aspirin (ASA) 81 mg DAILY ORAL 01/07/20 09:00 02/21/20 08:59 01/09/20 08:38 Atorvastatin Calcium (Lipitor) 80 mg BEDTIME ORAL 01/07/20 21:00 04/06/20 20:59 01/08/20 20:27 Ceftriaxone Sodium 1 gm/ Sodium Chloride 55 ml @ 110 mls/hr Q24H IVPB 01/08/20 01:00 01/15/20 00:59 01/09/20 01:44 Chlorhexidine Gluconate (Marycruz-Hex 2%) 1 applic DAILY@2000 TOPIC 01/08/20 20:00 04/07/20 19:59 01/08/20 20:26 Dextrose (Dextrose 50%) 25 ml Q30M PRN IV Hypoglycemia 01/07/20 04:00 04/06/20 03:59 Dextrose (Dextrose 50%) 50 ml Q30M PRN IV Hypoglycemia 01/07/20 04:00 04/06/20 03:59 Epoetin John (Epoetin John(ESRD on dialysis)) 3,000 unit TUE-TUE-TUE SUBQ 01/09/20 21:00 04/08/20 20:59 Epoetin John (Epoetin John(ESRD on dialysis)) 4,000 unit TUE-TUE-TUE SUBQ 01/09/20 21:00 04/08/20 20:59 Famotidine (Pepcid) 10 mg DAILY ORAL 01/07/20 09:00 04/06/20 08:59 01/09/20 08:37 Heparin Sodium (Porcine) (Heparin 5000 units/ml) 5,000 units POSTHD PRN INJ POST HD 01/09/20 06:00 01/09/20 23:59 Heparin Sodium (Porcine) (Heparin Sod 1000 units/ml 10ml) 2,000 unit ONCE PRN IV HD 01/09/20 06:00 01/09/20 23:59 Heparin Sodium/ Dextrose 500 ml @ 20.448 mls/ hr ADJUST PER PROTOCOL IV 01/09/20 05:15 02/08/20 05:14 01/09/20 05:46 Insulin Aspart (NovoLOG) BEFORE MEALS AND HS SUBQ 01/07/20 06:30 04/06/20 06:29 01/08/20 12:07 Metoprolol Tartrate (Lopressor) 12.5 mg Q12HR ORAL 01/07/20 21:00 04/06/20 20:59 01/08/20 20:26 Morphine Sulfate (Morphine Sulfate) 4 mg Q3H PRN IVP Severe Pain (Pain Scale 7-10) 01/07/20 03:45 01/14/20 03:44 01/07/20 05:24 Nitroglycerin (Ntg) 0.4 mg Q5M PRN SL Prn Chest Pain 01/07/20 01:15 02/06/20 01:14 01/07/20 01:14 Ondansetron HCl (Zofran) 4 mg Q6H PRN IVP Nausea & Vomiting 01/07/20 03:45 02/06/20 03:44 Polyethylene Glycol (Miralax) 17 gm HSPRN PRN ORAL Constipation 01/07/20 03:45 02/06/20 03:44 Sitagliptin Phosphate (Januvia) 25 mg DAILY ORAL 01/09/20 09:00 02/08/20 08:59 01/09/20 08:37 Sodium Chloride 1,000 ml @ 500 mls/hr Q2H PRN IVLG sbp<90 during hd 01/09/20 06:00 01/09/20 23:59 Assessment/Plan Assessment/Plan IMPRESSION: 1. Decompensated heart failure. 2. CAD. 3. Diabetes mellitus. 4. Hypoxemia. DISCUSSION: Currently on non-rebreather mask May need BiPAP. She will need diuresis vs HD. I will follow carefully. Devin Krishnamurthy Omar Syed MD Jan 09, 2020 11:00
[2020-01-09 12:00] VITALS: BP 112/63
--- NOTE | 2020-01-09 12:44 | Cardiac Electrophysiology PN ---
Assessment/Plan Assessment/Plan 1. Non-ST elevation myocardial infarction with peak troponin of 2.4 but no chest pain. On heparin drip till levels come down The EKG is not reliable as it is AV paced. The troponin elevation could be also due to renal failure with creatinine of 3.5 Echocardiogram EF 55% On aspirin, Lopressor 12.5 bid and Lipitor 2. Congestive heart [place] [address]. Patient also has renal failure, creatinine 3.5. Now on HD and off Lasix 3. Hypertension, on metoprolol 12.5 bid and HD. DC Norvasc 4. Status post right-sided St Neo permanent pacemaker implantation. with Nl Fx 5. Diabetes. 6. Renal failure. Patient has history of nephrectomy. Now started on HD by Dr. Mckenna. DW Dr Mckenna and RN Subjective Subjective Got HD via new Left IJ dialysis line yesterday. On heparin drip as troponin yeison to 2. No CP. ECG Paced Objective Last 24 Hour Vital Signs Date Time Temp Pulse Resp B/P (MAP) Pulse Ox O2 Delivery O2 Flow Rate FiO2 01/09/20 10:00 5.0 01/09/20 08:38 81 115/59 01/09/20 08:00 80 01/09/20 08:00 Non-Rebreather 15.0 01/09/20 08:00 98.1 81 22 115/59 (77) 99 01/09/20 08:00 15.0 01/09/20 04:00 98.2 78 20 111/58 (75) 97 01/09/20 04:00 Non-Rebreather 15.0 01/09/20 04:00 8.0 40 01/09/20 03:29 80 01/09/20 00:00 97.9 75 20 109/58 (75) 97 01/09/20 00:00 75 01/09/20 00:00 Non-Rebreather 15.0 01/09/20 00:00 8.0 40 01/08/20 20:26 65 123/52 01/08/20 20:00 97.7 65 20 123/52 (75) 97 01/08/20 20:00 Non-Rebreather 15.0 01/08/20 20:00 70 01/08/20 20:00 8.0 40 8/4/20 18:55 92 Venturi Mask 14.0 55 01/08/20 16:09 Non-Rebreather 15.0 01/08/20 16:08 8.0 40 01/08/20 16:07 80 01/08/20 16:00 97.2 83 20 122/55 (77) 97 Intake and Output 01/08/20 01/09/20 19:00 07:00 Intake Total 802.851 ml 623.633 ml Output Total 575 ml 400 ml Balance 227.851 ml 223.633 ml Intake Oral 575 ml 300 ml IV Total 227.851 ml 323.633 ml Output Urine Total 575 ml 400 ml # Bowel Movements 2 1 Laboratory Tests Test 01/08/20 16:54 01/08/20 19:30 01/08/20 20:30 01/09/20 03:50 POC Whole Blood Glucose 116 MG/DL (74-106) H Pending 129 MG/DL (74-106) H White Blood Count 16.9 K/UL (4.8-10.8) H Red Blood Count 2.15 M/UL (4.20-5.40) L Hemoglobin 7.0 G/DL (12.0-16.0) L Hematocrit 22.2 % (37.0-47.0) L Mean Corpuscular Volume 103 FL (80-99) H Mean Corpuscular Hemoglobin 32.3 PG (27.0-31.0) H Mean Corpuscular Hemoglobin Concent 31.3 G/DL (32.0-36.0) L Red Cell Distribution Width 13.1 % (11.6-14.8) Platelet Count 283 K/UL (150-450) Mean Platelet Volume 7.0 FL (6.5-10.1) Neutrophils (%) (Auto) % (45.0-75.0) Lymphocytes (%) (Auto) % (20.0-45.0) Monocytes (%) (Auto) % (1.0-10.0) Eosinophils (%) (Auto) % (0.0-3.0) Basophils (%) (Auto) % (0.0-2.0) Differential Total Cells Counted 100 Neutrophils % (Manual) 84 % (45-75) H Lymphocytes % (Manual) 12 % (20-45) L Monocytes % (Manual) 3 % (1-10) Eosinophils % (Manual) 1 % (0-3) Basophils % (Manual) 0 % (0-2) Band Neutrophils 0 % (0-8) Platelet Estimate Adequate Platelet Morphology Normal Hypochromasia 3+ Anisocytosis 1+ Macrocytosis 1+ Activated Partial Thromboplast Time 63 SEC (23-33) H Sodium Level 131 MMOL/L (136-145) L Potassium Level 4.5 MMOL/L (3.5-5.1) Chloride Level 96 MMOL/L (98-107) L Carbon Dioxide Level 24 MMOL/L (21-32) Anion Gap 11 mmol/L (5-15) Blood Urea Nitrogen 39 mg/dL (7-18) H Creatinine 3.7 MG/DL (0.55-1.30) H Estimat Glomerular Filtration Rate 14.1 mL/min (>60) Glucose Level 122 MG/DL (74-106) H Calcium Level 8.1 MG/DL (8.5-10.1) L Phosphorus Level 6.1 MG/DL (2.5-4.9) H Iron Level 37 ug/dL (50-175) L Total Iron Binding Capacity 191 ug/dL (250-450) L Percent Iron Saturation 19 % (15-50) Unsaturated Iron Binding 154 ug/dL (112-346) Test 01/09/20 05:50 01/09/20 11:10 01/09/20 11:23 POC Whole Blood Glucose 110 MG/DL (74-106) H 123 MG/DL (74-106) H Activated Partial Thromboplast Time > 150 SEC (23-33) *H Microbiology Date/Time Source Procedure Growth Status 01/07/20 00:15 Blood Peripheral Blood Culture - Preliminary NO GROWTH AFTER 48 HOURS Resulted 01/07/20 00:00 Blood Peripheral Blood Culture - Preliminary NO GROWTH AFTER 48 HOURS Resulted 01/07/20 00:40 Nasopharynx SARS-CoV-2 RdRp Gene Assay - Final Complete 01/07/20 05:35 Urine,Clean Catch Urine Culture - Preliminary NO GROWTH AFTER 24 HOURS Resulted Objective HEAD AND NECK: Showed no JVD.Left IG Adrian in place LUNGS: Clear. CARDIOVASCULAR: Regular S1 and S2 with no gallop. Pacemaker is in the right subclavian. ABDOMEN: Soft. EXTREMITIES: No pitting edema. Donnie Bazan MD Jan 09, 2020 12:44
--- NOTE | 2020-01-09 12:48 | Nephrology Progress Note ---
Assessment/Plan Problem List: (1) Renal failure (ARF), acute on chronic (2) Non-STEMI (non-ST elevated myocardial infarction) (3) Hyperkalemia (4) Anemia (5) HTN (hypertension) (6) DM (diabetes mellitus) (7) HLD (hyperlipidemia) Plan HD today Discussed with Dr Bazan and RN follow labs continue ASA Subjective Subjective more SOB Objective Objective Last 24 Hour Vital Signs Date Time Temp Pulse Resp B/P (MAP) Pulse Ox O2 Delivery O2 Flow Rate FiO2 01/09/20 10:00 5.0 01/09/20 08:38 81 115/59 01/09/20 08:00 80 01/09/20 08:00 Non-Rebreather 15.0 01/09/20 08:00 98.1 81 22 115/59 (77) 99 01/09/20 08:00 15.0 01/09/20 04:00 98.2 78 20 111/58 (75) 97 01/09/20 04:00 Non-Rebreather 15.0 01/09/20 04:00 8.0 40 01/09/20 03:29 80 01/09/20 00:00 97.9 75 20 109/58 (75) 97 01/09/20 00:00 75 01/09/20 00:00 Non-Rebreather 15.0 01/09/20 00:00 8.0 40 01/08/20 20:26 65 123/52 01/08/20 20:00 97.7 65 20 123/52 (75) 97 01/08/20 20:00 Non-Rebreather 15.0 01/08/20 20:00 70 01/08/20 20:00 8.0 40 01/08/20 18:55 92 Venturi Mask 14.0 55 01/08/20 16:09 Non-Rebreather 15.0 01/08/20 16:08 8.0 40 01/08/20 16:07 80 01/08/20 16:00 97.2 83 20 122/55 (77) 97 Intake and Output 01/08/20 01/09/20 19:00 07:00 Intake Total 802.851 ml 623.633 ml Output Total 575 ml 400 ml Balance 227.851 ml 223.633 ml Intake Oral 575 ml 300 ml IV Total 227.851 ml 323.633 ml Output Urine Total 575 ml 400 ml # Bowel Movements 2 1 Laboratory Tests 01/08/20 16:54: POC Whole Blood Glucose 116H 01/08/20 19:30: POC Whole Blood Glucose [Pending] 01/08/20 20:30: POC Whole Blood Glucose 129H 01/09/20 03:50: White Blood Count 16.9H, Red Blood Count 2.15L, Hemoglobin 7.0L, Hematocrit 22.2L, Mean Corpuscular Volume 103H, Mean Corpuscular Hemoglobin 32.3H, Mean Corpuscular Hemoglobin Concent 31.3L, Red Cell Distribution Width 13.1, Platelet Count 283, Mean Platelet Volume 7.0, Neutrophils (%) (Auto) , Lymphocytes (%) (Auto) , Monocytes (%) (Auto) , Eosinophils (%) (Auto) , Basophils (%) (Auto) , Differential Total Cells Counted 100, Neutrophils % ( Manual) 84H, Lymphocytes % (Manual) 12L, Monocytes % (Manual) 3, Eosinophils % ( Manual) 1, Basophils % (Manual) 0, Band Neutrophils 0, Platelet Estimate Adequate, Platelet Morphology Normal, Hypochromasia 3+, Anisocytosis 1+, Macrocytosis 1+, Activated Partial Thromboplast Time 63H, Sodium Level 131L, Potassium Level 4.5, Chloride Level 96L, Carbon Dioxide Level 24, Anion Gap 11, Blood Urea Nitrogen 39H, Creatinine 3.7H, Estimat Glomerular Filtration Rate 14.1, Glucose Level 122H, Calcium Level 8.1L, Phosphorus Level 6.1H, Iron Level 37L, Total Iron Binding Capacity 191L, Percent Iron Saturation 19, Unsaturated Iron Binding 154 01/09/20 05:50: POC Whole Blood Glucose 110H 01/09/20 11:10: Activated Partial Thromboplast Time > 150*H 01/09/20 11:23: POC Whole Blood Glucose 123H Height (Feet): 5 Height (Inches): 7.00 Weight (Pounds): 147 Cardiovascular: normal rate Respiratory/Chest: rhonchi - bilaterally Extremities: no edema Noel Mckenna MD Jan 09, 2020 12:46
[2020-01-09 16:00] VITALS: BP 113/65
[2020-01-09 20:00] VITALS: BP 122/65
[2020-01-09] MEDS ORDERED: RANEXA1000 MG ORAL (20:08)
[2020-01-09] MEDS ORDERED: PACERONE200 MG ORAL (20:08)
[2020-01-09] MEDS ORDERED: TRAMADOL HCL50 MG ORAL (20:08)
[2020-01-09] MEDS ORDERED: DOCUSATE SODIU100 MG ORAL (20:08)
[2020-01-09] MEDS ORDERED: AMIODARONE HCL100 MG ORAL (20:08)
[2020-01-09] MEDS ORDERED: BYSTOLIC10 MG ORAL (20:08)
[2020-01-09] MEDS: Dyna-Hex 2% Top Sol 2oz TOPIC SCH (20:24)
[2020-01-09] MEDS: Atorvastatin 80mg tab ORAL SCH (20:25)
[2020-01-09] MEDS: Epoetin Alfa-EPBX(ESRD on dialysis)3000 units/ml vial SUBQ SCH (21:15)
[2020-01-09] MEDS: Epoetin Alfa-EPBX(ESRD on dialysis)4000 units/ml vial SUBQ SCH (21:16)
[2020-01-09 21:26] LABS: HEMATOCRIT 27.9 % (37.0-47.0); HEMOGLOBIN 9.2 G/DL (12.0-16.0); MEAN CORPUSCULAR VOLUME 99 FL (80-99); PLATELET COUNT 258 K/UL (150-450); RED BLOOD COUNT 2.83 M/UL (4.20-5.40); RED CELL DISTRIBUTION WIDTH 15.4 % (11.6-14.8); WHITE BLOOD COUNT 17.8 K/UL (4.8-10.8)
[2020-01-09 21:29] LABS: BASOPHILS % (AUTO) 0.1 % (0.0-2.0); MONOCYTES % (AUTO) 4.5 % (1.0-10.0); NEUTROPHILS % (AUTO) 89.6 % (45.0-75.0)
--- NOTE | 2020-01-09 22:24 | Internal Med Progress Note ---
Subjective Date of Service: Jan 09, 2020 Physician Name Pradeep Madrigal Attending Physician Noel Mckenna MD Current Medications Medications (Trade) Dose Ordered Sig/Floresita Route PRN Reason Start Time Stop Time Status Last Admin Dose Admin Acetaminophen (Tylenol) 650 mg Q4H PRN ORAL Mild Pain (Pain Scale 1-3) 01/07/20 03:45 02/06/20 03:44 01/07/20 22:30 Acetaminophen/ Codeine Phosphate (Tylenol #3) 1 tab Q8H PRN ORAL For Pain 01/07/20 03:45 01/14/20 03:44 01/08/20 00:23 Aspirin (ASA) 81 mg DAILY ORAL 01/07/20 09:00 02/21/20 08:59 01/09/20 08:38 Atorvastatin Calcium (Lipitor) 80 mg BEDTIME ORAL 01/07/20 21:00 04/06/20 20:59 01/09/20 20:25 Ceftriaxone Sodium 1 gm/ Sodium Chloride 55 ml @ 110 mls/hr Q24H IVPB 01/08/20 01:00 01/15/20 00:59 01/09/20 01:44 Chlorhexidine Gluconate (Marycruz-Hex 2%) 1 applic DAILY@2000 TOPIC 01/08/20 20:00 04/07/20 19:59 01/09/20 20:24 Dextrose (Dextrose 50%) 25 ml Q30M PRN IV Hypoglycemia 01/07/20 04:00 04/06/20 03:59 Dextrose (Dextrose 50%) 50 ml Q30M PRN IV Hypoglycemia 01/07/20 04:00 04/06/20 03:59 Epoetin John (Epoetin John(ESRD on dialysis)) 3,000 unit TUE-TUE-TUE SUBQ 01/09/20 21:00 04/08/20 20:59 01/09/20 21:15 Epoetin John (Epoetin John(ESRD on dialysis)) 4,000 unit TUE-TUE-TUE SUBQ 01/09/20 21:00 04/08/20 20:59 01/09/20 21:16 Famotidine (Pepcid) 10 mg DAILY ORAL 01/07/20 09:00 04/06/20 08:59 01/09/20 08:37 Heparin Sodium (Porcine) (Heparin 5000 units/ml) 5,000 units POSTHD PRN INJ POST HD 01/09/20 06:00 01/09/20 23:59 Heparin Sodium (Porcine) (Heparin Sod 1000 units/ml 10ml) 2,000 unit ONCE PRN IV HD 01/09/20 06:00 01/09/20 23:59 Heparin Sodium/ Dextrose 500 ml @ 18.67 mls/ hr ADJUST PER PROTOCOL IV 01/09/20 20:15 02/08/20 20:14 01/09/20 20:27 Insulin Aspart (NovoLOG) BEFORE MEALS AND HS SUBQ 01/07/20 06:30 04/06/20 06:29 01/08/20 12:07 Metoprolol Tartrate (Lopressor) 12.5 mg Q12HR ORAL 01/07/20 21:00 04/06/20 20:59 01/09/20 20:24 Morphine Sulfate (Morphine Sulfate) 4 mg Q3H PRN IVP Severe Pain (Pain Scale 7-10) 01/07/20 03:45 01/14/20 03:44 01/07/20 05:24 Nitroglycerin (Ntg) 0.4 mg Q5M PRN SL Prn Chest Pain 01/07/20 01:15 02/06/20 01:14 01/07/20 01:14 Ondansetron HCl (Zofran) 4 mg Q6H PRN IVP Nausea & Vomiting 01/07/20 03:45 02/06/20 03:44 Polyethylene Glycol (Miralax) 17 gm HSPRN PRN ORAL Constipation 01/07/20 03:45 02/06/20 03:44 Sitagliptin Phosphate (Januvia) 25 mg DAILY ORAL 01/09/20 09:00 02/08/20 08:59 01/09/20 08:37 Sodium Chloride 1,000 ml @ 500 mls/hr Q2H PRN IVLG sbp<90 during hd 01/09/20 06:00 01/09/20 23:59 Allergies: Coded Allergies: Crab (Verified Allergy, Mild, 05/28/16) Uncoded Allergies: SHELLFISH (Allergy, Unknown, 11/21/17) Constitutional: Reports: no symptoms HEENT: Reports: no symptoms Cardiovascular: Reports: no symptoms Respiratory: Reports: shortness of breath Gastrointestinal/Abdominal: Reports: no symptoms Genitourinary: Reports: no symptoms Neurologic/Psychiatric: Reports: no symptoms All Systems: reviewed and negative except above Subjective HD started 3 liters removed today on NRB 15L Objective Last Vital Signs Date Time Temp Pulse Resp B/P (MAP) Pulse Ox O2 Delivery O2 Flow Rate FiO2 01/09/20 20:24 89 122/65 01/09/20 20:00 15.0 01/09/20 20:00 97.5 26 96 01/09/20 20:00 Non-Rebreather 01/09/20 19:07 100 General Appearance: no apparent distress EENT: pharynx normal Neck: non-tender, supple Cardiovascular: normal rate, regular rhythm Respiratory/Chest: no accessory muscle use, decreased breath sounds Abdomen: non tender, soft, no mass Extremities: normal range of motion, non-tender Edema: trace edema Neurologic: alert, oriented x 3, responsive Skin: warm/dry Laboratory Tests Test 01/09/20 03:50 01/09/20 05:50 01/09/20 11:10 01/09/20 11:23 White Blood Count 16.9 K/UL (4.8-10.8) H Red Blood Count 2.15 M/UL (4.20-5.40) L Hemoglobin 7.0 G/DL (12.0-16.0) L Hematocrit 22.2 % (37.0-47.0) L Mean Corpuscular Volume 103 FL (80-99) H Mean Corpuscular Hemoglobin 32.3 PG (27.0-31.0) H Mean Corpuscular Hemoglobin Concent 31.3 G/DL (32.0-36.0) L Red Cell Distribution Width 13.1 % (11.6-14.8) Platelet Count 283 K/UL (150-450) Mean Platelet Volume 7.0 FL (6.5-10.1) Neutrophils (%) (Auto) % (45.0-75.0) Lymphocytes (%) (Auto) % (20.0-45.0) Monocytes (%) (Auto) % (1.0-10.0) Eosinophils (%) (Auto) % (0.0-3.0) Basophils (%) (Auto) % (0.0-2.0) Differential Total Cells Counted 100 Neutrophils % (Manual) 84 % (45-75) H Lymphocytes % (Manual) 12 % (20-45) L Monocytes % (Manual) 3 % (1-10) Eosinophils % (Manual) 1 % (0-3) Basophils % (Manual) 0 % (0-2) Band Neutrophils 0 % (0-8) Platelet Estimate Adequate Platelet Morphology Normal Hypochromasia 3+ Anisocytosis 1+ Macrocytosis 1+ Activated Partial Thromboplast Time 63 SEC (23-33) H > 150 SEC (23-33) *H Sodium Level 131 MMOL/L (136-145) L Potassium Level 4.5 MMOL/L (3.5-5.1) Chloride Level 96 MMOL/L (98-107) L Carbon Dioxide Level 24 MMOL/L (21-32) Anion Gap 11 mmol/L (5-15) Blood Urea Nitrogen 39 mg/dL (7-18) H Creatinine 3.7 MG/DL (0.55-1.30) H Estimat Glomerular Filtration Rate 14.1 mL/min (>60) Glucose Level 122 MG/DL (74-106) H Calcium Level 8.1 MG/DL (8.5-10.1) L Phosphorus Level 6.1 MG/DL (2.5-4.9) H Iron Level 37 ug/dL (50-175) L Total Iron Binding Capacity 191 ug/dL (250-450) L Percent Iron Saturation 19 % (15-50) Unsaturated Iron Binding 154 ug/dL (112-346) Troponin I 3.529 ng/mL (0.000-0.056) POC Whole Blood Glucose 110 MG/DL (74-106) H 123 MG/DL (74-106) H Test 01/09/20 16:33 01/09/20 19:05 01/09/20 20:22 01/09/20 21:18 POC Whole Blood Glucose 96 MG/DL (74-106) 91 MG/DL (74-106) Activated Partial Thromboplast Time 44 SEC (23-33) H Troponin I 2.881 ng/mL (0.000-0.056) White Blood Count 17.8 K/UL (4.8-10.8) H Red Blood Count 2.83 M/UL (4.20-5.40) L Hemoglobin 9.2 G/DL (12.0-16.0) #L Hematocrit 27.9 % (37.0-47.0) L Mean Corpuscular Volume 99 FL (80-99) Mean Corpuscular Hemoglobin 32.6 PG (27.0-31.0) H Mean Corpuscular Hemoglobin Concent 33.0 G/DL (32.0-36.0) Red Cell Distribution Width 15.4 % (11.6-14.8) H Platelet Count 258 K/UL (150-450) Mean Platelet Volume 6.8 FL (6.5-10.1) Neutrophils (%) (Auto) 89.6 % (45.0-75.0) H Lymphocytes (%) (Auto) 5.0 % (20.0-45.0) L Monocytes (%) (Auto) 4.5 % (1.0-10.0) Eosinophils (%) (Auto) 0.0 % (0.0-3.0) Basophils (%) (Auto) 0.1 % (0.0-2.0) Microbiology Date/Time Source Procedure Growth Status 01/07/20 00:15 Blood Peripheral Blood Culture - Preliminary NO GROWTH AFTER 48 HOURS Resulted 01/07/20 00:00 Blood Peripheral Blood Culture - Preliminary NO GROWTH AFTER 48 HOURS Resulted 01/07/20 00:40 Nasopharynx SARS-CoV-2 RdRp Gene Assay - Final Complete 01/07/20 05:35 Urine,Clean Catch Urine Culture - Preliminary NO GROWTH AFTER 24 HOURS Resulted Intake and Output 01/08/20 01/09/20 19:00 07:00 Intake Total 802.851 ml 623.633 ml Output Total 575 ml 400 ml Balance 227.851 ml 223.633 ml Intake Oral 575 ml 300 ml IV Total 227.851 ml 323.633 ml Output Urine Total 575 ml 400 ml # Bowel Movements 2 1 Assessment/Plan Status: stable, progressing, tolerating diet Assessment/Plan Acute CHF acute hypoxic resp failure dyspnea Hyperkalemia Non-STEMI (non-ST elevated myocardial infarction) MAY on CKD pacemaker in situ DM HTN CAD hx IN PLAN: SDU oxygen NRB heparin drip TTE noted HD per renal glycemic control asa, plavix, statin BP control pacemaker interrogation ------> normal fx cardio/renal f/u pulm neb thoracentesis prn for pleural effusion HD for volume management FULL CODE PRADEEP MADRIGAL MD INTERNAL MEDICINE [phone] time of note make not be actual encounter time. over 35 minutes spent today over 50% spent in management, discussion with pt plan of care Pradeep Madrigal MD Jan 09, 2020 22:24
[2020-01-10] VITALS: BP 114/53
[2020-01-10] MEDS: cefTRIAXone 1 GM in NS 55 ML IVPB SCH (00:35)
[2020-01-10] MEDS ORDERED: Heparin 25,000u/D5W 500ml 500 ML IV SCH ×2 (03:15→09:33)
[2020-01-10 04:00] VITALS: BP 117/58
[2020-01-10] MEDS: NovoLOG Insulin Flexpen SUBQ SCH ×4 (06:30→20:59)
[2020-01-10 08:00] VITALS: BP 109/57
[2020-01-10] MEDS: Metoprolol Tartrate 12.5mg TAB ORAL SCH ×2 (09:10→20:59)
[2020-01-10] MEDS: Aspirin Baby 81mg ORAL SCH (09:10)
[2020-01-10] MEDS: sitaGLIPtin 25mg tab ORAL SCH (09:11)
[2020-01-10] MEDS ORDERED: Heparin 5000 units/ml inj IV SCH (09:32)
--- NOTE | 2020-01-10 10:33 | Cardiac Electrophysiology PN ---
Assessment/Plan Assessment/Plan 1. Non-ST elevation myocardial infarction with peak troponin of 2.8 but no chest pain. DC heparin drip as level now Flat The EKG is not reliable as it is AV paced. The troponin elevation could be also due to renal failure on HD now. Echocardiogram EF 55% On aspirin, Lopressor 12.5 bid and Lipitor. If dialysis becomes permanent, Will consider cardiac cath 2. Congestive [place] [address]. Patient also has renal failure, creatinine 3.5. Now on HD 3. Hypertension, on metoprolol 12.5 bid and HD. 4. Status post right-sided St Neo permanent pacemaker implantation. with Nl Fx 5. Diabetes. 6. Renal failure. Patient has history of nephrectomy. Now started on HD by Dr. Mckenna. DW Dr Mckenna and RN Subjective Subjective Got HD via new Left IJ dialysis line. On heparin drip for high troponin yeison to 2.8. No CP. ECG Paced Objective Last 24 Hour Vital Signs Date Time Temp Pulse Resp B/P (MAP) Pulse Ox O2 Delivery O2 Flow Rate FiO2 01/10/20 10:03 14.0 55 01/10/20 10:00 Venturi Mask 14.0 01/10/20 09:10 72 109/57 01/10/20 08:00 Non-Rebreather 5.0 01/10/20 08:00 97.5 72 22 109/57 (74) 97 01/10/20 08:00 5.0 01/10/20 07:40 74 01/10/20 04:00 Non-Rebreather 5.0 01/10/20 04:00 5.0 01/10/20 04:00 98.1 80 24 117/58 (77) 98 01/10/20 03:37 76 01/10/20 00:00 5.0 01/10/20 00:00 98.6 75 26 114/53 (73) 98 01/10/20 00:00 Non-Rebreather 5.0 01/09/20 23:29 77 01/09/20 20:24 89 122/65 01/09/20 20:00 15.0 01/09/20 20:00 97.5 89 26 122/65 (84) 96 01/09/20 20:00 Non-Rebreather 15.0 01/09/20 19:07 91 Non-Rebreather 15.0 100 01/09/20 19:07 91 01/09/20 16:00 97.9 89 26 113/65 (81) 96 01/09/20 16:00 Non-Rebreather 5.0 01/09/20 16:00 15.0 01/09/20 15:15 82 01/09/20 12:00 98.0 84 24 112/63 (79) 99 01/09/20 12:00 Non-Rebreather 5.0 01/09/20 11:42 79 Intake and Output 01/09/20 01/10/20 19:00 07:00 Intake Total 754.816 ml 167.643 ml Output Total 525 ml 100 ml Balance 229.816 ml 67.643 ml Intake Oral 600 ml IV Total 154.816 ml 167.643 ml Output Urine Total 525 ml 100 ml # Voids 1 # Bowel Movements 4 1 Laboratory Tests Test 01/09/20 11:10 01/09/20 11:23 01/09/20 16:33 01/09/20 19:05 Activated Partial Thromboplast Time > 150 SEC (23-33) *H 44 SEC (23-33) H POC Whole Blood Glucose 123 MG/DL (74-106) H 96 MG/DL (74-106) Troponin I 2.881 ng/mL (0.000-0.056) Test 01/09/20 20:22 01/09/20 21:18 01/10/20 02:00 01/10/20 09:10 POC Whole Blood Glucose 91 MG/DL (74-106) White Blood Count 17.8 K/UL (4.8-10.8) H Red Blood Count 2.83 M/UL (4.20-5.40) L Hemoglobin 9.2 G/DL (12.0-16.0) #L Hematocrit 27.9 % (37.0-47.0) L Mean Corpuscular Volume 99 FL (80-99) Mean Corpuscular Hemoglobin 32.6 PG (27.0-31.0) H Mean Corpuscular Hemoglobin Concent 33.0 G/DL (32.0-36.0) Red Cell Distribution Width 15.4 % (11.6-14.8) H Platelet Count 258 K/UL (150-450) Mean Platelet Volume 6.8 FL (6.5-10.1) Neutrophils (%) (Auto) 89.6 % (45.0-75.0) H Lymphocytes (%) (Auto) 5.0 % (20.0-45.0) L Monocytes (%) (Auto) 4.5 % (1.0-10.0) Eosinophils (%) (Auto) 0.0 % (0.0-3.0) Basophils (%) (Auto) 0.1 % (0.0-2.0) Activated Partial Thromboplast Time 111 SEC (23-33) H 38 SEC (23-33) H Troponin I 2.825 ng/mL (0.000-0.056) Objective HEAD AND NECK: Showed no JVD.Left IG Adrian in place LUNGS: Clear. CARDIOVASCULAR: Regular S1 and S2 with no gallop. Pacemaker is in the right subclavian. ABDOMEN: Soft. EXTREMITIES: No pitting edema. Donnie Bazan MD Jan 10, 2020 10:33
--- NOTE | 2020-01-10 10:49 | Nephrology Progress Note ---
Assessment/Plan Problem List: (1) Renal failure (ARF), acute on chronic (2) Non-STEMI (non-ST elevated myocardial infarction) (3) Hyperkalemia (4) Anemia (5) HTN (hypertension) (6) DM (diabetes mellitus) (7) HLD (hyperlipidemia) Plan HD tomorrow Discussed with Dr Bazan and RN follow labs continue ASA O2 via NC PT DC ozuna Subjective Subjective pleuritic CP Objective Objective Last 24 Hour Vital Signs Date Time Temp Pulse Resp B/P (MAP) Pulse Ox O2 Delivery O2 Flow Rate FiO2 01/10/20 10:03 14.0 55 01/10/20 10:00 Venturi Mask 14.0 01/10/20 09:10 72 109/57 01/10/20 08:00 Non-Rebreather 5.0 01/10/20 08:00 97.5 72 22 109/57 (74) 97 01/10/20 08:00 5.0 01/10/20 07:40 74 01/10/20 04:00 Non-Rebreather 5.0 01/10/20 04:00 5.0 01/10/20 04:00 98.1 80 24 117/58 (77) 98 01/10/20 03:37 76 01/10/20 00:00 5.0 01/10/20 00:00 98.6 75 26 114/53 (73) 98 01/10/20 00:00 Non-Rebreather 5.0 01/09/20 23:29 77 01/09/20 20:24 89 122/65 01/09/20 20:00 15.0 01/09/20 20:00 97.5 89 26 122/65 (84) 96 01/09/20 20:00 Non-Rebreather 15.0 01/09/20 19:07 91 Non-Rebreather 15.0 100 01/09/20 19:07 91 01/09/20 16:00 97.9 89 26 113/65 (81) 96 01/09/20 16:00 Non-Rebreather 5.0 01/09/20 16:00 15.0 01/09/20 15:15 82 01/09/20 12:00 98.0 84 24 112/63 (79) 99 01/09/20 12:00 Non-Rebreather 5.0 01/09/20 11:42 79 Intake and Output 01/09/20 01/10/20 19:00 07:00 Intake Total 754.816 ml 167.643 ml Output Total 525 ml 100 ml Balance 229.816 ml 67.643 ml Intake Oral 600 ml IV Total 154.816 ml 167.643 ml Output Urine Total 525 ml 100 ml # Voids 1 # Bowel Movements 4 1 Laboratory Tests 01/09/20 11:10: Activated Partial Thromboplast Time > 150*H 01/09/20 11:23: POC Whole Blood Glucose 123H 01/09/20 16:33: POC Whole Blood Glucose 96 01/09/20 19:05: Activated Partial Thromboplast Time 44H, Troponin I 2.881H 01/09/20 20:22: POC Whole Blood Glucose 91 01/09/20 21:18: White Blood Count 17.8H, Red Blood Count 2.83L, Hemoglobin 9.2#L, Hematocrit 27.9L, Mean Corpuscular Volume 99, Mean Corpuscular Hemoglobin 32.6H, Mean Corpuscular Hemoglobin Concent 33.0, Red Cell Distribution Width 15.4H, Platelet Count 258, Mean Platelet Volume 6.8, Neutrophils (%) (Auto) 89.6H, Lymphocytes (%) (Auto) 5.0L, Monocytes (%) (Auto) 4.5, Eosinophils (%) (Auto) 0.0, Basophils (%) (Auto) 0.1 01/10/20 02:00: Activated Partial Thromboplast Time 111H, Troponin I 2.825H 01/10/20 09:10: Activated Partial Thromboplast Time 38H Height (Feet): 5 Height (Inches): 7.00 Weight (Pounds): 147 Cardiovascular: normal rate Respiratory/Chest: lungs clear Extremities: no edema Noel Mckenna MD Jan 10, 2020 10:49
[2020-01-10 12:14] VITALS: BP 102/55
--- NOTE | 2020-01-10 15:03 | Pulmonology Progress Note ---
Subjective Interval Events: none new reported Constitutional: Reports: no symptoms HEENT: Repors: no symptoms Respiratory: Reports: shortness of breath Cardiovascular: Reports: no symptoms Gastrointestinal/Abdominal: Reports: no symptoms Allergies: Coded Allergies: Crab (Verified Allergy, Mild, 05/28/16) Uncoded Allergies: SHELLFISH (Allergy, Unknown, 11/21/17) All Systems: reviewed and negative except above Objective Last 24 Hour Vital Signs Date Time Temp Pulse Resp B/P (MAP) Pulse Ox O2 Delivery O2 Flow Rate FiO2 01/10/20 12:14 98.2 70 22 102/55 (71) 97 01/10/20 12:00 Nasal Cannula 3.0 01/10/20 11:41 68 01/10/20 10:54 3.0 01/10/20 10:03 14.0 55 01/10/20 10:00 Venturi Mask 14.0 01/10/20 09:10 72 109/57 01/10/20 08:00 Non-Rebreather 5.0 01/10/20 08:00 97.5 72 22 109/57 (74) 97 01/10/20 08:00 5.0 01/10/20 07:40 74 01/10/20 04:00 Non-Rebreather 5.0 01/10/20 04:00 5.0 01/10/20 04:00 98.1 80 24 117/58 (77) 98 01/10/20 03:37 76 01/10/20 00:00 5.0 01/10/20 00:00 98.6 75 26 114/53 (73) 98 01/10/20 00:00 Non-Rebreather 5.0 01/09/20 23:29 77 01/09/20 20:24 89 122/65 01/09/20 20:00 15.0 01/09/20 20:00 97.5 89 26 122/65 (84) 96 01/09/20 20:00 Non-Rebreather 15.0 01/09/20 19:07 91 Non-Rebreather 15.0 100 01/09/20 19:07 91 01/09/20 16:00 97.9 89 26 113/65 (81) 96 01/09/20 16:00 Non-Rebreather 5.0 01/09/20 16:00 15.0 01/09/20 15:15 82 Intake and Output 01/09/20 01/10/20 19:00 07:00 Intake Total 754.816 ml 167.643 ml Output Total 525 ml 100 ml Balance 229.816 ml 67.643 ml Intake Oral 600 ml IV Total 154.816 ml 167.643 ml Output Urine Total 525 ml 100 ml # Voids 1 # Bowel Movements 4 1 General Appearance: no acute distress HEENT: normocephalic Respiratory: chest wall non-tender, lungs clear Cardiovascular: normal peripheral pulses Abdomen: normal bowel sounds, soft, non tender Laboratory Tests 01/09/20 16:33: POC Whole Blood Glucose 96 01/09/20 19:05: Activated Partial Thromboplast Time 44H, Troponin I 2.881H 01/09/20 20:22: POC Whole Blood Glucose 91 01/09/20 21:18: White Blood Count 17.8H, Red Blood Count 2.83L, Hemoglobin 9.2#L, Hematocrit 27.9L, Mean Corpuscular Volume 99, Mean Corpuscular Hemoglobin 32.6H, Mean Corpuscular Hemoglobin Concent 33.0, Red Cell Distribution Width 15.4H, Platelet Count 258, Mean Platelet Volume 6.8, Neutrophils (%) (Auto) 89.6H, Lymphocytes (%) (Auto) 5.0L, Monocytes (%) (Auto) 4.5, Eosinophils (%) (Auto) 0.0, Basophils (%) (Auto) 0.1 01/10/20 02:00: Activated Partial Thromboplast Time 111H, Troponin I 2.825H 01/10/20 09:10: Activated Partial Thromboplast Time 38H 01/10/20 12:10: POC Whole Blood Glucose 103 Current Medications Medications (Trade) Dose Ordered Sig/Floresita Route PRN Reason Start Time Stop Time Status Last Admin Dose Admin Acetaminophen (Tylenol) 650 mg Q4H PRN ORAL Mild Pain (Pain Scale 1-3) 01/07/20 03:45 02/06/20 03:44 01/07/20 22:30 Acetaminophen/ Codeine Phosphate (Tylenol #3) 1 tab Q8H PRN ORAL For Pain 01/07/20 03:45 01/14/20 03:44 01/08/20 00:23 Albumin Human 500 ml @ 500 mls/hr Q1H PRN IV sbp<90 during hd 01/11/20 06:00 01/11/20 23:59 Aspirin (ASA) 81 mg DAILY ORAL 01/07/20 09:00 02/21/20 08:59 01/10/20 09:10 Atorvastatin Calcium (Lipitor) 80 mg BEDTIME ORAL 01/07/20 21:00 04/06/20 20:59 01/09/20 20:25 Ceftriaxone Sodium 1 gm/ Sodium Chloride 55 ml @ 110 mls/hr Q24H IVPB 01/08/20 01:00 01/15/20 00:59 01/10/20 00:35 Chlorhexidine Gluconate (Marycruz-Hex 2%) 1 applic DAILY@1999 TOPIC 01/08/20 20:00 04/07/20 19:59 01/09/20 20:24 Dextrose (Dextrose 50%) 25 ml Q30M PRN IV Hypoglycemia 01/07/20 04:00 04/06/20 03:59 Dextrose (Dextrose 50%) 50 ml Q30M PRN IV Hypoglycemia 01/07/20 04:00 04/06/20 03:59 Epoetin John (Epoetin John(ESRD on dialysis)) 3,000 unit TUE-TUE-TUE SUBQ 01/09/20 21:00 04/08/20 20:59 01/09/20 21:15 Epoetin John (Epoetin John(ESRD on dialysis)) 4,000 unit TUE-TUE-TUE SUBQ 01/09/20 21:00 04/08/20 20:59 01/09/20 21:16 Famotidine (Pepcid) 10 mg DAILY ORAL 01/07/20 09:00 04/06/20 08:59 01/10/20 09:10 Heparin Sodium (Porcine) (Heparin Sod 1000 units/ml 10ml) 500 unit ONCE PRN IV HD 01/11/20 06:00 01/11/20 23:59 Insulin Aspart (NovoLOG) BEFORE MEALS AND HS SUBQ 01/07/20 06:30 04/06/20 06:29 01/08/20 12:07 Metoprolol Tartrate (Lopressor) 12.5 mg Q12HR ORAL 01/07/20 21:00 04/06/20 20:59 01/10/20 09:10 Morphine Sulfate (Morphine Sulfate) 4 mg Q3H PRN IVP Severe Pain (Pain Scale 7-10) 01/07/20 03:45 01/14/20 03:44 01/07/20 05:24 Nitroglycerin (Ntg) 0.4 mg Q5M PRN SL Prn Chest Pain 01/07/20 01:15 02/06/20 01:14 01/07/20 01:14 Ondansetron HCl (Zofran) 4 mg Q6H PRN IVP Nausea & Vomiting 01/07/20 03:45 02/06/20 03:44 Polyethylene Glycol (Miralax) 17 gm HSPRN PRN ORAL Constipation 01/07/20 03:45 02/06/20 03:44 Sitagliptin Phosphate (Januvia) 25 mg DAILY ORAL 01/09/20 09:00 02/08/20 08:59 01/10/20 09:11 Assessment/Plan Assessment/Plan IMPRESSION: 1. Decompensated heart failure. 2. CAD. 3. Diabetes mellitus. 4. Hypoxemia. DISCUSSION: Currently on non-rebreather mask May need BiPAP. She will need diuresis vs HD. I will follow carefully. Devin Krishnamurthy Omar Syed MD Jan 10, 2020 15:03
[2020-01-10] MEDS ORDERED: Tubing Blood Filter IV ONE (15:14)
[2020-01-10] MEDS ORDERED: NS 275ml ONE (15:14)
[2020-01-10 15:46] VITALS: BP 107/55
--- NOTE | 2020-01-10 17:52 | Surgery Progress Note ---
Surgery Progress Note Subjective Additional Comments leukocytosis troponin stable no bleeding feels better today Objective Last 24 Hour Vital Signs Date Time Temp Pulse Resp B/P (MAP) Pulse Ox O2 Delivery O2 Flow Rate FiO2 01/10/20 16:00 3.0 01/10/20 16:00 Nasal Cannula 3.0 01/10/20 15:46 97.7 70 16 107/55 (72) 99 01/10/20 15:22 68 01/10/20 12:14 98.2 70 22 102/55 (71) 97 01/10/20 12:00 3.0 01/10/20 12:00 Nasal Cannula 3.0 01/10/20 11:41 68 01/10/20 10:54 3.0 01/10/20 10:03 14.0 55 01/10/20 10:00 Venturi Mask 14.0 01/10/20 09:10 72 109/57 01/10/20 08:00 Non-Rebreather 5.0 01/10/20 08:00 97.5 72 22 109/57 (74) 97 01/10/20 08:00 5.0 01/10/20 07:40 74 01/10/20 04:00 Non-Rebreather 5.0 01/10/20 04:00 5.0 01/10/20 04:00 98.1 80 24 117/58 (77) 98 01/10/20 03:37 76 01/10/20 00:00 5.0 01/10/20 00:00 98.6 75 26 114/53 (73) 98 01/10/20 00:00 Non-Rebreather 5.0 01/09/20 23:29 77 01/09/20 20:24 89 122/65 01/09/20 20:00 15.0 01/09/20 20:00 97.5 89 26 122/65 (84) 96 01/09/20 20:00 Non-Rebreather 15.0 01/09/20 19:07 91 Non-Rebreather 15.0 100 01/09/20 19:07 91 I&O Intake and Output 01/09/20 01/10/20 19:00 07:00 Intake Total 754.816 ml 167.643 ml Output Total 525 ml 100 ml Balance 229.816 ml 67.643 ml Intake Oral 600 ml IV Total 154.816 ml 167.643 ml Output Urine Total 525 ml 100 ml # Voids 1 # Bowel Movements 4 1 Dressing: dry Wound: clean Cardiovascular: RSR Respiratory: clear Abdomen: soft, flat, non-tender, present bowel sounds Extremities: no tenderness, no cyanosis Laboratory Tests Test 01/09/20 19:05 01/09/20 20:22 01/09/20 21:18 01/10/20 02:00 Activated Partial Thromboplast Time 44 SEC (23-33) H 111 SEC (23-33) H Troponin I 2.881 ng/mL (0.000-0.056) 2.825 ng/mL (0.000-0.056) POC Whole Blood Glucose 91 MG/DL (74-106) White Blood Count 17.8 K/UL (4.8-10.8) H Red Blood Count 2.83 M/UL (4.20-5.40) L Hemoglobin 9.2 G/DL (12.0-16.0) #L Hematocrit 27.9 % (37.0-47.0) L Mean Corpuscular Volume 99 FL (80-99) Mean Corpuscular Hemoglobin 32.6 PG (27.0-31.0) H Mean Corpuscular Hemoglobin Concent 33.0 G/DL (32.0-36.0) Red Cell Distribution Width 15.4 % (11.6-14.8) H Platelet Count 258 K/UL (150-450) Mean Platelet Volume 6.8 FL (6.5-10.1) Neutrophils (%) (Auto) 89.6 % (45.0-75.0) H Lymphocytes (%) (Auto) 5.0 % (20.0-45.0) L Monocytes (%) (Auto) 4.5 % (1.0-10.0) Eosinophils (%) (Auto) 0.0 % (0.0-3.0) Basophils (%) (Auto) 0.1 % (0.0-2.0) Test 01/10/20 09:10 01/10/20 12:10 01/10/20 16:56 Activated Partial Thromboplast Time 38 SEC (23-33) H POC Whole Blood Glucose 103 MG/DL (74-106) Pending Plan Problems: (1) Hyperkalemia (2) Non-STEMI (non-ST elevated myocardial infarction) Assessment & Plan: as per cardiology (3) Acute CHF (congestive heart failure) (4) Hypertensive crisis (5) Acute renal failure Assessment & Plan: 84-year-old female history of nephrectomy for renal tumor currently with 1 kidney going into renal insufficiency. Discussed with nephrology and likely needs dialysis. An attempted right femoral hemodialysis catheter insertion was made at the bedside after consent was obtained from patient. Good venous flow identified guidewire placed but unfortunately could not dilate without resistance. No attempts were made given significant resistance and therefore procedure was aborted. Discussed with radiology for placement of internal jugular temporary catheter. Further discussions with patient revealed that she has had multiple times and interventions in the groins. 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 She remembers this post attempt. Will monitor site for hemostasis. Pressure held for approximately 20 minutes until hemostasis noted. Currently no bleeding. Discussed care plan and findings with patient. Will monitor thank you Yepez participate in patient's care on heparin gtt and asa will need to monitor closely for bleeding or hematoma given recent line (6) Anemia (7) CAD (coronary artery disease) (8) Headache (9) Head injury (10) Vomiting (11) HTN (hypertension) (12) HTN (hypertension) (13) Head trauma (14) DM (diabetes mellitus) (15) HLD (hyperlipidemia) (16) Acute coronary syndrome (17) Chronic kidney disease (18) Encounter for removal of sutures (19) Encounter for dressing change or suture removal (20) MAY (acute kidney injury) (21) Vertigo, benign paroxysmal (22) Forehead laceration (23) Episode of generalized weakness (24) Episode of generalized weakness (25) Episode of generalized weakness (26) Episode of generalized weakness (27) Renal failure (ARF), acute on chronic Fernando Ureña Jan 10, 2020 17:52
[2020-01-10 20:00] VITALS: BP 118/59
[2020-01-10] MEDS: Dyna-Hex 2% Top Sol 2oz TOPIC SCH (20:58)
[2020-01-10] MEDS: Atorvastatin 80mg tab ORAL SCH (20:59)
--- NOTE | 2020-01-10 21:47 | Internal Med Progress Note ---
Subjective Date of Service: Jan 10, 2020 Physician Name Pradeep Madrigal Attending Physician Noel Mckenna MD Current Medications Medications (Trade) Dose Ordered Sig/Floresita Route PRN Reason Start Time Stop Time Status Last Admin Dose Admin Acetaminophen (Tylenol) 650 mg Q4H PRN ORAL Mild Pain (Pain Scale 1-3) 01/07/20 03:45 02/06/20 03:44 01/07/20 22:30 Acetaminophen/ Codeine Phosphate (Tylenol #3) 1 tab Q8H PRN ORAL For Pain 01/07/20 03:45 01/14/20 03:44 01/08/20 00:23 Albumin Human 500 ml @ 500 mls/hr Q1H PRN IV sbp<90 during hd 01/11/20 06:00 01/11/20 23:59 Aspirin (ASA) 81 mg DAILY ORAL 01/07/20 09:00 02/21/20 08:59 01/10/20 09:10 Atorvastatin Calcium (Lipitor) 80 mg BEDTIME ORAL 01/07/20 21:00 04/06/20 20:59 01/10/20 20:59 Ceftriaxone Sodium 1 gm/ Sodium Chloride 55 ml @ 110 mls/hr Q24H IVPB 01/08/20 01:00 01/15/20 00:59 01/10/20 00:35 Chlorhexidine Gluconate (Marycruz-Hex 2%) 1 applic DAILY@2000 TOPIC 01/08/20 20:00 04/07/20 19:59 01/10/20 20:58 Dextrose (Dextrose 50%) 25 ml Q30M PRN IV Hypoglycemia 01/07/20 04:00 04/06/20 03:59 Dextrose (Dextrose 50%) 50 ml Q30M PRN IV Hypoglycemia 01/07/20 04:00 04/06/20 03:59 Epoetin John (Epoetin John(ESRD on dialysis)) 3,000 unit TUE-TUE-TUE SUBQ 01/09/20 21:00 04/08/20 20:59 01/09/20 21:15 Epoetin John (Epoetin John(ESRD on dialysis)) 4,000 unit TUE- SUBQ 01/09/20 21:00 04/08/20 20:59 01/09/20 21:16 Famotidine (Pepcid) 10 mg DAILY ORAL 01/07/20 09:00 04/06/20 08:59 01/10/20 09:10 Heparin Sodium (Porcine) (Heparin Sod 1000 units/ml 10ml) 500 unit ONCE PRN IV HD 01/11/20 06:00 01/11/20 23:59 Insulin Aspart (NovoLOG) BEFORE MEALS AND HS SUBQ 01/07/20 06:30 04/06/20 06:29 01/08/20 12:07 Metoprolol Tartrate (Lopressor) 12.5 mg Q12HR ORAL 01/07/20 21:00 04/06/20 20:59 01/10/20 20:59 Morphine Sulfate (Morphine Sulfate) 4 mg Q3H PRN IVP Severe Pain (Pain Scale 7-10) 01/07/20 03:45 01/14/20 03:44 01/07/20 05:24 Nitroglycerin (Ntg) 0.4 mg Q5M PRN SL Prn Chest Pain 01/07/20 01:15 02/06/20 01:14 01/07/20 01:14 Ondansetron HCl (Zofran) 4 mg Q6H PRN IVP Nausea & Vomiting 01/07/20 03:45 02/06/20 03:44 Polyethylene Glycol (Miralax) 17 gm HSPRN PRN ORAL Constipation 01/07/20 03:45 02/06/20 03:44 Sitagliptin Phosphate (Januvia) 25 mg DAILY ORAL 01/09/20 09:00 02/08/20 08:59 01/10/20 09:11 Allergies: Coded Allergies: Crab (Verified Allergy, Mild, 05/28/16) Uncoded Allergies: SHELLFISH (Allergy, Unknown, 11/21/17) Constitutional: Reports: no symptoms HEENT: Reports: no symptoms Cardiovascular: Reports: no symptoms Respiratory: Reports: orthopnea, shortness of breath Gastrointestinal/Abdominal: Reports: nausea Genitourinary: Reports: no symptoms Neurologic/Psychiatric: Reports: no symptoms All Systems: reviewed and negative except above Objective Last Vital Signs Date Time Temp Pulse Resp B/P (MAP) Pulse Ox O2 Delivery O2 Flow Rate FiO2 01/10/20 20:59 70 115/55 01/10/20 20:00 98.8 20 98 01/10/20 20:00 3.0 01/10/20 16:00 Nasal Cannula 01/10/20 10:03 55 General Appearance: alert Neck: supple Cardiovascular: regular rhythm, no JVD, systolic murmur Respiratory/Chest: decreased breath sounds, rhonchi - bilaterally Abdomen: normal bowel sounds, non tender, soft, no mass Extremities: normal range of motion Edema: trace edema Neurologic: oriented x 3, responsive Skin: normal pigmentation Laboratory Tests Test 01/10/20 02:00 01/10/20 09:10 01/10/20 12:10 01/10/20 16:56 Activated Partial Thromboplast Time 111 SEC (23-33) H 38 SEC (23-33) H Troponin I 2.825 ng/mL (0.000-0.056) POC Whole Blood Glucose 103 MG/DL (74-106) Pending Intake and Output 01/09/20 01/10/20 19:00 07:00 Intake Total 754.816 ml 167.643 ml Output Total 525 ml 100 ml Balance 229.816 ml 67.643 ml Intake Oral 600 ml IV Total 154.816 ml 167.643 ml Output Urine Total 525 ml 100 ml # Voids 1 # Bowel Movements 4 1 Assessment/Plan Status: stable, progressing, tolerating diet Assessment/Plan Acute CHF acute hypoxic resp failure dyspnea Hyperkalemia Non-STEMI (non-ST elevated myocardial infarction) MAY on CKD elevated troponin pacemaker in situ DM HTN CAD hx GA PLAN: SDU oxygen via NC heparin drip TTE noted HD per renal glycemic control asa, plavix, statin BP control pacemaker interrogation ------> normal fx cardio/renal f/u pulm neb thoracentesis prn for pleural effusion HD for volume management will need cardiac cath at some point FULL CODE PRADEEP MADRIGAL MD INTERNAL MEDICINE [phone] time of note make not be actual encounter time. over 35 minutes spent today over 50% spent in management, discussion with pt plan of care Pradeep Madrigal MD Jan 10, 2020 21:47
[2020-01-11] VITALS: BP 118/55
[2020-01-11] MEDS: cefTRIAXone 1 GM in NS 55 ML IVPB SCH (00:33)
[2020-01-11 04:00] VITALS: BP 120/62
[2020-01-11 04:40] LABS: HEMATOCRIT 26.9 % (37.0-47.0); HEMOGLOBIN 8.6 G/DL (12.0-16.0); MEAN CORPUSCULAR VOLUME 101 FL (80-99); PLATELET COUNT 230 K/UL (150-450); RED BLOOD COUNT 2.67 M/UL (4.20-5.40); RED CELL DISTRIBUTION WIDTH 15.4 % (11.6-14.8); WHITE BLOOD COUNT 11.1 K/UL (4.8-10.8)
[2020-01-11 05:11] LABS: ANION GAP 10 mmol/L (5-15); BLOOD UREA NITROGEN 36 mg/dL (7-18); CALCIUM 8.3 MG/DL (8.5-10.1); CARBON DIOXIDE 26 MMOL/L (21-32); CHLORIDE 100 MMOL/L (98-107); CREATININE 3.6 MG/DL (0.55-1.30); POTASSIUM 3.3 MMOL/L (3.5-5.1); SODIUM 135 MMOL/L (136-145)
[2020-01-11] MEDS: NovoLOG Insulin Flexpen SUBQ SCH ×4 (05:36→20:39)
[2020-01-11] MEDS ORDERED: Heparin Sod 1000 units/ml 10ml IV PRN (06:00)
--- NOTE | 2020-01-11 07:46 | Pulmonology Progress Note ---
Subjective Interval Events: none new reported Constitutional: Reports: no symptoms HEENT: Repors: no symptoms Respiratory: Reports: shortness of breath Cardiovascular: Reports: no symptoms Gastrointestinal/Abdominal: Reports: no symptoms Allergies: Coded Allergies: Crab (Verified Allergy, Mild, 05/28/16) Uncoded Allergies: SHELLFISH (Allergy, Unknown, 11/21/17) All Systems: reviewed and negative except above Objective Last 24 Hour Vital Signs Date Time Temp Pulse Resp B/P (MAP) Pulse Ox O2 Delivery O2 Flow Rate FiO2 01/11/20 07:03 67 16 100 Nasal Cannula 2.0 28 01/11/20 07:03 100 Nasal Cannula 2.0 28 01/11/20 04:00 98.4 70 20 120/62 (81) 99 01/11/20 04:00 2.0 01/11/20 04:00 Nasal Cannula 2.0 01/11/20 03:36 68 01/11/20 01:31 Nasal Cannula 2.0 01/11/20 00:00 2.0 01/11/20 00:00 98.2 71 20 118/55 (76) 98 01/11/20 00:00 Nasal Cannula 3.0 01/10/20 23:43 72 01/10/20 20:59 70 115/55 01/10/20 20:00 Nasal Cannula 2.0 01/10/20 20:00 98.8 72 20 118/59 (78) 98 01/10/20 20:00 71 01/10/20 20:00 98 Nasal Cannula 3.0 32 01/10/20 20:00 3.0 01/10/20 16:00 3.0 01/10/20 16:00 Nasal Cannula 3.0 01/10/20 15:46 97.7 70 16 107/55 (72) 99 01/10/20 15:22 68 01/10/20 12:14 98.2 70 22 102/55 (71) 97 01/10/20 12:00 3.0 01/10/20 12:00 Nasal Cannula 3.0 01/10/20 11:41 68 01/10/20 10:54 3.0 01/10/20 10:03 14.0 55 01/10/20 10:00 Venturi Mask 14.0 01/10/20 09:10 72 109/57 01/10/20 08:00 Non-Rebreather 5.0 01/10/20 08:00 97.5 72 22 109/57 (74) 97 01/10/20 08:00 5.0 Intake and Output 01/10/20 01/11/20 19:00 07:00 Intake Total 404.0319 ml 505 ml Output Total 150 ml Balance 254.0319 ml 505 ml Intake Oral 340 ml 450 ml IV Total 64.0319 ml 55 ml Output Urine Total 150 ml # Bowel Movements 3 3 General Appearance: no acute distress HEENT: normocephalic Respiratory: chest wall non-tender, lungs clear Cardiovascular: normal peripheral pulses Abdomen: normal bowel sounds, soft, non tender Laboratory Tests 01/10/20 09:10: Activated Partial Thromboplast Time 38H 01/10/20 12:10: POC Whole Blood Glucose 103 01/10/20 16:56: POC Whole Blood Glucose [Pending] 01/11/20 03:05: White Blood Count 11.1H, Red Blood Count 2.67L, Hemoglobin 8.6L, Hematocrit 26.9L, Mean Corpuscular Volume 101H, Mean Corpuscular Hemoglobin 32.3H, Mean Corpuscular Hemoglobin Concent 32.1, Red Cell Distribution Width 15.4H, Platelet Count 230, Mean Platelet Volume 7.6, Neutrophils (%) (Auto) , Lymphocytes (%) (Auto) , Monocytes (%) (Auto) , Eosinophils (%) (Auto) , Basophils (%) (Auto) , Sodium Level 135L, Potassium Level 3.3L, Chloride Level 100, Carbon Dioxide Level 26, Anion Gap 10, Blood Urea Nitrogen 36H, Creatinine 3.6H, Estimat Glomerular Filtration Rate 14.5, Glucose Level 117H, Calcium Level 8.3L, Hepatitis A IgM Antibody [Pending], Hepatitis B Surface Antigen [ Pending], Hepatitis B Core IgM Antibody [Pending], Hepatitis C Antibody [Pending ] Current Medications Medications (Trade) Dose Ordered Sig/Floresita Route PRN Reason Start Time Stop Time Status Last Admin Dose Admin Acetaminophen (Tylenol) 650 mg Q4H PRN ORAL Mild Pain (Pain Scale 1-3) 01/07/20 03:45 02/06/20 03:44 01/07/20 22:30 Acetaminophen/ Codeine Phosphate (Tylenol #3) 1 tab Q8H PRN ORAL For Pain 01/07/20 03:45 01/14/20 03:44 01/08/20 00:23 Albumin Human 500 ml @ 500 mls/hr Q1H PRN IV sbp<90 during hd 01/11/20 06:00 01/11/20 23:59 Aspirin (ASA) 81 mg DAILY ORAL 01/07/20 09:00 02/21/20 08:59 01/10/20 09:10 Atorvastatin Calcium (Lipitor) 80 mg BEDTIME ORAL 01/07/20 21:00 04/06/20 20:59 01/10/20 20:59 Ceftriaxone Sodium 1 gm/ Sodium Chloride 55 ml @ 110 mls/hr Q24H IVPB 01/08/20 01:00 01/15/20 00:59 01/11/20 00:33 Chlorhexidine Gluconate (Marycruz-Hex 2%) 1 applic DAILY@2000 TOPIC 01/08/20 20:00 04/07/20 19:59 01/10/20 20:58 Dextrose (Dextrose 50%) 25 ml Q30M PRN IV Hypoglycemia 01/07/20 04:00 04/06/20 03:59 Dextrose (Dextrose 50%) 50 ml Q30M PRN IV Hypoglycemia 01/07/20 04:00 04/06/20 03:59 Epoetin John (Epoetin John(ESRD on dialysis)) 3,000 unit TUE-TUE-TUE SUBQ 01/09/20 21:00 04/08/20 20:59 01/09/20 21:15 Epoetin John (Epoetin John(ESRD on dialysis)) 4,000 unit SUBQ 01/09/20 21:00 04/08/20 20:59 01/09/20 21:16 Famotidine (Pepcid) 10 mg DAILY ORAL 01/07/20 09:00 04/06/20 08:59 01/10/20 09:10 Heparin Sodium (Porcine) (Heparin Sod 1000 units/ml 10ml) 500 unit ONCE PRN IV HD 01/11/20 06:00 01/11/20 23:59 Insulin Aspart (NovoLOG) BEFORE MEALS AND HS SUBQ 01/07/20 06:30 04/06/20 06:29 01/08/20 12:07 Metoprolol Tartrate (Lopressor) 12.5 mg Q12HR ORAL 01/07/20 21:00 04/06/20 20:59 01/10/20 20:59 Morphine Sulfate (Morphine Sulfate) 4 mg Q3H PRN IVP Severe Pain (Pain Scale 7-10) 01/07/20 03:45 01/14/20 03:44 01/07/20 05:24 Nitroglycerin (Ntg) 0.4 mg Q5M PRN SL Prn Chest Pain 01/07/20 01:15 02/06/20 01:14 01/07/20 01:14 Ondansetron HCl (Zofran) 4 mg Q6H PRN IVP Nausea & Vomiting 01/07/20 03:45 02/06/20 03:44 Polyethylene Glycol (Miralax) 17 gm HSPRN PRN ORAL Constipation 01/07/20 03:45 02/06/20 03:44 Sitagliptin Phosphate (Januvia) 25 mg DAILY ORAL 01/09/20 09:00 02/08/20 08:59 01/10/20 09:11 Assessment/Plan Assessment/Plan IMPRESSION: 1. Decompensated heart failure. 2. CAD. 3. Diabetes mellitus. 4. Hypoxemia. DISCUSSION: Currently on 2L/min O2 Continue HD I will follow carefully. Devin Krishnamurthy Omar Syed MD Jan 11, 2020 07:46
[2020-01-11 07:54] VITALS: BP 116/62
[2020-01-11] MEDS: Metoprolol Tartrate 12.5mg TAB ORAL SCH ×2 (08:14→20:53)
[2020-01-11] MEDS: Aspirin Baby 81mg ORAL SCH (08:32)
[2020-01-11] MEDS: sitaGLIPtin 25mg tab ORAL SCH (08:32)
--- NOTE | 2020-01-11 10:27 | Cardiac Electrophysiology PN ---
Assessment/Plan Assessment/Plan 1. Non-ST elevation myocardial infarction with peak troponin of 2.8 but no chest pain. DCed heparin drip The EKG is not reliable as it is AV paced. The troponin elevation could be also due to renal failure on HD now. Echocardiogram EF 55%. On aspirin, Lopressor 12.5 bid and Lipitor. DW patient with RN present the option of medical therapy vs Cardiac cath including the risk of her HD will become premanent after the cath. She would like to proceed with Cath and possible PCI. GIOVANNI Mckenna who also agrees. Will transfer to [facility] 2. Congestive [place] [address]. Patient also has renal failure, creatinine 3.5. Now on HD 3. Hypertension, on metoprolol 12.5 bid and HD. 4. Status post right-sided St Neo permanent pacemaker implantation with Nl Fx 5. Diabetes. 6. Renal failure. Hx of nephrectomy. Now on HD by Dr. Mckenna. DW Dr. Mckenna and RN DW transfer Ctr Subjective Subjective Got HD via new Left IJ dialysis line. No CP. ECG Paced Objective Last 24 Hour Vital Signs Date Time Temp Pulse Resp B/P (MAP) Pulse Ox O2 Delivery O2 Flow Rate FiO2 01/11/20 08:00 Nasal Cannula 2.0 01/11/20 08:00 69 01/11/20 08:00 2.0 01/11/20 07:54 98.4 68 20 116/62 (80) 98 01/11/20 07:03 67 16 100 Nasal Cannula 2.0 28 01/11/20 07:03 100 Nasal Cannula 2.0 28 01/11/20 04:00 98.4 70 20 120/62 (81) 99 01/11/20 04:00 2.0 01/11/20 04:00 Nasal Cannula 2.0 01/11/20 03:36 68 01/11/20 01:31 Nasal Cannula 2.0 01/11/20 00:00 2.0 01/11/20 00:00 98.2 71 20 118/55 (76) 98 01/11/20 00:00 Nasal Cannula 3.0 01/10/20 23:43 72 01/10/20 20:59 70 115/55 01/10/20 20:00 Nasal Cannula 2.0 01/10/20 20:00 98.8 72 20 118/59 (78) 98 01/10/20 20:00 71 01/10/20 20:00 98 Nasal Cannula 3.0 32 01/10/20 20:00 3.0 01/10/20 16:00 3.0 01/10/20 16:00 Nasal Cannula 3.0 01/10/20 15:46 97.7 70 16 107/55 (72) 99 01/10/20 15:22 68 01/10/20 12:14 98.2 70 22 102/55 (71) 97 01/10/20 12:00 3.0 01/10/20 12:00 Nasal Cannula 3.0 01/10/20 11:41 68 01/10/20 10:54 3.0 Intake and Output 01/10/20 01/11/20 19:00 07:00 Intake Total 404.0319 ml 505 ml Output Total 150 ml Balance 254.0319 ml 505 ml Intake Oral 340 ml 450 ml IV Total 64.0319 ml 55 ml Output Urine Total 150 ml # Bowel Movements 3 3 Laboratory Tests Test 01/10/20 12:10 01/10/20 16:56 01/11/20 03:05 POC Whole Blood Glucose 103 MG/DL (74-106) Pending White Blood Count 11.1 K/UL (4.8-10.8) H Red Blood Count 2.67 M/UL (4.20-5.40) L Hemoglobin 8.6 G/DL (12.0-16.0) L Hematocrit 26.9 % (37.0-47.0) L Mean Corpuscular Volume 101 FL (80-99) H Mean Corpuscular Hemoglobin 32.3 PG (27.0-31.0) H Mean Corpuscular Hemoglobin Concent 32.1 G/DL (32.0-36.0) Red Cell Distribution Width 15.4 % (11.6-14.8) H Platelet Count 230 K/UL (150-450) Mean Platelet Volume 7.6 FL (6.5-10.1) Neutrophils (%) (Auto) % (45.0-75.0) Lymphocytes (%) (Auto) % (20.0-45.0) Monocytes (%) (Auto) % (1.0-10.0) Eosinophils (%) (Auto) % (0.0-3.0) Basophils (%) (Auto) % (0.0-2.0) Sodium Level 135 MMOL/L (136-145) L Potassium Level 3.3 MMOL/L (3.5-5.1) L Chloride Level 100 MMOL/L (98-107) Carbon Dioxide Level 26 MMOL/L (21-32) Anion Gap 10 mmol/L (5-15) Blood Urea Nitrogen 36 mg/dL (7-18) H Creatinine 3.6 MG/DL (0.55-1.30) H Estimat Glomerular Filtration Rate 14.5 mL/min (>60) Glucose Level 117 MG/DL (74-106) H Calcium Level 8.3 MG/DL (8.5-10.1) L Hepatitis A IgM Antibody Pending Hepatitis B Surface Antigen Pending Hepatitis B Core IgM Antibody Pending Hepatitis C Antibody Pending Objective HEAD AND NECK: Showed no JVD.Left IG Adrian in place LUNGS: Clear. CARDIOVASCULAR: Regular S1 and S2 with no gallop. Pacemaker is in the right subclavian. ABDOMEN: Soft. EXTREMITIES: No pitting edema. Donnie Bazan MD Jan 11, 2020 10:27
[2020-01-11 11:11] LABS: HEMOGLOBIN 9.6 G/DL (12.0-16.0); MEAN CORPUSCULAR VOLUME 100 FL (80-99); PLATELET COUNT 266 K/UL (150-450); RED BLOOD COUNT 2.99 M/UL (4.20-5.40); RED CELL DISTRIBUTION WIDTH 15.8 % (11.6-14.8); WHITE BLOOD COUNT 12.9 K/UL (4.8-10.8)
[2020-01-11 11:21] LABS: ANION GAP 12 mmol/L (5-15); BLOOD UREA NITROGEN 42 mg/dL (7-18); CALCIUM 8.9 MG/DL (8.5-10.1); CARBON DIOXIDE 23 MMOL/L (21-32); CHLORIDE 97 MMOL/L (98-107); CREATININE 3.8 MG/DL (0.55-1.30); POTASSIUM 3.6 MMOL/L (3.5-5.1); SODIUM 132 MMOL/L (136-145)
[2020-01-11 12:00] VITALS: BP 109/50
--- NOTE | 2020-01-11 12:21 | Nephrology Progress Note ---
Assessment/Plan Problem List: (1) Renal failure (ARF), acute on chronic (2) Non-STEMI (non-ST elevated myocardial infarction) (3) Hyperkalemia (4) Anemia (5) HTN (hypertension) (6) DM (diabetes mellitus) (7) HLD (hyperlipidemia) Plan HD today Discussed with Dr Bazan and RN follow labs continue ASA O2 via NC PT transfer to [facility] for cardiac cath Subjective Subjective feels better Objective Objective Last 24 Hour Vital Signs Date Time Temp Pulse Resp B/P (MAP) Pulse Ox O2 Delivery O2 Flow Rate FiO2 01/11/20 12:00 2.0 01/11/20 12:00 Nasal Cannula 2.0 01/11/20 12:00 97.7 72 20 109/50 (69) 99 01/11/20 08:00 Nasal Cannula 2.0 01/11/20 08:00 69 01/11/20 08:00 2.0 01/11/20 07:54 98.4 68 20 116/62 (80) 98 01/11/20 07:03 67 16 100 Nasal Cannula 2.0 28 01/11/20 07:03 100 Nasal Cannula 2.0 28 01/11/20 04:00 98.4 70 20 120/62 (81) 99 01/11/20 04:00 2.0 01/11/20 04:00 Nasal Cannula 2.0 01/11/20 03:36 68 01/11/20 01:31 Nasal Cannula 2.0 01/11/20 00:00 2.0 01/11/20 00:00 98.2 71 20 118/55 (76) 98 01/11/20 00:00 Nasal Cannula 3.0 01/10/20 23:43 72 01/10/20 20:59 70 115/55 01/10/20 20:00 Nasal Cannula 2.0 01/10/20 20:00 98.8 72 20 118/59 (78) 98 01/10/20 20:00 71 01/10/20 20:00 98 Nasal Cannula 3.0 32 01/10/20 20:00 3.0 01/10/20 16:00 3.0 01/10/20 16:00 Nasal Cannula 3.0 01/10/20 15:46 97.7 70 16 107/55 (72) 99 01/10/20 15:22 68 Intake and Output 01/10/20 01/11/20 19:00 07:00 Intake Total 404.0319 ml 505 ml Output Total 150 ml Balance 254.0319 ml 505 ml Intake Oral 340 ml 450 ml IV Total 64.0319 ml 55 ml Output Urine Total 150 ml # Bowel Movements 3 3 Laboratory Tests 01/10/20 16:56: POC Whole Blood Glucose [Pending] 01/11/20 03:05: White Blood Count 11.1H, Red Blood Count 2.67L, Hemoglobin 8.6L, Hematocrit 26.9L, Mean Corpuscular Volume 101H, Mean Corpuscular Hemoglobin 32.3H, Mean Corpuscular Hemoglobin Concent 32.1, Red Cell Distribution Width 15.4H, Platelet Count 230, Mean Platelet Volume 7.6, Neutrophils (%) (Auto) , Lymphocytes (%) (Auto) , Monocytes (%) (Auto) , Eosinophils (%) (Auto) , Basophils (%) (Auto) , Sodium Level 135L, Potassium Level 3.3L, Chloride Level 100, Carbon Dioxide Level 26, Anion Gap 10, Blood Urea Nitrogen 36H, Creatinine 3.6H, Estimat Glomerular Filtration Rate 14.5, Glucose Level 117H, Calcium Level 8.3L, Hepatitis A IgM Antibody [Pending], Hepatitis B Surface Antigen [ Pending], Hepatitis B Core IgM Antibody [Pending], Hepatitis C Antibody [Pending ] 01/11/20 11:00: White Blood Count 12.9H, Red Blood Count 2.99L, Hemoglobin 9.6L, Hematocrit 30.0L, Mean Corpuscular Volume 100H, Mean Corpuscular Hemoglobin 32.1H, Mean Corpuscular Hemoglobin Concent 32.0, Red Cell Distribution Width 15.8H, Platelet Count 266, Mean Platelet Volume 7.6, Neutrophils (%) (Auto) , Lymphocytes (%) (Auto) , Monocytes (%) (Auto) , Eosinophils (%) (Auto) , Basophils (%) (Auto) , Sodium Level 132L, Potassium Level 3.6, Chloride Level 97L, Carbon Dioxide Level 23, Anion Gap 12, Blood Urea Nitrogen 42H, Creatinine 3.8H, Estimat Glomerular Filtration Rate 13.7, Glucose Level 209H, Calcium Level 8.9, Neutrophils % (Manual) [Pending], Lymphocytes % (Manual) [Pending], Platelet Estimate [Pending], Platelet Morphology [Pending] 01/11/20 11:34: POC Whole Blood Glucose 205H Height (Feet): 5 Height (Inches): 7.00 Weight (Pounds): 145 Cardiovascular: normal rate Respiratory/Chest: lungs clear Extremities: other - no edema Nole Mckenna MD Jan 11, 2020 12:21
--- NOTE | 2020-01-11 12:38 | Surgery Progress Note ---
Surgery Progress Note Subjective Additional Comments leukocytosis h/h stable up in chair comfortable no n/v/f/c Objective Last 24 Hour Vital Signs Date Time Temp Pulse Resp B/P (MAP) Pulse Ox O2 Delivery O2 Flow Rate FiO2 01/11/20 12:00 2.0 01/11/20 12:00 65 01/11/20 12:00 Nasal Cannula 2.0 01/11/20 12:00 97.7 72 20 109/50 (69) 99 01/11/20 08:00 Nasal Cannula 2.0 01/11/20 08:00 69 01/11/20 08:00 2.0 01/11/20 07:54 98.4 68 20 116/62 (80) 98 01/11/20 07:03 67 16 100 Nasal Cannula 2.0 28 01/11/20 07:03 100 Nasal Cannula 2.0 28 01/11/20 04:00 98.4 70 20 120/62 (81) 99 01/11/20 04:00 2.0 01/11/20 04:00 Nasal Cannula 2.0 01/11/20 03:36 68 01/11/20 01:31 Nasal Cannula 2.0 01/11/20 00:00 2.0 01/11/20 00:00 98.2 71 20 118/55 (76) 98 01/11/20 00:00 Nasal Cannula 3.0 01/10/20 23:43 72 01/10/20 20:59 70 115/55 01/10/20 20:00 Nasal Cannula 2.0 01/10/20 20:00 98.8 72 20 118/59 (78) 98 01/10/20 20:00 71 01/10/20 20:00 98 Nasal Cannula 3.0 32 01/10/20 20:00 3.0 01/10/20 16:00 3.0 01/10/20 16:00 Nasal Cannula 3.0 01/10/20 15:46 97.7 70 16 107/55 (72) 99 01/10/20 15:22 68 I&O Intake and Output 01/10/20 01/11/20 19:00 07:00 Intake Total 404.0319 ml 505 ml Output Total 150 ml Balance 254.0319 ml 505 ml Intake Oral 340 ml 450 ml IV Total 64.0319 ml 55 ml Output Urine Total 150 ml # Bowel Movements 3 3 Dressing: dry Wound: clean Cardiovascular: RSR Respiratory: clear Abdomen: soft, non-tender, present bowel sounds Extremities: no edema, no tenderness, no cyanosis Laboratory Tests Test 01/10/20 16:56 01/11/20 03:05 01/11/20 11:00 01/11/20 11:34 POC Whole Blood Glucose Pending 205 MG/DL (74-106) H White Blood Count 11.1 K/UL (4.8-10.8) H 12.9 K/UL (4.8-10.8) H Red Blood Count 2.67 M/UL (4.20-5.40) L 2.99 M/UL (4.20-5.40) L Hemoglobin 8.6 G/DL (12.0-16.0) L 9.6 G/DL (12.0-16.0) L Hematocrit 26.9 % (37.0-47.0) L 30.0 % (37.0-47.0) L Mean Corpuscular Volume 101 FL (80-99) H 100 FL (80-99) H Mean Corpuscular Hemoglobin 32.3 PG (27.0-31.0) H 32.1 PG (27.0-31.0) H Mean Corpuscular Hemoglobin Concent 32.1 G/DL (32.0-36.0) 32.0 G/DL (32.0-36.0) Red Cell Distribution Width 15.4 % (11.6-14.8) H 15.8 % (11.6-14.8) H Platelet Count 230 K/UL (150-450) 266 K/UL (150-450) Mean Platelet Volume 7.6 FL (6.5-10.1) 7.6 FL (6.5-10.1) Neutrophils (%) (Auto) % (45.0-75.0) % (45.0-75.0) Lymphocytes (%) (Auto) % (20.0-45.0) % (20.0-45.0) Monocytes (%) (Auto) % (1.0-10.0) % (1.0-10.0) Eosinophils (%) (Auto) % (0.0-3.0) % (0.0-3.0) Basophils (%) (Auto) % (0.0-2.0) % (0.0-2.0) Sodium Level 135 MMOL/L (136-145) L 132 MMOL/L (136-145) L Potassium Level 3.3 MMOL/L (3.5-5.1) L 3.6 MMOL/L (3.5-5.1) Chloride Level 100 MMOL/L (98-107) 97 MMOL/L (98-107) L Carbon Dioxide Level 26 MMOL/L (21-32) 23 MMOL/L (21-32) Anion Gap 10 mmol/L (5-15) 12 mmol/L (5-15) Blood Urea Nitrogen 36 mg/dL (7-18) H 42 mg/dL (7-18) H Creatinine 3.6 MG/DL (0.55-1.30) H 3.8 MG/DL (0.55-1.30) H Estimat Glomerular Filtration Rate 14.5 mL/min (>60) 13.7 mL/min (>60) Glucose Level 117 MG/DL (74-106) H 209 MG/DL (74-106) H Calcium Level 8.3 MG/DL (8.5-10.1) L 8.9 MG/DL (8.5-10.1) Hepatitis A IgM Antibody Pending Hepatitis B Surface Antigen Pending Hepatitis B Core IgM Antibody Pending Hepatitis C Antibody Pending Differential Total Cells Counted 100 Neutrophils % (Manual) 87 % (45-75) H Lymphocytes % (Manual) 9 % (20-45) L Monocytes % (Manual) 3 % (1-10) Eosinophils % (Manual) 1 % (0-3) Basophils % (Manual) 0 % (0-2) Band Neutrophils 0 % (0-8) Platelet Estimate Adequate Platelet Morphology Normal Hypochromasia 2+ Anisocytosis 1+ Plan Problems: (1) Hyperkalemia (2) Non-STEMI (non-ST elevated myocardial infarction) Assessment & Plan: as per cardiology (3) Acute CHF (congestive heart failure) (4) Hypertensive crisis (5) Acute renal failure Assessment & Plan: 84-year-old female history of nephrectomy for renal tumor currently with 1 kidney going into renal insufficiency. Discussed with nephrology and likely needs dialysis. An attempted right femoral hemodialysis catheter insertion was made at the bedside after consent was obtained from patient. Good venous flow identified guidewire placed but unfortunately could not dilate without resistance. No attempts were made given significant resistance and therefore procedure was aborted. Discussed with radiology for placement of internal jugular temporary catheter. Further discussions with patient revealed that she has had multiple times and interventions in the groins. 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 She remembers this post attempt. Will monitor site for hemostasis. Pressure held for approximately 20 minutes until hemostasis noted. Currently no bleeding. Discussed care plan and findings with patient. Will monitor thank you Yepez participate in patient's care on heparin gtt and asa will need to monitor closely for bleeding or hematoma given recent line (6) Anemia (7) CAD (coronary artery disease) (8) Headache (9) Head injury (10) Vomiting (11) HTN (hypertension) (12) HTN (hypertension) (13) Head trauma (14) DM (diabetes mellitus) (15) HLD (hyperlipidemia) (16) Acute coronary syndrome (17) Chronic kidney disease (18) Encounter for removal of sutures (19) Encounter for dressing change or suture removal (20) MAY (acute kidney injury) (21) Vertigo, benign paroxysmal (22) Forehead laceration (23) Episode of generalized weakness (24) Episode of generalized weakness (25) Episode of generalized weakness (26) Episode of generalized weakness (27) Renal failure (ARF), acute on chronic Fernando Ureña Jan 11, 2020 12:38
[2020-01-11] MEDS ORDERED: Cathflo Alteplase 2mg Inj INJ SCH (14:33)
--- NOTE | 2020-01-11 15:33 | Internal Med Progress Note ---
Subjective Date of Service: Jan 11, 2020 Physician Name Pradeep Madrigal Attending Physician Noel Mckenna MD Current Medications Medications (Trade) Dose Ordered Sig/Floresita Route PRN Reason Start Time Stop Time Status Last Admin Dose Admin Acetaminophen (Tylenol) 650 mg Q4H PRN ORAL Mild Pain (Pain Scale 1-3) 01/07/20 03:45 02/06/20 03:44 01/07/20 22:30 Acetaminophen/ Codeine Phosphate (Tylenol #3) 1 tab Q8H PRN ORAL For Pain 01/07/20 03:45 01/14/20 03:44 01/08/20 00:23 Albumin Human 500 ml @ 500 mls/hr Q1H PRN IV sbp<90 during hd 01/11/20 06:00 01/11/20 23:59 Alteplase, Recombinant (Cathflo) 4 mg ONCE INJ 01/11/20 14:33 01/11/20 23:59 01/11/20 14:42 Aspirin (ASA) 81 mg DAILY ORAL 01/07/20 09:00 02/21/20 08:59 01/11/20 08:32 Atorvastatin Calcium (Lipitor) 80 mg BEDTIME ORAL 01/07/20 21:00 04/06/20 20:59 01/10/20 20:59 Ceftriaxone Sodium 1 gm/ Sodium Chloride 55 ml @ 110 mls/hr Q24H IVPB 01/08/20 01:00 01/15/20 00:59 01/11/20 00:33 Chlorhexidine Gluconate (Marycruz-Hex 2%) 1 applic DAILY@2000 TOPIC 01/08/20 20:00 04/07/20 19:59 01/10/20 20:58 Dextrose (Dextrose 50%) 25 ml Q30M PRN IV Hypoglycemia 01/07/20 04:00 04/06/20 03:59 Dextrose (Dextrose 50%) 50 ml Q30M PRN IV Hypoglycemia 01/07/20 04:00 04/06/20 03:59 Epoetin John (Epoetin John(ESRD on dialysis)) 3,000 unit TUE-TUE-TUE SUBQ 01/09/20 21:00 04/08/20 20:59 01/09/20 21:15 Epoetin John (Epoetin John(ESRD on dialysis)) 4,000 unit TUE-TUE-TUE SUBQ 01/09/20 21:00 04/08/20 20:59 01/09/20 21:16 Famotidine (Pepcid) 10 mg DAILY ORAL 01/07/20 09:00 04/06/20 08:59 01/11/20 08:32 Heparin Sodium (Porcine) (Heparin Sod 1000 units/ml 10ml) 500 unit ONCE PRN IV HD 01/11/20 06:00 01/11/20 23:59 Insulin Aspart (NovoLOG) BEFORE MEALS AND HS SUBQ 01/07/20 06:30 04/06/20 06:29 01/11/20 11:48 Metoprolol Tartrate (Lopressor) 12.5 mg Q12HR ORAL 01/07/20 21:00 04/06/20 20:59 01/10/20 20:59 Morphine Sulfate (Morphine Sulfate) 4 mg Q3H PRN IVP Severe Pain (Pain Scale 7-10) 01/07/20 03:45 01/14/20 03:44 01/07/20 05:24 Nitroglycerin (Ntg) 0.4 mg Q5M PRN SL Prn Chest Pain 01/07/20 01:15 02/06/20 01:14 01/07/20 01:14 Ondansetron HCl (Zofran) 4 mg Q6H PRN IVP Nausea & Vomiting 01/07/20 03:45 02/06/20 03:44 Polyethylene Glycol (Miralax) 17 gm HSPRN PRN ORAL Constipation 01/07/20 03:45 02/06/20 03:44 Sitagliptin Phosphate (Januvia) 25 mg DAILY ORAL 01/09/20 09:00 02/08/20 08:59 01/11/20 08:32 Allergies: Coded Allergies: Crab (Verified Allergy, Mild, 05/28/16) Uncoded Allergies: SHELLFISH (Allergy, Unknown, 11/21/17) HEENT: Reports: no symptoms Cardiovascular: Reports: no symptoms Respiratory: Reports: shortness of breath Gastrointestinal/Abdominal: Reports: no symptoms Genitourinary: Reports: no symptoms Neurologic/Psychiatric: Reports: no symptoms All Systems: reviewed and negative except above Subjective plan to transfer to [facility] for cardiac cath Objective Last Vital Signs Date Time Temp Pulse Resp B/P (MAP) Pulse Ox O2 Delivery O2 Flow Rate FiO2 01/11/20 12:00 2.0 01/11/20 12:00 65 01/11/20 12:00 Nasal Cannula 01/11/20 12:00 97.7 20 109/50 (69) 99 01/11/20 07:03 28 General Appearance: alert Neck: supple Cardiovascular: normal rate, regular rhythm, no gallop/murmur, no JVD Respiratory/Chest: lungs clear Abdomen: normal bowel sounds, non tender, soft Extremities: normal range of motion Neurologic: alert, oriented x 3, responsive Skin: normal pigmentation, warm/dry Laboratory Tests Test 01/10/20 16:56 01/11/20 03:05 01/11/20 11:00 01/11/20 11:34 POC Whole Blood Glucose Pending 205 MG/DL (74-106) H White Blood Count 11.1 K/UL (4.8-10.8) H 12.9 K/UL (4.8-10.8) H Red Blood Count 2.67 M/UL (4.20-5.40) L 2.99 M/UL (4.20-5.40) L Hemoglobin 8.6 G/DL (12.0-16.0) L 9.6 G/DL (12.0-16.0) L Hematocrit 26.9 % (37.0-47.0) L 30.0 % (37.0-47.0) L Mean Corpuscular Volume 101 FL (80-99) H 100 FL (80-99) H Mean Corpuscular Hemoglobin 32.3 PG (27.0-31.0) H 32.1 PG (27.0-31.0) H Mean Corpuscular Hemoglobin Concent 32.1 G/DL (32.0-36.0) 32.0 G/DL (32.0-36.0) Red Cell Distribution Width 15.4 % (11.6-14.8) H 15.8 % (11.6-14.8) H Platelet Count 230 K/UL (150-450) 266 K/UL (150-450) Mean Platelet Volume 7.6 FL (6.5-10.1) 7.6 FL (6.5-10.1) Neutrophils (%) (Auto) % (45.0-75.0) % (45.0-75.0) Lymphocytes (%) (Auto) % (20.0-45.0) % (20.0-45.0) Monocytes (%) (Auto) % (1.0-10.0) % (1.0-10.0) Eosinophils (%) (Auto) % (0.0-3.0) % (0.0-3.0) Basophils (%) (Auto) % (0.0-2.0) % (0.0-2.0) Sodium Level 135 MMOL/L (136-145) L 132 MMOL/L (136-145) L Potassium Level 3.3 MMOL/L (3.5-5.1) L 3.6 MMOL/L (3.5-5.1) Chloride Level 100 MMOL/L (98-107) 97 MMOL/L (98-107) L Carbon Dioxide Level 26 MMOL/L (21-32) 23 MMOL/L (21-32) Anion Gap 10 mmol/L (5-15) 12 mmol/L (5-15) Blood Urea Nitrogen 36 mg/dL (7-18) H 42 mg/dL (7-18) H Creatinine 3.6 MG/DL (0.55-1.30) H 3.8 MG/DL (0.55-1.30) H Estimat Glomerular Filtration Rate 14.5 mL/min (>60) 13.7 mL/min (>60) Glucose Level 117 MG/DL (74-106) H 209 MG/DL (74-106) H Calcium Level 8.3 MG/DL (8.5-10.1) L 8.9 MG/DL (8.5-10.1) Hepatitis A IgM Antibody Pending Hepatitis B Surface Antigen Pending Hepatitis B Core IgM Antibody Pending Hepatitis C Antibody Pending Differential Total Cells Counted 100 Neutrophils % (Manual) 87 % (45-75) H Lymphocytes % (Manual) 9 % (20-45) L Monocytes % (Manual) 3 % (1-10) Eosinophils % (Manual) 1 % (0-3) Basophils % (Manual) 0 % (0-2) Band Neutrophils 0 % (0-8) Platelet Estimate Adequate Platelet Morphology Normal Hypochromasia 2+ Anisocytosis 1+ Intake and Output 01/10/20 01/11/20 19:00 07:00 Intake Total 404.0319 ml 505 ml Output Total 150 ml Balance 254.0319 ml 505 ml Intake Oral 340 ml 450 ml IV Total 64.0319 ml 55 ml Output Urine Total 150 ml # Bowel Movements 3 3 Assessment/Plan Status: stable, progressing, tolerating diet Assessment/Plan Acute CHF acute hypoxic resp failure dyspnea Hyperkalemia Non-STEMI (non-ST elevated myocardial infarction) MAY on CKD elevated troponin pacemaker in situ DM HTN CAD hx [place] PLAN: plan to transfer to [facility] for higher level of care for cardiac cath SDU oxygen via NC heparin drip TTE noted HD per renal glycemic control asa, plavix, statin BP control pacemaker interrogation ------> normal fx cardio/renal f/u pulm neb thoracentesis prn for pleural effusion HD for volume management will need cardiac cath at some point FULL CODE PRADEEP MADRIGAL MD INTERNAL MEDICINE [phone] time of note make not be actual encounter time. over 35 minutes spent today over 50% spent in management, discussion with pt plan of care Pradeep Madrigal MD Jan 11, 2020 15:33
[2020-01-11 15:56] VITALS: BP 105/51
[2020-01-11 16:56] LABS: APPEARANCE,URINE SLIGHTLY CLOUDY; BILIRUBIN, URINE NEGATIVE (NEGATIVE); COLOR,URINE AMBER; GLUCOSE, URINE (UA) NEGATIVE (NEGATIVE); KETONES,URINE 1+ (NEGATIVE); LEUKOCYTE ESTERASE ,URINE 1+ (NEGATIVE); NITRITE,URINE NEGATIVE (NEGATIVE); PH,URINE 5 (4.5-8.0); PROTEIN,URINE 2+ (NEGATIVE); UROBILINOGEN,URINE NORMAL MG/DL (0.0-1.0)
[2020-01-11 20:00] VITALS: BP 110/64
[2020-01-11] MEDS: Atorvastatin 80mg tab ORAL SCH (20:52)
[2020-01-11] MEDS: Dyna-Hex 2% Top Sol 2oz TOPIC SCH (20:52)
[2020-01-11] MEDS: Epoetin Alfa-EPBX(ESRD on dialysis)4000 units/ml vial SUBQ SCH (20:53)
[2020-01-11] MEDS: Epoetin Alfa-EPBX(ESRD on dialysis)3000 units/ml vial SUBQ SCH (20:53)
[2020-01-11] MEDS: Heparin 5000 units/ml inj SUBQ SCH (20:56)
[2020-01-12] VITALS: BP 115/69
[2020-01-12] MEDS: cefTRIAXone 1 GM in NS 55 ML IVPB SCH (01:09)
[2020-01-12 04:00] VITALS: BP 135/59
[2020-01-12] MEDS: NovoLOG Insulin Flexpen SUBQ SCH ×4 (05:59→20:49)
[2020-01-12 08:00] VITALS: BP 116/60
[2020-01-12] MEDS: Aspirin Baby 81mg ORAL SCH (08:46)
[2020-01-12] MEDS: sitaGLIPtin 25mg tab ORAL SCH (08:46)
[2020-01-12] MEDS: Metoprolol Tartrate 12.5mg TAB ORAL SCH ×2 (08:46→20:46)
[2020-01-12] MEDS: Heparin 5000 units/ml inj SUBQ SCH ×2 (08:53→20:48)
--- NOTE | 2020-01-12 10:54 | Surgery Progress Note ---
Surgery Progress Note Subjective Additional Comments leukocytosis states feels better tolerating diet no n/v/f/c Objective Last 24 Hour Vital Signs Date Time Temp Pulse Resp B/P (MAP) Pulse Ox O2 Delivery O2 Flow Rate FiO2 01/12/20 08:46 68 116/60 01/12/20 08:00 60 01/12/20 08:00 98.1 68 17 116/60 (78) 100 01/12/20 08:00 2.0 01/12/20 08:00 Nasal Cannula 2.0 01/12/20 07:25 98 Nasal Cannula 2.0 28 01/12/20 04:00 Nasal Cannula 2.0 01/12/20 04:00 61 01/12/20 04:00 97.8 62 20 135/59 (84) 98 01/12/20 04:00 2.0 01/12/20 00:00 2.0 01/12/20 00:00 63 01/12/20 00:00 98.6 63 20 115/69 (84) 97 01/12/20 00:00 Nasal Cannula 2.0 01/11/20 20:53 68 130/64 01/11/20 20:00 Nasal Cannula 2.0 01/11/20 20:00 63 01/11/20 20:00 2.0 01/11/20 20:00 98.3 64 20 110/64 (79) 96 01/11/20 19:01 100 Nasal Cannula 2.0 28 01/11/20 16:00 2.0 01/11/20 16:00 71 01/11/20 16:00 Nasal Cannula 2.0 01/11/20 15:56 98.1 80 20 105/51 (69) 95 01/11/20 12:00 2.0 01/11/20 12:00 65 01/11/20 12:00 Nasal Cannula 2.0 01/11/20 12:00 97.7 72 20 109/50 (69) 99 I&O Intake and Output 01/11/20 01/12/20 19:00 07:00 Intake Total 500 ml 55 ml Output Total 785 ml Balance -285 ml 55 ml Intake Oral 500 ml IV Total 55 ml Output Urine Total 300 ml Other 485 ml # Voids 1 # Bowel Movements 6 Dressing: dry Wound: clean Cardiovascular: RSR Respiratory: clear Abdomen: soft, non-tender, present bowel sounds Extremities: no edema, no tenderness, no cyanosis, pulses, other Laboratory Tests Test 01/11/20 11:00 01/11/20 11:34 01/11/20 16:30 01/11/20 16:51 White Blood Count 12.9 K/UL (4.8-10.8) H Red Blood Count 2.99 M/UL (4.20-5.40) L Hemoglobin 9.6 G/DL (12.0-16.0) L Hematocrit 30.0 % (37.0-47.0) L Mean Corpuscular Volume 100 FL (80-99) H Mean Corpuscular Hemoglobin 32.1 PG (27.0-31.0) H Mean Corpuscular Hemoglobin Concent 32.0 G/DL (32.0-36.0) Red Cell Distribution Width 15.8 % (11.6-14.8) H Platelet Count 266 K/UL (150-450) Mean Platelet Volume 7.6 FL (6.5-10.1) Neutrophils (%) (Auto) % (45.0-75.0) Lymphocytes (%) (Auto) % (20.0-45.0) Monocytes (%) (Auto) % (1.0-10.0) Eosinophils (%) (Auto) % (0.0-3.0) Basophils (%) (Auto) % (0.0-2.0) Differential Total Cells Counted 100 Neutrophils % (Manual) 87 % (45-75) H Lymphocytes % (Manual) 9 % (20-45) L Monocytes % (Manual) 3 % (1-10) Eosinophils % (Manual) 1 % (0-3) Basophils % (Manual) 0 % (0-2) Band Neutrophils 0 % (0-8) Platelet Estimate Adequate Platelet Morphology Normal Hypochromasia 2+ Anisocytosis 1+ Sodium Level 132 MMOL/L (136-145) L Potassium Level 3.6 MMOL/L (3.5-5.1) Chloride Level 97 MMOL/L (98-107) L Carbon Dioxide Level 23 MMOL/L (21-32) Anion Gap 12 mmol/L (5-15) Blood Urea Nitrogen 42 mg/dL (7-18) H Creatinine 3.8 MG/DL (0.55-1.30) H Estimat Glomerular Filtration Rate 13.7 mL/min (>60) Glucose Level 209 MG/DL (74-106) H Calcium Level 8.9 MG/DL (8.5-10.1) POC Whole Blood Glucose 205 MG/DL (74-106) H 88 MG/DL (74-106) Urine Color Maude Urine Appearance Slightly cloudy Urine pH 5 (4.5-8.0) Urine Specific [place] 1.020 (1.005-1.035) Urine Protein 2+ (NEGATIVE) H Urine Glucose (UA) Negative (NEGATIVE) Urine Ketones 1+ (NEGATIVE) H Urine Blood Negative (NEGATIVE) Urine Nitrite Negative (NEGATIVE) Urine Bilirubin Negative (NEGATIVE) Urine Ictotest Negative (NEGATIVE) Urine Urobilinogen Normal MG/DL (0.0-1.0) Urine Leukocyte Esterase 1+ (NEGATIVE) H Urine RBC 0-2 /HPF (0 - 2) Urine WBC 2-4 /HPF (0 - 2) Urine Squamous Epithelial Cells Few /LPF (NONE/OCC) Urine Amorphous Sediment Moderate /LPF (NONE) H Urine Bacteria Few /HPF (NONE) Test 01/11/20 20:37 01/12/20 01:16 01/12/20 05:48 POC Whole Blood Glucose 107 MG/DL (74-106) H Pending Pending Plan Problems: (1) Hyperkalemia (2) Non-STEMI (non-ST elevated myocardial infarction) Assessment & Plan: as per cardiology (3) Acute CHF (congestive heart failure) (4) Hypertensive crisis (5) Acute renal failure Assessment & Plan: 84-year-old female history of nephrectomy for renal tumor currently with 1 kidney going into renal insufficiency. Discussed with nephrology and likely needs dialysis. An attempted right femoral hemodialysis catheter insertion was made at the bedside after consent was obtained from patient. Good venous flow identified guidewire placed but unfortunately could not dilate without resistance. No attempts were made given significant resistance and therefore procedure was aborted. Discussed with radiology for placement of internal jugular temporary catheter. Further discussions with patient revealed that she has had multiple times and interventions in the groins. 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 She remembers this post attempt. Will monitor site for hemostasis. Pressure held for approximately 20 minutes until hemostasis noted. Currently no bleeding. Discussed care plan and findings with patient. Will monitor thank you Lucho participate in patient's care on heparin gtt and asa will need to monitor closely for bleeding or hematoma given recent line (6) Anemia (7) CAD (coronary artery disease) (8) Headache (9) Head injury (10) Vomiting (11) HTN (hypertension) (12) HTN (hypertension) (13) Head trauma (14) DM (diabetes mellitus) (15) HLD (hyperlipidemia) (16) Acute coronary syndrome (17) Chronic kidney disease (18) Encounter for removal of sutures (19) Encounter for dressing change or suture removal (20) MAY (acute kidney injury) (21) Vertigo, benign paroxysmal (22) Forehead laceration (23) Episode of generalized weakness (24) Episode of generalized weakness (25) Episode of generalized weakness (26) Episode of generalized weakness (27) Renal failure (ARF), acute on chronic Fernando Ureña Jan 12, 2020 10:54
[2020-01-12 12:00] VITALS: BP 107/54
--- NOTE | 2020-01-12 12:00 | Pulmonology Progress Note ---
Subjective Interval Events: none new reported Constitutional: Reports: no symptoms HEENT: Repors: no symptoms Respiratory: Reports: shortness of breath Cardiovascular: Reports: no symptoms Gastrointestinal/Abdominal: Reports: no symptoms Allergies: Coded Allergies: Crab (Verified Allergy, Mild, 05/28/16) Uncoded Allergies: SHELLFISH (Allergy, Unknown, 11/21/17) All Systems: reviewed and negative except above Objective Last 24 Hour Vital Signs Date Time Temp Pulse Resp B/P (MAP) Pulse Ox O2 Delivery O2 Flow Rate FiO2 01/12/20 08:46 68 116/60 01/12/20 08:00 60 01/12/20 08:00 98.1 68 17 116/60 (78) 100 01/12/20 08:00 2.0 01/12/20 08:00 Nasal Cannula 2.0 01/12/20 07:25 98 Nasal Cannula 2.0 28 01/12/20 04:00 Nasal Cannula 2.0 01/12/20 04:00 61 01/12/20 04:00 97.8 62 20 135/59 (84) 98 01/12/20 04:00 2.0 01/12/20 00:00 2.0 01/12/20 00:00 63 01/12/20 00:00 98.6 63 20 115/69 (84) 97 01/12/20 00:00 Nasal Cannula 2.0 01/11/20 20:53 68 130/64 01/11/20 20:00 Nasal Cannula 2.0 01/11/20 20:00 63 01/11/20 20:00 2.0 01/11/20 20:00 98.3 64 20 110/64 (79) 96 01/11/20 19:01 100 Nasal Cannula 2.0 28 01/11/20 16:00 2.0 01/11/20 16:00 71 01/11/20 16:00 Nasal Cannula 2.0 01/11/20 15:56 98.1 80 20 105/51 (69) 95 Intake and Output 01/11/20 01/12/20 19:00 07:00 Intake Total 500 ml 55 ml Output Total 785 ml Balance -285 ml 55 ml Intake Oral 500 ml IV Total 55 ml Output Urine Total 300 ml Other 485 ml # Voids 1 # Bowel Movements 6 General Appearance: no acute distress HEENT: normocephalic Respiratory: chest wall non-tender, lungs clear Cardiovascular: normal peripheral pulses Abdomen: normal bowel sounds, soft, non tender Microbiology Date/Time Source Procedure Growth Status 01/11/20 16:36 Straight Cath Urine Culture - Preliminary NO GROWTH Resulted Laboratory Tests 01/11/20 16:30: Urine Color Maude, Urine Appearance Slightly cloudy, Urine pH 5, Urine Specific [place] 1.020, Urine Protein 2+H, Urine Glucose (UA) Negative, Urine Ketones 1+H , Urine Blood Negative, Urine Nitrite Negative, Urine Bilirubin Negative, Urine Ictotest Negative, Urine Urobilinogen Normal, Urine Leukocyte Esterase 1+H, Urine RBC 0-2, Urine WBC 2-4, Urine Squamous Epithelial Cells Few, Urine Amorphous Sediment ModerateH, Urine Bacteria Few 01/11/20 16:51: POC Whole Blood Glucose 88 01/11/20 20:37: POC Whole Blood Glucose 107H 01/12/20 01:16: POC Whole Blood Glucose [Pending] 01/12/20 05:48: POC Whole Blood Glucose [Pending] Current Medications Medications (Trade) Dose Ordered Sig/Floresita Route PRN Reason Start Time Stop Time Status Last Admin Dose Admin Acetaminophen (Tylenol) 650 mg Q4H PRN ORAL Mild Pain (Pain Scale 1-3) 01/07/20 03:45 02/06/20 03:44 01/07/20 22:30 Acetaminophen/ Codeine Phosphate (Tylenol #3) 1 tab Q8H PRN ORAL For Pain 01/07/20 03:45 01/14/20 03:44 01/08/20 00:23 Aspirin (ASA) 81 mg DAILY ORAL 01/07/20 09:00 02/21/20 08:59 01/12/20 08:46 Atorvastatin Calcium (Lipitor) 80 mg BEDTIME ORAL 01/07/20 21:00 04/06/20 20:59 01/11/20 20:52 Ceftriaxone Sodium 1 gm/ Sodium Chloride 55 ml @ 110 mls/hr Q24H IVPB 01/08/20 01:00 01/15/20 00:59 01/12/20 01:09 Chlorhexidine Gluconate (Marycruz-Hex 2%) 1 applic DAILY@2000 TOPIC 01/08/20 20:00 04/07/20 19:59 01/11/20 20:52 Dextrose (Dextrose 50%) 25 ml Q30M PRN IV Hypoglycemia 01/07/20 04:00 04/06/20 03:59 Dextrose (Dextrose 50%) 50 ml Q30M PRN IV Hypoglycemia 01/07/20 04:00 04/06/20 03:59 Epoetin John (Epoetin John(ESRD on dialysis)) 3,000 unit TUE-TUE-TUE SUBQ 01/09/20 21:00 04/08/20 20:59 01/11/20 20:53 Epoetin John (Epoetin John(ESRD on dialysis)) 4,000 unit TUE-TUE-TUE SUBQ 01/09/20 21:00 04/08/20 20:59 01/11/20 20:53 Famotidine (Pepcid) 10 mg DAILY ORAL 01/07/20 09:00 04/06/20 08:59 01/12/20 08:46 Heparin Sodium (Porcine) (Heparin 5000 units/ml) 5,000 units EVERY 12 HOURS SUBQ 01/11/20 21:00 02/25/20 20:59 01/12/20 08:53 Insulin Aspart (NovoLOG) BEFORE MEALS AND HS SUBQ 01/07/20 06:30 04/06/20 06:29 01/11/20 11:48 Metoprolol Tartrate (Lopressor) 12.5 mg Q12HR ORAL 01/07/20 21:00 04/06/20 20:59 01/12/20 08:46 Morphine Sulfate (Morphine Sulfate) 4 mg Q3H PRN IVP Severe Pain (Pain Scale 7-10) 01/07/20 03:45 01/14/20 03:44 01/07/20 05:24 Nitroglycerin (Ntg) 0.4 mg Q5M PRN SL Prn Chest Pain 01/07/20 01:15 02/06/20 01:14 01/07/20 01:14 Ondansetron HCl (Zofran) 4 mg Q6H PRN IVP Nausea & Vomiting 01/07/20 03:45 02/06/20 03:44 Polyethylene Glycol (Miralax) 17 gm HSPRN PRN ORAL Constipation 01/07/20 03:45 02/06/20 03:44 Sitagliptin Phosphate (Januvia) 25 mg DAILY ORAL 01/09/20 09:00 02/08/20 08:59 01/12/20 08:46 Assessment/Plan Assessment/Plan IMPRESSION: 1. Decompensated heart failure. 2. CAD. 3. Diabetes mellitus. 4. Hypoxemia. DISCUSSION: Currently on 2L/min O2 Continue HD I will follow carefully. Devin Krishnamurthy Omar Syed MD Jan 12, 2020 12:00
--- NOTE | 2020-01-12 13:37 | Cardiac Electrophysiology PN ---
Assessment/Plan Assessment/Plan 1. Non-ST elevation myocardial infarction with peak troponin of 2.8 but no chest pain. DCed heparin drip The EKG is not reliable as it is AV paced. The troponin elevation could be also due to renal failure on HD now. Echocardiogram EF 55%. On aspirin, Lopressor 12.5 bid and Lipitor. DW patient the option of medical therapy vs Cardiac cath including the risk of her HD will become permanent after the cath. She would like to proceed with Cath and possible PCI. GIOVANNI Mckenna who also agrees. Awaiting transfer to [facility] 2. Congestive [place] [address]. Patient also has renal failure, creatinine 3.5. Now on HD 3. Hypertension, on metoprolol 12.5 bid and HD. 4. Status post right-sided St Neo permanent pacemaker implantation with Nl Fx 5. Diabetes. 6. Renal failure. Hx of nephrectomy. Now on HD by Dr. Mckenna. DW Dr. Mckenna and RN GIOVANNI transfer Ctr Subjective Subjective S/P HD via new Left IJ dialysis line. No CP. ECG Paced. Awaiting transfer to [facility] for Cardiac cath Objective Last 24 Hour Vital Signs Date Time Temp Pulse Resp B/P (MAP) Pulse Ox O2 Delivery O2 Flow Rate FiO2 01/12/20 12:00 97.7 65 18 107/54 (71) 100 01/12/20 12:00 2.0 01/12/20 12:00 Nasal Cannula 2.0 01/12/20 11:38 63 01/12/20 08:46 68 116/60 01/12/20 08:00 60 01/12/20 08:00 98.1 68 17 116/60 (78) 100 01/12/20 08:00 2.0 01/12/20 08:00 Nasal Cannula 2.0 01/12/20 07:25 98 Nasal Cannula 2.0 28 01/12/20 04:00 Nasal Cannula 2.0 01/12/20 04:00 61 01/12/20 04:00 97.8 62 20 135/59 (84) 98 01/12/20 04:00 2.0 01/12/20 00:00 2.0 01/12/20 00:00 63 01/12/20 00:00 98.6 63 20 115/69 (84) 97 01/12/20 00:00 Nasal Cannula 2.0 01/11/20 20:53 68 130/64 01/11/20 20:00 Nasal Cannula 2.0 01/11/20 20:00 63 01/11/20 20:00 2.0 01/11/20 20:00 98.3 64 20 110/64 (79) 96 01/11/20 19:01 100 Nasal Cannula 2.0 28 01/11/20 16:00 2.0 01/11/20 16:00 71 01/11/20 16:00 Nasal Cannula 2.0 01/11/20 15:56 98.1 80 20 105/51 (69) 95 Intake and Output 01/11/20 01/12/20 19:00 07:00 Intake Total 500 ml 55 ml Output Total 785 ml Balance -285 ml 55 ml Intake Oral 500 ml IV Total 55 ml Output Urine Total 300 ml Other 485 ml # Voids 1 # Bowel Movements 6 Laboratory Tests Test 01/11/20 16:30 01/11/20 16:51 01/11/20 20:37 01/12/20 01:16 Urine Color Maude Urine Appearance Slightly cloudy Urine pH 5 (4.5-8.0) Urine Specific [place] 1.020 (1.005-1.035) Urine Protein 2+ (NEGATIVE) H Urine Glucose (UA) Negative (NEGATIVE) Urine Ketones 1+ (NEGATIVE) H Urine Blood Negative (NEGATIVE) Urine Nitrite Negative (NEGATIVE) Urine Bilirubin Negative (NEGATIVE) Urine Ictotest Negative (NEGATIVE) Urine Urobilinogen Normal MG/DL (0.0-1.0) Urine Leukocyte Esterase 1+ (NEGATIVE) H Urine RBC 0-2 /HPF (0 - 2) Urine WBC 2-4 /HPF (0 - 2) Urine Squamous Epithelial Cells Few /LPF (NONE/OCC) Urine Amorphous Sediment Moderate /LPF (NONE) H Urine Bacteria Few /HPF (NONE) POC Whole Blood Glucose 88 MG/DL (74-106) 107 MG/DL (74-106) H Pending Test 01/12/20 05:48 POC Whole Blood Glucose Pending Microbiology Date/Time Source Procedure Growth Status 01/11/20 16:36 Straight Cath Urine Culture - Preliminary NO GROWTH Resulted Objective HEAD AND NECK: Showed no JVD.Left IG Adrian in place LUNGS: Clear. CARDIOVASCULAR: Regular S1 and S2 with no gallop. Pacemaker is in the right subclavian. ABDOMEN: Soft. EXTREMITIES: No pitting edema. Donnie Bazan MD Jan 12, 2020 13:37
[2020-01-12 16:00] VITALS: BP 117/57
[2020-01-12 20:00] VITALS: BP 120/63
--- NOTE | 2020-01-12 20:20 | Nephrology Progress Note ---
Assessment/Plan Problem List: (1) Renal failure (ARF), acute on chronic (2) Non-STEMI (non-ST elevated myocardial infarction) (3) Hyperkalemia (4) Anemia (5) HTN (hypertension) (6) DM (diabetes mellitus) (7) HLD (hyperlipidemia) Plan HD PRN follow labs continue ASA O2 via NC PT transfer to [facility] for cardiac cath Subjective Subjective all noted Objective Objective Last 24 Hour Vital Signs Date Time Temp Pulse Resp B/P (MAP) Pulse Ox O2 Delivery O2 Flow Rate FiO2 01/12/20 20:00 2.0 01/12/20 20:00 Nasal Cannula 2.0 01/12/20 20:00 98.3 73 20 120/63 (82) 100 01/12/20 19:43 100 Nasal Cannula 2.0 28 01/12/20 16:00 98.1 62 20 117/57 (77) 100 01/12/20 16:00 Nasal Cannula 2.0 01/12/20 16:00 64 01/12/20 16:00 2.0 01/12/20 12:00 97.7 65 18 107/54 (71) 100 01/12/20 12:00 2.0 01/12/20 12:00 Nasal Cannula 2.0 01/12/20 11:38 63 01/12/20 08:46 68 116/60 01/12/20 08:00 60 01/12/20 08:00 98.1 68 17 116/60 (78) 100 01/12/20 08:00 2.0 01/12/20 08:00 Nasal Cannula 2.0 01/12/20 07:25 98 Nasal Cannula 2.0 28 01/12/20 04:00 Nasal Cannula 2.0 01/12/20 04:00 61 01/12/20 04:00 97.8 62 20 135/59 (84) 98 01/12/20 04:00 2.0 01/12/20 00:00 2.0 01/12/20 00:00 63 01/12/20 00:00 98.6 63 20 115/69 (84) 97 01/12/20 00:00 Nasal Cannula 2.0 01/11/20 20:53 68 130/64 Intake and Output 01/11/20 01/12/20 19:00 07:00 Intake Total 500 ml 55 ml Output Total 785 ml Balance -285 ml 55 ml Intake Oral 500 ml IV Total 55 ml Output Urine Total 300 ml Other 485 ml # Voids 1 # Bowel Movements 6 Laboratory Tests 01/11/20 20:37: POC Whole Blood Glucose 107H 01/12/20 01:16: POC Whole Blood Glucose [Pending] 01/12/20 05:48: POC Whole Blood Glucose [Pending] Height (Feet): 5 Height (Inches): 7.00 Weight (Pounds): 146 Noel Mckenna MD Jan 12, 2020 20:20
[2020-01-12] MEDS: Atorvastatin 80mg tab ORAL SCH (20:46)
[2020-01-12] MEDS: Dyna-Hex 2% Top Sol 2oz TOPIC SCH (20:47)
[2020-01-13] VITALS: BP 106/56
[2020-01-13] MEDS: cefTRIAXone 1 GM in NS 55 ML IVPB SCH (00:14)
[2020-01-13 04:00] VITALS: BP 131/58
[2020-01-13] MEDS: NovoLOG Insulin Flexpen SUBQ SCH ×3 (06:30→16:30)
[2020-01-13 08:00] VITALS: BP 117/60
[2020-01-13] MEDS: Aspirin Baby 81mg ORAL SCH (08:25)
[2020-01-13] MEDS: sitaGLIPtin 25mg tab ORAL SCH (08:25)
[2020-01-13] MEDS: Metoprolol Tartrate 12.5mg TAB ORAL SCH (08:25)
[2020-01-13] MEDS: Heparin 5000 units/ml inj SUBQ SCH (08:28)
[2020-01-13] MEDS ORDERED: NS 275ml ONE (08:32)
--- NOTE | 2020-01-13 11:02 | Pulmonology Progress Note ---
Subjective Interval Events: none new reported Constitutional: Reports: no symptoms HEENT: Repors: no symptoms Respiratory: Reports: shortness of breath Cardiovascular: Reports: no symptoms Gastrointestinal/Abdominal: Reports: no symptoms Allergies: Coded Allergies: Crab (Verified Allergy, Mild, 05/28/16) Uncoded Allergies: SHELLFISH (Allergy, Unknown, 11/21/17) All Systems: reviewed and negative except above Objective Last 24 Hour Vital Signs Date Time Temp Pulse Resp B/P (MAP) Pulse Ox O2 Delivery O2 Flow Rate FiO2 01/13/20 09:00 Nasal Cannula 2.0 01/13/20 09:00 60 01/13/20 08:25 82 117/60 01/13/20 08:00 98.1 82 19 117/60 (79) 99 01/13/20 08:00 2.0 01/13/20 07:45 100 Nasal Cannula 2.0 28 01/13/20 04:00 Nasal Cannula 2.0 01/13/20 04:00 97.7 63 18 131/58 (82) 100 01/13/20 04:00 2.0 01/13/20 03:31 73 01/13/20 00:00 66 01/13/20 00:00 Nasal Cannula 2.0 01/13/20 00:00 98.1 66 20 106/56 (73) 100 01/13/20 00:00 2.0 01/12/20 20:46 73 120/63 01/12/20 20:00 2.0 01/12/20 20:00 Nasal Cannula 2.0 01/12/20 20:00 98.3 73 20 120/63 (82) 100 01/12/20 19:43 100 Nasal Cannula 2.0 28 01/12/20 19:29 68 01/12/20 16:00 98.1 62 20 117/57 (77) 100 01/12/20 16:00 Nasal Cannula 2.0 01/12/20 16:00 64 01/12/20 16:00 2.0 01/12/20 12:00 97.7 65 18 107/54 (71) 100 01/12/20 12:00 2.0 01/12/20 12:00 Nasal Cannula 2.0 01/12/20 11:38 63 Intake and Output 01/12/20 01/13/20 19:00 07:00 Intake Total 550 ml 290 ml Balance 550 ml 290 ml Intake Oral 550 ml 180 ml IV Total 110 ml # Voids 2 2 # Bowel Movements 3 2 General Appearance: no acute distress HEENT: normocephalic Respiratory: chest wall non-tender, lungs clear Cardiovascular: normal peripheral pulses Abdomen: normal bowel sounds, soft, non tender Microbiology Date/Time Source Procedure Growth Status 01/11/20 16:36 Straight Cath Urine Culture - Preliminary NO GROWTH AFTER 24 HOURS Resulted Laboratory Tests 01/12/20 20:43: POC Whole Blood Glucose 114H 01/13/20 05:25: POC Whole Blood Glucose 85 Current Medications Medications (Trade) Dose Ordered Sig/Floresita Route PRN Reason Start Time Stop Time Status Last Admin Dose Admin Acetaminophen (Tylenol) 650 mg Q4H PRN ORAL Mild Pain (Pain Scale 1-3) 01/07/20 03:45 02/06/20 03:44 01/07/20 22:30 Acetaminophen/ Codeine Phosphate (Tylenol #3) 1 tab Q8H PRN ORAL For Pain 01/07/20 03:45 01/14/20 03:44 01/08/20 00:23 Aspirin (ASA) 81 mg DAILY ORAL 01/07/20 09:00 02/21/20 08:59 01/13/20 08:25 Atorvastatin Calcium (Lipitor) 80 mg BEDTIME ORAL 01/07/20 21:00 04/06/20 20:59 01/12/20 20:46 Ceftriaxone Sodium 1 gm/ Sodium Chloride 55 ml @ 110 mls/hr Q24H IVPB 01/08/20 01:00 01/15/20 00:59 01/13/20 00:14 Chlorhexidine Gluconate (Marycruz-Hex 2%) 1 applic DAILY@2000 TOPIC 01/08/20 20:00 04/07/20 19:59 01/12/20 20:47 Dextrose (Dextrose 50%) 25 ml Q30M PRN IV Hypoglycemia 01/07/20 04:00 04/06/20 03:59 Dextrose (Dextrose 50%) 50 ml Q30M PRN IV Hypoglycemia 01/07/20 04:00 04/06/20 03:59 Epoetin John (Epoetin John(ESRD on dialysis)) 3,000 unit TUE-TUE-TUE SUBQ 01/09/20 21:00 04/08/20 20:59 01/11/20 20:53 Epoetin John (Epoetin John(ESRD on dialysis)) 4,000 unit TUE-TUE-TUE SUBQ 01/09/20 21:00 04/08/20 20:59 01/11/20 20:53 Famotidine (Pepcid) 10 mg DAILY ORAL 01/07/20 09:00 04/06/20 08:59 01/13/20 08:25 Heparin Sodium (Porcine) (Heparin 5000 units/ml) 5,000 units EVERY 12 HOURS SUBQ 01/11/20 21:00 02/25/20 20:59 01/13/20 08:28 Insulin Aspart (NovoLOG) BEFORE MEALS AND HS SUBQ 01/07/20 06:30 04/06/20 06:29 01/11/20 11:48 Metoprolol Tartrate (Lopressor) 12.5 mg Q12HR ORAL 01/07/20 21:00 04/06/20 20:59 01/13/20 08:25 Morphine Sulfate (Morphine Sulfate) 4 mg Q3H PRN IVP Severe Pain (Pain Scale 7-10) 01/07/20 03:45 01/14/20 03:44 01/07/20 05:24 Nitroglycerin (Ntg) 0.4 mg Q5M PRN SL Prn Chest Pain 01/07/20 01:15 02/06/20 01:14 01/07/20 01:14 Ondansetron HCl (Zofran) 4 mg Q6H PRN IVP Nausea & Vomiting 01/07/20 03:45 02/06/20 03:44 Polyethylene Glycol (Miralax) 17 gm HSPRN PRN ORAL Constipation 01/07/20 03:45 02/06/20 03:44 Sitagliptin Phosphate (Januvia) 25 mg DAILY ORAL 01/09/20 09:00 02/08/20 08:59 01/13/20 08:25 Assessment/Plan Assessment/Plan IMPRESSION: 1. Decompensated heart failure. 2. CAD. 3. Diabetes mellitus. 4. Hypoxemia. DISCUSSION: Currently on 2L/min O2 Continue HD I will follow carefully. Jet Tirmizi, M.D. Tirmizi,Jet Kj MD Jan 13, 2020 11:02
[2020-01-13 12:00] VITALS: BP 122/59
--- NOTE | 2020-01-13 12:19 | Nephrology Progress Note ---
Assessment/Plan Problem List: (1) Renal failure (ARF), acute on chronic (2) Non-STEMI (non-ST elevated myocardial infarction) (3) Hyperkalemia (4) Anemia (5) HTN (hypertension) (6) DM (diabetes mellitus) (7) HLD (hyperlipidemia) Plan HD tomorrow follow labs continue ASA O2 via NC PT transfer to [facility] for cardiac cath Subjective Subjective feels better Objective Objective Last 24 Hour Vital Signs Date Time Temp Pulse Resp B/P (MAP) Pulse Ox O2 Delivery O2 Flow Rate FiO2 01/13/20 09:00 Nasal Cannula 2.0 01/13/20 09:00 60 01/13/20 08:25 82 117/60 01/13/20 08:00 98.1 82 19 117/60 (79) 99 01/13/20 08:00 2.0 01/13/20 07:45 100 Nasal Cannula 2.0 28 01/13/20 04:00 Nasal Cannula 2.0 01/13/20 04:00 97.7 63 18 131/58 (82) 100 01/13/20 04:00 2.0 01/13/20 03:31 73 01/13/20 00:00 66 01/13/20 00:00 Nasal Cannula 2.0 01/13/20 00:00 98.1 66 20 106/56 (73) 100 01/13/20 00:00 2.0 01/12/20 20:46 73 120/63 01/12/20 20:00 2.0 01/12/20 20:00 Nasal Cannula 2.0 01/12/20 20:00 98.3 73 20 120/63 (82) 100 01/12/20 19:43 100 Nasal Cannula 2.0 28 01/12/20 19:29 68 01/12/20 16:00 98.1 62 20 117/57 (77) 100 01/12/20 16:00 Nasal Cannula 2.0 01/12/20 16:00 64 01/12/20 16:00 2.0 Intake and Output 01/12/20 01/13/20 19:00 07:00 Intake Total 550 ml 290 ml Balance 550 ml 290 ml Intake Oral 550 ml 180 ml IV Total 110 ml # Voids 2 2 # Bowel Movements 3 2 Laboratory Tests 01/12/20 20:43: POC Whole Blood Glucose 114H 01/13/20 05:25: POC Whole Blood Glucose 85 01/13/20 11:44: POC Whole Blood Glucose 90 Height (Feet): 5 Height (Inches): 7.00 Weight (Pounds): 143 Cardiovascular: normal rate Respiratory/Chest: lungs clear Extremities: no edema Noel Mckenna MD Jan 13, 2020 12:19
--- NOTE | 2020-01-13 12:44 | Internal Med Progress Note ---
Subjective Date of Service: Jan 12, 2020 Physician Name Pradeep Madrigal Attending Physician Noel Mckenna MD Current Medications Medications (Trade) Dose Ordered Sig/Floresita Route PRN Reason Start Time Stop Time Status Last Admin Dose Admin Acetaminophen (Tylenol) 650 mg Q4H PRN ORAL Mild Pain (Pain Scale 1-3) 01/07/20 03:45 02/06/20 03:44 01/07/20 22:30 Acetaminophen/ Codeine Phosphate (Tylenol #3) 1 tab Q8H PRN ORAL For Pain 01/07/20 03:45 01/14/20 03:44 01/08/20 00:23 Aspirin (ASA) 81 mg DAILY ORAL 01/07/20 09:00 02/21/20 08:59 01/13/20 08:25 Atorvastatin Calcium (Lipitor) 80 mg BEDTIME ORAL 01/07/20 21:00 04/06/20 20:59 01/12/20 20:46 Ceftriaxone Sodium 1 gm/ Sodium Chloride 55 ml @ 110 mls/hr Q24H IVPB 01/08/20 01:00 01/15/20 00:59 01/13/20 00:14 Chlorhexidine Gluconate (Marycruz-Hex 2%) 1 applic DAILY@2000 TOPIC 01/08/20 20:00 04/07/20 19:59 01/12/20 20:47 Dextrose (Dextrose 50%) 25 ml Q30M PRN IV Hypoglycemia 01/07/20 04:00 04/06/20 03:59 Dextrose (Dextrose 50%) 50 ml Q30M PRN IV Hypoglycemia 01/07/20 04:00 04/06/20 03:59 Epoetin John (Epoetin John(ESRD on dialysis)) 3,000 unit TUE-TUE-TUE SUBQ 01/09/20 21:00 04/08/20 20:59 01/11/20 20:53 Epoetin John (Epoetin John(ESRD on dialysis)) 4,000 unit TUE-TUE-TUE SUBQ 01/09/20 21:00 04/08/20 20:59 01/11/20 20:53 Famotidine (Pepcid) 10 mg DAILY ORAL 01/07/20 09:00 04/06/20 08:59 01/13/20 08:25 Heparin Sodium (Porcine) (Heparin 5000 units/ml) 5,000 units EVERY 12 HOURS SUBQ 01/11/20 21:00 02/25/20 20:59 01/13/20 08:28 Heparin Sodium (Porcine) (Heparin Sod 1000 units/ml 10ml) 500 unit ONCE ONCE IV 01/14/20 12:30 01/14/20 12:31 Insulin Aspart (NovoLOG) BEFORE MEALS AND HS SUBQ 01/07/20 06:30 04/06/20 06:29 01/11/20 11:48 Metoprolol Tartrate (Lopressor) 12.5 mg Q12HR ORAL 01/07/20 21:00 04/06/20 20:59 01/13/20 08:25 Morphine Sulfate (Morphine Sulfate) 4 mg Q3H PRN IVP Severe Pain (Pain Scale 7-10) 01/07/20 03:45 01/14/20 03:44 01/07/20 05:24 Nitroglycerin (Ntg) 0.4 mg Q5M PRN SL Prn Chest Pain 01/07/20 01:15 02/06/20 01:14 01/07/20 01:14 Ondansetron HCl (Zofran) 4 mg Q6H PRN IVP Nausea & Vomiting 01/07/20 03:45 02/06/20 03:44 Polyethylene Glycol (Miralax) 17 gm HSPRN PRN ORAL Constipation 01/07/20 03:45 02/06/20 03:44 Sitagliptin Phosphate (Januvia) 25 mg DAILY ORAL 01/09/20 09:00 02/08/20 08:59 01/13/20 08:25 Sodium Chloride 1,000 ml @ 500 mls/hr Q2H PRN IVLG sbp<90 during hd 01/14/20 12:19 02/13/20 12:18 Allergies: Coded Allergies: Crab (Verified Allergy, Mild, 05/28/16) Uncoded Allergies: SHELLFISH (Allergy, Unknown, 11/21/17) Constitutional: Reports: no symptoms HEENT: Reports: no symptoms Respiratory: Reports: no symptoms Gastrointestinal/Abdominal: Reports: no symptoms Genitourinary: Reports: no symptoms Neurologic/Psychiatric: Reports: no symptoms All Systems: reviewed and negative except above Subjective plan to transfer to [facility] for cardiac cath Objective Last Vital Signs Date Time Temp Pulse Resp B/P (MAP) Pulse Ox O2 Delivery O2 Flow Rate FiO2 01/13/20 09:00 Nasal Cannula 2.0 01/13/20 09:00 60 01/13/20 08:25 117/60 01/13/20 08:00 98.1 19 99 01/13/20 07:45 28 General Appearance: alert Neck: non-tender, normal inspection Cardiovascular: normal rate, regular rhythm Respiratory/Chest: rhonchi - left Abdomen: non tender, soft, no mass Neurologic: alert, oriented x 3, responsive Skin: normal pigmentation, warm/dry Laboratory Tests Test 01/12/20 20:43 01/13/20 05:25 01/13/20 11:44 POC Whole Blood Glucose 114 MG/DL (74-106) H 85 MG/DL (74-106) 90 MG/DL (74-106) Microbiology Date/Time Source Procedure Growth Status 01/11/20 16:36 Straight Cath Urine Culture - Preliminary NO GROWTH AFTER 24 HOURS Resulted Intake and Output 01/12/20 01/13/20 19:00 07:00 Intake Total 550 ml 290 ml Balance 550 ml 290 ml Intake Oral 550 ml 180 ml IV Total 110 ml # Voids 2 2 # Bowel Movements 3 2 Assessment/Plan Status: progressing, tolerating diet Assessment/Plan Acute CHF acute hypoxic resp failure dyspnea Hyperkalemia Non-STEMI (non-ST elevated myocardial infarction) MAY on CKD elevated troponin pacemaker in situ DM HTN CAD hx ND PLAN: plan to transfer to [facility] for higher level of care for cardiac cath SDU oxygen via NC heparin drip TTE noted HD per renal glycemic control asa, plavix, statin BP control pacemaker interrogation ------> normal fx cardio/renal f/u pulm neb thoracentesis prn for pleural effusion HD for volume management will need cardiac cath at some point FULL CODE PRADEEP MADRIGAL MD INTERNAL MEDICINE [phone] time of note make not be actual encounter time. over 35 minutes spent today over 50% spent in management, discussion with pt plan of care Pradeep Madrigal MD Jan 13, 2020 12:44
--- NOTE | 2020-01-13 12:46 | Internal Med Progress Note ---
Subjective Date of Service: Jan 13, 2020 Physician Name Pradeep Madrigal Attending Physician Noel Mckenna MD Current Medications Medications (Trade) Dose Ordered Sig/Floresita Route PRN Reason Start Time Stop Time Status Last Admin Dose Admin Acetaminophen (Tylenol) 650 mg Q4H PRN ORAL Mild Pain (Pain Scale 1-3) 01/07/20 03:45 02/06/20 03:44 01/07/20 22:30 Acetaminophen/ Codeine Phosphate (Tylenol #3) 1 tab Q8H PRN ORAL For Pain 01/07/20 03:45 01/14/20 03:44 01/08/20 00:23 Aspirin (ASA) 81 mg DAILY ORAL 01/07/20 09:00 02/21/20 08:59 01/13/20 08:25 Atorvastatin Calcium (Lipitor) 80 mg BEDTIME ORAL 01/07/20 21:00 04/06/20 20:59 01/12/20 20:46 Ceftriaxone Sodium 1 gm/ Sodium Chloride 55 ml @ 110 mls/hr Q24H IVPB 01/08/20 01:00 01/15/20 00:59 01/13/20 00:14 Chlorhexidine Gluconate (Marycruz-Hex 2%) 1 applic DAILY@2000 TOPIC 01/08/20 20:00 04/07/20 19:59 01/12/20 20:47 Dextrose (Dextrose 50%) 25 ml Q30M PRN IV Hypoglycemia 01/07/20 04:00 04/06/20 03:59 Dextrose (Dextrose 50%) 50 ml Q30M PRN IV Hypoglycemia 01/07/20 04:00 04/06/20 03:59 Epoetin John (Epoetin Jonh(ESRD on dialysis)) 3,000 unit TUE-TUE-TUE SUBQ 01/09/20 21:00 04/08/20 20:59 01/11/20 20:53 Epoetin John (Epoetin John(ESRD on dialysis)) 4,000 unit TUE-TUE-TUE SUBQ 01/09/20 21:00 04/08/20 20:59 01/11/20 20:53 Famotidine (Pepcid) 10 mg DAILY ORAL 01/07/20 09:00 04/06/20 08:59 01/13/20 08:25 Heparin Sodium (Porcine) (Heparin 5000 units/ml) 5,000 units EVERY 12 HOURS SUBQ 01/11/20 21:00 02/25/20 20:59 01/13/20 08:28 Heparin Sodium (Porcine) (Heparin Sod 1000 units/ml 10ml) 500 unit ONCE ONCE IV 01/14/20 12:30 01/14/20 12:31 Insulin Aspart (NovoLOG) BEFORE MEALS AND HS SUBQ 01/07/20 06:30 04/06/20 06:29 01/11/20 11:48 Metoprolol Tartrate (Lopressor) 12.5 mg Q12HR ORAL 01/07/20 21:00 04/06/20 20:59 01/13/20 08:25 Morphine Sulfate (Morphine Sulfate) 4 mg Q3H PRN IVP Severe Pain (Pain Scale 7-10) 01/07/20 03:45 01/14/20 03:44 01/07/20 05:24 Nitroglycerin (Ntg) 0.4 mg Q5M PRN SL Prn Chest Pain 01/07/20 01:15 02/06/20 01:14 01/07/20 01:14 Ondansetron HCl (Zofran) 4 mg Q6H PRN IVP Nausea & Vomiting 01/07/20 03:45 02/06/20 03:44 Polyethylene Glycol (Miralax) 17 gm HSPRN PRN ORAL Constipation 01/07/20 03:45 02/06/20 03:44 Sitagliptin Phosphate (Januvia) 25 mg DAILY ORAL 01/09/20 09:00 02/08/20 08:59 01/13/20 08:25 Sodium Chloride 1,000 ml @ 500 mls/hr Q2H PRN IVLG sbp<90 during hd 01/14/20 12:19 02/13/20 12:18 Allergies: Coded Allergies: Crab (Verified Allergy, Mild, 05/28/16) Uncoded Allergies: SHELLFISH (Allergy, Unknown, 11/21/17) Constitutional: Reports: no symptoms HEENT: Reports: no symptoms Cardiovascular: Reports: no symptoms Respiratory: Reports: no symptoms Gastrointestinal/Abdominal: Reports: no symptoms Genitourinary: Reports: no symptoms Neurologic/Psychiatric: Reports: no symptoms All Systems: reviewed and negative except above Subjective plan to transfer to [facility] for cardiac cath Objective Last Vital Signs Date Time Temp Pulse Resp B/P (MAP) Pulse Ox O2 Delivery O2 Flow Rate FiO2 01/13/20 09:00 Nasal Cannula 2.0 01/13/20 09:00 60 01/13/20 08:25 117/60 01/13/20 08:00 98.1 19 99 01/13/20 07:45 28 General Appearance: no apparent distress, alert EENT: normal ENT inspection Neck: non-tender, supple Cardiovascular: normal rate, regular rhythm, no JVD Respiratory/Chest: lungs clear Abdomen: normal bowel sounds, non tender, soft Extremities: normal range of motion, non-tender Neurologic: alert, oriented x 3, responsive Skin: normal pigmentation, warm/dry Laboratory Tests Test 01/12/20 20:43 01/13/20 05:25 01/13/20 11:44 POC Whole Blood Glucose 114 MG/DL (74-106) H 85 MG/DL (74-106) 90 MG/DL (74-106) Microbiology Date/Time Source Procedure Growth Status 01/11/20 16:36 Straight Cath Urine Culture - Preliminary NO GROWTH AFTER 24 HOURS Resulted Intake and Output 01/12/20 01/13/20 19:00 07:00 Intake Total 550 ml 290 ml Balance 550 ml 290 ml Intake Oral 550 ml 180 ml IV Total 110 ml # Voids 2 2 # Bowel Movements 3 2 Assessment/Plan Status: stable, progressing, tolerating diet Assessment/Plan Acute CHF acute hypoxic resp failure dyspnea Hyperkalemia Non-STEMI (non-ST elevated myocardial infarction) MAY on CKD elevated troponin pacemaker in situ DM HTN CAD hx ME PLAN: plan to transfer to [facility] for higher level of care for cardiac cath SDU oxygen via [place] heparin drip TTE noted HD per renal glycemic control asa, plavix, statin BP control pacemaker interrogation ------> normal fx cardio/renal f/u pulm neb thoracentesis prn for pleural effusion HD for volume management will need cardiac cath at some point FULL CODE PRADEEP MADRIGAL MD INTERNAL MEDICINE [phone] time of note make not be actual encounter time. over 35 minutes spent today over 50% spent in management, discussion with pt plan of care Pradeep Madrigal MD Jan 13, 2020 12:45
--- NOTE | 2020-01-13 12:50 | Surgery Progress Note ---
Surgery Progress Note Subjective Additional Comments labs noted exam stable comfortable no complaints no n/v/f/c Objective Last 24 Hour Vital Signs Date Time Temp Pulse Resp B/P (MAP) Pulse Ox O2 Delivery O2 Flow Rate FiO2 01/13/20 09:00 Nasal Cannula 2.0 01/13/20 09:00 60 01/13/20 08:25 82 117/60 01/13/20 08:00 98.1 82 19 117/60 (79) 99 01/13/20 08:00 2.0 01/13/20 07:45 100 Nasal Cannula 2.0 28 01/13/20 04:00 Nasal Cannula 2.0 01/13/20 04:00 97.7 63 18 131/58 (82) 100 01/13/20 04:00 2.0 01/13/20 03:31 73 01/13/20 00:00 66 01/13/20 00:00 Nasal Cannula 2.0 01/13/20 00:00 98.1 66 20 106/56 (73) 100 01/13/20 00:00 2.0 01/12/20 20:46 73 120/63 01/12/20 20:00 2.0 01/12/20 20:00 Nasal Cannula 2.0 01/12/20 20:00 98.3 73 20 120/63 (82) 100 01/12/20 19:43 100 Nasal Cannula 2.0 28 01/12/20 19:29 68 01/12/20 16:00 98.1 62 20 117/57 (77) 100 01/12/20 16:00 Nasal Cannula 2.0 01/12/20 16:00 64 01/12/20 16:00 2.0 I&O Intake and Output 01/12/20 01/13/20 19:00 07:00 Intake Total 550 ml 290 ml Balance 550 ml 290 ml Intake Oral 550 ml 180 ml IV Total 110 ml # Voids 2 2 # Bowel Movements 3 2 Dressing: dry Wound: clean Cardiovascular: RSR Respiratory: clear, decreased breath sounds Abdomen: soft, non-tender, present bowel sounds Extremities: no edema, no tenderness, no cyanosis Laboratory Tests Test 01/12/20 20:43 01/13/20 05:25 01/13/20 11:44 POC Whole Blood Glucose 114 MG/DL (74-106) H 85 MG/DL (74-106) 90 MG/DL (74-106) Plan Problems: (1) Hyperkalemia (2) Non-STEMI (non-ST elevated myocardial infarction) Assessment & Plan: as per cardiology (3) Acute CHF (congestive heart failure) (4) Hypertensive crisis (5) Acute renal failure Assessment & Plan: 84-year-old female history of nephrectomy for renal tumor currently with 1 kidney going into renal insufficiency. Discussed with nephrology and likely needs dialysis. An attempted right femoral hemodialysis catheter insertion was made at the bedside after consent was obtained from patient. Good venous flow identified guidewire placed but unfortunately could not dilate without resistance. No attempts were made given significant resistance and therefore procedure was aborted. Discussed with radiology for placement of internal jugular temporary catheter. Further discussions with patient revealed that she has had multiple times and interventions in the groins. 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 She remembers this post attempt. Will monitor site for hemostasis. Pressure held for approximately 20 minutes until hemostasis noted. Currently no bleeding. Discussed care plan and findings with patient. Will monitor thank you Lucho participate in patient's care on heparin gtt and asa will need to monitor closely for bleeding or hematoma given recent line (6) Anemia (7) CAD (coronary artery disease) (8) Headache (9) Head injury (10) Vomiting (11) HTN (hypertension) (12) HTN (hypertension) (13) Head trauma (14) DM (diabetes mellitus) (15) HLD (hyperlipidemia) (16) Acute coronary syndrome (17) Chronic kidney disease (18) Encounter for removal of sutures (19) Encounter for dressing change or suture removal (20) MAY (acute kidney injury) (21) Vertigo, benign paroxysmal (22) Forehead laceration (23) Episode of generalized weakness (24) Episode of generalized weakness (25) Episode of generalized weakness (26) Episode of generalized weakness (27) Renal failure (ARF), acute on chronic Fernando Ureña Jan 13, 2020 12:49
--- NOTE | 2020-01-13 14:27 | Cardiac Electrophysiology PN ---
Assessment/Plan Assessment/Plan 1. Non-ST elevation myocardial infarction with peak troponin of 2.8 but no chest pain. DCed heparin drip The EKG is not reliable as it is AV paced. The troponin elevation could be also due to renal failure on HD now. Echocardiogram EF 55%. On aspirin, Lopressor 12.5 bid and Lipitor. DW patient the option of medical therapy vs Cardiac cath including the risk of her HD will become permanent after the cath. She would like to proceed with Cath and possible PCI. GIOVANNI Mckenna who also agrees. Awaiting transfer to [facility] 2. Congestive [place] [address]. Patient also has renal failure, creatinine 3.5. Now on HD 3. Hypertension, on metoprolol 12.5 bid and HD. 4. Status post right-sided St Neo permanent pacemaker implantation with Nl Fx 5. Diabetes. 6. Renal failure. Hx of nephrectomy. On HD by Dr. Mckenna. GIOVANNI Mckenna and RN GIOVANNI transfer Ctr to transfer today for cardiac cath tomorrow Subjective Subjective No CP. ECG Paced. Awaiting transfer to [facility] for Cardiac cath Objective Last 24 Hour Vital Signs Date Time Temp Pulse Resp B/P (MAP) Pulse Ox O2 Delivery O2 Flow Rate FiO2 01/13/20 12:00 2.0 01/13/20 09:00 Nasal Cannula 2.0 01/13/20 09:00 60 01/13/20 08:25 82 117/60 01/13/20 08:00 98.1 82 19 117/60 (79) 99 01/13/20 08:00 2.0 01/13/20 07:45 100 Nasal Cannula 2.0 28 01/13/20 04:00 Nasal Cannula 2.0 01/13/20 04:00 97.7 63 18 131/58 (82) 100 01/13/20 04:00 2.0 01/13/20 03:31 73 01/13/20 00:00 66 01/13/20 00:00 Nasal Cannula 2.0 01/13/20 00:00 98.1 66 20 106/56 (73) 100 01/13/20 00:00 2.0 01/12/20 20:46 73 120/63 01/12/20 20:00 2.0 01/12/20 20:00 Nasal Cannula 2.0 01/12/20 20:00 98.3 73 20 120/63 (82) 100 01/12/20 19:43 100 Nasal Cannula 2.0 28 01/12/20 19:29 68 01/12/20 16:00 98.1 62 20 117/57 (77) 100 01/12/20 16:00 Nasal Cannula 2.0 01/12/20 16:00 64 01/12/20 16:00 2.0 Intake and Output 01/12/20 01/13/20 19:00 07:00 Intake Total 550 ml 290 ml Balance 550 ml 290 ml Intake Oral 550 ml 180 ml IV Total 110 ml # Voids 2 2 # Bowel Movements 3 2 Laboratory Tests Test 01/12/20 20:43 01/13/20 05:25 01/13/20 11:44 POC Whole Blood Glucose 114 MG/DL (74-106) H 85 MG/DL (74-106) 90 MG/DL (74-106) Microbiology Date/Time Source Procedure Growth Status 01/11/20 16:36 Straight Cath Urine Culture - Preliminary NO GROWTH AFTER 24 HOURS Resulted Objective HEAD AND NECK: Showed no JVD.Left IG Adrian in place LUNGS: Clear. CARDIOVASCULAR: Regular S1 and S2 with no gallop. Pacemaker is in the right subclavian. ABDOMEN: Soft. EXTREMITIES: No pitting edema. Donnie Bazan MD Jan 13, 2020 14:27
[2020-01-13 16:00] VITALS: BP 129/60
[2020-01-14] MEDS ORDERED: Heparin Sod 1000 units/ml 10ml IV ONE (12:30)
--- NOTE | 2020-01-14 12:36 | Discharge Summary ---
Discharge Summary Discharge Summary _ DATE OF ADMISSION: 01/06/2020 DATE OF DISCHARGE: 01/13/2020 DISCHARGED BY: Dr Murphy REASON FOR ADMISSION: 84 years old female with past medical history of hypertension, diabetes mellitus , coronary artery disease, status post AL x4, history of CVA with right-sided weakness, was brought by paramedics due to increased shortness of breath. Upon evaluation patient noted to be hypoxic . Patient was placed on 100% nonrebreathing mask. WBC 11.7, hemoglobin 8.7, hematocrit 27.5, platelet count 385. Sodium 131, potassium 6.0. BUN 39, creatinine 2.5. Glucose 181. Troponin 0.651 Pro BNP 82261.ECG with paced rhythm, non-diagnostic. Urinalysis revealed pyuria and few bacteria. Chest x-ray demonstrated relatively diffuse increased hazy opacities in the lung with some relative sparing of the left upper lung. This appeared worst in the right mid to lower lung. Pneumonia should be considered. Mild prominence of the cardiac silhouette. In emergency department patient received IV Lasix for hyperkalemia, Lovenox, nitroglycerin , analgesic and admitted to stepdown unit for further management. CONSULTANTS: java mobile developer Dr Suresh pulmonary Dr Navarrete risk control analyst Dr Charlette Mckenna [facility]SE: Patient admitted to stepdown unit. Supplemental oxygen provided and titrated to keep pulse oximetry above 92%. Patient initially required nonrebreathing mask . Pulmonary toilet provided . patient intially started on diuresis with close monitoring of volumes and cardiorenal parameters. Echocardiogram demonstrated preserved ejection fraction 55 to 60% with mild left ventricular hypertrophy. No evidence of wall motion abnormality. Pacemaker wire present in the right-sided chambers. Moderate to severe mitral regurgitation. Moderately elevated left atrial pressure grade 2. Moderate tricuspid regurgitation. Right ventricular systolic pressure of 51 consistent with moderate pulmonary hypertension. Serial troponin were trended; troponin peak 3.52, then started to trend down . Patient was on heparin drip. Patient denied chest pain. EKG was not reliable as it was AV paced. Per java mobile developer, troponin elevation could also be possibly due to renal failure, however given extensive cardiac history, cardiac catheterization was highly recommended. Patient was on antiplatelet therapy with aspirin beta-blockade and statin. Bi Architect discussed with patient medical therapy versus cardiac catheterization . Patient wished to proceed with cardiac cardiac catheterization and possible PCI. Patient was placed on the waiting list for transfer to [facility] . [facility] Supervisor recommended initiation of hemodialysis. Non-tunneled catheter was inserted by interventional radiologist. Hemodialysis provided as per risk control analyst recommendation with close monitoring of volumes , renal paramerts and electrolytes. Hemoglobin and hematocrit were closely monitored. Patient undergone transfusion of 1 unit of packed red blood cells. Epogen initiated. Blood sugar was managed with a sliding scale of insulin and Januvia. Pain management was addressed as needed. GI prophylaxis provided. As patient clinically stabilized , patient was able to be weaned down to oxygen via nasal cannula. Patient subsequently was transferred via [facility] ambulance to [facility] for cardiac catheterization with possible PCI. FINAL DIAGNOSES: NSTEMI Acute CHF with volume overload Renal failure, acute on chronic, requiring initiation of hemodialysis Acute hypoxemic respiratory failure-resolved Hyperkalemia History of nephrectomy Hypertension Diabetes mellitus Pacemaker in situ Coronary artery disease History of AL Anemia DISCHARGE MEDICATIONS: See Medication Reconciliation list. DISCHARGE INSTRUCTIONS: Patient was transferred to [facility] for cardiac catheterization. I have been assigned to dictate discharge summary for this account. I was not involved in the patient's management. Skylar Persaud NP Jan 14, 2020 12:36
== END 2020-01-13 18:20 | DRG 280 ==
LOC: EDBD 23:27 → EMR 23:38 → 2W 23:46 → EDBEDREQ 01-07 05:06
PROC: 05HN33Z Insertion of Infusion Device into Left Internal Jugular Vein, Percutaneous Approach (ICD-10-PCS; 2020-01-07)
PROC: 30233N1 Transfusion of Nonautologous Red Blood Cells into Peripheral Vein, Percutaneous Approach (ICD-10-PCS; principal; 2020-01-09)
DX: I21.4 Non-ST elevation (NSTEMI) myocardial infarction (principal); J96.01 Acute respiratory failure with hypoxia; N17.9 Acute kidney failure, unspecified; I69.351 Hemiplegia and hemiparesis following cerebral infarction affecting right dominant side; I13.0 Hypertensive heart and chronic kidney disease with heart failure and stage 1 through stage 4 chronic kidney disease, or unspecified chronic kidney disease; I16.9 Hypertensive crisis, unspecified; I50.9 Heart failure, unspecified; N18.9 Chronic kidney disease, unspecified; I36.1 Nonrheumatic tricuspid (valve) insufficiency; E87.5 Hyperkalemia; I25.2 Old myocardial infarction; Z95.0 Presence of cardiac pacemaker; I25.10 Atherosclerotic heart disease of native coronary artery without angina pectoris; D64.9 Anemia, unspecified; R51 Headache; S01.81XA Laceration without foreign body of other part of head, initial encounter; X58.XXXA Exposure to other specified factors, initial encounter
CPT/HCPCS: 36415; 36569; 36600; 71045; 76937; 80048; 80053; 80061; 81001; 81003; 82803; 82962; 83540; 83550; 83690; 83880; 84100; 84443; 84484; 85007; 85025; 85379; 85730; 86140; 86705; 86709; 86803; 86850; 86900; 86901; 86920; 87040; 87086; 87340; 93005; 93306; 94664; 96365; 96372; 96375; 99285; J1815; U0002